=== PATIENT | male | born 1940 | race Caucasian/White ===

== ENCOUNTER → 2017-11-21 | Outpatient (CLI) | payer MEDICARE, MEDICAID | LOC: M RAD 09:41 | DX: G37.9 Demyelinating disease of central nervous system, unspecified (principal); I62.9 Nontraumatic intracranial hemorrhage, unspecified | CPT/HCPCS: 70450 ==

== ENCOUNTER 2019-08-25 16:55 | Inpatient (IN) | payer MEDICAID, MEDICARE ==
[~2019-08-25] VITALS: Ht 167.6 cm; Wt 79.5 kg
[~2019-08-25 16:55] MED LIST: ASPI325T OR; ASPI81CH49 PO; CLON-412 OR; FOLI1TAB11 PO; FOLI5INJ2 SC; HEPA100SY INJ; HYDR12CA PO; KEPP250T5 PO; LACT10SO8 OR; LEVA750T OR; MULT1TAB8 PO; MULTIVIT PO; NAFC1INJ IV; OXAZ15CA2 OR; PRED10TA2 OR; PROT1TAB2 OR; SALI0.9I2 IV; THIA100TA PO; TYLE325T5 PO; VITA100T8 PO; VITMTA PO
[2019-08-25 17:20] LABS: BASO # 0.1 10^3/uL (0.0-0.2); BASO % 0.5 % (0.0-1.0); EOS # 0.3 10^3/uL (0.0-0.5); EOS % 3.5 % (0.0-3.0); HEMATOCRIT 37.1 % (42.0-52.0); HEMOGLOBIN 13.2 g/dl (13.5-17.5); LYMPH # 2.4 10^3/uL (1.5-5.0); LYMPH % 25.2 % (24.0-44.0); MEAN CORPUSCULAR HEMOGLOBIN 36.4 pg (27.0-33.0); MEAN CORPUSCULAR HGB CONC 35.6 g/dl (32.0-36.5); MEAN CORPUSCULAR VOLUME 102.2 fl (80.0-96.0); MONO # 0.9 10^3/uL (0.0-0.8); MONO % 9.4 % (0.0-5.0); NEUTROPHILS # 5.7 10^3/uL (1.5-8.5); NEUTROPHILS % 60.9 % (36.0-66.0); PLATELET COUNT, AUTOMATED 159 10^3/uL (150-450); RED BLOOD COUNT 3.63 10^6/uL (4.30-6.10); WHITE BLOOD COUNT 9.4 10^3/uL (4.0-10.0)
[2019-08-25 17:33] LABS: INR 1.16; PROTHROMBIN TIME 14.5 SECONDS (11.8-14.0)
--- NOTE | 2019-08-25 17:42 | REP ---
Portable chest, single AP view with the patient sitting, 05:22 p.m.: Comparison is 10/05/2015. There is a sliver of free air beneath the right hemidiaphragm versus artifact from atelectasis inferiorly in the right lung adjacent to the dome of the right hemidiaphragm. I am unable to make this differentiation on the single portable view provided. Consider follow-up PA and lateral views or CT for further evaluation of this finding. The lung guzmán otherwise clear. Cardiac size is upper normal for AP portable positioning. The shawn and mediastinum are unremarkable. There are arthritic changes in the shoulders. Impression: Free subdiaphragmatic air on the right versus artifact from atelectasis adjacent to the dome of the right hemidiaphragm. Consider follow-up routine PA and lateral views or CT to assist in this differentiation. Electronically Signed by Delfino Issa MD 08/25/2019 05:33 P
[2019-08-25] MEDS: NS 1,000 ML IV SCH ×2 (17:53→22:45)
--- NOTE | 2019-08-25 17:54 | REPVR ---
PROCEDURE INFORMATION: Exam: CT Head without contrast Exam date and time: 08/25/2019 5:21 PM Clinical history: 78 years old, male; Injury or trauma; Fall; Initial encounter; Blunt trauma (contusions or hematomas); Consciousness not specified; Altered mental status/memory loss; Confusion or disorientation TECHNIQUE: Imaging protocol: Computed tomography of the head without contrast. Radiation optimization: All CT scans at this facility use at least one of these dose optimization techniques: automated exposure control; mA and/or kV adjustment per patient size (includes targeted exams where dose is matched to clinical indication); or iterative reconstruction. COMPARISON: CT Head without contrast 11/21/2017 10:01 AM FINDINGS: Brain: Global cerebral atrophy is consistent with patient's age. Decreased attenuation within the white matter tracts of both cerebral hemispheres is nonspecific but typically seen with small vessel disease/chronic white matter ischemic changes of aging. No intracranial hemorrhage or mass effect. Ventricles: Ventriculomegaly consistent with global cerebral atrophy. Bones/joints: Unremarkable. No acute fracture. Sinuses: Visualized sinuses are unremarkable. No fluid levels. Mastoid air cells: Visualized mastoid air cells are well aerated. Soft tissues: Right sided posterior lateral scalp hematoma. Vasculature: Atherosclerosis of the cavernous carotid and vertebral arteries. IMPRESSION: No acute intracranial abnormality. Electronically signed by: Irwin Messina On 08/25/2019 17:54:03 PM
--- NOTE | 2019-08-25 17:57 | REPVR ---
PROCEDURE INFORMATION: Exam: CT Cervical Spine Without Contrast Exam date and time: 08/25/2019 5:21 PM Clinical history: 78 years old, male; Injury or trauma; Fall; Initial encounter; Blunt trauma TECHNIQUE: Imaging protocol: Computed tomography images of the cervical spine without contrast. Radiation optimization: All CT scans at this facility use at least one of these dose optimization techniques: automated exposure control; mA and/or kV adjustment per patient size (includes targeted exams where dose is matched to clinical indication); or iterative reconstruction. COMPARISON: CT Spine,cervical w/o contrast 11/04/2017 9:37 AM FINDINGS: Vertebrae: Congenital incomplete fusion of the posterior arch of C1. No fracture or subluxation. Discs/Spinal canal/Neural foramina: Severe degenerative disc disease and facet arthrosis throughout the cervical spine. Mild bony spinal stenosis at C6-C7. Soft tissues: Unremarkable. Mastoid air cells: Trace inferior mastoid effusions on the right. Clear left mastoids. Lungs: Lung apices are not imaged. Vasculature: Calcified plaque within the proximal right and left internal carotid arteries. IMPRESSION: 1. No fracture or subluxation. 2. 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 Electronically signed by: Irwin Messina On 08/25/2019 17:57:12 PM
[2019-08-25 18:03] LABS: ACETAMINOPHEN LEVEL < 2.0 UG/ML (10.0-30.0); ALBUMIN 4.3 GM/DL (3.2-5.2); ALT/SGPT 24 U/L (12-78); BILIRUBIN,DIRECT 0.4 MG/DL (0.0-0.2); BILIRUBIN,TOTAL 1.6 MG/DL (0.2-1.0); BLOOD UREA NITROGEN 15 MG/DL (7-18); CALCIUM LEVEL 9.1 MG/DL (8.8-10.2); CARBON DIOXIDE LEVEL 23 MEQ/L (21-32); CHLORIDE LEVEL 102 MEQ/L (98-107); CK-MB VALUE MASS 3.5 NG/ML (<3.6); CPK CREATINE PHOSPHOKINASE 105 U/L (39-308); CREATININE FOR GFR 1.13 MG/DL (0.70-1.30); ETHYL ALCOHOL (ETHANOL) < 0.003 % (0.000-0.010); GLOMERULAR FILTRATION RATE > 60.0 (>35); GLUCOSE, FASTING 157 MG/DL (70-100); MB/CK RELATIVE INDEX 3.33 (< OR =4); POTASSIUM SERUM 2.9 MEQ/L (3.5-5.1); SALICYLATE LEVEL < 1.7 MG/DL (5.0-30.0); SODIUM LEVEL 139 MEQ/L (136-145); TROPONIN I < 0.02 NG/ML (< 0.10)
[2019-08-25] MEDS ORDERED: KCL 10MEQ/100ML SWI (KRUN) 10 MEQ in IV 1 EA IV ONE (19:00)
[2019-08-25] MEDS ORDERED: POTASSIUM CHLORIDE 10 MEQ SR TABLET PO ONE (19:00)
--- NOTE | 2019-08-25 19:11 | REPVR ---
PROCEDURE INFORMATION: Exam: CT Chest Without Contrast Exam date and time: 08/25/2019 6:14 PM Clinical history: 78 years old, male; Abnormal findings; Other: Free air TECHNIQUE: Imaging protocol: Computed tomography of the chest without contrast. 3D rendering: MIP reconstructed images were created and reviewed. Radiation optimization: All CT scans at this facility use at least one of these dose optimization techniques: automated exposure control; mA and/or kV adjustment per patient size (includes targeted exams where dose is matched to clinical indication); or iterative reconstruction. COMPARISON: CR PORTABLE CHEST X-RAY 08/25/2019 5:08 PM FINDINGS: Lungs: Mild peribronchial opacities in both the lingula and right middle lobe. Finding may be chronic. Mild bronchiectasis lingula lobe. Parenchymal banding in the right middle lobe may represent atelectasis or fibrotic scarring. Pleural space: Unremarkable. No pneumothorax. No pleural effusion. Heart: There is moderate atherosclerotic calcification of the coronary arteries. Aorta: The aorta demonstrates mild atherosclerotic calcification. There is fusiform dilatation of the ascending thoracic aorta which measures 4.1 cm. maximally. There is no saccular component. Aortic root dilated to 4.2 cm at the mid sinuses of Valsalva level calcifications in the aortic valve. Lymph nodes: Unremarkable. No enlarged lymph nodes. Gallbladder and bile ducts: Cholelithiasis. Bones/joints: The spine demonstrates mild degenerative changes. Soft tissues: Unremarkable. IMPRESSION: 1. Mild bronchiectasis lingula lobe. 2. There is fusiform dilatation of the ascending thoracic aorta which measures 4.1 cm. maximally. There is no saccular component. 3. No acute pulmonary parenchymal findings. Electronically signed by: Eliot Almonte On 08/25/2019 19:10:39 PM
[2019-08-25 19:14] LABS: AMPHETAMINES LEVEL URINE NEGATIVE (NEGATIVE); BARBITURATES URINE NEGATIVE (NEGATIVE); BENZODIAZEPINES URINE NEGATIVE (NEGATIVE); CANNABINOIDS URINE NEGATIVE (NEGATIVE); COCAINE METABOLITE URINE NEGATIVE (NEGATIVE); METHADONE URINE NEGATIVE (NEGATIVE); OPIATES URINE NEGATIVE (NEGATIVE); PHENCYCLIDINE URINE NEGATIVE (NEGATIVE)
--- NOTE | 2019-08-25 19:15 | ECGEPIP ---
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
[2019-08-25] MEDS ORDERED: ACETAMINOPHEN TAB 650MG DOSE (2X325MG) PO PRN (19:45)
--- NOTE | 2019-08-25 19:45 | HPEPDOC ---
[facility] Medical History & Physical Date of Admission Aug 25, 2019 Date of Service: Aug 25, 2019 Primary Care Physician: JEANMARIE HOPKINS MD Attending Physician: NOAH FABIAN MD History and Physical TIME OF SERVICE: 8:30 PM CHIEF COMPLAINT: Seizure HISTORY OF PRESENT ILLNESS: This is an 78-year-old male who presented to the ED after having a seizure. While walking to his car, he started feeling funny. He had a witnessed fall backwards and was noted to be shaking. When he arrived at the ED, he was initially combative, and not answering questions appropriately. Later on he became more lucid corroborated the above information, but denied being combative on arrival. He told the ED provider that his last drink was 2 years ago. But when I asked him, he reported having a beer last night. He denies recently having fever, chills, abdominal pain, nausea, vomiting, headaches, or any acute complaints. He had a laceration at the back of his head was approximated with maddie. Per discussion with the ED provider; The workup including CT of the head, UDS, serum alcohol, & troponin were unremarkable. REVIEW OF SYSTEMS: 12 point review of systems negative except as listed in HPI PAST MEDICAL/ SURGICAL HISTORY: Chronic hypertension. Right shoulder infection status post washout Status post traumatic posterior temporal hemorrhage secondary to fall was managed conservatively SOCIAL HISTORY: Quit smoking Has a history of alcoholism, has attended detox 2 times last had a beer last night FAMILY HISTORY: CVA CAD Seizures ALLERGIES: Please see below. HOME MEDICATIONS: Please see below. PHYSICAL EXAMINATION: VITAL SIGNS: Please see below. GENERAL APPEARANCE: Well-nourished, well-developed, not in apparent distress HEENT: Normocephalic, mucous membranes moist and pink CARDIOVASCULAR: Regular rate and rhythm. No murmurs, rubs or gallops LUNGS: Clear to auscultation bilaterally on room air ABDOMEN: Positive bowel sounds, soft and nontender. Palpation MUSCULOSKELETAL: Range of motion intact in all 4 extremities. Strength 5 out of 5 in all extremities INTEGUMENT: laceration at the back of the head is approximated with maddie NEUROLOGICAL: Cranial 2-12 are grossly intact. Speech is not dysarthric PSYCHIATRIC: Alert and oriented to person, place and time, able to understand and follow commands LABORATORY DATA: See below. IMAGING: CT of head is unremarkable CT of the cervical spine is negative for acute fracture but shows severe degenerative spondylosis of the cervical spine Chest x-ray "Impression: Free subdiaphragmatic air on the right versus artifact from atelectasis adjacent to the dome of the right hemidiaphragm. Consider follow-up routine PA and la teral views or CT to assist in this differentiation. CT chest "IMPRESSION: 1. Mild bronchiectasis lingula lobe. 2. There is fusiform dilatation of the ascending thoracic aorta which measures 4.1 cm. maximally. There is no saccular component. 3. No acute pulmonary parenchymal findings." Carotid ultrasound "IMPRESSION: Moderate bilateral atherosclerotic plaque in the proximal internal carotid arteries was stenoses less than 50% consistent with a mild stenosis using SRU criteria. Moderate atherosclerotic plaque in the common carotid arteries. No significant stenosis." MRA brain "IMPRESSION: Absence of flow-related enhancement within the right intracranial vertebral artery, concerning for occlusion. Recommend correlation with dedicated MRI brain to assess for acute infarct. Additionally, consider further evaluation with CTA head/neck to confirm potential occlusion." MICROBIOLOGY: Please see below. ASSESSMENT: Mr. Alberts is an 78-year-old male with a past medical history of chronic hypertension, and chronic alcoholism who will be admitted for evaluation after having a syncopal episode. PLAN: 1. Syncopal seizure VS Alcohol withdrawal seizure vs CVA CT of the head, entrapped screen and ethanol were unremarkable. MRI of the brain was unremarkable but MRA of the brain showed reduced flow at the right vertebral artery Plan: Admit to PCU/ orthostats / telemetry /fall precautions/seizure precautions/ follow-up prolactin to determine if it was a true seizure /give baby now ASA & f/u lipid panel,A1c, MRI brain, CTA of the head and neck to complete stroke work up / the daytime team can decide if EEG & neurology consult are warranted 2. Altered mental status - resolved May have been post ictal vs metabolic Ammonia is elevated Plan: Follow up coags/frequent neuro checks / lactulose 3. Alcohol abuse Plan: telemetry / seizure precautions / fall precautions / Ativan Q2H PRN per SAS or CIWA protocol / Thiamine 100mg daily, Folic acid 1mg daily, MVI / IVF / Zofran PRN for n/v 4. Hypokalemia Plan: replete K & f/u mag 5. Uncontrolled HTN Plan: Resume home meds 6. Macrocytic Anemia Possibly due to alcohol abuse Plan: f/u CBC /resume vitamins 7.First Degree AV Block Plan; no intervention 8.Thoracic aneurysm Plan; f/u w PCP for surveillance DVT prophylaxis with SCDs. Disposition pending clinical course Vital Signs Vital Signs Date Time Temp Pulse Resp B/P (MAP) Pulse Ox O2 Delivery O2 Flow Rate FiO2 08/25/19 18:40 97 96 Room Air 08/25/19 18:35 157/78 (104) 08/25/19 17:03 98.4 18 Laboratory Data Labs 24H Laboratory Tests 2 08/25/19 17:03: Urine Amphetamines Screen NEGATIVE, Urine Benzodiazepines Screen NEGATIVE, Urine Opiates Screen NEGATIVE, Urine Methadone Screen NEGATIVE, Urine Barbiturates Screen NEGATIVE, Urine Phencyclidine Screen NEGATIVE, Urine Cocaine Metabolite Screen NEGATIVE, Urine Cannabinoids Screen NEGATIVE 08/25/19 17:06: Immature Granulocyte % (Auto) 0.5, White Blood Count 9.4, Red Blood Count 3.63L, Hemoglobin 13.2L, Hematocrit 37.1L, Mean Corpuscular Volume 102.2H, Mean Corpuscular Hemoglobin 36.4H, Mean Corpuscular Hemoglobin Concent 35.6, Red Cell Distribution Width 13.5, Platelet Count 159, Neutrophils (%) (Auto) 60.9, Lymphocytes (%) (Auto) 25.2, Monocytes (%) (Auto) 9.4H, Eosinophils (%) (Auto) 3.5H, Basophils (%) (Auto) 0.5, Neutrophils # (Auto) 5.7, Lymphocytes # (Auto) 2.4, Monocytes # (Auto) 0.9H, Eosinophils # (Auto) 0.3, Basophils # (Auto) 0.1, Nucleated Red Blood Cells % (auto) 0.0, Prothrombin Time 14.5H, Prothromb Time International Ratio 1.16, Anion Gap 14, Glomerular Filtration Rate > 60.0, Calcium Level 9.1, Aspartate Amino Transf (AST/SGOT) 23, Alanine A minotransferase (ALT/SGPT) 24, Alkaline Phosphatase 83, Total Bilirubin 1.6H, Direct Bilirubin 0.4H, Ammonia 39H, Total Creatine Kinase 105, Creatine Kinase MB 3.5, Creatine Kinase MB Relative Index 3.33, Troponin I < 0.02, Total Protein 7.0, Albumin 4.3, Albumin/Globulin Ratio 1.59, Thyroid Stimulating Hormone (TSH) 1.240, Salicylates Level < 1.7L, Acetaminophen Level < 2.0L, Ethyl Alcohol Level < 0.003 CBC/BMP Laboratory Tests 08/25/19 17:06 Red Blood Count 3.63 L, Mean Corpuscular Volume 102.2 H, Mean Corpuscular Hemoglobin 36.4 H, Mean Corpuscular Hemoglobin Concent 35.6, Red Cell Distribution Width 13.5, Neutrophils (%) (Auto) 60.9, Lymphocytes (%) (Auto) 25.2, Monocytes (%) (Auto) 9.4 H, Eosinophils (%) (Auto) 3.5 H, Basophils (%) (Auto) 0.5, Neutrophils # (Auto) 5.7, Lymphocytes # (Auto) 2.4, Monocytes # (Auto) 0.9 H, Eosinophils # (Auto) 0.3, Basophils # (Auto) 0.1 Home Medications Scheduled Folic Acid (Folic Acid) 1 Mg Tablet, 1 MG PO DAILY Hydrochlorothiazide (Hydrochlorothiazide) 12.5 Mg Tablet, 12.5 MG PO DAILY Multivitamin (Multi-Vitamin Daily) 1 Tab Tab, 1 TAB PO DAILY Thiamine HCl (Thiamine HCl) 100 Mg Tablet, 100 MG PO DAILY Scheduled PRN Acetaminophen (Acetaminophen) 325 Mg Tablet, 325 MG PO Q4H PRN for PAIN / FEVER Allergies Coded Allergies: Sulfa (Sulfonamide Antibiotics) (Verified Allergy, Unknown, 08/25/19) A-FIB/CHADSVASC A-FIB History Current/History of A-Fib/PAF?: No Current PO Anticoag Therapy: No NOAH FABIAN MD Aug 25, 2019 19:45
[2019-08-25] MEDS ORDERED: HYDR12.55 PO (20:29)
[2019-08-25] MEDS ORDERED: THIA100T7 PO (20:29)
[2019-08-25] MEDS ORDERED: ACET1TAB55 PO (20:29)
[2019-08-25] MEDS ORDERED: FOLI1TAB11 PO (20:29)
--- NOTE | 2019-08-25 20:57 | REPVR ---
PROCEDURE INFORMATION: Exam: US Duplex Bilateral Extracranial Arteries Exam date and time: 08/25/2019 8:35 PM Clinical history: 78 years old, male; Syncope and collapse TECHNIQUE: Imaging protocol: Real-time Duplex ultrasound scan of the bilateral carotid and vertebral arteries combining gee scale, color Doppler and spectral waveform analysis. Bilateral exam. COMPARISON: CT Head without contrast 08/25/2019 5:17 PM FINDINGS: Right common carotid artery: Moderate mixed atherosclerotic plaque. No occlusion or high-grade stenosis. Waveforms are normal. Right internal carotid artery: Mild mixed atherosclerotic plaque. No occlusion or high-grade stenosis. Waveforms are normal. Right ICA/CCA ratio: Within normal limits. 1.09 Right external carotid artery: No stenosis in the origin. Right vertebral artery: Unremarkable. Antegrade flow Left common carotid artery: Moderate mixed atherosclerotic plaque. No occlusion or high-grade stenosis. Waveforms are normal. Left internal carotid artery: Moderate mixed atherosclerotic plaque. No occlusion or high-grade stenosis. Waveforms are normal. Left ICA/CCA ratio: Within normal limits. 0.49 Left external carotid artery: No stenosis in the origin. Left vertebral artery: Unremarkable. Antegrade flow. IMPRESSION: Moderate bilateral atherosclerotic plaque in the proximal internal carotid arteries was stenoses less than 50% consistent with a mild stenosis using SRU criteria. Moderate atherosclerotic plaque in the common carotid arteries. No significant stenosis. COMMENT: Carotid Stenosis Reference using SRU criteria: Mild: less than 50% stenosis. ICA PSV is less than 125 cm/second and plaque or intimal thickening is visible. Moderate: 50-69% stenosis. ICA PSV is 125 to 230 cm/second and plaque is visible. Severe: 70-94% stenosis. ICA PSV is more than 230 cm/second and visible plaque and lumen narrowing are seen. Near occlusion: 95-99% stenosis. ICA PSV is variable and significant plaque and luminal narrowing are seen. Occluded: 100% stenosis. No flow identified. Electronically signed by: Eliot Almonte On 08/25/2019 20:56:34 PM
--- NOTE | 2019-08-25 21:42 | REPVR ---
PROCEDURE INFORMATION: Exam: MR Angiogram Head Without Contrast, Arteries Exam date and time: 08/25/2019 8:41 PM Clinical history: 78 years old, male; Injury or trauma; Fall; Initial encounter; Wound, open; Without residual foreign body; Head; Injury date: 08/24/19; Additional info: Syncope TECHNIQUE: Imaging protocol: MR angiogram head without contrast. Exam focused on the arteries. 3D rendering: MIP reconstructed images were created and reviewed. COMPARISON: MRI-Brain W/O FOLL BY WITH 11/06/2017 10:24 AM FINDINGS: Right internal carotid artery: Unremarkable. Intracranial segment is patent with no significant stenosis. No aneurysm. Right anterior cerebral artery: Unremarkable. No occlusion or significant stenosis. No aneurysm. Right middle cerebral artery: Unremarkable. No occlusion or significant stenosis. No aneurysm. Right posterior cerebral artery: Unremarkable. No occlusion or significant stenosis. No aneurysm. Right vertebral artery: Absence of flow-related enhancement within the right intracranial vertebral artery. Left internal carotid artery: Unremarkable. Intracranial segment is patent with no significant stenosis. No aneurysm. Left anterior cerebral artery: Unremarkable. No occlusion or significant stenosis. No aneurysm. Left middle cerebral artery: Unremarkable. No occlusion or significant stenosis. No aneurysm. Left posterior cerebral artery: Unremarkable. No occlusion or significant stenosis. No aneurysm. Left vertebral artery: Unremarkable. No occlusion or significant stenosis. No aneurysm. Basilar artery: Unremarkable. No occlusion or significant stenosis. No aneurysm. IMPRESSION: Absence of flow-related enhancement within the right intracranial vertebral artery, concerning for occlusion. Recommend correlation with dedicated MRI brain to assess for acute infarct. Additionally, consider further evaluation with CTA head/neck to confirm potential occlusion. Electronically signed by: Kameron Madrid On 08/25/2019 21:42:02 PM
[2019-08-25 22:00] VITALS: BP_SYST 162; BP_SYST 172; BP_SYST 176; BP_DIAS 73; BP_DIAS 74; BP_DIAS 76
[2019-08-25] MEDS ORDERED: ISOVUE-370 76% 100ML VIAL (Q9967) As Ordered ONE (22:27)
--- NOTE | 2019-08-25 22:49 | REPVR ---
PROCEDURE INFORMATION: Exam: MR Head Without Contrast Exam date and time: 08/25/2019 10:40 PM Clinical history: 78 years old, male; Injury or trauma; Initial encounter; Wound, open; With loss of consciousness; Loss of consciousness for 30 minutes or less; Head, generalized and scalp; Without residual foreign body; Injury date: 08/24/19; Patient HX: Syncope and fall; Additional info: Dizziness TECHNIQUE: Imaging protocol: MR of the head without contrast. COMPARISON: MRA BRAIN W/O CONTRAST 08/25/2019 8:49 PM FINDINGS: Brain: Nonspecific T2/FLAIR hyperintensities of the periventricular and deep subcortical white matter, most likely secondary to chronic small vessel ischemic change. No intracranial hemorrhage or extra-axial fluid collection. No evidence of mass effect or midline shift. No restricted diffusion to suggest acute infarct. Ventricles: Prominence of the ventricles and sulci, likely attributed to parenchymal volume loss. Bones/joints: Unremarkable. Soft tissues: Right parietal scalp hematoma. Sinuses: Unremarkable. Mastoid air cells: No mastoid effusion. Orbits: Unremarkable. IMPRESSION: 1. No MR evidence of acute infarct. 2. Right parietal scalp hematoma. 3. Other chronic findings, as above. Electronically signed by: Kameron Madrid On 08/25/2019 22:49:00 PM
--- NOTE | 2019-08-25 23:14 | REPVR ---
PROCEDURE INFORMATION: Exam: CT Angiography Neck With Contrast Exam date and time: 08/25/2019 10:59 PM Clinical history: 78 years old, male; Dizziness and giddiness TECHNIQUE: Imaging protocol: Computed tomography angiography of the neck with intravenous contrast. 3D rendering: MIP reconstructed images were created and reviewed. Radiation optimization: All CT scans at this facility use at least one of these dose optimization techniques: automated exposure control; mA and/or kV adjustment per patient size (includes targeted exams where dose is matched to clinical indication); or iterative reconstruction. Contrast material: ISOVUE 370; Contrast volume: 100 ml; Contrast route: IV; COMPARISON: CT Spine,cervical w/o contrast 08/25/2019 5:19 PM FINDINGS: VASCULATURE: Right common carotid artery: No significant stenosis. No dissection or occlusion. Right internal carotid artery: Atherosclerotic plaques within the proximal extracranial right internal carotid artery cause approximately 40 % stenosis by NASCET criteria. Remaining portions of the extracranial right ICA are patent. Right external carotid artery: No occlusion or significant stenosis. Right vertebral artery: No significant stenosis. No dissection or occlusion. Left common carotid artery: No significant stenosis. No dissection or occlusion. Left internal carotid artery: Atherosclerotic plaques involving the proximal extracranial left internal carotid artery without evidence of hemodynamically significant stenosis (0% stenosis by NASCET criteria). Left external carotid artery: No occlusion or significant stenosis. Left vertebral artery: No significant stenosis. No dissection or occlusion. NECK: Bones/joints: No acute fracture. Soft tissues: Unremarkable. IMPRESSION: 1. No occlusion or severe stenosis in the arteries of the neck. 2. Other chronic findings, as above. COMMENT: Reference per NASCET criteria for degree of stenosis: Mild: less than 50% stenosis. Moderate: 50-69% stenosis. Severe: 70-94% stenosis. Near occlusion: 95-99% stenosis. Electronically signed by: Kameron Madird On 08/25/2019 23:13:33 PM
[2019-08-25] MEDS ORDERED: ONDANSETRON 4MG/2ML VIAL (J2405) IV PRN (23:15)
[2019-08-25] MEDS ORDERED: ASPIRIN 81 MG CHEW TABLET PO ONE (23:15)
[2019-08-25] MEDS ORDERED: LORazepam 2 MG TAB PO PRN (23:15)
--- NOTE | 2019-08-25 23:15 | REPVR ---
PROCEDURE INFORMATION: Exam: CT Angiography Head With Contrast Exam date and time: 08/25/2019 10:59 PM Clinical history: 78 years old, male; Dizziness and giddiness TECHNIQUE: Imaging protocol: Computed tomography angiography of the head with intravenous contrast. 3D rendering: MIP reconstructed images were created and reviewed. Radiation optimization: All CT scans at this facility use at least one of these dose optimization techniques: automated exposure control; mA and/or kV adjustment per patient size (includes targeted exams where dose is matched to clinical indication); or iterative reconstruction. Contrast material: ISOVUE 370; Contrast volume: 100 ml; Contrast route: IV; COMPARISON: CT Head without contrast 08/25/2019 5:17 PM FINDINGS: Right internal carotid artery: Calcific atherosclerotic changes of the intracranial right internal carotid artery without evidence of hemodynamically significant stenosis. Right anterior cerebral artery: No occlusion or significant stenosis. No aneurysm. Right middle cerebral artery: No occlusion or significant stenosis. No aneurysm. Right posterior cerebral artery: No occlusion or significant stenosis. No aneurysm. Right vertebral artery: Small caliber though otherwise patent intracranial right vertebral artery. Left internal carotid artery: Calcific atherosclerotic changes of the intracranial left internal carotid artery without evidence of hemodynamically significant stenosis. Left anterior cerebral artery: No occlusion or significant stenosis. No aneurysm. Left middle cerebral artery: No occlusion or significant stenosis. No aneurysm. Left posterior cerebral artery: No occlusion or significant stenosis. No aneurysm. Left vertebral artery: No occlusion or significant stenosis. No aneurysm. Basilar artery: No occlusion or significant stenosis. No aneurysm. IMPRESSION: No intracranial arterial occlusion or hemodynamically significant stenosis. Small caliber though otherwise patent intracranial right vertebral artery. Electronically signed by: Kameron Madrid On 08/25/2019 23:15:18 PM
[2019-08-25 23:20] VITALS: BP 176/76
[2019-08-25] MEDS: LACTULOSE 20 GM/30 ML SYRUP UD PO SCH (23:24)
[2019-08-26] VITALS: BP_SYST 141; BP_SYST 142; BP_SYST 163; BP_DIAS 64; BP_DIAS 65; BP_DIAS 76
[2019-08-26 04:00] VITALS: BP_SYST 134; BP_SYST 138; BP_SYST 157; BP_DIAS 63; BP_DIAS 64; BP_DIAS 70
[2019-08-26 05:17] LABS: CHOLESTEROL LEVEL 129 MG/DL (<200); CHOLESTEROL RISK RATIO 2.186 (<5); HDL CHOLESTEROL 59 MG/DL (>40); LDL CHOLESTEROL 58 MG/DL (<100); MAGNESIUM LEVEL 1.9 MG/DL (1.8-2.4); NON-HDL-C 70 MG/DL; TRIGLYCERIDES LEVEL 62 MG/DL (<150)
[2019-08-26 06:00] LABS: POTASSIUM SERUM 3.7 MEQ/L (3.5-5.1)
[2019-08-26 07:42] VITALS: BP 147/65
[2019-08-26 07:44] VITALS: BP 123/60
[2019-08-26 08:00] VITALS: BP 147/67
[2019-08-26 08:08] LABS: HEMATOCRIT 30.9 % (42.0-52.0); HEMOGLOBIN 11.4 g/dl (13.5-17.5); MEAN CORPUSCULAR HEMOGLOBIN 37.1 pg (27.0-33.0); MEAN CORPUSCULAR VOLUME 100.7 fl (80.0-96.0); PLATELET COUNT, AUTOMATED 138 10^3/uL (150-450); RED BLOOD COUNT 3.07 10^6/uL (4.30-6.10); WHITE BLOOD COUNT 7.2 10^3/uL (4.0-10.0)
[2019-08-26 08:10] LABS: MEAN CORPUSCULAR HGB CONC 36.9 g/dl (32.0-36.5)
[2019-08-26] MEDS: LACTULOSE 20 GM/30 ML SYRUP UD PO SCH (08:43)
[2019-08-26] MEDS ORDERED: THIAMINE 100 MG TAB PO SCH (09:00)
[2019-08-26] MEDS ORDERED: hydroCHLOROthiazide 12.5 MG CAPSULE PO SCH (09:00)
[2019-08-26] MEDS ORDERED: MULTIVITAMINS/MINERALS THERAP 1 TAB PO SCH (09:00)
[2019-08-26] MEDS ORDERED: FOLIC ACID 1 MG TAB PO SCH (09:00)
[2019-08-26 10:28] LABS: ALBUMIN 3.5 GM/DL (3.2-5.2); ALT/SGPT 23 U/L (12-78); BILIRUBIN,TOTAL 1.5 MG/DL (0.2-1.0); BLOOD UREA NITROGEN 11 MG/DL (7-18); CALCIUM LEVEL 8.7 MG/DL (8.8-10.2); CARBON DIOXIDE LEVEL 27 MEQ/L (21-32); CHLORIDE LEVEL 109 MEQ/L (98-107); FOLATE 13.4 NG/ML; GLOMERULAR FILTRATION RATE > 60.0 (>35); GLUCOSE, FASTING 89 MG/DL (70-100); TOTAL PROTEIN 6.1 GM/DL (6.4-8.2); VITAMIN B12 LEVEL 671 PG/ML
[2019-08-26 10:34] LABS: SODIUM LEVEL 143 MEQ/L (136-145)
[2019-08-26 12:00] VITALS: BP 150/72
--- NOTE | 2019-08-26 13:23 | DS.PDOC ---
Discharge Summary General Date of Admission Aug 25, 2019 at 19:34 Date of Discharge 08/26/19 Primary Care Physician: JEANMARIE HOPKINS MD Attending Physician: TJ CHAVEZ MD Discharge Summary PROCEDURES PERFORMED DURING STAY: None. ADMITTING DIAGNOSES: 1. Syncope of unknown etiology DISCHARGE DIAGNOSES: 1. Patient left hospital AGAINST MEDICAL ADVICE COMPLICATIONS/CHIEF COMPLAINT: Encephalopathy,Syncopal Seizure. HISTORY OF PRESENT ILLNESS: Patient is an 78-year-old male who presented to the emergency department with a suspected syncopal event. Patient stated that he was getting pizza at a pizza shop when he started feeling "sick". He stated that he was leaving the pizza shop and walking downstairs at which point he had fallen backwards. Patient states that he does not remember what happened and only remembers waking up in the emergency department. He states that he did not feel any feelings of palpitations or shortness of breath. He denied any dizziness before his fall. When the patient arrived in the emergency department, he was combative and not answering questions appropriately. Patient had become more lucid later on in the night. Patient had given. Answers on his alcohol use. He had stated previously in the emergency room that he had not drank alcohol in the past 2 years. He had told the admitting physician that he had drank the night pr eviously. He had subsequently told the daytime hospitalist team that he drinks maybe 4 or 5 beers a day. The patient's workup included a CT of the head, urine drug screen, alcohol, and troponin which were all negative for any acute findings. He did have a right-sided scalp hematoma which was demonstrated on CT and brain MRI. Additionally, the patient was found to have a fusiform dilation of the ascending aorta measuring 4.1 cm. Additionally CTA of the head demonstrated absence of flow related enhancement in the right intracranial vertebral artery, concerning for possible inclusion. Patient was admitted to hospitalist service for further evaluation and management. After admission, the patient had stated that he would like to leave the hospital and did not receive further evaluation. Patient was informed that if he were to leave it would be AGAINST MEDICAL ADVICE as the cause of his syncopal episode had not been determined. Patient was informed of all of his findings and informed that a diagnosis to the cause of his fall had not yet been determined. He was informed that because of causes not be determined that he were to leave the hospital. He would place himself at risk for experiencing her another syncopal episode and which may or may not lead to . Patient voiced that he understands the risks. However, he would like to go home and not stay for further treatment. The patient signed a form stating he will be leaving AGAINST MEDICAL ADVICE. DISCHARGE MEDICATIONS: Please see below. ALLERGIES: Please see below. PHYSICAL EXAMINATION ON DISCHARGE: VITAL SIGNS: Please see below. GENERAL: Awake, alert and oriented, lying in bed, appears in no acute distress HEENT: Patient has a laceration on the back of his head with maddie in place. Trachea is midline. Eyes are nonicteric. Dentition is poor NECK:. No problems cervical, supraclavicular or axillary lymphadenopathy CARDIOVASCULAR EXAMINATION:. Normal S1, S2, regular rate and rhythm. No clicks, rubs or murmurs RESPIRATORY EXAMINATION:. Clear breath sounds bilaterally with good respiratory effort. No wheezes, rhonchi or rales ABDOMINAL EXAMINATION: Obese, nondistended, nontender to palpation in all 4 quadrants. No rebound tenderness or guarding. Positive bowel sounds throughout EXTREMITIES: No edema. Full and equal pulses bilateral upper and lower extremities SKIN: No rashes or lesions NEUROLOGICAL EXAMINATION: No focal neurological deficits. Cranial nerves II through XII grossly intact PSYCHIATRIC EXAMINATION:. Patient is agitated LABORATORY DATA: Please see below. IMAGING: PROCEDURE INFORMATION: Exam: MR Head Without Contrast Exam date and time: 08/25/2019 10:40 PM Clinical history: 78 years old, male; Injury or trauma; Initial encounter; Wound, open; With loss of consciousness; Loss of consciousness for 30 minutes or less; Head, generalized and scalp; Without residual foreign body; Injury date: 08/24/19; Patient HX: Syncope and fall; Additional info: Dizziness TECHNIQUE: Imaging protocol: MR of the head without contrast. COMPARISON: MRA BRAIN W/O CONTRAST 08/25/2019 8:49 PM FINDINGS: Brain: Nonspecific T2/FLAIR hyperintensities of the periventricular and deep subcortical white matter, most likely secondary to chronic small vessel ischemic change. No intracranial hemorrhage or extra-axial fluid collection. No evidence of mass effect or midline shift. No restricted diffusion to suggest acute infarct. Ventricles: Prominence of the ventricles and sulci, likely attributed to parenchymal volume loss. Bones/joints: Unremarkable. Soft tissues: Right parietal scalp hematoma. Sinuses: Unremarkable. Mastoid air cells: No mastoid effusion. Orbits: Unremarkable. IMPRESSION: 1. No MR evidence of acute infarct. 2. Right parietal scalp hematoma. 3. Other chronic findings, as above. Electronically signed by: Kameron Montoya On 08/25/2019 22:49:00 PM DD: KAMERON MONTOYA MD 08/25/19 2240 PROCEDURE INFORMATION: Exam: CT Head without contrast Exam date and time: 08/25/2019 5:21 PM Clinical history: 78 years old, male; Injury or trauma; Fall; Initial encounter; Blunt trauma (contusions or hematomas); Consciousness not specified; Altered mental status/memory loss; Confusion or disorientation TECHNIQUE: Imaging protocol: Computed tomography of the head without contrast. Radiation optimization: All CT scans at this facility use at least one of these dose optimization techniques: automated exposure control; mA and/or kV adjustment per patient size (includes targeted exams where dose is matched to clinical indication); or iterative reconstruction. COMPARISON: CT Head without contrast 11/21/2017 10:01 AM FINDINGS: Brain: Global cerebral atrophy is consistent with patient's age. Decreased attenuation within the white matter tracts of both cerebral hemispheres is nonspecific but typically seen with small vessel disease/chronic white matter ischemic changes of aging. No intracranial hemorrhage or mass effect. Ventricles: Ventriculomegaly consistent with global cerebral atrophy. Bones/joints: Unremarkable. No acute fracture. Sinuses: Visualized sinuses are unremarkable. No fluid levels. Mastoid air cells: Visualized mastoid air cells are well aerated. Soft tissues: Right sided posterior lateral scalp hematoma. Vasculature: Atherosclerosis of the cavernous carotid and vertebral arteries. IMPRESSION: No acute intracranial abnormality. Portable chest, single AP view with the patient sitting, 05:22 p.m.: Comparison is 10/05/2015. There is a sliver of free air beneath the right hemidiaphragm versus artifact from atelectasis inferiorly in the right lung adjacent to the dome of the right hemidiaphragm. I am unable to make this differentiation on the single portable view provided. Consider follow-up PA and lateral views or CT for further evaluation of this finding. The lung guzmán otherwise clear. Cardiac size is upper normal for AP portable positioning. The shawn and mediastinum are unremarkable. There are arthritic changes in the shoulders. Impression: Free subdiaphragmatic air on the right versus artifact from atelectasis adjacent to the dome of the right hemidiaphragm. Consider follow-up routine PA and lateral views or CT to assist in this differentiation. Electronically Signed by Delfino Issa MD 08/25/2019 05:33 P PROCEDURE INFORMATION: Exam: CT Cervical Spine Without Contrast Exam date and time: 08/25/2019 5:21 PM Clinical history: 78 years old, male; Injury or trauma; Fall; Initial encounter; Blunt trauma TECHNIQUE: Imaging protocol: Computed tomography images of the cervical spine without contrast. Radiation optimization: All CT scans at this facility use at least one of these dose optimization techniques: automated exposure control; mA and/or kV adjustment per patient size (includes targeted exams where dose is matched to clinical indication); or iterative reconstruction. COMPARISON: CT Spine,cervical w/o contrast 11/04/2017 9:37 AM FINDINGS: Vertebrae: Congenital incomplete fusion of the posterior arch of C1. No fracture or subluxation. Discs/Spinal canal/Neural foramina: Severe degenerative disc disease and facet arthrosis throughout the cervical spine. Mild bony spinal stenosis at C6-C7. Soft tissues: Unremarkable. Mastoid air cells: Trace inferior mastoid effusions on the right. Clear left mastoids. Lungs: Lung apices are not imaged. Vasculature: Calcified plaque within the proximal right and left internal carotid arteries. IMPRESSION: 1. No fracture or subluxation. 2. 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 Electronically signed by: Irwin Messina On 08/25/2019 17:57:12 PM PROCEDURE INFORMATION: Exam: CT Chest Without Contrast Exam date and time: 08/25/2019 6:14 PM Clinical history: 78 years old, male; Abnormal findings; Other: Free air TECHNIQUE: Imaging protocol: Computed tomography of the chest without contrast. 3D rendering: MIP reconstructed images were created and reviewed. Radiation optimization: All CT scans at this facility use at least one of these dose optimization techniques: automated exposure control; mA and/or kV adjustment per patient size (includes targeted exams where dose is matched to clinical indication); or iterative reconstruction. COMPARISON: CR PORTABLE CHEST X-RAY 08/25/2019 5:08 PM FINDINGS: Lungs: Mild peribronchial opacities in both the lingula and right middle lobe. Finding may be chronic. Mild bronchiectasis lingula lobe. Parenchymal banding in the right middle lobe may represent atelectasis or fibrotic scarring. Pleural space: Unremarkable. No pneumothorax. No pleural effusion. Heart: There is moderate atherosclerotic calcification of the coronary arteries. Aorta: The aorta demonstrates mild atherosclerotic calcification. There is fusiform dilatation of the ascending thoracic aorta which measures 4.1 cm. maximally. There is no saccular component. Aortic root dilated to 4.2 cm at the mid sinuses of Valsalva level calcifications in the aortic valve. Lymph nodes: Unremarkable. No enlarged lymph nodes. Gallbladder and bile ducts: Cholelithiasis. Bones/joints: The spine demonstrates mild degenerative changes. Soft tissues: Unremarkable. IMPRESSION: 1. Mild bronchiectasis lingula lobe. 2. There is fusiform dilatation of the ascending thoracic aorta which measures 4.1 cm. maximally. There is no saccular component. 3. No acute pulmonary parenchymal findings. Electronically signed by: Eliot Almonte On 08/25/2019 19:10:39 PM PROCEDURE INFORMATION: Exam: US Duplex Bilateral Extracranial Arteries Exam date and time: 08/25/2019 8:35 PM Clinical history: 78 years old, male; Syncope and collapse TECHNIQUE: Imaging protocol: Real-time Duplex ultrasound scan of the bilateral carotid and vertebral arteries combining gee scale, color Doppler and spectral waveform analysis. Bilateral exam. COMPARISON: CT Head without contrast 08/25/2019 5:17 PM FINDINGS: Right common carotid artery: Moderate mixed atherosclerotic plaque. No occlusion or high-grade stenosis. Waveforms are normal. Right internal carotid artery: Mild mixed atherosclerotic plaque. No occlusion or high-grade stenosis. Waveforms are normal. Right ICA/CCA ratio: Within normal limits. 1.09 Right external carotid artery: No stenosis in the origin. Right vertebral artery: Unremarkable. Antegrade flow Left common carotid artery: Moderate mixed atherosclerotic plaque. No occlusion or high-grade stenosis. Waveforms are normal. Left internal carotid artery: Moderate mixed atherosclerotic plaque. No occlusion or high-grade stenosis. Waveforms are normal. Left ICA/CCA ratio: Within normal limits. 0.49 Left external carotid artery: No stenosis in the origin. Left vertebral artery: Unremarkable. Antegrade flow. IMPRESSION: Moderate bilateral atherosclerotic plaque in the proximal internal carotid arteries was stenoses less than 50% consistent with a mild stenosis using SRU criteria. Moderate atherosclerotic plaque in the common carotid arteries. No significant stenosis. COMMENT: Carotid Stenosis Reference using SRU criteria: Mild: less than 50% stenosis. ICA PSV is less than 125 cm/second and plaque or intimal thickening is visible. Moderate: 50-69% stenosis. ICA PSV is 125 to 230 cm/second and plaque is visible. Severe: 70-94% stenosis. ICA PSV is more than 230 cm/second and visible plaque and lumen narrowing are seen. Near occlusion: 95-99% stenosis. ICA PSV is variable and significant plaque and luminal narrowing are seen. Occluded: 100% stenosis. No flow identified. Electronically signed by: Eliot Almonte On 08/25/2019 20:56:34 PM ADDENDUM REPORT 2 Upon comparison with followup CTA head, there is small caliber though otherwise patent intracranial right vertebral artery, likely resulting in the poor flow related enhancement within this vessel on this examination. Electronically signed by: Kameron Montoya On 08/25/2019 23:16:06 PM DD: KAMERON MONTOYA MD 08/25/192040 DT: DANIELA 08/25/192315 DS: GRECIA 08/25/192315 ADDENDUM REPORT 1 THIS REPORT CONTAINS FINDINGS THAT MAY BE CRITICAL TO PATIENT CARE. The findings were verbally communicated via telephone conference with NOAH FABIAN at 9:47 PM EDT on 08/25/2019. The findings were acknowledged and understood. Electronically signed by: Kameron Montoya On 08/25/2019 21:48:03 PM DD: KAMERON MONTOYA MD 08/25/192040 DT: DANIELA 08/25/192147 DS: GRECIA 08/25/192147 PROCEDURE INFORMATION: Exam: MR Angiogram Head Without Contrast, Arteries Exam date and time: 08/25/2019 8:41 PM Clinical history: 78 years old, male; Injury or trauma; Fall; Initial encounter; Wound, open; Without residual foreign body; Head; Injury date: 08/24/19; Additional info: Syncope TECHNIQUE: Imaging protocol: MR angiogram head without contrast. Exam focused on the arteries. 3D rendering: MIP reconstructed images were created and reviewed. COMPARISON: MRI-Brain W/O FOLL BY WITH 11/06/2017 10:24 AM FINDINGS: Right internal carotid artery: Unremarkable. Intracranial segment is patent with no significant stenosis. No aneurysm. Right anterior cerebral artery: Unremarkable. No occlusion or significant stenosis. No aneurysm. Right middle cerebral artery: Unremarkable. No occlusion or significant stenosis. No aneurysm. Right posterior cerebral artery: Unremarkable. No occlusion or significant stenosis. No aneurysm. Right vertebral artery: Absence of flow-related enhancement within the right intracranial vertebral artery. Left internal carotid artery: Unremarkable. Intracranial segment is patent with no significant stenosis. No aneurysm. Left anterior cerebral artery: Unremarkable. No occlusion or significant stenosis. No aneurysm. Left middle cerebral artery: Unremarkable. No occlusion or significant stenosis. No aneurysm. Left posterior cerebral artery: Unremarkable. No occlusion or significant stenosis. No aneurysm. Left vertebral artery: Unremarkable. No occlusion or significant stenosis. No aneurysm. Basilar artery: Unremarkable. No occlusion or significant stenosis. No aneurysm. IMPRESSION: Absence of flow-related enhancement within the right intracranial vertebral artery, concerning for occlusion. Recommend correlation with dedicated MRI brain to assess for acute infarct. Additionally, consider further evaluation with CTA head/neck to confirm potential occlusion. Electronically signed by: Kameron Montoya On 08/25/2019 21:42:02 PM PROCEDURE INFORMATION: Exam: CT Angiography Neck With Contrast Exam date and time: 08/25/2019 10:59 PM Clinical history: 78 years old, male; Dizziness and giddiness TECHNIQUE: Imaging protocol: Computed tomography angiography of the neck with intravenous contrast. 3D rendering: MIP reconstructed images were created and reviewed. Radiation optimization: All CT scans at this facility use at least one of these dose optimization techniques: automated exposure control; mA and/or kV adjustment per patient size (includes targeted exams where dose is matched to clinical indication); or iterative reconstruction. Contrast material: ISOVUE 370; Contrast volume: 100 ml; Contrast route: IV; COMPARISON: CT Spine,cervical w/o contrast 08/25/2019 5:19 PM FINDINGS: VASCULATURE: Right common carotid artery: No significant stenosis. No dissection or occlusion. Right internal carotid artery: Atherosclerotic plaques within the proximal extracranial right internal carotid artery cause approximately 40 % stenosis by NASCET criteria. Remaining portions of the extracranial right ICA are patent. Right external carotid artery: No occlusion or significant stenosis. Right vertebral artery: No significant stenosis. No dissection or occlusion. Left common carotid artery: No significant stenosis. No dissection or occlusion. Left internal carotid artery: Atherosclerotic plaques involving the proximal extracranial left internal carotid artery without evidence of hemodynamically significant stenosis (0% stenosis by NASCET criteria). Left external carotid artery: No occlusion or significant stenosis. Left vertebral artery: No significant stenosis. No dissection or occlusion. NECK: Bones/joints: No acute fracture. Soft tissues: Unremarkable. IMPRESSION: 1. No occlusion or severe stenosis in the arteries of the neck. 2. Other chronic findings, as above. COMMENT: Reference per NASCET criteria for degree of stenosis: Mild: less than 50% stenosis. Moderate: 50-69% stenosis. Severe: 70-94% stenosis. Near occlusion: 95-99% stenosis. Electronically signed by: Kameron Montoya On 08/25/2019 23:13:33 PM PROCEDURE INFORMATION: Exam: CT Angiography Head With Contrast Exam date and time: 08/25/2019 10:59 PM Clinical history: 78 years old, male; Dizziness and giddiness TECHNIQUE: Imaging protocol: Computed tomography angiography of the head with intravenous contrast. 3D rendering: MIP reconstructed images were created and reviewed. Radiation optimization: All CT scans at this facility use at least one of these dose optimization techniques: automated exposure control; mA and/or kV adjustment per patient size (includes targeted exams where dose is matched to clinical indication); or iterative reconstruction. Contrast material: ISOVUE 370; Contrast volume: 100 ml; Contrast route: IV; COMPARISON: CT Head without contrast 08/25/2019 5:17 PM FINDINGS: Right internal carotid artery: Calcific atherosclerotic changes of the intracranial right internal carotid artery without evidence of hemodynamically significant stenosis. Right anterior cerebral artery: No occlusion or significant stenosis. No aneurysm. Right middle cerebral artery: No occlusion or significant stenosis. No aneurysm. Right posterior cerebral artery: No occlusion or significant stenosis. No aneurysm. Right vertebral artery: Small caliber though otherwise patent intracranial right vertebral artery. Left internal carotid artery: Calcific atherosclerotic changes of the intracranial left internal carotid artery without evidence of hemodynamically significant stenosis. Left anterior cerebral artery: No occlusion or significant stenosis. No aneurysm. Left middle cerebral artery: No occlusion or significant stenosis. No aneurysm. Left posterior cerebral artery: No occlusion or significant stenosis. No aneurysm. Left vertebral artery: No occlusion or significant stenosis. No aneurysm. Basilar artery: No occlusion or significant stenosis. No aneurysm. IMPRESSION: No intracranial arterial occlusion or hemodynamically significant stenosis. Small caliber though otherwise patent intracranial right vertebral artery. Electronically signed by: Kameron Montoya On 08/25/2019 23:15:18 PM PROGNOSIS: Patient's cause of syncope/fall remains undetermined and therefore unable to assess patient's full prognosis ACTIVITY: As tolerated. DIET: As tolerated DISCHARGE PLAN:. Patient left AGAINST MEDICAL ADVICE. He was informed of the risk of leaving without having a formal diagnosis for the cause of his fall\\syncopal episode. He was informed that leaving AGAINST MEDICAL ADVICE could result in further harm to himself, including . The patient was urged to follow-up with his primary care physician and Neurologist. The patient stated that he would do so. The patient was advised not to operate heavy machinery or a motor vehicle. He was instructed not to swim or climb ladders. He was informed that a second episode could result in another fall causing further harm. The patient had voiced understanding of the risks of leaving AGAINST MEDICAL ADVICE DISCHARGE CONDITION: Stable. I saw and evaluated the patient. I agree with the findings and plan of care as documented in the documenters note. I spent 45 minutes coordinating this patient's discharge. Patient electively possibly has medical advice sensitive efforts were made by multiple providers in order to increase patient's remaining hospital for more thorough workup and evaluation and monitoring. Including myself. Patient understands risks and benefits of surgery including and let's leave the hospital AGAINST MEDICAL ADVICE. Great efforts made in order to arrange for a safe disposition as the patient would allow for. Patient states he feels fine and does not feel with the workup is needed despite medical opinion to the contrary with lengthy expirations all questions answered to his satisfa ction Vital Signs/I&Os Vital Signs Date Time Temp Pulse Resp B/P (MAP) Pulse Ox O2 Delivery O2 Flow Rate FiO2 08/26/19 08:00 72 147/67 08/26/19 08:00 98.4 16 95 08/25/19 18:40 Room Air I&O- Last 24 Hours up to 6 AM 08/26/19 05:59 Intake Total 1320 ml Output Total 350 ml Balance 970 ml Laboratory Data Labs 24H Laboratory Tests 2 08/25/19 17:03: Urine Amphetamines Screen NEGATIVE, Urine Benzodiazepines Screen NEGATIVE, Urine Opiates Screen NEGATIVE, Urine Methadone Screen NEGATIVE, Urine Barbiturates Screen NEGATIVE, Urine Phencyclidine Screen NEGATIVE, Urine Cocaine Metabolite Screen NEGATIVE, Urine Cannabinoids Screen NEGATIVE 08/25/19 17:06: Immature Granulocyte % (Auto) 0.5, White Blood Count 9.4, Red Blood Count 3.63L, Hemoglobin 13.2L, Hematocrit 37.1L, Mean Corpuscular Volume 102.2H, Mean Corpuscular Hemoglobin 36.4H, Mean Corpuscular Hemoglobin Concent 35.6, Red Cell Distribution Width 13.5, Platelet Count 159, Neutrophils (%) (Auto) 60.9, Lymphocytes (%) (Auto) 25.2, Monocytes (%) (Auto) 9.4H, Eosinophils (%) (Auto) 3.5H, Basophils (%) (Auto) 0.5, Neutrophils # (Auto) 5.7, Lymphocytes # (Auto) 2.4, Monocytes # (Auto) 0.9H, Eosinophils # (Auto) 0.3, Basophils # (Auto) 0.1, Nucleated Red Blood Cells % (auto) 0.0, Prothrombin Time 14.5H, Prothromb Time International Ratio 1.16, Anion Gap 14, Glomerular Filtration Rate > 60.0, Calcium Level 9.1, Aspartate Amino Transf (AST/SGOT) 23, Alanine Aminotransferase (ALT/SGPT) 24, Alkaline Phosphatase 83, Total Bilirubin 1.6H, Direct Bilirubin 0.4H, Ammonia 39H, Total Creatine Kinase 105, Creatine Kinase MB 3.5, Creatine Kinase MB Relative Index 3.33, Troponin I < 0.02, Total Protein 7.0, Albumin 4.3, Albumin/Globulin Ratio 1.59, Thyroid Stimulating Hormone (TSH) 1.240, Salicylates Level < 1.7L, Acetaminophen Level < 2.0L, Ethyl Alcohol Level < 0.003 08/26/19 04:29: Nucleated Red Blood Cells % (auto) 0.0, Anion Gap 7L, Glomerular Filtration Rate > 60.0, Calcium Level 8.7L, Aspartate Amino Transf (AST/SGOT) 24, Alanine Aminotransferase (ALT/SGPT) 23, Alkaline Phosphatase 73, Total Bilirubin 1.5H, Total Protein 6.1L, Albumin 3.5, Albumin/Globulin Ratio 1.35, Blood Urea Nitrogen 11, Creatinine 0.90, Sodium Level 143, Potassium Level 3.7#, Chloride Level 109H, Carbon Dioxide Level 27, Triglycerides Level 62, LDL Cholesterol 58, Magnesium Level 1.9, Total Cholesterol 129, Non-HDL Cholesterol (LDL + VLDL) 70, Total HDL Cholesterol 59, Cholesterol/HDL Ratio 2.186, Vitamin B12 Level 671, Folate 13.4, Prolactin 6.0 CBC/BMP Laboratory Tests 08/25/19 17:06 Red Blood Count 3.63 L, Mean Corpuscular Volume 102.2 H, Mean Corpuscular Hemoglobin 36.4 H, Mean Corpuscular Hemoglobin Concent 35.6, Red Cell Distribution Width 13.5, Neutrophils (%) (Auto) 60.9, Lymphocytes (%) (Auto) 25.2, Monocytes (%) (Auto) 9.4 H, Eosinophils (%) (Auto) 3.5 H, Basophils (%) (Auto) 0.5, Neutrophils # (Auto) 5.7, Lymphocytes # (Auto) 2.4, Monocytes # (Auto) 0.9 H, Eosinophils # (Auto) 0.3, Basophils # (Auto) 0.1 08/26/19 04:29 Red Blood Count 3.07 L, Mean Corpuscular Volume 100.7 H, Mean Corpuscular Hemoglobin 37.1 H, Mean Corpuscular Hemoglobin Concent 36.9 H, Red Cell Distribution Width 13.2, Calcium Level 8.7 L, Aspartate Amino Transf (AST/SGOT) 24, Alanine Aminotransferase (ALT/SGPT) 23, Alkaline Phosphatase 73, Total Bilirubin 1.5 H, Triglycerides Level 62, LDL Cholesterol 58, Total Protein 6.1 L, Albumin 3.5 Discharge Medications Scheduled Folic Acid (Folic Acid) 1 Mg Tablet, 1 MG PO DAILY, (Reported) Hydrochlorothiazide (Hydrochlorothiazide) 12.5 Mg Tablet, 12.5 MG PO DAILY, (Reported) Multivitamin (Multi-Vitamin Daily) 1 Tab Tab, 1 TAB PO DAILY, (Reported) Thiamine HCl (Thiamine HCl) 100 Mg Tablet, 100 MG PO DAILY, (Reported) Scheduled PRN Acetaminophen (Acetaminophen) 325 Mg Tablet, 325 MG PO Q4H PRN for PAIN / FEVER, (Reported) Allergies Coded Allergies: Sulfa (Sulfonamide Antibiotics) (Verified Allergy, Unknown, 08/25/19) VAZQUEZ ORONA DO Aug 26, 2019 13:22 TJ CHAVEZ MD Aug 28, 2019 11:38
== END 2019-08-26 13:03 | disposition left against medical advice (07) | DRG 312 ==
LOC: M ED 16:55 → EDBD 16:55 → M ED INP 19:34 → M ICU 21:51
PROVIDERS: ADMIT Internal Medicine; ATTEND Internal Medicine
DX: R55 Syncope and collapse (principal); F10.239 Alcohol dependence with withdrawal, unspecified; G93.40 Encephalopathy, unspecified; I10 Essential (primary) hypertension; R56.9 Unspecified convulsions; E87.6 Hypokalemia; D53.9 Nutritional anemia, unspecified; I44.0 Atrioventricular block, first degree; I71.2 Thoracic aortic aneurysm, without rupture; Z79.899 Other long term (current) drug therapy; Z88.2 Allergy status to sulfonamides; Z87.891 Personal history of nicotine dependence; S00.03XA Contusion of scalp, initial encounter; W19.XXXA Unspecified fall, initial encounter; Y92.481 Parking lot as the place of occurrence of the external cause; Y99.8 Other external cause status

== ENCOUNTER 2020-05-22 01:13 | Emergency (ER) | payer MEDICARE ==
[~2020-05-22] VITALS: Ht 172.7 cm; Wt 84.8 kg
[~2020-05-22 01:13] MED LIST changes: +ACET1TAB55 PO; +HYDR12.55 PO; +THIA100T7 PO
[2020-05-22 01:48] LABS: BASO # 0.1 10^3/uL (0.0-0.2); BASO % 0.8 % (0.0-1.0); EOS # 0.2 10^3/uL (0.0-0.5); HEMATOCRIT 37.2 % (42.0-52.0); HEMOGLOBIN 13.3 g/dl (13.5-17.5); LYMPH # 2.2 10^3/uL (1.5-5.0); LYMPH % 27.6 % (24.0-44.0); MEAN CORPUSCULAR HEMOGLOBIN 37.5 pg (27.0-33.0); MEAN CORPUSCULAR HGB CONC 35.8 g/dl (32.0-36.5); MEAN CORPUSCULAR VOLUME 104.8 fl (80.0-96.0); MONO # 0.8 10^3/uL (0.0-0.8); MONO % 10.4 % (0.0-5.0); NEUTROPHILS # 4.6 10^3/uL (1.5-8.5); NEUTROPHILS % 57.7 % (36.0-66.0); PLATELET COUNT, AUTOMATED 149 10^3/uL (150-450); RED BLOOD COUNT 3.55 10^6/uL (4.30-6.10); WHITE BLOOD COUNT 7.9 10^3/uL (4.0-10.0)
[2020-05-22 02:17] LABS: ACETAMINOPHEN LEVEL < 2.0 UG/ML (10.0-30.0); ALT/SGPT 31 U/L (12-78); BILIRUBIN,DIRECT 0.5 MG/DL (0.0-0.2); BILIRUBIN,TOTAL 1.5 MG/DL (0.2-1.0); BLOOD UREA NITROGEN 11 MG/DL (7-18); CALCIUM LEVEL 8.8 MG/DL (8.8-10.2); CARBON DIOXIDE LEVEL 25 MEQ/L (21-32); CHLORIDE LEVEL 104 MEQ/L (98-107); CREATININE FOR GFR 1.14 MG/DL (0.70-1.30); ETHYL ALCOHOL (ETHANOL) 0.005 % (0.000-0.010); GLOMERULAR FILTRATION RATE > 60.0 (>35); GLUCOSE, FASTING 157 MG/DL (70-100); POTASSIUM SERUM 2.9 MEQ/L (3.5-5.1); SALICYLATE LEVEL < 1.7 MG/DL (5.0-30.0); SODIUM LEVEL 141 MEQ/L (136-145); TOTAL PROTEIN 7.2 GM/DL (6.4-8.2)
--- NOTE | 2020-05-22 02:59 | REPVR ---
PROCEDURE INFORMATION: Exam: CT Head Without Contrast Exam date and time: 05/22/2020 1:43 AM Age: 79 years old Clinical indication: Altered mental status/memory loss; Confusion or disorientation; Additional info: AMS TECHNIQUE: Imaging protocol: Computed tomography of the head without contrast. Radiation optimization: All CT scans at this facility use at least one of these dose optimization techniques: automated exposure control; mA and/or kV adjustment per patient size (includes targeted exams where dose is matched to clinical indication); or iterative reconstruction. COMPARISON: CT Head without contrast 08/25/2019 5:17 PM FINDINGS: Brain: There is no acute intracranial abnormality. Moderate prominence of ventricles and sulci representing volume loss. Moderate small vessel ischemic changes are seen. There is no mass, midline shift, or mass effect. Hernandez-white matter differentiation is preserved. There is no evidence of hemorrhage. There is no extra-axial fluid collection. Basal cisterns are patent. 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 Calcified meningioma in the anterior interhemispheric fissure on the right measuring 1 cm. Ventricles: See "Brain" finding. Bones/joints: Unremarkable. No acute fracture. Sinuses: Mild mucosal thickening of the ethmoidal air cells and left maxillary sinus. Mucous retention cyst in left maxillary sinus. Mastoid air cells: Visualized mastoid air cells are well aerated. Soft tissues: Unremarkable. IMPRESSION: 1. Moderate volume loss and small vessel ischemic changes. 2. No acute intracranial abnormality. Electronically signed by: Maureen Billingsley On 05/22/2020 02:58:40 AM
[2020-05-22 03:16] LABS: AMPHETAMINES LEVEL URINE NEGATIVE (NEGATIVE); BARBITURATES URINE NEGATIVE (NEGATIVE); BENZODIAZEPINES URINE NEGATIVE (NEGATIVE); CANNABINOIDS URINE NEGATIVE (NEGATIVE); COCAINE METABOLITE URINE NEGATIVE (NEGATIVE); METHADONE URINE NEGATIVE (NEGATIVE); OPIATES URINE NEGATIVE (NEGATIVE); PHENCYCLIDINE URINE NEGATIVE (NEGATIVE)
[2020-05-22 03:29] VITALS: BP 200/91
[2020-05-22] MEDS ORDERED: POTASSIUM CHLORIDE 10 MEQ SR TABLET PO ONE (03:30)
[2020-05-22] MEDS ORDERED: hydrALAZINE 20MG/ML 1ML VIAL (J0360 PER 20MG) IV ONE (03:30)
[2020-05-22] MEDS ORDERED: ISOVUE-370 76% 100ML VIAL As Ordered ONE ×2 (03:33→03:46)
--- NOTE | 2020-05-22 04:28 | REPVR ---
PROCEDURE INFORMATION: Exam: CT Angiography Chest With Contrast Exam date and time: 05/22/2020 3:27 AM Age: 79 years old Clinical indication: Dyspnea; Additional info: Dysp TECHNIQUE: Imaging protocol: Computed tomographic angiography of the chest with intravenous contrast. 3D rendering: MIP and/or 3D reconstructed images were created by the technologist. Radiation optimization: All CT scans at this facility use at least one of these dose optimization techniques: automated exposure control; mA and/or kV adjustment per patient size (includes targeted exams where dose is matched to clinical indication); or iterative reconstruction. Contrast material: ISO; Contrast volume: 75 ml; Contrast route: INTRAVENOUS (IV); COMPARISON: CT Chest without contrast 08/25/2019 6:27 PM FINDINGS: Pulmonary arteries: Normal. No pulmonary emboli in the major vessels. Aorta: Atherosclerosis of the aorta and its branches. Coronary calcifications. Ascending thoracic aorta is borderline enlarged measuring 3.8 x 4.0 cm. Lungs: Mild bilateral ground-glass opacities in the visualized lungs likely mild edema. Eventration of the right hemidiaphragm with right base atelectasis. Low lung volumes. Mild atelectasis versus scarring in the right middle lobe, stable. Pleural space: Unremarkable. No pneumothorax. No pleural effusion. Heart: Cardiomegaly. Lymph nodes: Unremarkable. No enlarged lymph nodes. Gallbladder and bile ducts: Multiple gallstones. Spleen: Spleen is enlarged measuring 14.6 cm. Bones/joints: Diffuse demineralization of the bones with degenerative changes. Few scattered cystic lucencies in the vertebral bodies, similar to previous study. Soft tissues: Unremarkable. IMPRESSION: Mild bilateral ground-glass opacities in the visualized lungs likely mild edema. Eventration of the right hemidiaphragm with right base atelectasis. Low lung volumes. Mild atelectasis versus scarring in the right middle lobe, stable. No evidence of pulmonary embolism given limitation of the motion artifact. Electronically signed by: Maureen Billingsley On 05/22/2020 04:27:48 AM
[2020-05-22 05:00] VITALS: BP 151/72
--- NOTE | 2020-05-22 16:21 | ECGEPIP ---
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
== END 2020-05-22 05:17 | disposition home or self-care (01) ==
LOC: EDBD 01:13 → M ED 01:13
DX: I10 Essential (primary) hypertension (principal); R00.0 Tachycardia, unspecified; I44.30 Unspecified atrioventricular block; I25.2 Old myocardial infarction; F10.10 Alcohol abuse, uncomplicated; R91.8 Other nonspecific abnormal finding of lung field; Z79.899 Other long term (current) drug therapy; Z88.2 Allergy status to sulfonamides
CPT/HCPCS: 70450; 71275; 80047; 80048; 80076; 80307; 84443; 84484; 85025; 93005; 93041; 94760; 96374; 99285; G0480; J0360; Q9967

== ENCOUNTER 2022-03-20 22:07 | Inpatient (IN) | payer MEDICARE, MEDICAID ==
[~2022-03-20] VITALS: Ht 167.6 cm; Wt 64.5 kg
[~2022-03-20 22:07] MED LIST changes: +ASPI-161 PO; +ATOR1TAB21 PO; +COLA100C5 PO; +DIGO0.253 PO; +FERR1TAB8 PO; +FLOM0.4C39 PO; +HYDR-3490 PO; +PANT40TA29 PO; +SUCR1TA PO
[2022-03-20 23:08] LABS: BASO % 0.4 % (0.0-1.0); EOS # 0.2 10^3/uL (0.0-0.5); EOS % 3.3 % (0.0-3.0); HEMATOCRIT 23.5 % (42.0-52.0); HEMOGLOBIN 7.9 g/dl (13.5-17.5); LYMPH # 0.2 10^3/uL (1.5-5.0); LYMPH % 3.9 % (24.0-44.0); MEAN CORPUSCULAR HEMOGLOBIN 32.9 pg (27.0-33.0); MEAN CORPUSCULAR HGB CONC 33.6 g/dl (32.0-36.5); MEAN CORPUSCULAR VOLUME 97.9 fl (80.0-96.0); MONO # 0.5 10^3/uL (0.0-0.8); NEUTROPHILS # 4.2 10^3/uL (1.5-8.5); PLATELET COUNT, AUTOMATED 164 10^3/uL (150-450); WHITE BLOOD COUNT 5.1 10^3/uL (4.0-10.0)
[2022-03-20] MEDS ORDERED: DOCU100C16 PO (23:35)
[2022-03-20] MEDS ORDERED: DIGO0.253 PO (23:35)
[2022-03-20] MEDS ORDERED: FERR325T18 PO (23:35)
[2022-03-20 23:46] LABS: ALBUMIN 2.3 GM/DL (3.2-5.2); ALT/SGPT 16 U/L (12-78); BILIRUBIN,DIRECT 0.2 MG/DL (0.0-0.2); BILIRUBIN,TOTAL 0.8 MG/DL (0.2-1.0); BLOOD UREA NITROGEN 10 MG/DL (7-18); CALCIUM LEVEL 8.3 MG/DL (8.8-10.2); CARBON DIOXIDE LEVEL 26 MEQ/L (21-32); CHLORIDE LEVEL 106 MEQ/L (98-107); CREATININE FOR GFR 0.52 MG/DL (0.70-1.30); GLOMERULAR FILTRATION RATE > 60.0 (>35); GLUCOSE, FASTING 95 MG/DL (70-100); LIPASE 468 U/L (73-393); POTASSIUM SERUM 4.1 MEQ/L (3.5-5.1); SODIUM LEVEL 139 MEQ/L (136-145)
[2022-03-20] MEDS ORDERED: ACET-907 PO (23:52)
[2022-03-20] MEDS ORDERED: THIA100T7 PO (23:52)
[2022-03-20] MEDS ORDERED: PANT40TA29 PO (23:52)
[2022-03-20] MEDS ORDERED: DULC10SU2 PR (23:52)
[2022-03-20] MEDS ORDERED: SUCR1TA PO (23:52)
[2022-03-20] MEDS ORDERED: MILKSUS3 PO (23:52)
[2022-03-20] MEDS ORDERED: FOLI1TAB11 PO (23:52)
[2022-03-20] MEDS ORDERED: FLEEENE12 PR (23:52)
[2022-03-20] MEDS ORDERED: FLOM0.4C39 PO (23:52)
[2022-03-20] MEDS ORDERED: ATOR80TA59 PO (23:52)
[2022-03-20] MEDS ORDERED: HOME MED LIST COMPLETE! XX SCH (23:55)
[2022-03-21] MEDS ORDERED: ACETAMINOPHEN TAB 650MG DOSE (2X325MG) PO ONE (01:50)
[2022-03-21] MEDS ORDERED: NS 500 ML IV ONE (01:50)
[2022-03-21 03:53] LABS: BASO % 0.4 % (0.0-1.0); EOS # 0.2 10^3/uL (0.0-0.5); EOS % 4.2 % (0.0-3.0); HEMATOCRIT 26.4 % (42.0-52.0); HEMOGLOBIN 8.7 g/dl (13.5-17.5); LYMPH # 0.3 10^3/uL (1.5-5.0); LYMPH % 6.1 % (24.0-44.0); MEAN CORPUSCULAR HEMOGLOBIN 32.6 pg (27.0-33.0); MEAN CORPUSCULAR VOLUME 98.9 fl (80.0-96.0); MONO # 0.5 10^3/uL (0.0-0.8); MONO % 10.4 % (2.0-8.0); NEUTROPHILS # 3.8 10^3/uL (1.5-8.5); NEUTROPHILS % 78.3 % (36.0-66.0); PLATELET COUNT, AUTOMATED 175 10^3/uL (150-450); RED BLOOD COUNT 2.67 10^6/uL (4.30-6.10); WHITE BLOOD COUNT 4.8 10^3/uL (4.0-10.0)
[2022-03-21] MEDS ORDERED: BISACODYL 10 MG SUPP PR PRN (05:00)
[2022-03-21] MEDS ORDERED: ACETAMINOPHEN TAB 650MG DOSE (2X325MG) PO PRN (05:00)
[2022-03-21] MEDS ORDERED: cefTRIAXone SOD 1 GM in D5W MINI-BAG PLUS 50 ML IV SCH (05:00)
[2022-03-21] MEDS ORDERED: DEXTROSE 50% 50 ML SYRINGE IV PRN (05:15)
[2022-03-21] MEDS ORDERED: GLUCOSE 4GM CHEW TABLET PO PRN (05:15)
[2022-03-21] MEDS ORDERED: GLUCAGON INJ 1MG VIAL SC PRN (05:15)
[2022-03-21] MEDS: LevoFLOXacin IV 750 MG in IV 1 EA IV SCH (06:22)
[2022-03-21 07:12] LABS: INR 1.16; PROTHROMBIN TIME 15.2 SECONDS (12.7-14.5)
[2022-03-21] MEDS: PANTOPRAZOLE 40MG TAB (PROTONIX) PO SCH (09:37)
[2022-03-21] MEDS: TAMSULOSIN 0.4 MG CAP PO SCH (09:37)
[2022-03-21] MEDS: HEPARIN SOD (PORCINE) 5000UNITS/ML 1ML VIAL/SYRINGE SC SCH ×2 (09:37→19:54)
[2022-03-21] MEDS: SUCRALFATE 1 GM TAB PO SCH ×3 (09:37→17:21)
[2022-03-21] MEDS: ASPIRIN 81MG ENTERIC TABLET PO SCH (09:37)
[2022-03-21] MEDS: THIAMINE 100 MG TAB PO SCH (09:37)
[2022-03-21] MEDS: MULTIVITAMINS/MINERALS THERAP 1 TAB PO SCH (09:37)
[2022-03-21] MEDS: FERROUS SULFATE 325MG TAB PO SCH (09:37)
[2022-03-21] MEDS: FOLIC ACID 1 MG TAB PO SCH (09:37)
[2022-03-21] MEDS: DIGOXIN 0.25 MG TAB PO SCH (10:17)
[2022-03-21 10:34] LABS: HEMATOCRIT 24.4 % (42.0-52.0); HEMOGLOBIN 8.1 g/dl (13.5-17.5); MEAN CORPUSCULAR HEMOGLOBIN 32.3 pg (27.0-33.0); MEAN CORPUSCULAR HGB CONC 33.2 g/dl (32.0-36.5); MEAN CORPUSCULAR VOLUME 97.2 fl (80.0-96.0); PLATELET COUNT, AUTOMATED 154 10^3/uL (150-450); RED BLOOD COUNT 2.51 10^6/uL (4.30-6.10); WHITE BLOOD COUNT 4.2 10^3/uL (4.0-10.0)
[2022-03-21 11:26] LABS: ALBUMIN 2.3 GM/DL (3.2-5.2); ALT/SGPT 19 U/L (12-78); BLOOD UREA NITROGEN 10 MG/DL (7-18); CARBON DIOXIDE LEVEL 28 MEQ/L (21-32); CHLORIDE LEVEL 107 MEQ/L (98-107); CREATININE FOR GFR 0.55 MG/DL (0.70-1.30); DIGOXIN LEVEL 1.2 NG/ML (0.5-2.0); GLOMERULAR FILTRATION RATE > 60.0 (>35); GLUCOSE, FASTING 86 MG/DL (70-100); POTASSIUM SERUM 3.5 MEQ/L (3.5-5.1); SODIUM LEVEL 139 MEQ/L (136-145); TOTAL PROTEIN 4.6 GM/DL (6.4-8.2)
[2022-03-21 14:00] VITALS: BP 103/52
[2022-03-21] MEDS: ATORVASTATIN 20 MG TAB PO SCH (19:54)
[2022-03-21] MEDS: DOCUSATE SODIUM 100MG CAPSULE PO SCH (19:54)
[2022-03-21 22:00] VITALS: BP 124/59
[2022-03-22] MEDS: LevoFLOXacin IV 750 MG in IV 1 EA IV SCH (05:14)
[2022-03-22 06:00] VITALS: BP 134/65
[2022-03-22] MEDS: FERROUS SULFATE 325MG TAB PO SCH (08:52)
[2022-03-22] MEDS: SUCRALFATE 1 GM TAB PO SCH ×3 (08:52→18:05)
[2022-03-22] MEDS: PANTOPRAZOLE 40MG TAB (PROTONIX) PO SCH (08:52)
[2022-03-22] MEDS: HEPARIN SOD (PORCINE) 5000UNITS/ML 1ML VIAL/SYRINGE SC SCH ×2 (08:52→19:22)
[2022-03-22] MEDS: THIAMINE 100 MG TAB PO SCH (08:52)
[2022-03-22] MEDS: FOLIC ACID 1 MG TAB PO SCH (08:52)
[2022-03-22] MEDS: MULTIVITAMINS/MINERALS THERAP 1 TAB PO SCH (08:52)
[2022-03-22] MEDS: TAMSULOSIN 0.4 MG CAP PO SCH (08:52)
[2022-03-22] MEDS: ASPIRIN 81MG ENTERIC TABLET PO SCH (08:52)
[2022-03-22] MEDS: DIGOXIN 0.25 MG TAB PO SCH (08:53)
[2022-03-22 10:51] LABS: BASO % 0.2 % (0.0-1.0); EOS # 0.2 10^3/uL (0.0-0.5); EOS % 5.1 % (0.0-3.0); HEMATOCRIT 23.6 % (42.0-52.0); HEMOGLOBIN 7.9 g/dl (13.5-17.5); LYMPH # 0.3 10^3/uL (1.5-5.0); LYMPH % 6.9 % (24.0-44.0); MEAN CORPUSCULAR HEMOGLOBIN 32.4 pg (27.0-33.0); MEAN CORPUSCULAR HGB CONC 33.5 g/dl (32.0-36.5); MEAN CORPUSCULAR VOLUME 96.7 fl (80.0-96.0); MONO # 0.6 10^3/uL (0.0-0.8); NEUTROPHILS # 3.3 10^3/uL (1.5-8.5); NEUTROPHILS % 74.6 % (36.0-66.0); PLATELET COUNT, AUTOMATED 154 10^3/uL (150-450); RED BLOOD COUNT 2.44 10^6/uL (4.30-6.10); WHITE BLOOD COUNT 4.5 10^3/uL (4.0-10.0)
[2022-03-22 14:00] VITALS: BP 119/54
[2022-03-22 18:18] VITALS: BP 123/57
[2022-03-22] MEDS: DOCUSATE SODIUM 100MG CAPSULE PO SCH (19:21)
[2022-03-22] MEDS: ATORVASTATIN 20 MG TAB PO SCH (19:21)
[2022-03-23] MEDS: LevoFLOXacin IV 750 MG in IV 1 EA IV SCH (05:22)
[2022-03-23 05:30] VITALS: BP 118/60
[2022-03-23] MEDS: HEPARIN SOD (PORCINE) 5000UNITS/ML 1ML VIAL/SYRINGE SC SCH ×2 (08:28→21:00)
[2022-03-23] MEDS: PANTOPRAZOLE 40MG TAB (PROTONIX) PO SCH (08:28)
[2022-03-23] MEDS: TAMSULOSIN 0.4 MG CAP PO SCH (08:28)
[2022-03-23] MEDS: MULTIVITAMINS/MINERALS THERAP 1 TAB PO SCH (08:28)
[2022-03-23] MEDS: SUCRALFATE 1 GM TAB PO SCH ×3 (08:28→17:16)
[2022-03-23] MEDS: THIAMINE 100 MG TAB PO SCH (08:28)
[2022-03-23] MEDS: FOLIC ACID 1 MG TAB PO SCH (08:28)
[2022-03-23] MEDS: DIGOXIN 0.25 MG TAB PO SCH (08:28)
[2022-03-23] MEDS: ASPIRIN 81MG ENTERIC TABLET PO SCH (08:28)
[2022-03-23] MEDS: FERROUS SULFATE 325MG TAB PO SCH (08:28)
[2022-03-23 13:39] LABS: HEMATOCRIT 26.6 % (42.0-52.0); HEMOGLOBIN 8.8 g/dl (13.5-17.5); MEAN CORPUSCULAR HEMOGLOBIN 31.9 pg (27.0-33.0); MEAN CORPUSCULAR HGB CONC 33.1 g/dl (32.0-36.5); MEAN CORPUSCULAR VOLUME 96.4 fl (80.0-96.0); PLATELET COUNT, AUTOMATED 166 10^3/uL (150-450); RED BLOOD COUNT 2.76 10^6/uL (4.30-6.10); WHITE BLOOD COUNT 4.3 10^3/uL (4.0-10.0)
[2022-03-23 14:00] VITALS: BP 118/62
[2022-03-23 14:02] LABS: BLOOD UREA NITROGEN 9 MG/DL (7-18); CALCIUM LEVEL 8.4 MG/DL (8.8-10.2); CARBON DIOXIDE LEVEL 30 MEQ/L (21-32); CHLORIDE LEVEL 105 MEQ/L (98-107); CREATININE FOR GFR 0.62 MG/DL (0.70-1.30); GLOMERULAR FILTRATION RATE > 60.0 (>35); GLUCOSE, FASTING 107 MG/DL (70-100); POTASSIUM SERUM 3.7 MEQ/L (3.5-5.1); SODIUM LEVEL 138 MEQ/L (136-145)
[2022-03-23 14:32] LABS: ATYPICAL LYMPH 3 % (0-5); EOSINOPHILS 7 % (0-3); LYMPHOCYTES 15 % (16-44); MONOCYTES 3 % (0-5); NEUTROPHILS 72 % (28-66)
[2022-03-23 14:33] LABS: PLATELET ESTIMATE NORMAL (NORMAL)
[2022-03-23 18:00] VITALS: BP 117/62
[2022-03-23] MEDS: DOCUSATE SODIUM 100MG CAPSULE PO SCH (21:00)
[2022-03-23] MEDS: ATORVASTATIN 20 MG TAB PO SCH (21:00)
[2022-03-24 06:00] VITALS: BP 115/61
[2022-03-24] MEDS: LevoFLOXacin IV 750 MG in IV 1 EA IV SCH (06:15)
[2022-03-24] MEDS: HEPARIN SOD (PORCINE) 5000UNITS/ML 1ML VIAL/SYRINGE SC SCH ×2 (10:00→21:01)
[2022-03-24] MEDS: MULTIVITAMINS/MINERALS THERAP 1 TAB PO SCH (10:01)
[2022-03-24] MEDS: PANTOPRAZOLE 40MG TAB (PROTONIX) PO SCH (10:01)
[2022-03-24] MEDS: SUCRALFATE 1 GM TAB PO SCH ×3 (10:01→18:39)
[2022-03-24] MEDS: FOLIC ACID 1 MG TAB PO SCH (10:01)
[2022-03-24] MEDS: TAMSULOSIN 0.4 MG CAP PO SCH (10:01)
[2022-03-24] MEDS: ASPIRIN 81MG ENTERIC TABLET PO SCH (10:01)
[2022-03-24] MEDS: DIGOXIN 0.25 MG TAB PO SCH (10:01)
[2022-03-24] MEDS: THIAMINE 100 MG TAB PO SCH (10:01)
[2022-03-24] MEDS: FERROUS SULFATE 325MG TAB PO SCH (10:01)
[2022-03-24 14:00] VITALS: BP 107/57
[2022-03-24] MEDS: ATORVASTATIN 20 MG TAB PO SCH (21:01)
[2022-03-24] MEDS: DOCUSATE SODIUM 100MG CAPSULE PO SCH (21:02)
[2022-03-25 06:00] VITALS: BP 107/55
[2022-03-25] MEDS: LevoFLOXacin 750 MG TABLET PO SCH (06:17)
[2022-03-25] MEDS: SUCRALFATE 1 GM TAB PO SCH ×3 (09:08→18:05)
[2022-03-25] MEDS: FERROUS SULFATE 325MG TAB PO SCH (09:08)
[2022-03-25] MEDS: TAMSULOSIN 0.4 MG CAP PO SCH (09:08)
[2022-03-25] MEDS: MULTIVITAMINS/MINERALS THERAP 1 TAB PO SCH (09:08)
[2022-03-25] MEDS: FOLIC ACID 1 MG TAB PO SCH (09:08)
[2022-03-25] MEDS: HEPARIN SOD (PORCINE) 5000UNITS/ML 1ML VIAL/SYRINGE SC SCH ×2 (09:08→21:22)
[2022-03-25] MEDS: THIAMINE 100 MG TAB PO SCH (09:08)
[2022-03-25] MEDS: DIGOXIN 0.25 MG TAB PO SCH (09:08)
[2022-03-25] MEDS: ASPIRIN 81MG ENTERIC TABLET PO SCH (09:08)
[2022-03-25] MEDS: PANTOPRAZOLE 40MG TAB (PROTONIX) PO SCH (09:08)
[2022-03-25 11:00] LABS: HEMATOCRIT 29.1 % (42.0-52.0); HEMOGLOBIN 9.4 g/dl (13.5-17.5); MEAN CORPUSCULAR HEMOGLOBIN 32.1 pg (27.0-33.0); MEAN CORPUSCULAR HGB CONC 32.3 g/dl (32.0-36.5); MEAN CORPUSCULAR VOLUME 99.3 fl (80.0-96.0); PLATELET COUNT, AUTOMATED 190 10^3/uL (150-450); RED BLOOD COUNT 2.93 10^6/uL (4.30-6.10); WHITE BLOOD COUNT 6.9 10^3/uL (4.0-10.0)
[2022-03-25 11:22] LABS: EOSINOPHILS 1 % (0-3); LYMPHOCYTES 20 % (16-44); MONOCYTES 6 % (0-5); NEUTROPHILS 73 % (28-66); PLATELET ESTIMATE NORMAL (NORMAL)
[2022-03-25 11:28] LABS: ERYTHROCYTE SEDIMENTATION RATE 44 mm/hr (0-20)
[2022-03-25 11:36] LABS: BLOOD UREA NITROGEN 11 MG/DL (7-18); C REACTIVE PROTEIN QUANTITATIV 1.94 MG/DL (0.00-0.30); CALCIUM LEVEL 8.9 MG/DL (8.8-10.2); CARBON DIOXIDE LEVEL 30 MEQ/L (21-32); CHLORIDE LEVEL 107 MEQ/L (98-107); CREATININE FOR GFR 0.71 MG/DL (0.70-1.30); GLOMERULAR FILTRATION RATE > 60.0 (>35); GLUCOSE, FASTING 107 MG/DL (70-100); POTASSIUM SERUM 4.7 MEQ/L (3.5-5.1); SODIUM LEVEL 140 MEQ/L (136-145)
[2022-03-25 14:00] VITALS: BP 107/57
[2022-03-25] MEDS: DOCUSATE SODIUM 100MG CAPSULE PO SCH (21:21)
[2022-03-25] MEDS: ATORVASTATIN 20 MG TAB PO SCH (21:21)
[2022-03-25 22:00] VITALS: BP 114/57
[2022-03-26] MEDS: LevoFLOXacin 750 MG TABLET PO SCH (05:28)
[2022-03-26 06:00] VITALS: BP 107/51
[2022-03-26] MEDS ORDERED: LEVO750T13 PO (08:41)
[2022-03-26] MEDS: MULTIVITAMINS/MINERALS THERAP 1 TAB PO SCH (09:08)
[2022-03-26] MEDS: ASPIRIN 81MG ENTERIC TABLET PO SCH (09:08)
[2022-03-26] MEDS: PANTOPRAZOLE 40MG TAB (PROTONIX) PO SCH (09:08)
[2022-03-26] MEDS: TAMSULOSIN 0.4 MG CAP PO SCH (09:08)
[2022-03-26] MEDS: HEPARIN SOD (PORCINE) 5000UNITS/ML 1ML VIAL/SYRINGE SC SCH (09:08)
[2022-03-26] MEDS: FERROUS SULFATE 325MG TAB PO SCH (09:08)
[2022-03-26] MEDS: FOLIC ACID 1 MG TAB PO SCH (09:08)
[2022-03-26] MEDS: THIAMINE 100 MG TAB PO SCH (09:08)
[2022-03-26] MEDS: SUCRALFATE 1 GM TAB PO SCH ×2 (09:08→12:30)
[2022-03-26] MEDS: DIGOXIN 0.25 MG TAB PO SCH (09:10)
== END 2022-03-26 13:37 | DRG 864 ==
LOC: M ED 22:07 → M ED INP 22:08 → ENRESERV 03-21 06:21 → M MSPAV 03-21 07:49 → OBSVTOIN 03-21 10:14
PROVIDERS: ADMIT Family Medicine; ATTEND Internal Medicine Nephrology
DX: R50.9 Fever, unspecified (principal); E51.8 Other manifestations of thiamine deficiency; N39.0 Urinary tract infection, site not specified; I48.91 Unspecified atrial fibrillation; R33.9 Retention of urine, unspecified; Z86.73 Personal history of transient ischemic attack (TIA), and cerebral infarction without residual deficits; I35.0 Nonrheumatic aortic (valve) stenosis; I27.20 Pulmonary hypertension, unspecified; I10 Essential (primary) hypertension; F10.10 Alcohol abuse, uncomplicated; K21.9 Gastro-esophageal reflux disease without esophagitis; Z98.41 Cataract extraction status, right eye; Z98.42 Cataract extraction status, left eye; Z87.891 Personal history of nicotine dependence; Z20.822 Contact with and (suspected) exposure to COVID-19; Z79.82 Long term (current) use of aspirin; R31.9 Hematuria, unspecified; E53.8 Deficiency of other specified B group vitamins; E61.1 Iron deficiency; F01.50 Vascular dementia, unspecified severity, without behavioral disturbance, psychotic disturbance, mood disturbance, and anxiety

== ENCOUNTER → 2022-03-26 | Outpatient (REF) ==
[~2022-03-26] MED LIST changes: +ACET-907 PO; +ATOR80TA59 PO; +DOCU100C16 PO; +DULC10SU2 PR; +FERR325T18 PO; +FLEEENE12 PR; +LEVO750T13 PO; +MILKSUS3 PO
== END ==
PROVIDERS: ATTEND Internal Medicine
DX: K92.2 Gastrointestinal hemorrhage, unspecified (principal); K85.90 Acute pancreatitis without necrosis or infection, unspecified; Z53.9 Procedure and treatment not carried out, unspecified reason

== ENCOUNTER → 2022-03-31 | Outpatient (REF) ==
[2022-03-31 10:26] LABS: HEMATOCRIT 29.8 % (42.0-52.0); HEMOGLOBIN 9.5 g/dl (13.5-17.5); MEAN CORPUSCULAR HGB CONC 31.9 g/dl (32.0-36.5); MEAN CORPUSCULAR VOLUME 97.4 fl (80.0-96.0); PLATELET COUNT, AUTOMATED 161 10^3/uL (150-450); RED BLOOD COUNT 3.06 10^6/uL (4.30-6.10); WHITE BLOOD COUNT 6.2 10^3/uL (4.0-10.0)
[2022-03-31 10:52] LABS: ALBUMIN 3.2 GM/DL (3.2-5.2); ALT/SGPT 17 U/L (12-78); BILIRUBIN,DIRECT 0.4 MG/DL (0.0-0.2); BILIRUBIN,TOTAL 0.9 MG/DL (0.2-1.0); BLOOD UREA NITROGEN 9 MG/DL (7-18); CALCIUM LEVEL 9.1 MG/DL (8.8-10.2); CARBON DIOXIDE LEVEL 27 MEQ/L (21-32); CHLORIDE LEVEL 108 MEQ/L (98-107); CREATININE FOR GFR 0.63 MG/DL (0.70-1.30); GLOMERULAR FILTRATION RATE > 60.0 (>35); GLUCOSE, FASTING 94 MG/DL (70-100); POTASSIUM SERUM 3.7 MEQ/L (3.5-5.1); SODIUM LEVEL 143 MEQ/L (136-145); TOTAL PROTEIN 6.4 GM/DL (6.4-8.2)
== END ==
PROVIDERS: ATTEND Internal Medicine
DX: K92.2 Gastrointestinal hemorrhage, unspecified (principal)

== ENCOUNTER → 2022-03-31 | Outpatient (REF) | PROVIDERS: ATTEND Physician Assistant | DX: K92.2 Gastrointestinal hemorrhage, unspecified (principal) ==

== ENCOUNTER → 2022-03-31 | Outpatient (REF) | PROVIDERS: ATTEND Internal Medicine | DX: K92.2 Gastrointestinal hemorrhage, unspecified (principal) ==

== ENCOUNTER → 2022-04-01 | Outpatient (REF) | PROVIDERS: ATTEND Physician Assistant | DX: Z20.822 Contact with and (suspected) exposure to COVID-19 (principal) ==

== ENCOUNTER → 2022-04-02 | Outpatient (REF) | PROVIDERS: ATTEND Internal Medicine | DX: K92.2 Gastrointestinal hemorrhage, unspecified (principal); Z53.9 Procedure and treatment not carried out, unspecified reason ==

== ENCOUNTER → 2022-04-02 | Outpatient (REF) | PROVIDERS: ATTEND Internal Medicine | DX: I48.91 Unspecified atrial fibrillation (principal) ==

== ENCOUNTER → 2022-04-03 | Outpatient (REF) ==
[2022-04-03 13:39] LABS: HEMATOCRIT 27.9 % (42.0-52.0); HEMOGLOBIN 8.9 g/dl (13.5-17.5); MEAN CORPUSCULAR HEMOGLOBIN 31.7 pg (27.0-33.0); MEAN CORPUSCULAR HGB CONC 31.9 g/dl (32.0-36.5); MEAN CORPUSCULAR VOLUME 99.3 fl (80.0-96.0); PLATELET COUNT, AUTOMATED 138 10^3/uL (150-450); RED BLOOD COUNT 2.81 10^6/uL (4.30-6.10); WHITE BLOOD COUNT 6.7 10^3/uL (4.0-10.0)
[2022-04-03 14:07] LABS: ALBUMIN 2.8 GM/DL (3.2-5.2); ALT/SGPT 16 U/L (12-78); BILIRUBIN,DIRECT 0.4 MG/DL (0.0-0.2); BLOOD UREA NITROGEN 14 MG/DL (7-18); CALCIUM LEVEL 8.8 MG/DL (8.8-10.2); CARBON DIOXIDE LEVEL 30 MEQ/L (21-32); CHLORIDE LEVEL 106 MEQ/L (98-107); CREATININE FOR GFR 0.73 MG/DL (0.70-1.30); GLOMERULAR FILTRATION RATE > 60.0 (>35); GLUCOSE, FASTING 118 MG/DL (70-100); POTASSIUM SERUM 3.7 MEQ/L (3.5-5.1); SODIUM LEVEL 141 MEQ/L (136-145); TOTAL PROTEIN 5.8 GM/DL (6.4-8.2)
== END ==
PROVIDERS: ATTEND Internal Medicine
DX: K92.2 Gastrointestinal hemorrhage, unspecified (principal)

== ENCOUNTER → 2022-04-07 | Outpatient (REF) ==
[2022-04-07 10:20] LABS: HEMATOCRIT 26.8 % (42.0-52.0); HEMOGLOBIN 8.6 g/dl (13.5-17.5); MEAN CORPUSCULAR HEMOGLOBIN 30.9 pg (27.0-33.0); MEAN CORPUSCULAR HGB CONC 32.1 g/dl (32.0-36.5); MEAN CORPUSCULAR VOLUME 96.4 fl (80.0-96.0); PLATELET COUNT, AUTOMATED 158 10^3/uL (150-450); RED BLOOD COUNT 2.78 10^6/uL (4.30-6.10); WHITE BLOOD COUNT 5.8 10^3/uL (4.0-10.0)
[2022-04-07 10:48] LABS: ALBUMIN 2.8 GM/DL (3.2-5.2); ALT/SGPT 23 U/L (12-78); BILIRUBIN,DIRECT 0.3 MG/DL (0.0-0.2); BILIRUBIN,TOTAL 0.8 MG/DL (0.2-1.0); BLOOD UREA NITROGEN 13 MG/DL (7-18); CARBON DIOXIDE LEVEL 28 MEQ/L (21-32); CHLORIDE LEVEL 107 MEQ/L (98-107); GLOMERULAR FILTRATION RATE > 60.0 (>35); GLUCOSE, FASTING 83 MG/DL (70-100); POTASSIUM SERUM 3.8 MEQ/L (3.5-5.1); SODIUM LEVEL 142 MEQ/L (136-145)
== END ==
PROVIDERS: ATTEND Internal Medicine
DX: K92.2 Gastrointestinal hemorrhage, unspecified (principal)

== ENCOUNTER → 2022-04-09 | Outpatient (REF) | PROVIDERS: ATTEND Internal Medicine | DX: K92.2 Gastrointestinal hemorrhage, unspecified (principal); Z53.9 Procedure and treatment not carried out, unspecified reason ==

== ENCOUNTER → 2022-04-10 | Outpatient (REF) ==
[2022-04-10 13:38] LABS: HEMATOCRIT 27.3 % (42.0-52.0); HEMOGLOBIN 8.5 g/dl (13.5-17.5); MEAN CORPUSCULAR HGB CONC 31.1 g/dl (32.0-36.5); MEAN CORPUSCULAR VOLUME 96.5 fl (80.0-96.0); PLATELET COUNT, AUTOMATED 158 10^3/uL (150-450); RED BLOOD COUNT 2.83 10^6/uL (4.30-6.10); WHITE BLOOD COUNT 4.4 10^3/uL (4.0-10.0)
[2022-04-10 14:10] LABS: ALBUMIN 2.8 GM/DL (3.2-5.2); ALT/SGPT 21 U/L (12-78); BILIRUBIN,DIRECT 0.4 MG/DL (0.0-0.2); BILIRUBIN,TOTAL 0.9 MG/DL (0.2-1.0); BLOOD UREA NITROGEN 15 MG/DL (7-18); CARBON DIOXIDE LEVEL 25 MEQ/L (21-32); CHLORIDE LEVEL 107 MEQ/L (98-107); CREATININE FOR GFR 0.74 MG/DL (0.70-1.30); GLOMERULAR FILTRATION RATE > 60.0 (>35); GLUCOSE, FASTING 103 MG/DL (70-100); SODIUM LEVEL 140 MEQ/L (136-145)
== END ==
PROVIDERS: ATTEND Internal Medicine
DX: K92.2 Gastrointestinal hemorrhage, unspecified (principal)

== ENCOUNTER → 2022-04-16 | Outpatient (REF) ==
[2022-04-16 12:14] LABS: BASO % 0.4 % (0.0-1.0); EOS # 0.1 10^3/uL (0.0-0.5); EOS % 2.4 % (0.0-3.0); HEMATOCRIT 27.1 % (42.0-52.0); HEMOGLOBIN 8.5 g/dl (13.5-17.5); LYMPH # 1.3 10^3/uL (1.5-5.0); LYMPH % 26.3 % (24.0-44.0); MEAN CORPUSCULAR HEMOGLOBIN 30.4 pg (27.0-33.0); MEAN CORPUSCULAR HGB CONC 31.4 g/dl (32.0-36.5); MEAN CORPUSCULAR VOLUME 96.8 fl (80.0-96.0); MONO # 0.5 10^3/uL (0.0-0.8); MONO % 9.5 % (2.0-8.0); PLATELET COUNT, AUTOMATED 139 10^3/uL (150-450); WHITE BLOOD COUNT 4.9 10^3/uL (4.0-10.0)
== END ==
PROVIDERS: ATTEND Physician Assistant
DX: N13.9 Obstructive and reflux uropathy, unspecified (principal)

== ENCOUNTER → 2022-04-16 | Outpatient (REF) ==
[2022-04-16 12:42] LABS: ALBUMIN 3.1 GM/DL (3.2-5.2); ALT/SGPT 21 U/L (12-78); BILIRUBIN,DIRECT 0.2 MG/DL (0.0-0.2); BILIRUBIN,TOTAL 0.9 MG/DL (0.2-1.0); BLOOD UREA NITROGEN 14 MG/DL (7-18); CALCIUM LEVEL 8.4 MG/DL (8.8-10.2); CARBON DIOXIDE LEVEL 30 MEQ/L (21-32); CHLORIDE LEVEL 106 MEQ/L (98-107); CREATININE FOR GFR 0.74 MG/DL (0.70-1.30); GLOMERULAR FILTRATION RATE > 60.0 (>35); GLUCOSE, FASTING 89 MG/DL (70-100); POTASSIUM SERUM 3.9 MEQ/L (3.5-5.1); SODIUM LEVEL 139 MEQ/L (136-145); TOTAL PROTEIN 6.2 GM/DL (6.4-8.2)
== END ==
PROVIDERS: ATTEND Internal Medicine
DX: K92.2 Gastrointestinal hemorrhage, unspecified (principal)

== ENCOUNTER → 2022-04-18 | Outpatient (REF) | PROVIDERS: ATTEND Physician Assistant | DX: N39.0 Urinary tract infection, site not specified (principal) ==

== ENCOUNTER → 2022-04-23 | Outpatient (REF) ==
[~2022-04-23] MED LIST changes: -NAFC1INJ IV; +NAFC2INJ IV
== END ==
PROVIDERS: ATTEND Internal Medicine
DX: I48.91 Unspecified atrial fibrillation (principal)

== ENCOUNTER → 2022-04-23 | Outpatient (REF) ==
[2022-04-23 12:16] LABS: HEMATOCRIT 24.3 % (42.0-52.0); HEMOGLOBIN 7.5 g/dl (13.5-17.5); MEAN CORPUSCULAR HEMOGLOBIN 29.9 pg (27.0-33.0); MEAN CORPUSCULAR HGB CONC 30.9 g/dl (32.0-36.5); MEAN CORPUSCULAR VOLUME 96.8 fl (80.0-96.0); PLATELET COUNT, AUTOMATED 108 10^3/uL (150-450); RED BLOOD COUNT 2.51 10^6/uL (4.30-6.10); WHITE BLOOD COUNT 2.6 10^3/uL (4.0-10.0)
[2022-04-23 12:48] LABS: ALBUMIN 2.7 GM/DL (3.2-5.2); ALT/SGPT 26 U/L (12-78); BILIRUBIN,DIRECT 0.3 MG/DL (0.0-0.2); BILIRUBIN,TOTAL 1.1 MG/DL (0.2-1.0); BLOOD UREA NITROGEN 17 MG/DL (7-18); CALCIUM LEVEL 8.1 MG/DL (8.8-10.2); CARBON DIOXIDE LEVEL 29 MEQ/L (21-32); CHLORIDE LEVEL 105 MEQ/L (98-107); GLOMERULAR FILTRATION RATE > 60.0 (>35); GLUCOSE, FASTING 92 MG/DL (70-100); SODIUM LEVEL 137 MEQ/L (136-145); TOTAL PROTEIN 5.9 GM/DL (6.4-8.2)
== END ==
PROVIDERS: ATTEND Internal Medicine
DX: K92.2 Gastrointestinal hemorrhage, unspecified (principal)

== ENCOUNTER → 2022-04-23 | Outpatient (REF) ==
[2022-04-23 19:54] LABS: BASO % 0.7 % (0.0-1.0); EOS # 0.1 10^3/uL (0.0-0.5); EOS % 1.8 % (0.0-3.0); HEMATOCRIT 25.7 % (42.0-52.0); HEMOGLOBIN 8.1 g/dl (13.5-17.5); LYMPH # 0.7 10^3/uL (1.5-5.0); LYMPH % 25.9 % (24.0-44.0); MEAN CORPUSCULAR HEMOGLOBIN 29.8 pg (27.0-33.0); MEAN CORPUSCULAR HGB CONC 31.5 g/dl (32.0-36.5); MEAN CORPUSCULAR VOLUME 94.5 fl (80.0-96.0); MONO # 0.5 10^3/uL (0.0-0.8); MONO % 18.1 % (2.0-8.0); NEUTROPHILS # 1.5 10^3/uL (1.5-8.5); NEUTROPHILS % 53.1 % (36.0-66.0); PLATELET COUNT, AUTOMATED 110 10^3/uL (150-450); RED BLOOD COUNT 2.72 10^6/uL (4.30-6.10); WHITE BLOOD COUNT 2.8 10^3/uL (4.0-10.0)
[2022-04-23 20:13] LABS: TOTAL PROTEIN 6.5 GM/DL (6.4-8.2)
[2022-04-25 14:03] LABS: ALBUMIN 3.62 GM/DL (3.29-5.55); ALBUMIN % 55.7 % (55.8-66.1); ALPHA-1-GLOBULIN % 4.9 % (2.9-4.9); ALPHA-1-GLOBULINS 0.32 GM/DL (0.17-0.41); ALPHA-2-GLOBULINS 0.49 GM/DL (0.42-0.99); ALPHA-2-GLOBULINS % 7.5 % (7.1-11.8); BETA-1-GLOBULINS 0.36 GM/DL (0.28-0.60); BETA-1-GLOBULINS % 5.5 % (4.7-7.2); BETA-2-GLOBULINS 0.36 GM/DL (0.19-0.55); BETA-2-GLOBULINS % 5.5 % (3.2-6.5); GAMMA GLOBULIN % 20.9 % (11.1-18.8); GAMMA GLOBULINS 1.36 GM/DL (0.65-1.58)
== END ==
PROVIDERS: ATTEND Physician Assistant
DX: D64.9 Anemia, unspecified (principal)

== ENCOUNTER → 2022-04-23 | Outpatient (REF) | PROVIDERS: ATTEND Physician Assistant | DX: D64.9 Anemia, unspecified (principal) ==

== ENCOUNTER 2022-04-24 08:38 | Outpatient (CLI) | payer MEDICARE, MEDICAID ==
[~2022-04-24] VITALS: Ht 165.1 cm; Wt 64.5 kg
[2022-04-24] VITALS (8 sets, daily range): BP systolic 120–166; BP diastolic 58–114
[2022-04-24] MEDS ORDERED: diphenhydrAMINE 25MG CAP PO ONE (09:30)
[2022-04-24] MEDS ORDERED: ACETAMINOPHEN TAB 650MG DOSE (2X325MG) PO ONE (09:30)
== END 2022-04-24 13:10 | disposition home or self-care (01) ==
LOC: M INFU 08:38
PROVIDERS: ATTEND Physician Assistant
DX: D64.9 Anemia, unspecified (principal); Z88.2 Allergy status to sulfonamides
CPT/HCPCS: 36430; P9016

== ENCOUNTER → 2022-04-25 | Outpatient (REF) ==
[2022-04-25 10:56] LABS: HEMATOCRIT 28.8 % (42.0-52.0); HEMOGLOBIN 9.3 g/dl (13.5-17.5); MEAN CORPUSCULAR HEMOGLOBIN 29.6 pg (27.0-33.0); MEAN CORPUSCULAR HGB CONC 32.3 g/dl (32.0-36.5); MEAN CORPUSCULAR VOLUME 91.7 fl (80.0-96.0); PLATELET COUNT, AUTOMATED 114 10^3/uL (150-450); RED BLOOD COUNT 3.14 10^6/uL (4.30-6.10); WHITE BLOOD COUNT 2.9 10^3/uL (4.0-10.0)
== END ==
PROVIDERS: ATTEND Physician Assistant
DX: D64.9 Anemia, unspecified (principal)

== ENCOUNTER → 2022-04-28 | Outpatient (REF) | PROVIDERS: ATTEND Physician Assistant | DX: D72.819 Decreased white blood cell count, unspecified (principal); Z53.9 Procedure and treatment not carried out, unspecified reason ==

== ENCOUNTER → 2022-04-30 | Outpatient (REF) ==
[2022-04-30 10:27] LABS: HEMATOCRIT 32.6 % (42.0-52.0); HEMOGLOBIN 10.5 g/dl (13.5-17.5); MEAN CORPUSCULAR HEMOGLOBIN 30.4 pg (27.0-33.0); MEAN CORPUSCULAR HGB CONC 32.2 g/dl (32.0-36.5); MEAN CORPUSCULAR VOLUME 94.5 fl (80.0-96.0); PLATELET COUNT, AUTOMATED 130 10^3/uL (150-450); RED BLOOD COUNT 3.45 10^6/uL (4.30-6.10); WHITE BLOOD COUNT 3.8 10^3/uL (4.0-10.0)
[2022-04-30 11:13] LABS: ANISOCYTOSIS 1+; EOSINOPHILS 3 % (0-3); LYMPHOCYTES 24 % (16-44); MONOCYTES 11 % (0-5); NEUTROPHILS 62 % (28-66); PLATELET ESTIMATE DECREASED (NORMAL)
== END ==
PROVIDERS: ATTEND Physician Assistant
DX: D64.9 Anemia, unspecified (principal)

== ENCOUNTER 2022-05-05 17:15 | Emergency (ER) | payer MEDICARE, MEDICAID ==
[~2022-05-05] VITALS: Ht 160 cm; Wt 70.5 kg
[2022-05-05 18:39] LABS: BASO % 0.1 % (0.0-1.0); EOS % 0.1 % (0.0-3.0); HEMATOCRIT 37.9 % (42.0-52.0); HEMOGLOBIN 12.1 g/dl (13.5-17.5); LYMPH # 0.3 10^3/uL (1.5-5.0); LYMPH % 4.5 % (24.0-44.0); MEAN CORPUSCULAR HEMOGLOBIN 30.4 pg (27.0-33.0); MEAN CORPUSCULAR HGB CONC 31.9 g/dl (32.0-36.5); MEAN CORPUSCULAR VOLUME 95.2 fl (80.0-96.0); MONO # 0.5 10^3/uL (0.0-0.8); MONO % 7.3 % (2.0-8.0); NEUTROPHILS % 87.9 % (36.0-66.0); PLATELET COUNT, AUTOMATED 135 10^3/uL (150-450); RED BLOOD COUNT 3.98 10^6/uL (4.30-6.10); WHITE BLOOD COUNT 6.8 10^3/uL (4.0-10.0)
[2022-05-05] MEDS ORDERED: LIDOCAINE 2% 5ML JELLY UROJET TOP ONE (18:40)
[2022-05-05] MEDS ORDERED: LORazepam 2 MG/ML VIAL IV STA ×2 (19:18→19:21)
[2022-05-05 19:30] LABS: ERYTHROCYTE SEDIMENTATION RATE 14 mm/hr (0-20)
[2022-05-05 19:50] LABS: ALBUMIN 3.9 GM/DL (3.2-5.2); ALT/SGPT 204 U/L (12-78); BILIRUBIN,DIRECT 2.6 MG/DL (0.0-0.2); BILIRUBIN,TOTAL 3.5 MG/DL (0.2-1.0); BLOOD UREA NITROGEN 23 MG/DL (7-18); C REACTIVE PROTEIN QUANTITATIV 0.72 MG/DL (0.00-0.30); CARBON DIOXIDE LEVEL 30 MEQ/L (21-32); CHLORIDE LEVEL 105 MEQ/L (98-107); GLOMERULAR FILTRATION RATE > 60.0 (>35); GLUCOSE, FASTING 118 MG/DL (70-100); LIPASE 64960 U/L (73-393); POTASSIUM SERUM 4.5 MEQ/L (3.5-5.1); SODIUM LEVEL 140 MEQ/L (136-145); TOTAL PROTEIN 7.7 GM/DL (6.4-8.2)
[2022-05-05] MEDS ORDERED: ISOVUE-370 76% 100ML VIAL As Ordered ONE (19:54)
[2022-05-05 20:11] LABS: RSV AMPLIFICATION NEGATIVE (NEGATIVE)
[2022-05-05] MEDS ORDERED: VANCOMYCIN HCL 1,500 MG in NS 250 ML IV ONE (21:25)
[2022-05-05 21:51] LABS: INR 1.11; PROTHROMBIN TIME 14.7 SECONDS (12.7-14.5)
[2022-05-05 21:52] LABS: PARTIAL THROMBOPLASTIN TIME 33.2 SECONDS (25.9-37.0)
[2022-05-05] MEDS ORDERED: VANCOMYCIN HCL 750 MG, VIAL MATE ADAPTER 1 EACH in NS 250 ML IV ONE ×2 (22:00→23:00)
[2022-05-05] MEDS ORDERED: NS 500 ML IV ONE (22:15)
[2022-05-05] MEDS ORDERED: ACETAMINOPHEN *IV* 650 MG in IV 1 EA IV ONE (22:45)
[2022-05-05] MEDS ORDERED: NS 2,110 ML in IV 1 EA IV ONE (22:45)
[2022-05-05] MEDS ORDERED: PIPERACILLIN/TAZOBACTAM SOD 3.375 GM in D5W MINI-BAG PLUS 50 ML IV ONE (23:10)
[2022-05-06 00:15] VITALS: BP 112/55
== END 2022-05-06 00:23 | disposition short-term general hospital (02) ==
LOC: M ED 17:15 → EDBD 17:15 → M ED 05-06 00:23
DX: A41.89 Other specified sepsis (principal); K85.10 Biliary acute pancreatitis without necrosis or infection; K80.20 Calculus of gallbladder without cholecystitis without obstruction; R74.8 Abnormal levels of other serum enzymes; I48.91 Unspecified atrial fibrillation; I27.0 Primary pulmonary hypertension; Z86.73 Personal history of transient ischemic attack (TIA), and cerebral infarction without residual deficits; F01.50 Vascular dementia, unspecified severity, without behavioral disturbance, psychotic disturbance, mood disturbance, and anxiety; Z87.891 Personal history of nicotine dependence; R16.1 Splenomegaly, not elsewhere classified; J32.9 Chronic sinusitis, unspecified; Z79.82 Long term (current) use of aspirin; Z79.899 Other long term (current) drug therapy; Z88.2 Allergy status to sulfonamides
CPT/HCPCS: 51701; 70450; 74018; 74177; 76705; 80053; 81001; 82248; 83605; 83690; 85025; 85610; 85652; 85730; 86140; 87040; 87077; 87088; 87186; 87631; 93005; 96365; 96375; 99284; J0131; J2543; J3370; Q9967

== ENCOUNTER → 2022-05-05 | Outpatient (REF) ==
[2022-05-05 15:40] LABS: BASO % 0.4 % (0.0-1.0); EOS % 0.7 % (0.0-3.0); HEMATOCRIT 34.4 % (42.0-52.0); HEMOGLOBIN 10.9 g/dl (13.5-17.5); LYMPH # 0.8 10^3/uL (1.5-5.0); LYMPH % 14.1 % (24.0-44.0); MEAN CORPUSCULAR HEMOGLOBIN 30.1 pg (27.0-33.0); MEAN CORPUSCULAR HGB CONC 31.7 g/dl (32.0-36.5); MONO # 0.8 10^3/uL (0.0-0.8); MONO % 13.4 % (2.0-8.0); NEUTROPHILS % 71.2 % (36.0-66.0); PLATELET COUNT, AUTOMATED 132 10^3/uL (150-450); RED BLOOD COUNT 3.62 10^6/uL (4.30-6.10); WHITE BLOOD COUNT 5.7 10^3/uL (4.0-10.0)
[2022-05-05 16:03] LABS: ALBUMIN 3.5 GM/DL (3.2-5.2); ALT/SGPT 101 U/L (12-78); BILIRUBIN,DIRECT 1.5 MG/DL (0.0-0.2); BILIRUBIN,TOTAL 2.2 MG/DL (0.2-1.0); BLOOD UREA NITROGEN 20 MG/DL (7-18); CALCIUM LEVEL 8.6 MG/DL (8.8-10.2); CARBON DIOXIDE LEVEL 28 MEQ/L (21-32); CHLORIDE LEVEL 105 MEQ/L (98-107); CREATININE FOR GFR 0.86 MG/DL (0.70-1.30); GLOMERULAR FILTRATION RATE > 60.0 (>35); GLUCOSE, FASTING 131 MG/DL (70-100); SODIUM LEVEL 139 MEQ/L (136-145); TOTAL PROTEIN 7.1 GM/DL (6.4-8.2)
== END ==
PROVIDERS: ATTEND Physician Assistant
DX: R11.0 Nausea (principal)

== ENCOUNTER → 2022-05-07 | Outpatient (REF) | PROVIDERS: ATTEND Physician Assistant | DX: D64.9 Anemia, unspecified (principal); Z53.9 Procedure and treatment not carried out, unspecified reason ==

== ENCOUNTER → 2022-05-14 | Outpatient (REF) ==
[~2022-05-14] MED LIST changes: +AMLO1TAB24 PO; +DOXA1TAB42 PO; +FINA5TAB2 PO; +XARE20TA
== END ==
LOC: EEVIPCON
PROVIDERS: ATTEND Physician Assistant
DX: D64.9 Anemia, unspecified (principal); Z53.9 Procedure and treatment not carried out, unspecified reason

== ENCOUNTER → 2022-06-04 | Outpatient (REF) ==
[2022-06-04 13:12] LABS: BASO % 0.3 % (0.0-1.0); EOS # 0.1 10^3/uL (0.0-0.5); EOS % 1.8 % (0.0-3.0); HEMATOCRIT 24.7 % (42.0-52.0); HEMOGLOBIN 7.8 g/dl (13.5-17.5); LYMPH # 0.5 10^3/uL (1.5-5.0); LYMPH % 6.6 % (24.0-44.0); MEAN CORPUSCULAR HEMOGLOBIN 28.2 pg (27.0-33.0); MEAN CORPUSCULAR HGB CONC 31.6 g/dl (32.0-36.5); MEAN CORPUSCULAR VOLUME 89.2 fl (80.0-96.0); MONO # 0.8 10^3/uL (0.0-0.8); NEUTROPHILS # 5.5 10^3/uL (1.5-8.5); PLATELET COUNT, AUTOMATED 201 10^3/uL (150-450); RED BLOOD COUNT 2.77 10^6/uL (4.30-6.10); WHITE BLOOD COUNT 6.8 10^3/uL (4.0-10.0)
[2022-06-04 13:18] LABS: INR 1.93; PROTHROMBIN TIME 22.5 SECONDS (12.7-14.5)
[2022-06-04 14:16] LABS: BLOOD UREA NITROGEN 18 MG/DL (7-18); CALCIUM LEVEL 8.5 MG/DL (8.8-10.2); CARBON DIOXIDE LEVEL 29 MEQ/L (21-32); CHLORIDE LEVEL 101 MEQ/L (98-107); CREATININE FOR GFR 0.63 MG/DL (0.70-1.30); GLOMERULAR FILTRATION RATE > 60.0 (>35); GLUCOSE, FASTING 111 MG/DL (70-100); POTASSIUM SERUM 3.9 MEQ/L (3.5-5.1); SODIUM LEVEL 135 MEQ/L (136-145)
[2022-06-04 14:18] LABS: ALBUMIN 2.7 GM/DL (3.2-5.2); ALT/SGPT 20 U/L (12-78); BILIRUBIN,TOTAL 1.1 MG/DL (0.2-1.0); BLOOD UREA NITROGEN 19 MG/DL (7-18); CALCIUM LEVEL 8.3 MG/DL (8.8-10.2); CARBON DIOXIDE LEVEL 30 MEQ/L (21-32); CHLORIDE LEVEL 102 MEQ/L (98-107); CREATININE FOR GFR 0.68 MG/DL (0.70-1.30); FERRITIN 520 NG/ML (26-388); GLOMERULAR FILTRATION RATE > 60.0 (>35); GLUCOSE, FASTING 115 MG/DL (70-100); IRON (FE) 16 UG/DL (65-175); PERCENT SATURATION 8.6 % (19.7-50.0); SODIUM LEVEL 135 MEQ/L (136-145); TOTAL IRON BINDING CAPACITY 187 UG/DL (250-450); TOTAL PROTEIN 6.2 GM/DL (6.4-8.2)
[2022-06-04 15:01] LABS: HEPATITIS B SURFACE ANTIGEN NEGATIVE (NEGATIVE)
[2022-06-04 15:30] LABS: HEPATITIS B CORE ANTIBODY IGM NEGATIVE (NEGATIVE)
[2022-06-06 16:08] LABS: ANCA-ATYPICAL <1:20 titer (Neg:<1:20); ANTI-MITOCHONDRIAL ANTIBODY <20.0 Units (0.0-20.0); ANTINUCLEAR ANTIBODIES DIRECT Negative (Negative); CYTOPLASMIC NEUTROP AB ANCA-C <1:20 titer (Neg:<1:20); LIVER-KIDNEY MICROSOMAL ABY <20.1 Units (0.0-20.0); PERINUCLEAR AB ANCA-P <1:20 titer (Neg:<1:20)
[2022-06-10 22:39] LABS: HEPATITIS C VIRUS ABY INDEX 2.5 INDEX (<0.8)
== END ==
PROVIDERS: ATTEND Physician Assistant
DX: I48.91 Unspecified atrial fibrillation (principal)

== ENCOUNTER → 2022-06-05 | Outpatient (REF) ==
[2022-06-05 10:12] LABS: HEMATOCRIT 24.8 % (42.0-52.0); HEMOGLOBIN 7.9 g/dl (13.5-17.5); MEAN CORPUSCULAR HGB CONC 31.9 g/dl (32.0-36.5); MEAN CORPUSCULAR VOLUME 87.9 fl (80.0-96.0); PLATELET COUNT, AUTOMATED 191 10^3/uL (150-450); RED BLOOD COUNT 2.82 10^6/uL (4.30-6.10); WHITE BLOOD COUNT 6.3 10^3/uL (4.0-10.0)
== END ==
PROVIDERS: ATTEND Internal Medicine
DX: K85.90 Acute pancreatitis without necrosis or infection, unspecified (principal)

== ENCOUNTER → 2022-06-05 | Outpatient (REF) ==
[2022-06-05 03:51] LABS: HEMATOCRIT 22.4 % (42.0-52.0); HEMOGLOBIN 7.2 g/dl (13.5-17.5); MEAN CORPUSCULAR HEMOGLOBIN 28.1 pg (27.0-33.0); MEAN CORPUSCULAR HGB CONC 32.1 g/dl (32.0-36.5); MEAN CORPUSCULAR VOLUME 87.5 fl (80.0-96.0); PLATELET COUNT, AUTOMATED 162 10^3/uL (150-450); RED BLOOD COUNT 2.56 10^6/uL (4.30-6.10); WHITE BLOOD COUNT 5.4 10^3/uL (4.0-10.0)
== END ==
PROVIDERS: ATTEND Internal Medicine
DX: K85.90 Acute pancreatitis without necrosis or infection, unspecified (principal)

== ENCOUNTER 2022-06-06 07:21 | Outpatient (CLI) | payer MEDICARE, MEDICAID ==
[~2022-06-06] VITALS: Ht 160 cm; Wt 70.5 kg
[2022-06-06] VITALS (7 sets, daily range): BP systolic 114–144; BP diastolic 58–76
[~2022-06-06 07:21] MED LIST changes: -AMLO1TAB24 PO; -DOXA1TAB42 PO; -FINA5TAB2 PO; -XARE20TA
[2022-06-06] MEDS ORDERED: ACETAMINOPHEN TAB 650MG DOSE (2X325MG) PO ONE (07:30)
[2022-06-06] MEDS ORDERED: diphenhydrAMINE 25MG CAP PO ONE (07:30)
[2022-06-06] MEDS ORDERED: AMLO1TAB24 PO (14:00)
[2022-06-06] MEDS ORDERED: DOXA1TAB42 PO (14:01)
[2022-06-06] MEDS ORDERED: FINA5TAB2 PO (14:02)
[2022-06-06] MEDS ORDERED: XARE20TA (14:04)
== END 2022-06-06 12:45 ==
LOC: M INFU 07:21
PROVIDERS: ATTEND Internal Medicine
DX: D64.9 Anemia, unspecified (principal)
CPT/HCPCS: 36430; 86920; G0463; P9016

== ENCOUNTER → 2022-06-09 | Outpatient (REF) ==
[~2022-06-09] MED LIST changes: +AMLO1TAB24 PO; +DOXA1TAB42 PO; +FINA5TAB2 PO; +XARE20TA
[2022-06-09 13:39] LABS: HEMOGLOBIN 8.7 g/dl (13.5-17.5); WHITE BLOOD COUNT 5.7 10^3/uL (4.0-10.0)
[2022-06-09 13:40] LABS: HEMATOCRIT 27.2 % (42.0-52.0); MEAN CORPUSCULAR HEMOGLOBIN 28.1 pg (27.0-33.0); MEAN CORPUSCULAR VOLUME 87.7 fl (80.0-96.0); PLATELET COUNT, AUTOMATED 180 10^3/uL (150-450)
== END ==
PROVIDERS: ATTEND Physician Assistant
DX: D64.9 Anemia, unspecified (principal)

== ENCOUNTER → 2022-06-11 | Outpatient (REF) ==
[2022-06-11 13:00] LABS: HEMATOCRIT 29.5 % (42.0-52.0); HEMOGLOBIN 9.3 g/dl (13.5-17.5); MEAN CORPUSCULAR HEMOGLOBIN 27.2 pg (27.0-33.0); MEAN CORPUSCULAR HGB CONC 31.5 g/dl (32.0-36.5); MEAN CORPUSCULAR VOLUME 86.3 fl (80.0-96.0); PLATELET COUNT, AUTOMATED 214 10^3/uL (150-450); RED BLOOD COUNT 3.42 10^6/uL (4.30-6.10); WHITE BLOOD COUNT 7.4 10^3/uL (4.0-10.0)
[2022-06-11 13:35] LABS: BLOOD UREA NITROGEN 15 MG/DL (7-18); CALCIUM LEVEL 8.5 MG/DL (8.8-10.2); CARBON DIOXIDE LEVEL 27 MEQ/L (21-32); CHLORIDE LEVEL 102 MEQ/L (98-107); CREATININE FOR GFR 0.57 MG/DL (0.70-1.30); DIGOXIN LEVEL 1.1 NG/ML (0.5-2.0); GLOMERULAR FILTRATION RATE > 60.0 (>35); GLUCOSE, FASTING 108 MG/DL (70-100); SODIUM LEVEL 137 MEQ/L (136-145)
== END ==
PROVIDERS: ATTEND Physician Assistant
DX: I48.91 Unspecified atrial fibrillation (principal)

== ENCOUNTER → 2022-06-12 | Outpatient (REF) ==
[~2022-06-12] MED LIST changes: +ALDA25TA2 PO; +FURO40TA2 PO; +METO25TA4 PO
[2022-06-12 10:38] LABS: HEMATOCRIT 27.8 % (42.0-52.0); HEMOGLOBIN 9.1 g/dl (13.5-17.5); MEAN CORPUSCULAR HEMOGLOBIN 28.4 pg (27.0-33.0); MEAN CORPUSCULAR HGB CONC 32.7 g/dl (32.0-36.5); MEAN CORPUSCULAR VOLUME 86.9 fl (80.0-96.0); PLATELET COUNT, AUTOMATED 181 10^3/uL (150-450); WHITE BLOOD COUNT 6.6 10^3/uL (4.0-10.0)
== END ==
PROVIDERS: ATTEND Physician Assistant
DX: D64.9 Anemia, unspecified (principal)

== ENCOUNTER → 2022-06-16 | Outpatient (REF) | payer MEDICARE, MEDICAID ==
[~2022-06-16] MED LIST changes: -ALDA25TA2 PO; -FURO40TA2 PO; -METO25TA4 PO
== END ==
PROVIDERS: ATTEND Internal Medicine
DX: R19.7 Diarrhea, unspecified (principal); M47.9 Spondylosis, unspecified

== ENCOUNTER → 2022-06-16 | Outpatient (REF) ==
[~2022-06-16] MED LIST changes: +ALDA25TA2 PO; +FURO40TA2 PO; +METO25TA4 PO
== END ==
PROVIDERS: ATTEND Physician Assistant
DX: Z53.9 Procedure and treatment not carried out, unspecified reason (principal)

== ENCOUNTER → 2022-06-17 | Outpatient (REF) | payer MEDICARE, MEDICAID ==
[2022-06-17 11:31] LABS: HEMATOCRIT 25.1 % (42.0-52.0); MEAN CORPUSCULAR HEMOGLOBIN 27.8 pg (27.0-33.0); MEAN CORPUSCULAR HGB CONC 31.9 g/dl (32.0-36.5); MEAN CORPUSCULAR VOLUME 87.2 fl (80.0-96.0); PLATELET COUNT, AUTOMATED 176 10^3/uL (150-450); RED BLOOD COUNT 2.88 10^6/uL (4.30-6.10); WHITE BLOOD COUNT 6.7 10^3/uL (4.0-10.0)
[2022-06-17 12:01] LABS: BLOOD UREA NITROGEN 14 MG/DL (7-18); CARBON DIOXIDE LEVEL 30 MEQ/L (21-32); CHLORIDE LEVEL 99 MEQ/L (98-107); CREATININE FOR GFR 0.66 MG/DL (0.70-1.30); GLOMERULAR FILTRATION RATE > 60.0 (>35); GLUCOSE, FASTING 120 MG/DL (70-100); POTASSIUM SERUM 4.3 MEQ/L (3.5-5.1); SODIUM LEVEL 133 MEQ/L (136-145)
[2022-06-17 12:02] LABS: ALBUMIN 2.1 GM/DL (3.2-5.2); ALT/SGPT 44 U/L (12-78); BILIRUBIN,DIRECT 0.6 MG/DL (0.0-0.2); BILIRUBIN,TOTAL 1.1 MG/DL (0.2-1.0); CALCIUM LEVEL 7.7 MG/DL (8.8-10.2); NT-PRO BNP 4224 PG/ML (<450); TOTAL PROTEIN 5.1 GM/DL (6.4-8.2)
== END ==
PROVIDERS: ATTEND Physician Assistant
DX: D72.829 Elevated white blood cell count, unspecified (principal); K74.60 Unspecified cirrhosis of liver

== ENCOUNTER → 2022-06-17 | Outpatient (CLI) | payer MEDICARE, MEDICAID ==
[~2022-06-17] MED LIST changes: -ALDA25TA2 PO; -FURO40TA2 PO; -METO25TA4 PO
== END ==
LOC: M RAD 11:21
PROVIDERS: ATTEND Internal Medicine
DX: K74.60 Unspecified cirrhosis of liver (principal); J90 Pleural effusion, not elsewhere classified; I70.0 Atherosclerosis of aorta; I27.20 Pulmonary hypertension, unspecified; I50.9 Heart failure, unspecified

== ENCOUNTER → 2022-06-23 | Outpatient (REF) ==
[~2022-06-23] MED LIST changes: +ALDA25TA2 PO; +FURO40TA2 PO; +METO25TA4 PO
== END ==
PROVIDERS: ATTEND Physician Assistant
DX: D64.9 Anemia, unspecified (principal); Z53.9 Procedure and treatment not carried out, unspecified reason

== ENCOUNTER → 2022-06-24 | Outpatient (CLI) | payer MEDICARE, MEDICAID ==
[~2022-06-24] MED LIST changes: +CYCL5TAB PO; +DIGO0.123 PO; +DOXA1TAB41 PO; +FERR324T21 PO; +FURO20TA2; +HYDR-643 PO; +INCR1INH IN; +LEVO1TAB40 PO; -LEVO750T13 PO; +MELA5TAB10 PO; -XARE20TA; +XARE20TA PO
== END ==
LOC: M RAD 06-16 09:03
PROVIDERS: ATTEND Internal Medicine Gastroenterology
DX: K74.60 Unspecified cirrhosis of liver (principal); R16.1 Splenomegaly, not elsewhere classified; R18.8 Other ascites; I50.9 Heart failure, unspecified; J90 Pleural effusion, not elsewhere classified; R91.8 Other nonspecific abnormal finding of lung field

== ENCOUNTER → 2022-06-24 | Outpatient (CLI) | payer MEDICARE, MEDICAID ==
[~2022-06-24] MED LIST changes: -CYCL5TAB PO; -DIGO0.123 PO; -DOXA1TAB41 PO; -FERR324T21 PO; -FURO20TA2; -HYDR-643 PO; -INCR1INH IN; -MELA5TAB10 PO; +XARE20TA; -XARE20TA PO
== END ==
PROVIDERS: ATTEND Internal Medicine
DX: I50.9 Heart failure, unspecified (principal); J90 Pleural effusion, not elsewhere classified

== ENCOUNTER → 2022-06-24 | Outpatient (CLI) | payer MEDICARE, MEDICAID | LOC: M RAD 08:22 | PROVIDERS: ATTEND Internal Medicine | DX: J90 Pleural effusion, not elsewhere classified (principal); R91.8 Other nonspecific abnormal finding of lung field ==

== ENCOUNTER → 2022-06-26 | Outpatient (REF) | payer MEDICARE, MEDICAID ==
[2022-06-26 11:18] LABS: HEMATOCRIT 28.6 % (42.0-52.0); MEAN CORPUSCULAR HEMOGLOBIN 26.4 pg (27.0-33.0); MEAN CORPUSCULAR HGB CONC 31.5 g/dl (32.0-36.5); MEAN CORPUSCULAR VOLUME 83.9 fl (80.0-96.0); PLATELET COUNT, AUTOMATED 227 10^3/uL (150-450); RED BLOOD COUNT 3.41 10^6/uL (4.30-6.10); WHITE BLOOD COUNT 5.6 10^3/uL (4.0-10.0)
[2022-06-26 13:45] LABS: BLOOD UREA NITROGEN 13 MG/DL (7-18); CALCIUM LEVEL 8.3 MG/DL (8.8-10.2); CARBON DIOXIDE LEVEL 28 MEQ/L (21-32); CHLORIDE LEVEL 100 MEQ/L (98-107); GLOMERULAR FILTRATION RATE > 60.0 (>35); GLUCOSE, FASTING 92 MG/DL (70-100); POTASSIUM SERUM 3.8 MEQ/L (3.5-5.1); SODIUM LEVEL 134 MEQ/L (136-145)
== END ==
PROVIDERS: ATTEND Physician Assistant
DX: I50.9 Heart failure, unspecified (principal)

== ENCOUNTER → 2022-06-30 | Outpatient (REF) ==
[~2022-06-30] MED LIST changes: +CYCL5TAB PO; +DIGO0.123 PO; +DOXA1TAB41 PO; +FERR324T21 PO; +HYDR-643 PO; +INCR1INH IN; +MELA5TAB10 PO; -XARE20TA; +XARE20TA PO
== END ==
PROVIDERS: ATTEND Physician Assistant
DX: D64.9 Anemia, unspecified (principal); Z53.9 Procedure and treatment not carried out, unspecified reason

== ENCOUNTER → 2022-07-02 | Outpatient (REF) | payer MEDICARE, MEDICAID ==
[~2022-07-02] MED LIST changes: +FURO20TA2
== END ==
PROVIDERS: ATTEND Physician Assistant
DX: D64.9 Anemia, unspecified (principal); I50.9 Heart failure, unspecified

== ENCOUNTER → 2022-07-02 | Outpatient (REF) | payer MEDICARE, MEDICAID ==
[2022-07-02 10:37] LABS: HEMOGLOBIN 7.8 g/dl (13.5-17.5); MEAN CORPUSCULAR HGB CONC 31.2 g/dl (32.0-36.5); MEAN CORPUSCULAR VOLUME 83.3 fl (80.0-96.0); PLATELET COUNT, AUTOMATED 164 10^3/uL (150-450); WHITE BLOOD COUNT 5.3 10^3/uL (4.0-10.0)
[2022-07-02 11:28] LABS: BLOOD UREA NITROGEN 18 MG/DL (7-18); CARBON DIOXIDE LEVEL 30 MEQ/L (21-32); CHLORIDE LEVEL 100 MEQ/L (98-107); CREATININE FOR GFR 0.64 MG/DL (0.70-1.30); GLOMERULAR FILTRATION RATE > 60.0 (>35); GLUCOSE, FASTING 88 MG/DL (70-100); POTASSIUM SERUM 4.1 MEQ/L (3.5-5.1); SODIUM LEVEL 133 MEQ/L (136-145)
== END ==
PROVIDERS: ATTEND Physician Assistant
DX: I50.9 Heart failure, unspecified (principal)

== ENCOUNTER 2022-07-03 09:55 | Outpatient (CLI) | payer MEDICARE, MEDICAID ==
[~2022-07-03] VITALS: Ht 165.1 cm; Wt 70.0 kg
[2022-07-03] VITALS (7 sets, daily range): BP systolic 102–129; BP diastolic 52–95
[~2022-07-03 09:55] MED LIST changes: -CYCL5TAB PO; -DIGO0.123 PO; -DOXA1TAB41 PO; -FERR324T21 PO; -FURO20TA2; +FUROSEMIDE 20 MG TAB PO ONE; -HYDR-643 PO; -INCR1INH IN; -MELA5TAB10 PO; +diphenhydrAMINE 25MG CAP PO ONE
[2022-07-04] MEDS ORDERED: DIGO0.123 PO (14:31)
[2022-07-04] MEDS ORDERED: MELA5TAB10 PO (14:31)
[2022-07-04] MEDS ORDERED: ALDA25TA2 PO (14:31)
[2022-07-04] MEDS ORDERED: FERR324T21 PO (14:31)
[2022-07-04] MEDS ORDERED: CYCL5TAB PO (14:31)
[2022-07-04] MEDS ORDERED: HYDR-643 PO (14:31)
[2022-07-04] MEDS ORDERED: INCR1INH IN (14:31)
[2022-07-04] MEDS ORDERED: DOXA1TAB41 PO (14:31)
[2022-07-17] MEDS ORDERED: FURO20TA2 (08:56)
== END 2022-07-03 13:45 | disposition home or self-care (01) ==
LOC: M INFU 09:55
PROVIDERS: ATTEND Internal Medicine
DX: D64.9 Anemia, unspecified (principal); Z88.2 Allergy status to sulfonamides
CPT/HCPCS: 36430; 87635; P9016

== ENCOUNTER → 2022-07-03 | Outpatient (REF) | payer MEDICARE, MEDICAID | PROVIDERS: ATTEND Physician Assistant | DX: Z01.818 Encounter for other preprocedural examination (principal); Z20.822 Contact with and (suspected) exposure to COVID-19 ==

== ENCOUNTER → 2022-07-04 | Outpatient (REF) | payer MEDICARE, MEDICAID ==
[~2022-07-04] MED LIST changes: +CYCL5TAB PO; +DIGO0.123 PO; +DOXA1TAB41 PO; +FERR324T21 PO; -FUROSEMIDE 20 MG TAB PO ONE; +HYDR-643 PO; +INCR1INH IN; +MELA5TAB10 PO; -diphenhydrAMINE 25MG CAP PO ONE
== END ==
PROVIDERS: ATTEND Physician Assistant
DX: D64.9 Anemia, unspecified (principal); Z53.9 Procedure and treatment not carried out, unspecified reason

== ENCOUNTER → 2022-07-07 | Outpatient (REF) ==
[2022-07-07 10:52] LABS: HEMOGLOBIN 9.9 g/dl (13.5-17.5); MEAN CORPUSCULAR HGB CONC 31.9 g/dl (32.0-36.5); MEAN CORPUSCULAR VOLUME 84.7 fl (80.0-96.0); PLATELET COUNT, AUTOMATED 162 10^3/uL (150-450); RED BLOOD COUNT 3.66 10^6/uL (4.30-6.10); WHITE BLOOD COUNT 5.1 10^3/uL (4.0-10.0)
== END ==
PROVIDERS: ATTEND Physician Assistant
DX: D64.9 Anemia, unspecified (principal)

== ENCOUNTER 2022-07-08 08:29 | Day surgery (SDC) | payer MEDICARE, MEDICAID ==
[~2022-07-08] VITALS: Ht 162.6 cm; Wt 60.1 kg
[~2022-07-08 08:29] MED LIST changes: +NS 1,000 ML IV ONE
[2022-07-08] MEDS ORDERED: fentaNYL 100 MCG/2 ML INJECTION As Ordered ONE (10:56)
[2022-07-08 12:00] VITALS: BP 102/55
[2022-07-08] MEDS ORDERED: LIDOCAINE 2% 100MG/5ML SDV (FOR ANES.) As Ordered ONE (12:09)
[2022-07-08] MEDS ORDERED: propofoL 200 MG/20 ML VIAL As Ordered ONE (12:09)
== END 2022-07-08 12:13 | disposition home or self-care (01) ==
LOC: M OPP 08:29
PROVIDERS: ATTEND Internal Medicine Gastroenterology
DX: D12.0 Benign neoplasm of cecum (principal); K63.5 Polyp of colon; K57.30 Diverticulosis of large intestine without perforation or abscess without bleeding; K64.8 Other hemorrhoids; D50.9 Iron deficiency anemia, unspecified; J44.9 Chronic obstructive pulmonary disease, unspecified; I48.91 Unspecified atrial fibrillation; I50.810 Right heart failure, unspecified; K74.60 Unspecified cirrhosis of liver; I77.819 Aortic ectasia, unspecified site; Z86.14 Personal history of Methicillin resistant Staphylococcus aureus infection; Z86.73 Personal history of transient ischemic attack (TIA), and cerebral infarction without residual deficits; Z79.1 Long term (current) use of non-steroidal anti-inflammatories (NSAID); Z79.02 Long term (current) use of antithrombotics/antiplatelets; Z79.52 Long term (current) use of systemic steroids; Z79.818 Long term (current) use of other agents affecting estrogen receptors and estrogen levels; Z79.899 Other long term (current) drug therapy; Z88.2 Allergy status to sulfonamides
CPT/HCPCS: 43235; 45385; 88305; J3010

== ENCOUNTER → 2022-07-09 | Outpatient (REF) | payer MEDICARE, MEDICAID ==
[~2022-07-09] MED LIST changes: -NS 1,000 ML IV ONE
[2022-07-09 11:47] LABS: HEMATOCRIT 29.6 % (42.0-52.0); HEMOGLOBIN 9.4 g/dl (13.5-17.5); MEAN CORPUSCULAR HEMOGLOBIN 27.6 pg (27.0-33.0); MEAN CORPUSCULAR HGB CONC 31.8 g/dl (32.0-36.5); MEAN CORPUSCULAR VOLUME 87.1 fl (80.0-96.0); PLATELET COUNT, AUTOMATED 146 10^3/uL (150-450); WHITE BLOOD COUNT 5.8 10^3/uL (4.0-10.0)
== END ==
PROVIDERS: ATTEND Physician Assistant
DX: D64.9 Anemia, unspecified (principal)

== ENCOUNTER → 2022-07-14 | Outpatient (REF) ==
[~2022-07-14] MED LIST changes: +FURO20TA2
[2022-07-14 09:13] LABS: HEMATOCRIT 33.1 % (42.0-52.0); HEMOGLOBIN 10.9 g/dl (13.5-17.5); MEAN CORPUSCULAR HEMOGLOBIN 27.9 pg (27.0-33.0); MEAN CORPUSCULAR HGB CONC 32.9 g/dl (32.0-36.5); MEAN CORPUSCULAR VOLUME 84.7 fl (80.0-96.0); PLATELET COUNT, AUTOMATED 176 10^3/uL (150-450); RED BLOOD COUNT 3.91 10^6/uL (4.30-6.10); WHITE BLOOD COUNT 4.4 10^3/uL (4.0-10.0)
== END ==
PROVIDERS: ATTEND Physician Assistant
DX: D64.9 Anemia, unspecified (principal)

== ENCOUNTER → 2022-07-16 | Outpatient (REF) | payer MEDICARE, MEDICAID ==
[2022-07-16 10:46] LABS: HEMATOCRIT 27.1 % (42.0-52.0); HEMOGLOBIN 8.9 g/dl (13.5-17.5); MEAN CORPUSCULAR HEMOGLOBIN 27.9 pg (27.0-33.0); MEAN CORPUSCULAR HGB CONC 32.8 g/dl (32.0-36.5); PLATELET COUNT, AUTOMATED 137 10^3/uL (150-450); RED BLOOD COUNT 3.19 10^6/uL (4.30-6.10); WHITE BLOOD COUNT 4.6 10^3/uL (4.0-10.0)
== END ==
PROVIDERS: ATTEND Physician Assistant
DX: D64.9 Anemia, unspecified (principal)

== ENCOUNTER → 2022-07-21 | Outpatient (REF) | payer MEDICARE, MEDICAID ==
[2022-07-21 12:41] LABS: BLOOD UREA NITROGEN 16 MG/DL (7-18); CARBON DIOXIDE LEVEL 30 MEQ/L (21-32); CHLORIDE LEVEL 99 MEQ/L (98-107); CREATININE FOR GFR 0.67 MG/DL (0.70-1.30); DIGOXIN LEVEL 0.8 NG/ML (0.5-2.0); GLOMERULAR FILTRATION RATE > 60.0 (>35); GLUCOSE, FASTING 103 MG/DL (70-100); POTASSIUM SERUM 4.1 MEQ/L (3.5-5.1); SODIUM LEVEL 133 MEQ/L (136-145)
== END ==
PROVIDERS: ATTEND Physician Assistant
DX: I48.91 Unspecified atrial fibrillation (principal)

== ENCOUNTER → 2022-07-21 | Outpatient (REF) ==
[2022-07-21 11:25] LABS: HEMATOCRIT 28.8 % (42.0-52.0); HEMOGLOBIN 9.2 g/dl (13.5-17.5); MEAN CORPUSCULAR HEMOGLOBIN 27.7 pg (27.0-33.0); MEAN CORPUSCULAR HGB CONC 31.9 g/dl (32.0-36.5); MEAN CORPUSCULAR VOLUME 86.7 fl (80.0-96.0); PLATELET COUNT, AUTOMATED 147 10^3/uL (150-450); RED BLOOD COUNT 3.32 10^6/uL (4.30-6.10); WHITE BLOOD COUNT 5.4 10^3/uL (4.0-10.0)
== END ==
PROVIDERS: ATTEND Physician Assistant
DX: D64.9 Anemia, unspecified (principal)

== ENCOUNTER → 2022-07-23 | Outpatient (REF) | payer MEDICARE, MEDICAID ==
[2022-07-23 09:25] LABS: HEMATOCRIT 29.1 % (42.0-52.0); HEMOGLOBIN 9.7 g/dl (13.5-17.5); MEAN CORPUSCULAR HEMOGLOBIN 28.7 pg (27.0-33.0); MEAN CORPUSCULAR HGB CONC 33.3 g/dl (32.0-36.5); MEAN CORPUSCULAR VOLUME 86.1 fl (80.0-96.0); PLATELET COUNT, AUTOMATED 158 10^3/uL (150-450); RED BLOOD COUNT 3.38 10^6/uL (4.30-6.10); WHITE BLOOD COUNT 5.8 10^3/uL (4.0-10.0)
== END ==
PROVIDERS: ATTEND Physician Assistant
DX: D64.9 Anemia, unspecified (principal)

== ENCOUNTER → 2022-07-30 | Outpatient (REF) | payer MEDICARE, MEDICAID ==
[2022-07-30 12:02] LABS: HEMATOCRIT 26.4 % (42.0-52.0); HEMOGLOBIN 8.8 g/dl (13.5-17.5); MEAN CORPUSCULAR HEMOGLOBIN 29.8 pg (27.0-33.0); MEAN CORPUSCULAR HGB CONC 33.3 g/dl (32.0-36.5); MEAN CORPUSCULAR VOLUME 89.5 fl (80.0-96.0); PLATELET COUNT, AUTOMATED 143 10^3/uL (150-450); RED BLOOD COUNT 2.95 10^6/uL (4.30-6.10); WHITE BLOOD COUNT 4.8 10^3/uL (4.0-10.0)
== END ==
PROVIDERS: ATTEND Physician Assistant
DX: D64.9 Anemia, unspecified (principal)

== ENCOUNTER → 2022-08-05 | Outpatient (REF) | payer MEDICARE, MEDICAID ==
[2022-08-05 15:22] LABS: BASO % 0.4 % (0.0-1.0); EOS # 0.2 10^3/uL (0.0-0.5); EOS % 3.7 % (0.0-3.0); HEMATOCRIT 25.5 % (42.0-52.0); HEMOGLOBIN 8.3 g/dl (13.5-17.5); LYMPH # 0.4 10^3/uL (1.5-5.0); LYMPH % 7.2 % (24.0-44.0); MEAN CORPUSCULAR HEMOGLOBIN 30.1 pg (27.0-33.0); MEAN CORPUSCULAR HGB CONC 32.5 g/dl (32.0-36.5); MEAN CORPUSCULAR VOLUME 92.4 fl (80.0-96.0); MONO # 0.6 10^3/uL (0.0-0.8); MONO % 11.7 % (2.0-8.0); NEUTROPHILS # 3.7 10^3/uL (1.5-8.5); NEUTROPHILS % 76.2 % (36.0-66.0); PLATELET COUNT, AUTOMATED 138 10^3/uL (150-450); RED BLOOD COUNT 2.76 10^6/uL (4.30-6.10); WHITE BLOOD COUNT 4.9 10^3/uL (4.0-10.0)
[2022-08-05 16:21] LABS: ALBUMIN 3.2 GM/DL (3.2-5.2); ALT/SGPT 15 U/L (12-78); BILIRUBIN,DIRECT 0.4 MG/DL (0.0-0.2); BILIRUBIN,TOTAL 0.8 MG/DL (0.2-1.0); BLOOD UREA NITROGEN 22 MG/DL (7-18); CALCIUM LEVEL 8.5 MG/DL (8.8-10.2); CARBON DIOXIDE LEVEL 28 MEQ/L (21-32); CHLORIDE LEVEL 100 MEQ/L (98-107); CREATININE FOR GFR 0.67 MG/DL (0.70-1.30); GLOMERULAR FILTRATION RATE > 60.0 (>35); GLUCOSE, FASTING 116 MG/DL (70-100); POTASSIUM SERUM 4.2 MEQ/L (3.5-5.1); SODIUM LEVEL 134 MEQ/L (136-145); TOTAL PROTEIN 6.1 GM/DL (6.4-8.2)
== END ==
PROVIDERS: ATTEND Physician Assistant
DX: R41.0 Disorientation, unspecified (principal)

== ENCOUNTER → 2022-08-10 | Outpatient (REF) | payer MEDICAID, MEDICARE ==
[2022-08-10 12:40] LABS: BASO % 0.4 % (0.0-1.0); EOS # 0.1 10^3/uL (0.0-0.5); HEMATOCRIT 24.7 % (42.0-52.0); HEMOGLOBIN 7.9 g/dl (13.5-17.5); LYMPH # 0.4 10^3/uL (1.5-5.0); LYMPH % 8.2 % (24.0-44.0); MEAN CORPUSCULAR VOLUME 93.9 fl (80.0-96.0); MONO # 0.6 10^3/uL (0.0-0.8); NEUTROPHILS # 4.2 10^3/uL (1.5-8.5); NEUTROPHILS % 77.8 % (36.0-66.0); PLATELET COUNT, AUTOMATED 132 10^3/uL (150-450); RED BLOOD COUNT 2.63 10^6/uL (4.30-6.10); WHITE BLOOD COUNT 5.4 10^3/uL (4.0-10.0)
== END ==
PROVIDERS: ATTEND Internal Medicine
DX: D64.9 Anemia, unspecified (principal)

== ENCOUNTER → 2022-08-12 | Outpatient (REF) | payer MEDICARE, MEDICAID ==
[2022-08-12 14:01] LABS: HEMATOCRIT 27.9 % (42.0-52.0); MEAN CORPUSCULAR HEMOGLOBIN 30.5 pg (27.0-33.0); MEAN CORPUSCULAR HGB CONC 32.3 g/dl (32.0-36.5); MEAN CORPUSCULAR VOLUME 94.6 fl (80.0-96.0); PLATELET COUNT, AUTOMATED 156 10^3/uL (150-450); RED BLOOD COUNT 2.95 10^6/uL (4.30-6.10); WHITE BLOOD COUNT 5.8 10^3/uL (4.0-10.0)
== END ==
PROVIDERS: ATTEND Physician Assistant
DX: D64.9 Anemia, unspecified (principal)

== ENCOUNTER → 2022-08-13 | Outpatient (CLI) | payer MEDICARE, MEDICAID | LOC: M WHC 07:57 | PROVIDERS: ATTEND Physician Assistant | DX: K40.30 Unilateral inguinal hernia, with obstruction, without gangrene, not specified as recurrent (principal); N43.3 Hydrocele, unspecified; N50.89 Other specified disorders of the male genital organs ==

== ENCOUNTER → 2022-08-17 | Outpatient (REF) | payer MEDICARE, MEDICAID | PROVIDERS: ATTEND Physician Assistant | DX: D64.9 Anemia, unspecified (principal); Z53.8 Procedure and treatment not carried out for other reasons ==

== ENCOUNTER → 2022-08-18 | Outpatient (REF) | payer MEDICARE, MEDICAID ==
[2022-08-18 09:56] LABS: HEMATOCRIT 27.9 % (42.0-52.0); MEAN CORPUSCULAR HEMOGLOBIN 30.6 pg (27.0-33.0); MEAN CORPUSCULAR HGB CONC 32.3 g/dl (32.0-36.5); MEAN CORPUSCULAR VOLUME 94.9 fl (80.0-96.0); PLATELET COUNT, AUTOMATED 138 10^3/uL (150-450); RED BLOOD COUNT 2.94 10^6/uL (4.30-6.10); WHITE BLOOD COUNT 6.1 10^3/uL (4.0-10.0)
== END ==
PROVIDERS: ATTEND Physician Assistant
DX: D64.9 Anemia, unspecified (principal)

== ENCOUNTER → 2022-08-24 | Outpatient (REF) | payer MEDICARE, MEDICAID ==
[2022-08-24 12:03] LABS: BASO % 0.1 % (0.0-1.0); EOS # 0.1 10^3/uL (0.0-0.5); HEMATOCRIT 28.4 % (42.0-52.0); HEMOGLOBIN 9.2 g/dl (13.5-17.5); LYMPH # 0.4 10^3/uL (1.5-5.0); LYMPH % 5.3 % (24.0-44.0); MEAN CORPUSCULAR HEMOGLOBIN 31.4 pg (27.0-33.0); MEAN CORPUSCULAR HGB CONC 32.4 g/dl (32.0-36.5); MEAN CORPUSCULAR VOLUME 96.9 fl (80.0-96.0); MONO # 0.7 10^3/uL (0.0-0.8); MONO % 10.5 % (2.0-8.0); NEUTROPHILS # 5.7 10^3/uL (1.5-8.5); NEUTROPHILS % 81.8 % (36.0-66.0); PLATELET COUNT, AUTOMATED 144 10^3/uL (150-450); RED BLOOD COUNT 2.93 10^6/uL (4.30-6.10)
== END ==
PROVIDERS: ATTEND Physician Assistant
DX: D64.9 Anemia, unspecified (principal)

== ENCOUNTER → 2022-08-31 | Outpatient (REF) | payer MEDICARE, MEDICAID ==
[~2022-08-31] MED LIST changes: +LACT20EL PO; +LOVE1INJ SC; +XARE10TA PO
== END ==
PROVIDERS: ATTEND Physician Assistant
DX: D64.9 Anemia, unspecified (principal); Z53.8 Procedure and treatment not carried out for other reasons

== ENCOUNTER → 2022-09-01 | Outpatient (REF) | payer MEDICARE, MEDICAID ==
[2022-09-01 10:22] LABS: BASO % 0.5 % (0.0-1.0); EOS # 0.2 10^3/uL (0.0-0.5); EOS % 2.9 % (0.0-3.0); HEMATOCRIT 32.5 % (42.0-52.0); HEMOGLOBIN 10.3 g/dl (13.5-17.5); LYMPH # 0.4 10^3/uL (1.5-5.0); LYMPH % 6.5 % (24.0-44.0); MEAN CORPUSCULAR HEMOGLOBIN 30.7 pg (27.0-33.0); MEAN CORPUSCULAR HGB CONC 31.7 g/dl (32.0-36.5); MONO # 0.4 10^3/uL (0.0-0.8); NEUTROPHILS # 4.8 10^3/uL (1.5-8.5); NEUTROPHILS % 82.2 % (36.0-66.0); PLATELET COUNT, AUTOMATED 222 10^3/uL (150-450); RED BLOOD COUNT 3.35 10^6/uL (4.30-6.10); WHITE BLOOD COUNT 5.9 10^3/uL (4.0-10.0)
[2022-09-01 10:33] LABS: INR 1.12; PROTHROMBIN TIME 14.6 SECONDS (12.5-14.5)
[2022-09-01 10:35] LABS: PARTIAL THROMBOPLASTIN TIME 41.7 SECONDS (24.8-34.2)
[2022-09-01 11:09] LABS: BLOOD UREA NITROGEN 13 MG/DL (7-18); CALCIUM LEVEL 8.5 MG/DL (8.8-10.2); CARBON DIOXIDE LEVEL 29 MEQ/L (21-32); CHLORIDE LEVEL 101 MEQ/L (98-107); DIGOXIN LEVEL 0.7 NG/ML (0.5-2.0); GLOMERULAR FILTRATION RATE > 60.0 (>35); GLUCOSE, FASTING 135 MG/DL (70-100); POTASSIUM SERUM 3.8 MEQ/L (3.5-5.1); SODIUM LEVEL 135 MEQ/L (136-145)
== END ==
PROVIDERS: ATTEND Physician Assistant
DX: Z01.818 Encounter for other preprocedural examination (principal); Z79.899 Other long term (current) drug therapy

== ENCOUNTER → 2022-09-02 | Outpatient (CLI) | payer MEDICARE, MEDICAID ==
[~2022-09-02] MED LIST changes: +AMOX875T2 PO; +CEFT1INJ5 IM; +ENOX60IN3 SC; +FERR32TA PO; +LIDOCAINE 1% MDV 20ML VIAL As Ordered ONE; +NYST50SS SS; +PROB1CAP10 PO; +SUCR1SS PO; +TYLE650T38 PO; +patient note
[2022-09-02 08:30] VITALS: BP 124/60
[2022-09-02 08:56] LABS: BASO % 0.4 % (0.0-1.0); EOS # 0.2 10^3/uL (0.0-0.5); EOS % 3.5 % (0.0-3.0); HEMATOCRIT 28.2 % (42.0-52.0); HEMOGLOBIN 9.1 g/dl (13.5-17.5); LYMPH # 0.4 10^3/uL (1.5-5.0); LYMPH % 7.6 % (24.0-44.0); MEAN CORPUSCULAR HEMOGLOBIN 30.5 pg (27.0-33.0); MEAN CORPUSCULAR HGB CONC 32.3 g/dl (32.0-36.5); MEAN CORPUSCULAR VOLUME 94.6 fl (80.0-96.0); MONO # 0.5 10^3/uL (0.0-0.8); MONO % 9.7 % (2.0-8.0); NEUTROPHILS # 4.2 10^3/uL (1.5-8.5); NEUTROPHILS % 78.4 % (36.0-66.0); PLATELET COUNT, AUTOMATED 186 10^3/uL (150-450); RED BLOOD COUNT 2.98 10^6/uL (4.30-6.10); WHITE BLOOD COUNT 5.4 10^3/uL (4.0-10.0)
== END ==
LOC: M IRPRO 08:09 → M LAB 08:27
PROVIDERS: ATTEND Internal Medicine Gastroenterology
DX: D72.819 Decreased white blood cell count, unspecified (principal)

== ENCOUNTER → 2022-09-07 | Outpatient (REF) | payer MEDICARE, MEDICAID ==
[~2022-09-07] MED LIST changes: -AMOX875T2 PO; -LIDOCAINE 1% MDV 20ML VIAL As Ordered ONE; -NYST50SS SS; -PROB1CAP10 PO
[2022-09-07 19:13] LABS: BASO % 0.3 % (0.0-1.0); EOS # 0.2 10^3/uL (0.0-0.5); EOS % 2.3 % (0.0-3.0); HEMATOCRIT 28.8 % (42.0-52.0); LYMPH # 0.5 10^3/uL (1.5-5.0); MEAN CORPUSCULAR HEMOGLOBIN 30.5 pg (27.0-33.0); MEAN CORPUSCULAR HGB CONC 31.3 g/dl (32.0-36.5); MEAN CORPUSCULAR VOLUME 97.6 fl (80.0-96.0); MONO # 0.7 10^3/uL (0.0-0.8); MONO % 10.6 % (2.0-8.0); NEUTROPHILS # 5.1 10^3/uL (1.5-8.5); NEUTROPHILS % 78.5 % (36.0-66.0); PLATELET COUNT, AUTOMATED 212 10^3/uL (150-450); RED BLOOD COUNT 2.95 10^6/uL (4.30-6.10); WHITE BLOOD COUNT 6.5 10^3/uL (4.0-10.0)
== END ==
PROVIDERS: ATTEND Physician Assistant
DX: D64.9 Anemia, unspecified (principal)

== ENCOUNTER → 2022-09-09 | Outpatient (REF) | payer MEDICARE, MEDICAID ==
[~2022-09-09] MED LIST changes: +AMOX875T2 PO; +NYST-38 SS; +PROB1CAP10 PO
[2022-09-09 17:22] LABS: BILIRUBIN,DIRECT 0.5 MG/DL (0.0-0.2); BILIRUBIN,TOTAL 1.4 MG/DL (0.2-1.0); TOTAL PROTEIN 6.1 GM/DL (6.4-8.2)
== END ==
PROVIDERS: ATTEND Internal Medicine
DX: R50.9 Fever, unspecified (principal)

== ENCOUNTER → 2022-09-09 | Outpatient (REF) | payer MEDICARE, MEDICAID ==
[2022-09-09 14:24] LABS: BASO % 0.1 % (0.0-1.0); EOS % 0.3 % (0.0-3.0); HEMATOCRIT 29.9 % (42.0-52.0); HEMOGLOBIN 9.4 g/dl (13.5-17.5); LYMPH # 0.5 10^3/uL (1.5-5.0); LYMPH % 3.4 % (24.0-44.0); MEAN CORPUSCULAR HEMOGLOBIN 30.7 pg (27.0-33.0); MEAN CORPUSCULAR HGB CONC 31.4 g/dl (32.0-36.5); MEAN CORPUSCULAR VOLUME 97.7 fl (80.0-96.0); MONO # 1.1 10^3/uL (0.0-0.8); MONO % 8.1 % (2.0-8.0); NEUTROPHILS # 12.3 10^3/uL (1.5-8.5); NEUTROPHILS % 87.5 % (36.0-66.0); PLATELET COUNT, AUTOMATED 186 10^3/uL (150-450); RED BLOOD COUNT 3.06 10^6/uL (4.30-6.10)
[2022-09-09 15:09] LABS: ALBUMIN 2.9 GM/DL (3.2-5.2); ALKALINE PHOSPHATASE 114 U/L (45-117); ALT/SGPT 14 U/L (12-78); AST/SGOT 14 U/L (7-37); BILIRUBIN,TOTAL 1.4 MG/DL (0.2-1.0); BLOOD UREA NITROGEN 22 MG/DL (7-18); CALCIUM LEVEL 8.3 MG/DL (8.8-10.2); CARBON DIOXIDE LEVEL 27 MEQ/L (21-32); CHLORIDE LEVEL 101 MEQ/L (98-107); CREATININE FOR GFR 0.79 MG/DL (0.70-1.30); ERYTHROCYTE SEDIMENTATION RATE 52 mm/hr (0-20); GLOMERULAR FILTRATION RATE > 60.0 (>35); GLUCOSE, FASTING 122 MG/DL (70-100); POTASSIUM SERUM 3.9 MEQ/L (3.5-5.1); SODIUM LEVEL 135 MEQ/L (136-145); TOTAL PROTEIN 5.8 GM/DL (6.4-8.2)
== END ==
PROVIDERS: ATTEND Internal Medicine
DX: R50.9 Fever, unspecified (principal)

== ENCOUNTER 2022-09-10 14:47 | Inpatient (IN) | payer MEDICARE, MEDICAID ==
[~2022-09-10] VITALS: Ht 170.2 cm; Wt 66.0 kg
[2022-09-10] VITALS (9 sets, daily range): BP systolic 110–143; BP diastolic 56–72
[~2022-09-10 14:47] MED LIST changes: -AMOX875T2 PO; -CEFT1INJ5 IM; -ENOX60IN3 SC; -FERR32TA PO; -NYST-38 SS; -PROB1CAP10 PO; -SUCR1SS PO; -TYLE650T38 PO; -patient note
[2022-09-10] MEDS ORDERED: patient note (16:09)
[2022-09-10] MEDS ORDERED: HOME MED LIST COMPLETE! XX SCH ×2 (16:10→23:05)
[2022-09-10] MEDS ORDERED: ACETAMINOPHEN TAB 650MG DOSE (2X325MG) PO PRN (16:20)
[2022-09-10] MEDS ORDERED: ONDANSETRON 4MG 2ML VIAL IV PRN (16:35)
[2022-09-10] MEDS ORDERED: LEVALBUTEROL 1.25 MG/0.5 ML CONCENTRATE NEB NEB PRN (16:35)
[2022-09-10] MEDS ORDERED: ALBUTEROL SULFATE 2.5 MG/0.5 ML INH NEB SOLN NEB PRN (16:35)
[2022-09-10] MEDS ORDERED: BISACODYL 10 MG SUPP PR PRN (16:35)
[2022-09-10] MEDS ORDERED: PERCOCET 5MG/325MG TAB PO PRN ×2 (16:35)
[2022-09-10] MEDS ORDERED: MIDAZOLAM 5MG 5ML VIAL (FOR CHEST TUBE INSERTIONS) IV PRN (16:40)
[2022-09-10] MEDS ORDERED: LIDOCAINE 1% MDV 20ML VIAL SC PRN (16:40)
[2022-09-10] MEDS ORDERED: flumazeniL 0.5 MG/5 ML VIAL IV PRN (16:40)
[2022-09-10 17:55] LABS: ABG BASE EXCESS 0.5 (-2.0-2.0); ABG HCO3 24.2 MEQ/L (22.0-26.0); ABG O2 SATURATION 92.1 % (95.0-99.0); ABG PARTIAL PRESSURE CO2 35.5 mmHg (35.0-45.0); ABG STANDARD HCO3 24.8 MEQ/L (22.0-26.0); ABG TOTAL CO2 25.3 MEQ/L (23.0-31.0); ABG pH (ARTERIAL) 7.452 UNITS (7.350-7.450)
[2022-09-10 17:59] LABS: RSV AMPLIFICATION NEGATIVE (NEGATIVE)
[2022-09-10 18:32] LABS: INR 1.27; PROTHROMBIN TIME 16.2 SECONDS (12.5-14.5)
[2022-09-10 18:33] LABS: PARTIAL THROMBOPLASTIN TIME 46.8 SECONDS (24.8-34.2)
[2022-09-10 18:59] LABS: CK-MB VALUE MASS 1.4 NG/ML (<3.6); MB/CK RELATIVE INDEX 2.12 (< OR =4)
[2022-09-10 19:01] LABS: LDH LACTATE DEHYDROGENASE 173 U/L (87-241)
[2022-09-10 19:12] LABS: PH BODY FLUID 7.578 UNITS (NOT ESTABLISHED); SOURCE, BODY FLUID pH PLEURAL
[2022-09-10 19:18] LABS: APPEARANCE, BODY FLUID HAZY (CLEAR); PLEURAL FL COLOR YELLOW (COLORLESS); SOURCE, BODY FLUID PLEURAL
[2022-09-10] MEDS: LEVALBUTEROL 1.25 MG/0.5 ML CONCENTRATE NEB NEB SCH (19:30)
[2022-09-10 19:50] LABS: AMYLASE, BODY FLUID 40 U/L (NOT ESTABLISHED); CHOLESTEROL, BODY FLUID < 50 MG/DL (NOT ESTABLISHED); LDH, BODY FLUID 432 U/L (NOT ESTABLISHED); SOURCE, BODY FLUID AMYLASE PLEURAL; SOURCE, BODY FLUID CHOL PLEURAL; SOURCE, BODY FLUID GLUCOSE PLEURAL; SOURCE, BODY FLUID LDH PLEURAL; SOURCE, BODY FLUID TRIG PLEURAL; TRIGLYCERIDE, BODY FLUID 17 MG/DL (NOT ESTABLISHED)
[2022-09-10 19:51] LABS: SOURCE, BODY FLUID ALBUMIN PLEURAL; SOURCE, BODY FLUID TOT PROTEIN PLEURAL; TOTAL PROTEIN, BODY FLUID 4.2 G/DL (NOT ESTABLISHED)
[2022-09-10] MEDS: cefTRIAXone SOD 1 GM in D5W MINI-BAG PLUS 50 ML IV SCH (20:44)
[2022-09-10] MEDS: DOXYCYCLINE HYCLATE 100MG TABLET PO SCH (20:44)
[2022-09-10] MEDS: KETOROLAC 30 MG/ML 1ML VIAL IV SCH (20:44)
[2022-09-10] MEDS ORDERED: DOCUSATE SODIUM 100MG CAPSULE PO SCH (21:00)
[2022-09-10] MEDS ORDERED: FERR32TA PO (22:58)
[2022-09-10] MEDS ORDERED: XARE20TA PO (22:58)
[2022-09-10] MEDS ORDERED: COLA100C5 PO (22:58)
[2022-09-10] MEDS ORDERED: DOXA1TAB41 PO (22:58)
[2022-09-10] MEDS ORDERED: FOLI1TAB11 PO (22:58)
[2022-09-10] MEDS ORDERED: TYLE650T38 PO (22:58)
[2022-09-10] MEDS ORDERED: DIGO0.123 PO (22:58)
[2022-09-10] MEDS ORDERED: ATOR80TA59 PO (22:58)
[2022-09-10] MEDS ORDERED: LACT20EL PO (22:58)
[2022-09-10] MEDS ORDERED: FINA5TAB2 PO (22:58)
[2022-09-10] MEDS ORDERED: PANT40TA29 PO (22:58)
[2022-09-10] MEDS ORDERED: ENOX60IN3 SC (22:58)
[2022-09-10] MEDS ORDERED: AMLO1TAB24 PO (22:58)
[2022-09-10] MEDS ORDERED: ALDA25TA2 PO (22:58)
[2022-09-10] MEDS ORDERED: SUCR1SS PO (23:01)
[2022-09-10] MEDS ORDERED: METO25TA4 PO (23:01)
[2022-09-10] MEDS ORDERED: CEFT1INJ5 IM (23:01)
[2022-09-11] VITALS (7 sets, daily range): BP systolic 96–127; BP diastolic 53–73
[2022-09-11] MEDS: KETOROLAC 30 MG/ML 1ML VIAL IV SCH ×4 (01:16→17:45)
[2022-09-11] MEDS: LEVALBUTEROL 1.25 MG/0.5 ML CONCENTRATE NEB NEB SCH ×4 (02:20→20:42)
[2022-09-11 06:02] LABS: ABG BASE EXCESS 1.2 (-2.0-2.0); ABG HCO3 24.8 MEQ/L (22.0-26.0); ABG O2 SATURATION 98.9 % (95.0-99.0); ABG PARTIAL PRESSURE CO2 34.8 mmHg (35.0-45.0); ABG PARTIAL PRESSURE O2 153.7 mmHg (75.0-100.0); ABG STANDARD HCO3 25.6 MEQ/L (22.0-26.0); ABG TOTAL CO2 25.8 MEQ/L (23.0-31.0)
[2022-09-11] MEDS: DOXYCYCLINE HYCLATE 100MG TABLET PO SCH ×2 (08:17→21:42)
[2022-09-11] MEDS: PANTOPRAZOLE 40MG TAB (PROTONIX) PO SCH (08:17)
[2022-09-11] MEDS: MOM 30ML SUSPENSION UDC PO SCH (08:17)
[2022-09-11 08:32] LABS: BASO % 0.3 % (0.0-1.0); EOS # 0.1 10^3/uL (0.0-0.5); EOS % 0.9 % (0.0-3.0); HEMATOCRIT 25.6 % (42.0-52.0); HEMOGLOBIN 8.3 g/dl (13.5-17.5); LYMPH # 0.4 10^3/uL (1.5-5.0); LYMPH % 4.6 % (24.0-44.0); MEAN CORPUSCULAR HEMOGLOBIN 30.9 pg (27.0-33.0); MEAN CORPUSCULAR HGB CONC 32.4 g/dl (32.0-36.5); MEAN CORPUSCULAR VOLUME 95.2 fl (80.0-96.0); MONO # 0.7 10^3/uL (0.0-0.8); MONO % 9.5 % (2.0-8.0); NEUTROPHILS # 6.4 10^3/uL (1.5-8.5); NEUTROPHILS % 84.3 % (36.0-66.0); PLATELET COUNT, AUTOMATED 159 10^3/uL (150-450); RED BLOOD COUNT 2.69 10^6/uL (4.30-6.10); WHITE BLOOD COUNT 7.6 10^3/uL (4.0-10.0)
[2022-09-11 09:08] LABS: ALBUMIN 2.6 GM/DL (3.2-5.2); ALT/SGPT 13 U/L (12-78); BILIRUBIN,TOTAL 0.7 MG/DL (0.2-1.0); BLOOD UREA NITROGEN 21 MG/DL (7-18); CALCIUM LEVEL 8.3 MG/DL (8.8-10.2); CARBON DIOXIDE LEVEL 28 MEQ/L (21-32); CHLORIDE LEVEL 104 MEQ/L (98-107); CREATININE FOR GFR 0.66 MG/DL (0.70-1.30); GLOMERULAR FILTRATION RATE > 60.0 (>35); GLUCOSE, FASTING 96 MG/DL (70-100); POTASSIUM SERUM 3.6 MEQ/L (3.5-5.1); SODIUM LEVEL 136 MEQ/L (136-145)
[2022-09-11 09:09] LABS: NT-PRO BNP 4220 PG/ML (<450)
[2022-09-11] MEDS: amLODIPine 5 MG TAB PO SCH (10:00)
[2022-09-11] MEDS: METOPROLOL TART 25 MG TABLET PO SCH ×3 (10:00→17:44)
[2022-09-11] MEDS: SUCRALFATE SUSP 1GM/10ML UD PO SCH ×4 (10:01→21:40)
[2022-09-11] MEDS: FOLIC ACID 1MG TAB PO SCH (10:04)
[2022-09-11] MEDS: DIGOXIN 0.125 MG TAB PO SCH (10:04)
[2022-09-11] MEDS: SPIRONOLACTONE 12.5MG PER 1/2 TABLET PO SCH (10:04)
[2022-09-11] MEDS: FINASTERIDE 5MG TAB PO SCH (10:04)
[2022-09-11] MEDS: FERROUS GLUCONATE 324 MG TAB PO SCH ×2 (10:04→21:42)
[2022-09-11] MEDS: DOCUSATE SODIUM 100MG CAPSULE PO SCH ×2 (10:04→21:41)
[2022-09-11] MEDS: LACTULOSE 20 GM/30 ML SYRUP UD PO SCH (10:05)
[2022-09-11] MEDS ORDERED: ALTEPLASE 2MG/2ML VIAL XX ONE (10:45)
[2022-09-11] MEDS: cefTRIAXone SOD 1 GM in D5W MINI-BAG PLUS 50 ML IV SCH (17:45)
[2022-09-11] MEDS ORDERED: LORazepam 2 MG/ML VIAL As Ordered ONE (21:14)
[2022-09-11] MEDS ORDERED: LORazepam 2 MG/ML VIAL IV STA (21:18)
[2022-09-11] MEDS: ATORVASTATIN 20 MG TAB PO SCH (21:41)
[2022-09-11] MEDS: DOXAZOSIN MESYLATE 1 MG TAB PO SCH (21:43)
[2022-09-12] VITALS (7 sets, daily range): BP systolic 101–126; BP diastolic 49–63
[2022-09-12] MEDS: METOPROLOL TART 25 MG TABLET PO SCH ×4 (00:47→17:30)
[2022-09-12] MEDS: KETOROLAC 30 MG/ML 1ML VIAL IV SCH ×4 (00:47→17:34)
[2022-09-12] MEDS: LEVALBUTEROL 1.25 MG/0.5 ML CONCENTRATE NEB NEB SCH ×4 (01:30→19:57)
[2022-09-12 06:41] LABS: BASO % 0.3 % (0.0-1.0); EOS # 0.1 10^3/uL (0.0-0.5); EOS % 1.5 % (0.0-3.0); HEMATOCRIT 26.3 % (42.0-52.0); HEMOGLOBIN 8.7 g/dl (13.5-17.5); LYMPH # 0.4 10^3/uL (1.5-5.0); LYMPH % 5.1 % (24.0-44.0); MEAN CORPUSCULAR HEMOGLOBIN 31.2 pg (27.0-33.0); MEAN CORPUSCULAR HGB CONC 33.1 g/dl (32.0-36.5); MEAN CORPUSCULAR VOLUME 94.3 fl (80.0-96.0); MONO # 0.8 10^3/uL (0.0-0.8); MONO % 11.5 % (2.0-8.0); NEUTROPHILS # 5.9 10^3/uL (1.5-8.5); PLATELET COUNT, AUTOMATED 151 10^3/uL (150-450); RED BLOOD COUNT 2.79 10^6/uL (4.30-6.10); WHITE BLOOD COUNT 7.2 10^3/uL (4.0-10.0)
[2022-09-12 07:13] LABS: ALBUMIN 2.2 GM/DL (3.2-5.2); ALT/SGPT 17 U/L (12-78); BILIRUBIN,TOTAL 0.6 MG/DL (0.2-1.0); BLOOD UREA NITROGEN 24 MG/DL (7-18); CALCIUM LEVEL 8.1 MG/DL (8.8-10.2); CARBON DIOXIDE LEVEL 25 MEQ/L (21-32); CHLORIDE LEVEL 102 MEQ/L (98-107); CREATININE FOR GFR 0.69 MG/DL (0.70-1.30); GLOMERULAR FILTRATION RATE > 60.0 (>35); GLUCOSE, FASTING 110 MG/DL (70-100); POTASSIUM SERUM 4.3 MEQ/L (3.5-5.1); SODIUM LEVEL 133 MEQ/L (136-145); TOTAL PROTEIN 5.6 GM/DL (6.4-8.2)
[2022-09-12] MEDS: FOLIC ACID 1MG TAB PO SCH (08:43)
[2022-09-12] MEDS: FERROUS GLUCONATE 324 MG TAB PO SCH ×2 (08:43→20:37)
[2022-09-12] MEDS: amLODIPine 5 MG TAB PO SCH (08:43)
[2022-09-12] MEDS: FINASTERIDE 5MG TAB PO SCH (08:43)
[2022-09-12] MEDS: DOCUSATE SODIUM 100MG CAPSULE PO SCH ×2 (08:43→20:37)
[2022-09-12] MEDS: DOXYCYCLINE HYCLATE 100MG TABLET PO SCH ×2 (08:44→20:37)
[2022-09-12] MEDS: LACTULOSE 20 GM/30 ML SYRUP UD PO SCH (08:44)
[2022-09-12] MEDS: DIGOXIN 0.125 MG TAB PO SCH (08:44)
[2022-09-12] MEDS: MOM 30ML SUSPENSION UDC PO SCH (08:51)
[2022-09-12] MEDS: PANTOPRAZOLE 40MG TAB (PROTONIX) PO SCH (08:51)
[2022-09-12] MEDS: SUCRALFATE SUSP 1GM/10ML UD PO SCH ×4 (08:51→20:37)
[2022-09-12] MEDS: SPIRONOLACTONE 12.5MG PER 1/2 TABLET PO SCH (08:52)
[2022-09-12] MEDS: cefTRIAXone SOD 1 GM in D5W MINI-BAG PLUS 50 ML IV SCH (17:34)
[2022-09-12] MEDS: DOXAZOSIN MESYLATE 1 MG TAB PO SCH (20:37)
[2022-09-12] MEDS: ATORVASTATIN 20 MG TAB PO SCH (20:37)
[2022-09-13] VITALS (10 sets, daily range): BP systolic 108–137; BP diastolic 55–60
[2022-09-13] MEDS: KETOROLAC 30 MG/ML 1ML VIAL IV SCH ×4 (01:22→17:49)
[2022-09-13] MEDS: METOPROLOL TART 25 MG TABLET PO SCH ×4 (01:22→17:53)
[2022-09-13] MEDS: LEVALBUTEROL 1.25 MG/0.5 ML CONCENTRATE NEB NEB SCH ×4 (01:34→20:27)
[2022-09-13 06:24] LABS: BASO % 0.4 % (0.0-1.0); EOS # 0.2 10^3/uL (0.0-0.5); EOS % 2.7 % (0.0-3.0); HEMATOCRIT 23.4 % (42.0-52.0); HEMOGLOBIN 7.7 g/dl (13.5-17.5); LYMPH # 0.4 10^3/uL (1.5-5.0); LYMPH % 5.5 % (24.0-44.0); MEAN CORPUSCULAR HEMOGLOBIN 31.2 pg (27.0-33.0); MEAN CORPUSCULAR HGB CONC 32.9 g/dl (32.0-36.5); MEAN CORPUSCULAR VOLUME 94.7 fl (80.0-96.0); MONO # 0.7 10^3/uL (0.0-0.8); MONO % 10.6 % (2.0-8.0); NEUTROPHILS # 5.4 10^3/uL (1.5-8.5); NEUTROPHILS % 80.1 % (36.0-66.0); PLATELET COUNT, AUTOMATED 160 10^3/uL (150-450); RED BLOOD COUNT 2.47 10^6/uL (4.30-6.10); WHITE BLOOD COUNT 6.8 10^3/uL (4.0-10.0)
[2022-09-13 06:51] LABS: ALBUMIN 2.2 GM/DL (3.2-5.2); ALT/SGPT 25 U/L (12-78); BILIRUBIN,TOTAL 0.5 MG/DL (0.2-1.0); BLOOD UREA NITROGEN 26 MG/DL (7-18); CALCIUM LEVEL 8.1 MG/DL (8.8-10.2); CARBON DIOXIDE LEVEL 26 MEQ/L (21-32); CHLORIDE LEVEL 101 MEQ/L (98-107); CREATININE FOR GFR 0.77 MG/DL (0.70-1.30); GLOMERULAR FILTRATION RATE > 60.0 (>35); GLUCOSE, FASTING 123 MG/DL (70-100); POTASSIUM SERUM 4.5 MEQ/L (3.5-5.1); SODIUM LEVEL 134 MEQ/L (136-145); TOTAL PROTEIN 5.1 GM/DL (6.4-8.2)
[2022-09-13] MEDS: SUCRALFATE SUSP 1GM/10ML UD PO SCH ×4 (07:40→20:01)
[2022-09-13] MEDS: FERROUS GLUCONATE 324 MG TAB PO SCH ×2 (09:04→20:01)
[2022-09-13] MEDS: PANTOPRAZOLE 40MG TAB (PROTONIX) PO SCH (09:04)
[2022-09-13] MEDS: DOCUSATE SODIUM 100MG CAPSULE PO SCH ×2 (09:04→20:01)
[2022-09-13] MEDS: SPIRONOLACTONE 12.5MG PER 1/2 TABLET PO SCH (09:04)
[2022-09-13] MEDS: LACTULOSE 20 GM/30 ML SYRUP UD PO SCH (09:04)
[2022-09-13] MEDS: FINASTERIDE 5MG TAB PO SCH (09:04)
[2022-09-13] MEDS: MOM 30ML SUSPENSION UDC PO SCH (09:04)
[2022-09-13] MEDS: FOLIC ACID 1MG TAB PO SCH (09:04)
[2022-09-13] MEDS: DIGOXIN 0.125 MG TAB PO SCH (09:05)
[2022-09-13] MEDS: amLODIPine 5 MG TAB PO SCH (09:05)
[2022-09-13] MEDS: DOXYCYCLINE HYCLATE 100MG TABLET PO SCH ×2 (09:05→20:01)
[2022-09-13] MEDS: cefTRIAXone SOD 1 GM in D5W MINI-BAG PLUS 50 ML IV SCH (17:50)
[2022-09-13 18:22] LABS: HEMATOCRIT 26.8 % (42.0-52.0); HEMOGLOBIN 8.7 g/dl (13.5-17.5)
[2022-09-13] MEDS: ATORVASTATIN 20 MG TAB PO SCH (20:00)
[2022-09-13] MEDS: DOXAZOSIN MESYLATE 1 MG TAB PO SCH (20:01)
[2022-09-14] VITALS: BP 124/72
[2022-09-14] MEDS: KETOROLAC 30 MG/ML 1ML VIAL IV SCH ×5 (00:48→23:30)
[2022-09-14] MEDS: METOPROLOL TART 25 MG TABLET PO SCH ×5 (00:48→23:31)
[2022-09-14] MEDS: LEVALBUTEROL 1.25 MG/0.5 ML CONCENTRATE NEB NEB SCH ×4 (02:02→22:05)
[2022-09-14 04:00] VITALS: BP 128/51
[2022-09-14 06:25] LABS: BASO % 0.4 % (0.0-1.0); EOS # 0.2 10^3/uL (0.0-0.5); EOS % 2.9 % (0.0-3.0); HEMATOCRIT 26.7 % (42.0-52.0); HEMOGLOBIN 8.8 g/dl (13.5-17.5); LYMPH # 0.4 10^3/uL (1.5-5.0); LYMPH % 5.1 % (24.0-44.0); MONO # 0.7 10^3/uL (0.0-0.8); MONO % 9.9 % (2.0-8.0); NEUTROPHILS # 5.6 10^3/uL (1.5-8.5); NEUTROPHILS % 81.3 % (36.0-66.0); PLATELET COUNT, AUTOMATED 164 10^3/uL (150-450); RED BLOOD COUNT 2.84 10^6/uL (4.30-6.10); WHITE BLOOD COUNT 6.9 10^3/uL (4.0-10.0)
[2022-09-14 06:59] LABS: ALBUMIN 2.3 GM/DL (3.2-5.2); ALT/SGPT 31 U/L (12-78); BILIRUBIN,TOTAL 0.6 MG/DL (0.2-1.0); BLOOD UREA NITROGEN 23 MG/DL (7-18); CARBON DIOXIDE LEVEL 28 MEQ/L (21-32); CHLORIDE LEVEL 100 MEQ/L (98-107); CREATININE FOR GFR 0.68 MG/DL (0.70-1.30); GLOMERULAR FILTRATION RATE > 60.0 (>35); GLUCOSE, FASTING 97 MG/DL (70-100); POTASSIUM SERUM 4.8 MEQ/L (3.5-5.1); SODIUM LEVEL 133 MEQ/L (136-145); TOTAL PROTEIN 5.2 GM/DL (6.4-8.2)
[2022-09-14 08:00] VITALS: BP 124/59
[2022-09-14] MEDS: SUCRALFATE SUSP 1GM/10ML UD PO SCH ×5 (08:15→21:56)
[2022-09-14] MEDS: SPIRONOLACTONE 12.5MG PER 1/2 TABLET PO SCH (09:44)
[2022-09-14] MEDS: amLODIPine 5 MG TAB PO SCH (09:45)
[2022-09-14] MEDS: FERROUS GLUCONATE 324 MG TAB PO SCH ×3 (09:45→21:56)
[2022-09-14] MEDS: FOLIC ACID 1MG TAB PO SCH (09:45)
[2022-09-14] MEDS: FINASTERIDE 5MG TAB PO SCH (09:49)
[2022-09-14] MEDS: LACTULOSE 20 GM/30 ML SYRUP UD PO SCH (09:49)
[2022-09-14] MEDS: DOCUSATE SODIUM 100MG CAPSULE PO SCH ×3 (09:49→21:57)
[2022-09-14] MEDS: DIGOXIN 0.125 MG TAB PO SCH (09:49)
[2022-09-14] MEDS: PANTOPRAZOLE 40MG TAB (PROTONIX) PO SCH (09:49)
[2022-09-14] MEDS: MOM 30ML SUSPENSION UDC PO SCH (09:50)
[2022-09-14] MEDS: DOXYCYCLINE HYCLATE 100MG TABLET PO SCH ×3 (09:50→21:56)
[2022-09-14 12:23] VITALS: BP 132/61
[2022-09-14 17:43] VITALS: BP 145/64
[2022-09-14] MEDS: cefTRIAXone SOD 1 GM in D5W MINI-BAG PLUS 50 ML IV SCH (17:47)
[2022-09-14 20:00] VITALS: BP 126/58
[2022-09-14] MEDS: DOXAZOSIN MESYLATE 1 MG TAB PO SCH (21:56)
[2022-09-14] MEDS: ATORVASTATIN 20 MG TAB PO SCH (21:56)
[2022-09-15] VITALS: BP 127/57
[2022-09-15] MEDS: LEVALBUTEROL 1.25 MG/0.5 ML CONCENTRATE NEB NEB SCH ×2 (02:00→09:28)
[2022-09-15 05:00] VITALS: BP 134/63
[2022-09-15] MEDS: KETOROLAC 30 MG/ML 1ML VIAL IV SCH ×2 (06:00→11:50)
[2022-09-15] MEDS: METOPROLOL TART 25 MG TABLET PO SCH ×2 (06:21→11:57)
[2022-09-15 07:41] LABS: BASO % 0.5 % (0.0-1.0); EOS # 0.3 10^3/uL (0.0-0.5); EOS % 3.5 % (0.0-3.0); HEMATOCRIT 27.1 % (42.0-52.0); HEMOGLOBIN 9.1 g/dl (13.5-17.5); LYMPH # 0.3 10^3/uL (1.5-5.0); LYMPH % 3.9 % (24.0-44.0); MEAN CORPUSCULAR HEMOGLOBIN 31.2 pg (27.0-33.0); MEAN CORPUSCULAR HGB CONC 33.6 g/dl (32.0-36.5); MEAN CORPUSCULAR VOLUME 92.8 fl (80.0-96.0); MONO # 0.8 10^3/uL (0.0-0.8); MONO % 8.5 % (2.0-8.0); NEUTROPHILS # 7.3 10^3/uL (1.5-8.5); PLATELET COUNT, AUTOMATED 198 10^3/uL (150-450); RED BLOOD COUNT 2.92 10^6/uL (4.30-6.10); WHITE BLOOD COUNT 8.8 10^3/uL (4.0-10.0)
[2022-09-15 07:52] VITALS: BP 114/60
[2022-09-15 08:20] LABS: ALBUMIN 2.3 GM/DL (3.2-5.2); ALT/SGPT 42 U/L (12-78); BILIRUBIN,TOTAL 0.6 MG/DL (0.2-1.0); BLOOD UREA NITROGEN 22 MG/DL (7-18); CALCIUM LEVEL 8.5 MG/DL (8.8-10.2); CARBON DIOXIDE LEVEL 27 MEQ/L (21-32); CHLORIDE LEVEL 100 MEQ/L (98-107); CREATININE FOR GFR 0.65 MG/DL (0.70-1.30); GLOMERULAR FILTRATION RATE > 60.0 (>35); GLUCOSE, FASTING 93 MG/DL (70-100); POTASSIUM SERUM 4.6 MEQ/L (3.5-5.1); SODIUM LEVEL 132 MEQ/L (136-145); TOTAL PROTEIN 5.9 GM/DL (6.4-8.2)
[2022-09-15] MEDS: amLODIPine 5 MG TAB PO SCH (08:38)
[2022-09-15] MEDS: DOCUSATE SODIUM 100MG CAPSULE PO SCH (08:38)
[2022-09-15] MEDS: MOM 30ML SUSPENSION UDC PO SCH (08:38)
[2022-09-15] MEDS: SUCRALFATE SUSP 1GM/10ML UD PO SCH ×2 (08:39→11:57)
[2022-09-15] MEDS: FINASTERIDE 5MG TAB PO SCH (08:39)
[2022-09-15] MEDS: FOLIC ACID 1MG TAB PO SCH (08:39)
[2022-09-15] MEDS: PANTOPRAZOLE 40MG TAB (PROTONIX) PO SCH (08:39)
[2022-09-15] MEDS: FERROUS GLUCONATE 324 MG TAB PO SCH (08:39)
[2022-09-15] MEDS: LACTULOSE 20 GM/30 ML SYRUP UD PO SCH (08:39)
[2022-09-15] MEDS: DOXYCYCLINE HYCLATE 100MG TABLET PO SCH (08:40)
[2022-09-15] MEDS: SPIRONOLACTONE 12.5MG PER 1/2 TABLET PO SCH (08:41)
[2022-09-15] MEDS ORDERED: AUGMENTIN 875 MG TAB PO SCH (09:00)
[2022-09-15] MEDS: DIGOXIN 0.125 MG TAB PO SCH (09:06)
[2022-09-15 11:50] VITALS: BP 132/70
[2022-09-15 11:57] VITALS: BP 132/70
[2022-09-15 12:00] VITALS: BP 120/60
[2022-09-15] MEDS ORDERED: NYST50SS SS (12:01)
[2022-09-15] MEDS ORDERED: AMOX875T2 PO (12:01)
[2022-09-15] MEDS ORDERED: PROB1CAP10 PO (12:44)
[2022-09-15] MEDS ORDERED: NYSTATIN 500,000 U/5 ML SUSP UDC SS SCH (13:00)
== END 2022-09-15 13:40 | DRG 186 ==
LOC: M ED 14:47 → M PCU 16:20 → ENRESERV 16:29
PROVIDERS: ADMIT Internal Medicine; ATTEND Internal Medicine
PROC: 0W9930Z Drainage of Right Pleural Cavity with Drainage Device, Percutaneous Approach (ICD-10-PCS; 2022-09-10)
PROC: 3E0L3TZ Introduction of Destructive Agent into Pleural Cavity, Percutaneous Approach (ICD-10-PCS; principal; 2022-09-11)
PROC: B246ZZZ Ultrasonography of Right and Left Heart (ICD-10-PCS; 2022-09-12)
PROC: 30233N1 Transfusion of Nonautologous Red Blood Cells into Peripheral Vein, Percutaneous Approach (ICD-10-PCS; 2022-09-13)
PROC: BB1 Imaging, Respiratory System, Fluoroscopy (ICD-10-PCS; 2022-09-15)
DX: J90 Pleural effusion, not elsewhere classified (principal); J18.9 Pneumonia, unspecified organism; D47.1 Chronic myeloproliferative disease; B37.0 Candidal stomatitis; I48.91 Unspecified atrial fibrillation; I35.0 Nonrheumatic aortic (valve) stenosis; I27.20 Pulmonary hypertension, unspecified; I10 Essential (primary) hypertension; K70.31 Alcoholic cirrhosis of liver with ascites; K21.9 Gastro-esophageal reflux disease without esophagitis; F01.50 Vascular dementia, unspecified severity, without behavioral disturbance, psychotic disturbance, mood disturbance, and anxiety; D46.4 Refractory anemia, unspecified; D50.9 Iron deficiency anemia, unspecified; I25.10 Atherosclerotic heart disease of native coronary artery without angina pectoris; Z96.0 Presence of urogenital implants; Z79.01 Long term (current) use of anticoagulants; Z98.41 Cataract extraction status, right eye; Z98.42 Cataract extraction status, left eye; Z87.891 Personal history of nicotine dependence; Z88.2 Allergy status to sulfonamides; Z86.73 Personal history of transient ischemic attack (TIA), and cerebral infarction without residual deficits; Z87.440 Personal history of urinary (tract) infections; Z90.49 Acquired absence of other specified parts of digestive tract; D63.8 Anemia in other chronic diseases classified elsewhere

== ENCOUNTER → 2022-09-10 | Outpatient (CLI) | payer MEDICARE, MEDICAID ==
[~2022-09-10] MED LIST changes: +ISOVUE-370 76% 100ML VIAL As Ordered ONE
== END ==
LOC: M RAD 12:30
PROVIDERS: ATTEND Physician Assistant
DX: R50.9 Fever, unspecified (principal)

== ENCOUNTER → 2022-09-10 | Outpatient (REF) | payer MEDICARE, MEDICAID ==
[~2022-09-10] MED LIST changes: -ISOVUE-370 76% 100ML VIAL As Ordered ONE
[2022-09-10 08:43] LABS: HEMATOCRIT 26.5 % (42.0-52.0); HEMOGLOBIN 8.8 g/dl (13.5-17.5); MEAN CORPUSCULAR HEMOGLOBIN 31.2 pg (27.0-33.0); MEAN CORPUSCULAR HGB CONC 33.2 g/dl (32.0-36.5); PLATELET COUNT, AUTOMATED 176 10^3/uL (150-450); RED BLOOD COUNT 2.82 10^6/uL (4.30-6.10)
[2022-09-10 09:20] LABS: ERYTHROCYTE SEDIMENTATION RATE 61 mm/hr (0-20)
[2022-09-10 09:30] LABS: ALBUMIN 2.6 GM/DL (3.2-5.2); ALKALINE PHOSPHATASE 102 U/L (45-117); ALT/SGPT 11 U/L (12-78); AST/SGOT 12 U/L (7-37); BILIRUBIN,TOTAL 1.1 MG/DL (0.2-1.0); BLOOD UREA NITROGEN 22 MG/DL (7-18); CALCIUM LEVEL 8.2 MG/DL (8.8-10.2); CARBON DIOXIDE LEVEL 28 MEQ/L (21-32); CHLORIDE LEVEL 102 MEQ/L (98-107); CREATININE FOR GFR 0.68 MG/DL (0.70-1.30); GLOMERULAR FILTRATION RATE > 60.0 (>35); GLUCOSE, FASTING 100 MG/DL (70-100); POTASSIUM SERUM 4.1 MEQ/L (3.5-5.1); SODIUM LEVEL 135 MEQ/L (136-145); TOTAL PROTEIN 5.4 GM/DL (6.4-8.2)
== END ==
PROVIDERS: ATTEND Physician Assistant
DX: R50.9 Fever, unspecified (principal)

== ENCOUNTER → 2022-09-11 | Outpatient (REF) ==
[~2022-09-11] MED LIST changes: +CEFT1INJ5 IM; +ENOX60IN3 SC; +FERR32TA PO; +LORazepam 2 MG/ML VIAL IV STA; +SUCR1SS PO; +TYLE650T38 PO; +patient note
== END ==
PROVIDERS: ATTEND Internal Medicine
DX: R05.9 Cough, unspecified (principal); Z53.8 Procedure and treatment not carried out for other reasons

== ENCOUNTER → 2022-09-11 | Outpatient (REF) | payer MEDICARE, MEDICAID ==
[~2022-09-11] MED LIST changes: +AMOX875T2 PO; -LORazepam 2 MG/ML VIAL IV STA; +NYST50SS SS; +PROB1CAP10 PO
== END ==
PROVIDERS: ATTEND Physician Assistant
DX: R50.9 Fever, unspecified (principal); Z53.8 Procedure and treatment not carried out for other reasons

== ENCOUNTER → 2022-09-17 | Outpatient (REF) ==
[2022-09-17 09:52] LABS: HEMATOCRIT 27.1 % (42.0-52.0); HEMOGLOBIN 8.9 g/dl (13.5-17.5); MEAN CORPUSCULAR HEMOGLOBIN 30.7 pg (27.0-33.0); MEAN CORPUSCULAR HGB CONC 32.8 g/dl (32.0-36.5); MEAN CORPUSCULAR VOLUME 93.4 fl (80.0-96.0); PLATELET COUNT, AUTOMATED 228 10^3/uL (150-450); WHITE BLOOD COUNT 8.1 10^3/uL (4.0-10.0)
[2022-09-17 10:26] LABS: BLOOD UREA NITROGEN 17 MG/DL (7-18); CALCIUM LEVEL 8.5 MG/DL (8.8-10.2); CARBON DIOXIDE LEVEL 29 MEQ/L (21-32); CHLORIDE LEVEL 102 MEQ/L (98-107); CREATININE FOR GFR 0.73 MG/DL (0.70-1.30); GLOMERULAR FILTRATION RATE > 60.0 (>35); GLUCOSE, FASTING 144 MG/DL (70-100); NT-PRO BNP 2791 PG/ML (<450); POTASSIUM SERUM 4.2 MEQ/L (3.5-5.1); SODIUM LEVEL 136 MEQ/L (136-145)
== END ==
PROVIDERS: ATTEND Physician Assistant
DX: I48.91 Unspecified atrial fibrillation (principal)

== ENCOUNTER → 2022-09-17 | Outpatient (REF) ==
[2022-09-17 17:01] LABS: ALBUMIN 2.8 GM/DL (3.2-5.2); ALT/SGPT 51 U/L (12-78); BILIRUBIN,DIRECT 0.4 MG/DL (0.0-0.2); BILIRUBIN,TOTAL 0.9 MG/DL (0.2-1.0); BLOOD UREA NITROGEN 18 MG/DL (7-18); CALCIUM LEVEL 8.5 MG/DL (8.8-10.2); CARBON DIOXIDE LEVEL 26 MEQ/L (21-32); CHLORIDE LEVEL 100 MEQ/L (98-107); CREATININE FOR GFR 0.66 MG/DL (0.70-1.30); GLOMERULAR FILTRATION RATE > 60.0 (>35); GLUCOSE, FASTING 116 MG/DL (70-100); POTASSIUM SERUM 4.3 MEQ/L (3.5-5.1); SODIUM LEVEL 133 MEQ/L (136-145); TOTAL PROTEIN 6.3 GM/DL (6.4-8.2)
== END ==
PROVIDERS: ATTEND Physician Assistant
DX: R11.0 Nausea (principal)

== ENCOUNTER → 2022-09-18 | Outpatient (REF) ==
[2022-09-18 12:23] LABS: BASO % 0.4 % (0.0-1.0); EOS # 0.3 10^3/uL (0.0-0.5); EOS % 3.7 % (0.0-3.0); HEMOGLOBIN 8.8 g/dl (13.5-17.5); LYMPH # 0.6 10^3/uL (1.5-5.0); LYMPH % 6.9 % (24.0-44.0); MEAN CORPUSCULAR HEMOGLOBIN 30.1 pg (27.0-33.0); MEAN CORPUSCULAR HGB CONC 32.6 g/dl (32.0-36.5); MEAN CORPUSCULAR VOLUME 92.5 fl (80.0-96.0); MONO # 0.7 10^3/uL (0.0-0.8); MONO % 8.3 % (2.0-8.0); NEUTROPHILS # 6.3 10^3/uL (1.5-8.5); NEUTROPHILS % 79.9 % (36.0-66.0); PLATELET COUNT, AUTOMATED 208 10^3/uL (150-450); RED BLOOD COUNT 2.92 10^6/uL (4.30-6.10); WHITE BLOOD COUNT 7.9 10^3/uL (4.0-10.0)
== END ==
PROVIDERS: ATTEND Physician Assistant
DX: D64.9 Anemia, unspecified (principal)

== ENCOUNTER → 2022-09-21 | Outpatient (REF) | PROVIDERS: ATTEND Physician Assistant | DX: Z53.8 Procedure and treatment not carried out for other reasons (principal) ==

== ENCOUNTER → 2022-09-22 | Outpatient (REF) ==
[2022-09-22 10:11] LABS: HEMATOCRIT 28.4 % (42.0-52.0); HEMOGLOBIN 9.4 g/dl (13.5-17.5); MEAN CORPUSCULAR HEMOGLOBIN 30.8 pg (27.0-33.0); MEAN CORPUSCULAR HGB CONC 33.1 g/dl (32.0-36.5); MEAN CORPUSCULAR VOLUME 93.1 fl (80.0-96.0); PLATELET COUNT, AUTOMATED 212 10^3/uL (150-450); RED BLOOD COUNT 3.05 10^6/uL (4.30-6.10); WHITE BLOOD COUNT 8.3 10^3/uL (4.0-10.0)
[2022-09-22 11:11] LABS: BLOOD UREA NITROGEN 18 MG/DL (7-18); C REACTIVE PROTEIN QUANTITATIV 1.33 MG/DL (0.00-0.30); CALCIUM LEVEL 8.9 MG/DL (8.8-10.2); CARBON DIOXIDE LEVEL 31 MEQ/L (21-32); CHLORIDE LEVEL 101 MEQ/L (98-107); CREATININE FOR GFR 0.67 MG/DL (0.70-1.30); GLOMERULAR FILTRATION RATE > 60.0 (>35); GLUCOSE, FASTING 95 MG/DL (70-100); SODIUM LEVEL 135 MEQ/L (136-145)
[2022-09-22 11:42] LABS: ERYTHROCYTE SEDIMENTATION RATE 35 mm/hr (0-20)
== END ==
PROVIDERS: ATTEND Physician Assistant
DX: J18.9 Pneumonia, unspecified organism (principal)

== ENCOUNTER → 2022-09-24 | Outpatient (REF) ==
[2022-09-24 11:00] LABS: HEMATOCRIT 30.1 % (42.0-52.0); HEMOGLOBIN 9.7 g/dl (13.5-17.5); MEAN CORPUSCULAR HEMOGLOBIN 30.7 pg (27.0-33.0); MEAN CORPUSCULAR HGB CONC 32.2 g/dl (32.0-36.5); MEAN CORPUSCULAR VOLUME 95.3 fl (80.0-96.0); PLATELET COUNT, AUTOMATED 222 10^3/uL (150-450); RED BLOOD COUNT 3.16 10^6/uL (4.30-6.10); WHITE BLOOD COUNT 6.6 10^3/uL (4.0-10.0)
[2022-09-24 11:41] LABS: BLOOD UREA NITROGEN 15 MG/DL (7-18); CALCIUM LEVEL 8.8 MG/DL (8.8-10.2); CARBON DIOXIDE LEVEL 33 MEQ/L (21-32); CHLORIDE LEVEL 105 MEQ/L (98-107); CREATININE FOR GFR 0.69 MG/DL (0.70-1.30); GLOMERULAR FILTRATION RATE > 60.0 (>35); GLUCOSE, FASTING 112 MG/DL (70-100); NT-PRO BNP 2773 PG/ML (<450); POTASSIUM SERUM 4.3 MEQ/L (3.5-5.1); SODIUM LEVEL 141 MEQ/L (136-145)
== END ==
PROVIDERS: ATTEND Physician Assistant
DX: I48.91 Unspecified atrial fibrillation (principal)

== ENCOUNTER → 2022-09-25 | Outpatient (REF) ==
[2022-09-25 14:20] LABS: BASO # 0.1 10^3/uL (0.0-0.2); BASO % 0.6 % (0.0-1.0); EOS # 0.3 10^3/uL (0.0-0.5); EOS % 3.3 % (0.0-3.0); HEMATOCRIT 32.8 % (42.0-52.0); HEMOGLOBIN 10.3 g/dl (13.5-17.5); LYMPH # 0.7 10^3/uL (1.5-5.0); LYMPH % 7.6 % (24.0-44.0); MEAN CORPUSCULAR HEMOGLOBIN 30.7 pg (27.0-33.0); MEAN CORPUSCULAR HGB CONC 31.4 g/dl (32.0-36.5); MEAN CORPUSCULAR VOLUME 97.6 fl (80.0-96.0); MONO # 0.8 10^3/uL (0.0-0.8); MONO % 8.7 % (2.0-8.0); NEUTROPHILS # 6.9 10^3/uL (1.5-8.5); NEUTROPHILS % 79.3 % (36.0-66.0); PLATELET COUNT, AUTOMATED 247 10^3/uL (150-450); RED BLOOD COUNT 3.36 10^6/uL (4.30-6.10); WHITE BLOOD COUNT 8.7 10^3/uL (4.0-10.0)
== END ==
PROVIDERS: ATTEND Physician Assistant
DX: D64.9 Anemia, unspecified (principal)

== ENCOUNTER → 2022-10-01 | Outpatient (REF) ==
[2022-10-01 10:11] LABS: HEMATOCRIT 30.1 % (42.0-52.0); HEMOGLOBIN 9.8 g/dl (13.5-17.5); MEAN CORPUSCULAR HEMOGLOBIN 30.9 pg (27.0-33.0); MEAN CORPUSCULAR HGB CONC 32.6 g/dl (32.0-36.5); PLATELET COUNT, AUTOMATED 153 10^3/uL (150-450); RED BLOOD COUNT 3.17 10^6/uL (4.30-6.10); WHITE BLOOD COUNT 6.7 10^3/uL (4.0-10.0)
[2022-10-01 11:26] LABS: BLOOD UREA NITROGEN 18 MG/DL (7-18); CALCIUM LEVEL 8.7 MG/DL (8.8-10.2); CARBON DIOXIDE LEVEL 31 MEQ/L (21-32); CHLORIDE LEVEL 102 MEQ/L (98-107); CREATININE FOR GFR 0.63 MG/DL (0.70-1.30); GLOMERULAR FILTRATION RATE > 60.0 (>35); GLUCOSE, FASTING 81 MG/DL (70-100); NT-PRO BNP 3176 PG/ML (<450); POTASSIUM SERUM 4.2 MEQ/L (3.5-5.1); SODIUM LEVEL 138 MEQ/L (136-145)
== END ==
PROVIDERS: ATTEND Physician Assistant
DX: I48.91 Unspecified atrial fibrillation (principal)

== ENCOUNTER → 2022-10-02 | Outpatient (REF) ==
[2022-10-02 10:22] LABS: BASO % 0.6 % (0.0-1.0); EOS # 0.3 10^3/uL (0.0-0.5); EOS % 4.5 % (0.0-3.0); HEMATOCRIT 30.3 % (42.0-52.0); HEMOGLOBIN 9.7 g/dl (13.5-17.5); LYMPH # 0.6 10^3/uL (1.5-5.0); LYMPH % 9.2 % (24.0-44.0); MEAN CORPUSCULAR HEMOGLOBIN 30.7 pg (27.0-33.0); MEAN CORPUSCULAR VOLUME 95.9 fl (80.0-96.0); MONO # 0.6 10^3/uL (0.0-0.8); NEUTROPHILS # 4.9 10^3/uL (1.5-8.5); NEUTROPHILS % 76.4 % (36.0-66.0); PLATELET COUNT, AUTOMATED 153 10^3/uL (150-450); RED BLOOD COUNT 3.16 10^6/uL (4.30-6.10); WHITE BLOOD COUNT 6.4 10^3/uL (4.0-10.0)
== END ==
PROVIDERS: ATTEND Physician Assistant
DX: D64.9 Anemia, unspecified (principal)

== ENCOUNTER → 2022-10-08 | Outpatient (REF) ==
[2022-10-08 10:30] LABS: HEMOGLOBIN 10.2 g/dl (13.5-17.5); MEAN CORPUSCULAR HEMOGLOBIN 31.8 pg (27.0-33.0); MEAN CORPUSCULAR HGB CONC 32.9 g/dl (32.0-36.5); MEAN CORPUSCULAR VOLUME 96.6 fl (80.0-96.0); PLATELET COUNT, AUTOMATED 179 10^3/uL (150-450); RED BLOOD COUNT 3.21 10^6/uL (4.30-6.10); WHITE BLOOD COUNT 7.9 10^3/uL (4.0-10.0)
[2022-10-08 11:16] LABS: BLOOD UREA NITROGEN 18 MG/DL (9-23); CALCIUM LEVEL 8.8 MG/DL (8.3-10.6); CARBON DIOXIDE LEVEL 30 MMOL/L (20-31); CHLORIDE LEVEL 101 MMOL/L (98-107); CREATININE FOR GFR 0.74 MG/DL (0.70-1.30); GLOMERULAR FILTRATION RATE > 60.0 (>35); GLUCOSE, FASTING 98 MG/DL (74-106); POTASSIUM SERUM 3.9 MMOL/L (3.5-5.1); SODIUM LEVEL 138 MMOL/L (136-145)
== END ==
PROVIDERS: ATTEND Physician Assistant
DX: I48.91 Unspecified atrial fibrillation (principal)

== ENCOUNTER → 2022-10-09 | Outpatient (REF) ==
[2022-09-22 10:17] LABS: HEMATOCRIT 28.5 % (42.0-52.0); HEMOGLOBIN 9.5 g/dl (13.5-17.5); MEAN CORPUSCULAR HEMOGLOBIN 31.1 pg (27.0-33.0); MEAN CORPUSCULAR HGB CONC 33.3 g/dl (32.0-36.5); MEAN CORPUSCULAR VOLUME 93.4 fl (80.0-96.0); PLATELET COUNT, AUTOMATED 221 10^3/uL (150-450); RED BLOOD COUNT 3.05 10^6/uL (4.30-6.10); WHITE BLOOD COUNT 8.6 10^3/uL (4.0-10.0)
[2022-10-09 11:13] LABS: BASO % 0.3 % (0.0-1.0); EOS # 0.2 10^3/uL (0.0-0.5); HEMATOCRIT 28.4 % (42.0-52.0); HEMOGLOBIN 9.3 g/dl (13.5-17.5); LYMPH # 0.6 10^3/uL (1.5-5.0); LYMPH % 7.9 % (24.0-44.0); MEAN CORPUSCULAR HEMOGLOBIN 31.5 pg (27.0-33.0); MEAN CORPUSCULAR HGB CONC 32.7 g/dl (32.0-36.5); MEAN CORPUSCULAR VOLUME 96.3 fl (80.0-96.0); MONO # 0.7 10^3/uL (0.0-0.8); MONO % 9.7 % (2.0-8.0); NEUTROPHILS # 5.9 10^3/uL (1.5-8.5); NEUTROPHILS % 78.8 % (36.0-66.0); PLATELET COUNT, AUTOMATED 159 10^3/uL (150-450); RED BLOOD COUNT 2.95 10^6/uL (4.30-6.10); WHITE BLOOD COUNT 7.5 10^3/uL (4.0-10.0)
== END ==
PROVIDERS: ATTEND Physician Assistant
DX: D64.9 Anemia, unspecified (principal)

== ENCOUNTER → 2022-10-14 | Outpatient (CLI) | payer MEDICARE, MEDICAID ==
[~2022-10-14] MED LIST changes: +BARIUM SULFATE 700 MG TABLET (E-Z-DISK) As Ordered ONE; +E-Z-PAQUE 96% w/w SUSP 176GM BTL As Ordered ONE; +NYST-38 SS; -NYST50SS SS; +VARIBAR NECTAR 40% w/v 240ML SUSP BTL As Ordered ONE; +VARIBAR PUDDING 40% w/v 230ML TUBE As Ordered ONE
== END ==
LOC: M RAD 11:08
PROVIDERS: ATTEND Internal Medicine
DX: R13.10 Dysphagia, unspecified (principal); D64.9 Anemia, unspecified

== ENCOUNTER → 2022-10-14 | Outpatient (REF) | payer MEDICARE, MEDICAID ==
[~2022-10-14] MED LIST changes: -BARIUM SULFATE 700 MG TABLET (E-Z-DISK) As Ordered ONE; -E-Z-PAQUE 96% w/w SUSP 176GM BTL As Ordered ONE; -VARIBAR NECTAR 40% w/v 240ML SUSP BTL As Ordered ONE; -VARIBAR PUDDING 40% w/v 230ML TUBE As Ordered ONE
[2022-10-14 14:03] LABS: BASO % 0.3 % (0.0-1.0); EOS # 0.2 10^3/uL (0.0-0.5); EOS % 3.4 % (0.0-3.0); HEMATOCRIT 26.5 % (42.0-52.0); HEMOGLOBIN 8.4 g/dl (13.5-17.5); LYMPH # 0.5 10^3/uL (1.5-5.0); LYMPH % 7.8 % (24.0-44.0); MEAN CORPUSCULAR HEMOGLOBIN 30.8 pg (27.0-33.0); MEAN CORPUSCULAR HGB CONC 31.7 g/dl (32.0-36.5); MEAN CORPUSCULAR VOLUME 97.1 fl (80.0-96.0); MONO # 0.7 10^3/uL (0.0-0.8); MONO % 10.6 % (2.0-8.0); NEUTROPHILS % 76.5 % (36.0-66.0); PLATELET COUNT, AUTOMATED 128 10^3/uL (150-450); RED BLOOD COUNT 2.73 10^6/uL (4.30-6.10); WHITE BLOOD COUNT 6.5 10^3/uL (4.0-10.0)
== END ==
PROVIDERS: ATTEND Physician Assistant
DX: D64.9 Anemia, unspecified (principal)

== ENCOUNTER → 2022-10-15 | Outpatient (REF) | payer MEDICARE, MEDICAID ==
[~2022-10-15] MED LIST changes: -NYST-38 SS; +NYST50SS SS
[2022-10-15 10:40] LABS: HEMATOCRIT 29.5 % (42.0-52.0); HEMOGLOBIN 9.4 g/dl (13.5-17.5); MEAN CORPUSCULAR HEMOGLOBIN 30.8 pg (27.0-33.0); MEAN CORPUSCULAR HGB CONC 31.9 g/dl (32.0-36.5); MEAN CORPUSCULAR VOLUME 96.7 fl (80.0-96.0); PLATELET COUNT, AUTOMATED 147 10^3/uL (150-450); RED BLOOD COUNT 3.05 10^6/uL (4.30-6.10); WHITE BLOOD COUNT 6.2 10^3/uL (4.0-10.0)
== END ==
PROVIDERS: ATTEND Physician Assistant
DX: D64.9 Anemia, unspecified (principal)

== ENCOUNTER → 2022-10-20 | Outpatient (REF) | payer MEDICARE, MEDICAID ==
[2022-10-20 10:30] LABS: HEMATOCRIT 31.6 % (42.0-52.0); MEAN CORPUSCULAR HEMOGLOBIN 31.3 pg (27.0-33.0); MEAN CORPUSCULAR HGB CONC 31.6 g/dl (32.0-36.5); MEAN CORPUSCULAR VOLUME 98.8 fl (80.0-96.0); PLATELET COUNT, AUTOMATED 159 10^3/uL (150-450); WHITE BLOOD COUNT 6.8 10^3/uL (4.0-10.0)
== END ==
PROVIDERS: ATTEND Physician Assistant
DX: D64.9 Anemia, unspecified (principal)

== ENCOUNTER → 2022-10-22 | Outpatient (REF) | payer MEDICARE, MEDICAID ==
[2022-10-22 12:02] LABS: BASO % 0.3 % (0.0-1.0); EOS # 0.2 10^3/uL (0.0-0.5); EOS % 2.6 % (0.0-3.0); HEMATOCRIT 29.1 % (42.0-52.0); HEMOGLOBIN 9.4 g/dl (13.5-17.5); LYMPH # 0.5 10^3/uL (1.5-5.0); LYMPH % 7.7 % (24.0-44.0); MEAN CORPUSCULAR HEMOGLOBIN 31.6 pg (27.0-33.0); MEAN CORPUSCULAR HGB CONC 32.3 g/dl (32.0-36.5); MONO # 0.6 10^3/uL (0.0-0.8); MONO % 9.1 % (2.0-8.0); NEUTROPHILS # 5.3 10^3/uL (1.5-8.5); PLATELET COUNT, AUTOMATED 127 10^3/uL (150-450); RED BLOOD COUNT 2.97 10^6/uL (4.30-6.10); WHITE BLOOD COUNT 6.6 10^3/uL (4.0-10.0)
[2022-10-22 12:10] LABS: INR 1.08; PROTHROMBIN TIME 14.3 SECONDS (12.5-14.5)
[2022-10-22 12:11] LABS: PARTIAL THROMBOPLASTIN TIME 32.6 SECONDS (24.8-34.2)
== END ==
PROVIDERS: ATTEND Physician Assistant
DX: Z01.818 Encounter for other preprocedural examination (principal)

== ENCOUNTER → 2022-10-23 | Outpatient (CLI) | payer MEDICARE, MEDICAID ==
[~2022-10-23] MED LIST changes: +LIDOCAINE 1% MDV 20ML VIAL As Ordered ONE
[2022-10-23 08:37] LABS: BASO % 0.3 % (0.0-1.0); EOS # 0.1 10^3/uL (0.0-0.5); EOS % 1.9 % (0.0-3.0); HEMATOCRIT 29.5 % (42.0-52.0); HEMOGLOBIN 9.7 g/dl (13.5-17.5); LYMPH # 0.5 10^3/uL (1.5-5.0); LYMPH % 6.4 % (24.0-44.0); MEAN CORPUSCULAR HEMOGLOBIN 31.6 pg (27.0-33.0); MEAN CORPUSCULAR HGB CONC 32.9 g/dl (32.0-36.5); MEAN CORPUSCULAR VOLUME 96.1 fl (80.0-96.0); MONO # 0.7 10^3/uL (0.0-0.8); PLATELET COUNT, AUTOMATED 133 10^3/uL (150-450); RED BLOOD COUNT 3.07 10^6/uL (4.30-6.10); WHITE BLOOD COUNT 7.3 10^3/uL (4.0-10.0)
[2022-10-23 09:08] VITALS: BP 119/56
== END ==
LOC: M IRPRO 08:00
PROVIDERS: ATTEND Internal Medicine Medical Oncology
DX: D64.9 Anemia, unspecified (principal); D72.819 Decreased white blood cell count, unspecified

== ENCOUNTER → 2022-10-28 | Outpatient (REF) | payer MEDICARE, MEDICAID ==
[~2022-10-28] MED LIST changes: -LIDOCAINE 1% MDV 20ML VIAL As Ordered ONE
[2022-10-28 11:41] LABS: BASO % 0.3 % (0.0-1.0); EOS # 0.2 10^3/uL (0.0-0.5); EOS % 2.7 % (0.0-3.0); HEMATOCRIT 29.4 % (42.0-52.0); HEMOGLOBIN 9.4 g/dl (13.5-17.5); LYMPH # 0.5 10^3/uL (1.5-5.0); LYMPH % 8.6 % (24.0-44.0); MEAN CORPUSCULAR HEMOGLOBIN 31.4 pg (27.0-33.0); MEAN CORPUSCULAR VOLUME 98.3 fl (80.0-96.0); MONO # 0.6 10^3/uL (0.0-0.8); MONO % 9.8 % (2.0-8.0); NEUTROPHILS # 4.6 10^3/uL (1.5-8.5); NEUTROPHILS % 78.4 % (36.0-66.0); PLATELET COUNT, AUTOMATED 173 10^3/uL (150-450); RED BLOOD COUNT 2.99 10^6/uL (4.30-6.10); WHITE BLOOD COUNT 5.8 10^3/uL (4.0-10.0)
== END ==
PROVIDERS: ATTEND Physician Assistant
DX: D64.9 Anemia, unspecified (principal)

== ENCOUNTER → 2022-10-29 | Outpatient (REF) | payer MEDICARE, MEDICAID ==
[2022-10-29 13:33] LABS: BLOOD UREA NITROGEN 17 MG/DL (9-23); CALCIUM LEVEL 8.8 MG/DL (8.3-10.6); CARBON DIOXIDE LEVEL 31 MMOL/L (20-31); CHLORIDE LEVEL 102 MMOL/L (98-107); GLOMERULAR FILTRATION RATE > 60.0 (>35); GLUCOSE, FASTING 105 MG/DL (74-106); SODIUM LEVEL 139 MMOL/L (136-145)
== END ==
PROVIDERS: ATTEND Physician Assistant
DX: I48.91 Unspecified atrial fibrillation (principal)

== ENCOUNTER → 2022-10-31 | Outpatient (REF) | payer MEDICARE, MEDICAID ==
[2022-10-31 09:33] LABS: HEMATOCRIT 32.2 % (42.0-52.0); HEMOGLOBIN 10.1 g/dl (13.5-17.5); MEAN CORPUSCULAR HEMOGLOBIN 31.1 pg (27.0-33.0); MEAN CORPUSCULAR HGB CONC 31.4 g/dl (32.0-36.5); MEAN CORPUSCULAR VOLUME 99.1 fl (80.0-96.0); PLATELET COUNT, AUTOMATED 169 10^3/uL (150-450); RED BLOOD COUNT 3.25 10^6/uL (4.30-6.10)
== END ==
PROVIDERS: ATTEND Internal Medicine
DX: Z79.899 Other long term (current) drug therapy (principal)

== ENCOUNTER → 2022-11-03 | Outpatient (REF) | payer MEDICARE, MEDICAID ==
[~2022-11-03] MED LIST changes: +NYST-38 SS; -NYST50SS SS; +SIME125T16 PO
[2022-11-03 15:40] LABS: BASO % 0.3 % (0.0-1.0); EOS # 0.1 10^3/uL (0.0-0.5); EOS % 1.7 % (0.0-3.0); HEMATOCRIT 32.5 % (42.0-52.0); HEMOGLOBIN 10.2 g/dl (13.5-17.5); LYMPH # 0.4 10^3/uL (1.5-5.0); LYMPH % 6.7 % (24.0-44.0); MEAN CORPUSCULAR HEMOGLOBIN 31.4 pg (27.0-33.0); MEAN CORPUSCULAR HGB CONC 31.4 g/dl (32.0-36.5); MONO # 0.5 10^3/uL (0.0-0.8); MONO % 8.4 % (2.0-8.0); NEUTROPHILS # 5.3 10^3/uL (1.5-8.5); NEUTROPHILS % 82.6 % (36.0-66.0); PLATELET COUNT, AUTOMATED 161 10^3/uL (150-450); RED BLOOD COUNT 3.25 10^6/uL (4.30-6.10); WHITE BLOOD COUNT 6.4 10^3/uL (4.0-10.0)
== END ==
PROVIDERS: ATTEND Physician Assistant
DX: D64.9 Anemia, unspecified (principal)

== ENCOUNTER → 2022-11-03 | Outpatient (CLI) | payer MEDICARE, MEDICAID ==
[~2022-11-03] MED LIST changes: +E-Z-GAS II EFFERVESCENT PACKET (SODIUM BICARB./CITRIC ACID/SIMETHICONE) As Ordered ONE; +E-Z-HD 98% w/w 340GM SUSP BTL As Ordered ONE; +E-Z-PAQUE 96% w/w SUSP 176GM BTL As Ordered ONE; +ISOVUE-370 76% 100ML VIAL As Ordered ONE
== END ==
LOC: M RAD 09:34
PROVIDERS: ATTEND Physician Assistant
DX: R13.10 Dysphagia, unspecified (principal); Z98.890 Other specified postprocedural states; J34.2 Deviated nasal septum; M25.78 Osteophyte, vertebrae
CPT/HCPCS: 70491; 85025; Q9967

== ENCOUNTER → 2022-11-10 | Outpatient (REF) | payer MEDICARE, MEDICAID ==
[~2022-11-10] MED LIST changes: -E-Z-GAS II EFFERVESCENT PACKET (SODIUM BICARB./CITRIC ACID/SIMETHICONE) As Ordered ONE; -E-Z-HD 98% w/w 340GM SUSP BTL As Ordered ONE; -E-Z-PAQUE 96% w/w SUSP 176GM BTL As Ordered ONE; -ISOVUE-370 76% 100ML VIAL As Ordered ONE; -NYST-38 SS; +NYST50SS SS; -SIME125T16 PO
[2022-11-10 11:17] LABS: BASO % 0.4 % (0.0-1.0); EOS # 0.1 10^3/uL (0.0-0.5); EOS % 2.4 % (0.0-3.0); HEMATOCRIT 28.7 % (42.0-52.0); HEMOGLOBIN 9.2 g/dl (13.5-17.5); LYMPH # 0.5 10^3/uL (1.5-5.0); LYMPH % 8.4 % (24.0-44.0); MEAN CORPUSCULAR HEMOGLOBIN 31.2 pg (27.0-33.0); MEAN CORPUSCULAR HGB CONC 32.1 g/dl (32.0-36.5); MEAN CORPUSCULAR VOLUME 97.3 fl (80.0-96.0); MONO # 0.5 10^3/uL (0.0-0.8); MONO % 9.9 % (2.0-8.0); NEUTROPHILS # 4.3 10^3/uL (1.5-8.5); NEUTROPHILS % 78.5 % (36.0-66.0); PLATELET COUNT, AUTOMATED 139 10^3/uL (150-450); RED BLOOD COUNT 2.95 10^6/uL (4.30-6.10); WHITE BLOOD COUNT 5.5 10^3/uL (4.0-10.0)
== END ==
PROVIDERS: ATTEND Physician Assistant
DX: D64.9 Anemia, unspecified (principal)

== ENCOUNTER → 2022-11-17 | Outpatient (REF) | payer MEDICARE, MEDICAID ==
[2022-11-18 10:26] LABS: BASO % 0.1 % (0.0-1.0); HEMATOCRIT 35.3 % (42.0-52.0); HEMOGLOBIN 10.8 g/dl (13.5-17.5); LYMPH # 1.4 10^3/uL (1.5-5.0); LYMPH % 18.6 % (24.0-44.0); MEAN CORPUSCULAR HEMOGLOBIN 32.3 pg (27.0-33.0); MEAN CORPUSCULAR HGB CONC 30.6 g/dl (32.0-36.5); MEAN CORPUSCULAR VOLUME 105.7 fl (80.0-96.0); MONO # 0.4 10^3/uL (0.0-0.8); MONO % 5.8 % (2.0-8.0); NEUTROPHILS # 5.7 10^3/uL (1.5-8.5); NEUTROPHILS % 74.8 % (36.0-66.0); PLATELET COUNT, AUTOMATED 241 10^3/uL (150-450); RED BLOOD COUNT 3.34 10^6/uL (4.30-6.10); WHITE BLOOD COUNT 7.6 10^3/uL (4.0-10.0)
== END ==
PROVIDERS: ATTEND Physician Assistant
DX: D64.9 Anemia, unspecified (principal)

== ENCOUNTER → 2022-11-19 | Outpatient (CLI) | payer MEDICARE, MEDICAID ==
[~2022-11-19] MED LIST changes: +E-Z-GAS II EFFERVESCENT PACKET (SODIUM BICARB./CITRIC ACID/SIMETHICONE) As Ordered ONE; +E-Z-HD 98% w/w 340GM SUSP BTL As Ordered ONE; +E-Z-PAQUE 96% w/w SUSP 176GM BTL As Ordered ONE
== END ==
LOC: M RAD 08:49
PROVIDERS: ATTEND Physician Assistant
DX: M25.78 Osteophyte, vertebrae (principal); K22.2 Esophageal obstruction; K40.00 Bilateral inguinal hernia, with obstruction, without gangrene, not specified as recurrent; R13.10 Dysphagia, unspecified

== ENCOUNTER → 2022-11-24 | Outpatient (REF) | payer MEDICARE, MEDICAID ==
[~2022-11-24] MED LIST changes: -E-Z-GAS II EFFERVESCENT PACKET (SODIUM BICARB./CITRIC ACID/SIMETHICONE) As Ordered ONE; -E-Z-HD 98% w/w 340GM SUSP BTL As Ordered ONE; -E-Z-PAQUE 96% w/w SUSP 176GM BTL As Ordered ONE
[2022-11-24 09:22] LABS: BASO % 0.3 % (0.0-1.0); EOS # 0.2 10^3/uL (0.0-0.5); EOS % 3.3 % (0.0-3.0); HEMATOCRIT 30.2 % (42.0-52.0); HEMOGLOBIN 9.8 g/dl (13.5-17.5); LYMPH # 0.5 10^3/uL (1.5-5.0); LYMPH % 7.8 % (24.0-44.0); MEAN CORPUSCULAR HEMOGLOBIN 31.4 pg (27.0-33.0); MEAN CORPUSCULAR HGB CONC 32.5 g/dl (32.0-36.5); MEAN CORPUSCULAR VOLUME 96.8 fl (80.0-96.0); MONO # 0.6 10^3/uL (0.0-0.8); MONO % 9.2 % (2.0-8.0); NEUTROPHILS # 4.7 10^3/uL (1.5-8.5); NEUTROPHILS % 79.2 % (36.0-66.0); PLATELET COUNT, AUTOMATED 135 10^3/uL (150-450); RED BLOOD COUNT 3.12 10^6/uL (4.30-6.10)
== END ==
PROVIDERS: ATTEND Physician Assistant
DX: D64.9 Anemia, unspecified (principal)

== ENCOUNTER → 2022-12-01 | Outpatient (REF) | payer MEDICARE, MEDICAID ==
[~2022-12-01] MED LIST changes: +NYST-38 SS; -NYST50SS SS; +SIME125T16 PO
[2022-12-01 11:35] LABS: BASO % 0.3 % (0.0-1.0); EOS # 0.2 10^3/uL (0.0-0.5); EOS % 2.7 % (0.0-3.0); HEMATOCRIT 32.3 % (42.0-52.0); HEMOGLOBIN 10.4 g/dl (13.5-17.5); LYMPH # 0.4 10^3/uL (1.5-5.0); LYMPH % 6.5 % (24.0-44.0); MEAN CORPUSCULAR HEMOGLOBIN 31.6 pg (27.0-33.0); MEAN CORPUSCULAR HGB CONC 32.2 g/dl (32.0-36.5); MEAN CORPUSCULAR VOLUME 98.2 fl (80.0-96.0); MONO # 0.5 10^3/uL (0.0-0.8); MONO % 8.2 % (2.0-8.0); NEUTROPHILS # 4.9 10^3/uL (1.5-8.5); NEUTROPHILS % 81.8 % (36.0-66.0); PLATELET COUNT, AUTOMATED 155 10^3/uL (150-450); RED BLOOD COUNT 3.29 10^6/uL (4.30-6.10)
[2022-12-01 11:53] LABS: INR 1.47; PROTHROMBIN TIME 18.1 SECONDS (12.5-14.5)
[2022-12-01 12:01] LABS: BLOOD UREA NITROGEN 19 MG/DL (9-23); CARBON DIOXIDE LEVEL 31 MMOL/L (20-31); CHLORIDE LEVEL 101 MMOL/L (98-107); CREATININE FOR GFR 0.73 MG/DL (0.70-1.30); GLOMERULAR FILTRATION RATE > 60.0 (>35); GLUCOSE, FASTING 95 MG/DL (74-106); SODIUM LEVEL 139 MMOL/L (136-145)
== END ==
PROVIDERS: ATTEND Physician Assistant
DX: D64.9 Anemia, unspecified (principal); Z79.899 Other long term (current) drug therapy

== ENCOUNTER → 2022-12-03 | Outpatient (CLI) | payer MEDICARE, MEDICAID | LOC: M RAD 08:55 | PROVIDERS: ATTEND Internal Medicine | DX: Z01.818 Encounter for other preprocedural examination (principal); J98.11 Atelectasis; R91.8 Other nonspecific abnormal finding of lung field ==

== ENCOUNTER → 2022-12-08 | Outpatient (REF) | payer MEDICARE, MEDICAID ==
[~2022-12-08] MED LIST changes: +MYLA1SUS PO; +REGL5TAB2 PO
[2022-12-08 11:07] LABS: BASO % 0.5 % (0.0-1.0); EOS # 0.1 10^3/uL (0.0-0.5); EOS % 2.4 % (0.0-3.0); HEMATOCRIT 29.7 % (42.0-52.0); HEMOGLOBIN 9.6 g/dl (13.5-17.5); LYMPH # 0.6 10^3/uL (1.5-5.0); LYMPH % 10.8 % (24.0-44.0); MEAN CORPUSCULAR HGB CONC 32.3 g/dl (32.0-36.5); MEAN CORPUSCULAR VOLUME 95.8 fl (80.0-96.0); MONO # 0.6 10^3/uL (0.0-0.8); MONO % 9.3 % (2.0-8.0); NEUTROPHILS # 4.5 10^3/uL (1.5-8.5); NEUTROPHILS % 76.7 % (36.0-66.0); PLATELET COUNT, AUTOMATED 145 10^3/uL (150-450); WHITE BLOOD COUNT 5.9 10^3/uL (4.0-10.0)
== END ==
PROVIDERS: ATTEND Physician Assistant
DX: D64.9 Anemia, unspecified (principal)

== ENCOUNTER → 2022-12-09 | Outpatient (REF) | payer MEDICARE, MEDICAID | PROVIDERS: ATTEND Physician Assistant | DX: Z01.818 Encounter for other preprocedural examination (principal); Z20.822 Contact with and (suspected) exposure to COVID-19 ==

== ENCOUNTER → 2022-12-15 | Outpatient (REF) | payer MEDICARE, MEDICAID | PROVIDERS: ATTEND Internal Medicine | DX: Z01.818 Encounter for other preprocedural examination (principal); Z20.822 Contact with and (suspected) exposure to COVID-19 ==

== ENCOUNTER 2022-12-16 09:22 | Day surgery (SDC) | payer MEDICARE, MEDICAID ==
[~2022-12-16] VITALS: Ht 162.6 cm; Wt 63.5 kg
[~2022-12-16 09:22] MED LIST changes: -MYLA1SUS PO; -REGL5TAB2 PO; +ceFAZolin SOD 2 GM in IV 1 EA IV ONE
[2022-12-16] MEDS ORDERED: LR 1,000 ML IV SCH ×2 (09:25→12:55)
[2022-12-16] MEDS ORDERED: LIDOCAINE 1% SDV 5ML VIAL SC PRN (09:25)
[2022-12-16] MEDS ORDERED: MYLA1SUS PO (10:21)
[2022-12-16] MEDS ORDERED: REGL5TAB2 PO (10:22)
[2022-12-16] MEDS ORDERED: BUPIVACAINE/EPIN 0.25% 30ML VIAL As Ordered ONE (10:54)
[2022-12-16] MEDS ORDERED: ROCURONIUM BROMIDE 50MG/5ML VIAL As Ordered ONE ×2 (11:44→11:59)
[2022-12-16] MEDS ORDERED: ONDANSETRON 4MG 2ML VIAL As Ordered ONE (11:44)
[2022-12-16] MEDS ORDERED: fentaNYL 100 MCG/2 ML INJECTION As Ordered ONE (11:44)
[2022-12-16] MEDS ORDERED: MIDAZOLAM INJ 2MG/2ML VIAL As Ordered ONE (11:44)
[2022-12-16] MEDS ORDERED: propofoL 200 MG/20 ML VIAL As Ordered ONE (11:44)
[2022-12-16] MEDS ORDERED: SUGAMMADEX SODIUM 500 MG/5 ML VIAL (BRIDION) As Ordered ONE (11:44)
[2022-12-16] MEDS ORDERED: METOCLOPRAMIDE INJ 10MG/2ML VIAL As Ordered ONE (11:44)
[2022-12-16] MEDS ORDERED: ETOMIDATE INJ 20MG/10ML VIAL As Ordered ONE (11:44)
[2022-12-16] MEDS ORDERED: LIDOCAINE 2% 100MG/5ML SDV (FOR ANES.) As Ordered ONE (11:44)
[2022-12-16] MEDS ORDERED: ACETAMINOPHEN 1000MG 100ML IV BAG As Ordered ONE (11:45)
[2022-12-16] MEDS ORDERED: ONDANSETRON 4MG 2ML VIAL IV PRN (12:55)
[2022-12-16] MEDS ORDERED: fentaNYL 100 MCG/2 ML INJECTION IV PRN (12:55)
[2022-12-16] MEDS ORDERED: oxyCODONE 5MG TAB PO PRN (12:55)
[2022-12-16] MEDS ORDERED: traMADol 50 MG TAB PO PRN ×2 (13:55)
[2022-12-16] MEDS ORDERED: NS 1,000 ML IV SCH (13:55)
[2022-12-16 14:25] VITALS: BP 98/57
== END 2022-12-16 14:51 | disposition home or self-care (01) ==
LOC: M SDC 09:22
PROVIDERS: ATTEND Surgery
DX: K40.90 Unilateral inguinal hernia, without obstruction or gangrene, not specified as recurrent (principal); I48.91 Unspecified atrial fibrillation; I10 Essential (primary) hypertension; I50.9 Heart failure, unspecified; E78.5 Hyperlipidemia, unspecified; K21.9 Gastro-esophageal reflux disease without esophagitis; D64.9 Anemia, unspecified; F03.90 Unspecified dementia, unspecified severity, without behavioral disturbance, psychotic disturbance, mood disturbance, and anxiety; Z86.73 Personal history of transient ischemic attack (TIA), and cerebral infarction without residual deficits; J44.9 Chronic obstructive pulmonary disease, unspecified; Z79.01 Long term (current) use of anticoagulants; Z79.899 Other long term (current) drug therapy; Z88.2 Allergy status to sulfonamides
CPT/HCPCS: 49650; C1781; J0131; J0690; J1100; J2250; J2405; J2765; J3010; S2900

== ENCOUNTER → 2022-12-17 | Outpatient (REF) | payer MEDICARE, MEDICAID ==
[~2022-12-17] MED LIST changes: +MYLA1SUS PO; +REGL5TAB2 PO; -ceFAZolin SOD 2 GM in IV 1 EA IV ONE
== END ==
PROVIDERS: ATTEND Physician Assistant
DX: I48.91 Unspecified atrial fibrillation (principal)

== ENCOUNTER → 2022-12-22 | Outpatient (REF) | payer MEDICARE, MEDICAID ==
[2022-12-22 10:54] LABS: BASO % 0.5 % (0.0-1.0); EOS # 0.2 10^3/uL (0.0-0.5); EOS % 2.9 % (0.0-3.0); HEMATOCRIT 29.2 % (42.0-52.0); HEMOGLOBIN 9.3 g/dl (13.5-17.5); LYMPH # 0.5 10^3/uL (1.5-5.0); LYMPH % 8.2 % (24.0-44.0); MEAN CORPUSCULAR HEMOGLOBIN 31.6 pg (27.0-33.0); MEAN CORPUSCULAR HGB CONC 31.8 g/dl (32.0-36.5); MEAN CORPUSCULAR VOLUME 99.3 fl (80.0-96.0); MONO # 0.5 10^3/uL (0.0-0.8); MONO % 8.4 % (2.0-8.0); NEUTROPHILS # 4.5 10^3/uL (1.5-8.5); NEUTROPHILS % 79.6 % (36.0-66.0); PLATELET COUNT, AUTOMATED 129 10^3/uL (150-450); RED BLOOD COUNT 2.94 10^6/uL (4.30-6.10); WHITE BLOOD COUNT 5.6 10^3/uL (4.0-10.0)
== END ==
PROVIDERS: ATTEND Physician Assistant
DX: D64.9 Anemia, unspecified (principal)

== ENCOUNTER → 2022-12-24 | Outpatient (REF) | payer MEDICARE, MEDICAID | PROVIDERS: ATTEND Physician Assistant | DX: I48.91 Unspecified atrial fibrillation (principal); Z53.8 Procedure and treatment not carried out for other reasons ==

== ENCOUNTER → 2022-12-29 | Outpatient (REF) | payer MEDICARE, MEDICAID ==
[2022-12-29 10:35] LABS: BASO % 0.3 % (0.0-1.0); EOS # 0.2 10^3/uL (0.0-0.5); EOS % 2.8 % (0.0-3.0); HEMOGLOBIN 9.9 g/dl (13.5-17.5); LYMPH # 0.5 10^3/uL (1.5-5.0); LYMPH % 6.3 % (24.0-44.0); MEAN CORPUSCULAR HGB CONC 31.9 g/dl (32.0-36.5); MEAN CORPUSCULAR VOLUME 100.3 fl (80.0-96.0); MONO # 0.7 10^3/uL (0.0-0.8); MONO % 9.1 % (2.0-8.0); NEUTROPHILS # 5.8 10^3/uL (1.5-8.5); NEUTROPHILS % 81.1 % (36.0-66.0); PLATELET COUNT, AUTOMATED 152 10^3/uL (150-450); RED BLOOD COUNT 3.09 10^6/uL (4.30-6.10); WHITE BLOOD COUNT 7.1 10^3/uL (4.0-10.0)
== END ==
PROVIDERS: ATTEND Physician Assistant
DX: D64.9 Anemia, unspecified (principal)

== ENCOUNTER → 2023-01-02 | Outpatient (REF) | payer MEDICARE, MEDICAID ==
[2023-01-02 10:04] LABS: HEMATOCRIT 31.1 % (42.0-52.0); MEAN CORPUSCULAR HEMOGLOBIN 31.8 pg (27.0-33.0); MEAN CORPUSCULAR HGB CONC 32.2 g/dl (32.0-36.5); PLATELET COUNT, AUTOMATED 141 10^3/uL (150-450); RED BLOOD COUNT 3.14 10^6/uL (4.30-6.10); WHITE BLOOD COUNT 6.1 10^3/uL (4.0-10.0)
[2023-01-02 10:34] LABS: BLOOD UREA NITROGEN 19 MG/DL (9-23); CALCIUM LEVEL 8.6 MG/DL (8.3-10.6); CARBON DIOXIDE LEVEL 29 MMOL/L (20-31); CHLORIDE LEVEL 103 MMOL/L (98-107); CREATININE FOR GFR 0.83 MG/DL (0.70-1.30); DIGOXIN LEVEL 1.6 NG/ML (0.8-2.0); GLOMERULAR FILTRATION RATE > 60.0 (>35); GLUCOSE, FASTING 111 MG/DL (74-106); POTASSIUM SERUM 4.2 MMOL/L (3.5-5.1); SODIUM LEVEL 138 MMOL/L (136-145)
== END ==
PROVIDERS: ATTEND Physician Assistant
DX: I48.91 Unspecified atrial fibrillation (principal)

== ENCOUNTER → 2023-01-05 | Outpatient (REF) | payer MEDICARE, MEDICAID ==
[2023-01-05 10:54] LABS: BASO % 0.4 % (0.0-1.0); EOS # 0.2 10^3/uL (0.0-0.5); EOS % 3.1 % (0.0-3.0); HEMATOCRIT 30.7 % (42.0-52.0); HEMOGLOBIN 9.9 g/dl (13.5-17.5); LYMPH # 0.4 10^3/uL (1.5-5.0); LYMPH % 6.5 % (24.0-44.0); MEAN CORPUSCULAR HEMOGLOBIN 32.2 pg (27.0-33.0); MEAN CORPUSCULAR HGB CONC 32.2 g/dl (32.0-36.5); MONO # 0.5 10^3/uL (0.0-0.8); MONO % 9.5 % (2.0-8.0); NEUTROPHILS # 4.4 10^3/uL (1.5-8.5); NEUTROPHILS % 80.3 % (36.0-66.0); PLATELET COUNT, AUTOMATED 139 10^3/uL (150-450); RED BLOOD COUNT 3.07 10^6/uL (4.30-6.10); WHITE BLOOD COUNT 5.5 10^3/uL (4.0-10.0)
== END ==
PROVIDERS: ATTEND Physician Assistant
DX: D64.9 Anemia, unspecified (principal)

== ENCOUNTER → 2023-01-12 | Outpatient (REF) | payer MEDICARE, MEDICAID ==
[2023-01-12 09:59] LABS: BASO % 0.5 % (0.0-1.0); EOS # 0.2 10^3/uL (0.0-0.5); EOS % 3.3 % (0.0-3.0); HEMATOCRIT 31.7 % (42.0-52.0); HEMOGLOBIN 10.1 g/dl (13.5-17.5); LYMPH # 0.5 10^3/uL (1.5-5.0); LYMPH % 7.8 % (24.0-44.0); MEAN CORPUSCULAR HEMOGLOBIN 31.9 pg (27.0-33.0); MEAN CORPUSCULAR HGB CONC 31.9 g/dl (32.0-36.5); MONO # 0.7 10^3/uL (0.0-0.8); MONO % 10.7 % (2.0-8.0); NEUTROPHILS # 4.7 10^3/uL (1.5-8.5); NEUTROPHILS % 77.4 % (36.0-66.0); PLATELET COUNT, AUTOMATED 155 10^3/uL (150-450); RED BLOOD COUNT 3.17 10^6/uL (4.30-6.10); WHITE BLOOD COUNT 6.1 10^3/uL (4.0-10.0)
== END ==
PROVIDERS: ATTEND Physician Assistant
DX: D64.9 Anemia, unspecified (principal)

== ENCOUNTER → 2023-01-19 | Outpatient (REF) | payer MEDICARE, MEDICAID ==
[2023-01-19 10:00] LABS: BASO % 0.6 % (0.0-1.0); EOS # 0.2 10^3/uL (0.0-0.5); EOS % 2.4 % (0.0-3.0); HEMATOCRIT 29.4 % (42.0-52.0); HEMOGLOBIN 9.6 g/dl (13.5-17.5); LYMPH # 0.5 10^3/uL (1.5-5.0); LYMPH % 7.2 % (24.0-44.0); MEAN CORPUSCULAR HEMOGLOBIN 31.7 pg (27.0-33.0); MEAN CORPUSCULAR HGB CONC 32.7 g/dl (32.0-36.5); MONO # 0.7 10^3/uL (0.0-0.8); MONO % 9.5 % (2.0-8.0); NEUTROPHILS # 5.6 10^3/uL (1.5-8.5); PLATELET COUNT, AUTOMATED 168 10^3/uL (150-450); RED BLOOD COUNT 3.03 10^6/uL (4.30-6.10); WHITE BLOOD COUNT 6.9 10^3/uL (4.0-10.0)
== END ==
PROVIDERS: ATTEND Physician Assistant
DX: D64.9 Anemia, unspecified (principal)

== ENCOUNTER → 2023-01-20 | Outpatient (REF) | payer MEDICARE, MEDICAID | PROVIDERS: ATTEND Physician Assistant | DX: N39.0 Urinary tract infection, site not specified (principal) ==

== ENCOUNTER → 2023-01-26 | Outpatient (REF) | payer MEDICARE, MEDICAID ==
[2023-01-26 10:26] LABS: BASO % 0.3 % (0.0-1.0); EOS # 0.2 10^3/uL (0.0-0.5); EOS % 2.8 % (0.0-3.0); HEMATOCRIT 28.2 % (42.0-52.0); LYMPH # 0.4 10^3/uL (1.5-5.0); MEAN CORPUSCULAR HEMOGLOBIN 31.7 pg (27.0-33.0); MEAN CORPUSCULAR HGB CONC 31.9 g/dl (32.0-36.5); MEAN CORPUSCULAR VOLUME 99.3 fl (80.0-96.0); MONO # 0.6 10^3/uL (0.0-0.8); MONO % 9.1 % (2.0-8.0); NEUTROPHILS # 4.9 10^3/uL (1.5-8.5); NEUTROPHILS % 80.5 % (36.0-66.0); PLATELET COUNT, AUTOMATED 149 10^3/uL (150-450); RED BLOOD COUNT 2.84 10^6/uL (4.30-6.10); WHITE BLOOD COUNT 6.1 10^3/uL (4.0-10.0)
== END ==
PROVIDERS: ATTEND Physician Assistant
DX: D64.9 Anemia, unspecified (principal); Z79.899 Other long term (current) drug therapy

== ENCOUNTER → 2023-02-02 | Outpatient (REF) | payer MEDICARE, MEDICAID ==
[2023-02-02 12:58] LABS: BASO % 0.3 % (0.0-1.0); EOS # 0.2 10^3/uL (0.0-0.5); EOS % 2.7 % (0.0-3.0); HEMATOCRIT 29.2 % (42.0-52.0); HEMOGLOBIN 9.3 g/dl (13.5-17.5); LYMPH # 0.5 10^3/uL (1.5-5.0); LYMPH % 6.1 % (24.0-44.0); MEAN CORPUSCULAR HEMOGLOBIN 31.7 pg (27.0-33.0); MEAN CORPUSCULAR HGB CONC 31.8 g/dl (32.0-36.5); MEAN CORPUSCULAR VOLUME 99.7 fl (80.0-96.0); MONO # 0.8 10^3/uL (0.0-0.8); NEUTROPHILS # 5.9 10^3/uL (1.5-8.5); NEUTROPHILS % 79.6 % (36.0-66.0); PLATELET COUNT, AUTOMATED 145 10^3/uL (150-450); RED BLOOD COUNT 2.93 10^6/uL (4.30-6.10); WHITE BLOOD COUNT 7.4 10^3/uL (4.0-10.0)
== END ==
PROVIDERS: ATTEND Physician Assistant
DX: D64.9 Anemia, unspecified (principal)

== ENCOUNTER → 2023-02-09 | Outpatient (REF) | payer MEDICARE, MEDICAID ==
[2023-02-09 13:08] LABS: BASO % 0.4 % (0.0-1.0); EOS # 0.2 10^3/uL (0.0-0.5); EOS % 2.9 % (0.0-3.0); HEMATOCRIT 31.2 % (42.0-52.0); HEMOGLOBIN 10.1 g/dl (13.5-17.5); LYMPH # 0.5 10^3/uL (1.5-5.0); LYMPH % 6.7 % (24.0-44.0); MEAN CORPUSCULAR HEMOGLOBIN 31.6 pg (27.0-33.0); MEAN CORPUSCULAR HGB CONC 32.4 g/dl (32.0-36.5); MEAN CORPUSCULAR VOLUME 97.5 fl (80.0-96.0); MONO # 0.7 10^3/uL (0.0-0.8); MONO % 9.3 % (2.0-8.0); NEUTROPHILS # 5.8 10^3/uL (1.5-8.5); NEUTROPHILS % 80.3 % (36.0-66.0); PLATELET COUNT, AUTOMATED 162 10^3/uL (150-450); WHITE BLOOD COUNT 7.3 10^3/uL (4.0-10.0)
== END ==
PROVIDERS: ATTEND Physician Assistant
DX: D64.9 Anemia, unspecified (principal)

== ENCOUNTER → 2023-02-16 | Outpatient (REF) | payer MEDICARE, MEDICAID ==
[~2023-02-16] MED LIST changes: +DIGO0.127 PO; +LIPI10TA PO
[2023-02-16 11:03] LABS: BASO % 0.4 % (0.0-1.0); EOS # 0.2 10^3/uL (0.0-0.5); HEMATOCRIT 29.1 % (42.0-52.0); HEMOGLOBIN 9.5 g/dl (13.5-17.5); LYMPH # 0.5 10^3/uL (1.5-5.0); LYMPH % 7.1 % (24.0-44.0); MEAN CORPUSCULAR HEMOGLOBIN 31.6 pg (27.0-33.0); MEAN CORPUSCULAR HGB CONC 32.6 g/dl (32.0-36.5); MEAN CORPUSCULAR VOLUME 96.7 fl (80.0-96.0); MONO # 0.6 10^3/uL (0.0-0.8); MONO % 7.4 % (2.0-8.0); NEUTROPHILS # 6.1 10^3/uL (1.5-8.5); NEUTROPHILS % 81.7 % (36.0-66.0); PLATELET COUNT, AUTOMATED 159 10^3/uL (150-450); RED BLOOD COUNT 3.01 10^6/uL (4.30-6.10); WHITE BLOOD COUNT 7.5 10^3/uL (4.0-10.0)
== END ==
PROVIDERS: ATTEND Physician Assistant
DX: D64.9 Anemia, unspecified (principal)

== ENCOUNTER → 2023-02-23 | Outpatient (REF) | payer MEDICARE, MEDICAID ==
[2023-02-23 10:12] LABS: BASO % 0.3 % (0.0-1.0); EOS # 0.2 10^3/uL (0.0-0.5); EOS % 2.7 % (0.0-3.0); HEMATOCRIT 27.8 % (42.0-52.0); HEMOGLOBIN 9.2 g/dl (13.5-17.5); LYMPH # 0.5 10^3/uL (1.5-5.0); LYMPH % 7.5 % (24.0-44.0); MEAN CORPUSCULAR HEMOGLOBIN 31.9 pg (27.0-33.0); MEAN CORPUSCULAR HGB CONC 33.1 g/dl (32.0-36.5); MEAN CORPUSCULAR VOLUME 96.5 fl (80.0-96.0); MONO # 0.7 10^3/uL (0.0-0.8); MONO % 10.2 % (2.0-8.0); NEUTROPHILS # 5.5 10^3/uL (1.5-8.5); NEUTROPHILS % 78.9 % (36.0-66.0); PLATELET COUNT, AUTOMATED 142 10^3/uL (150-450); RED BLOOD COUNT 2.88 10^6/uL (4.30-6.10); WHITE BLOOD COUNT 6.9 10^3/uL (4.0-10.0)
== END ==
PROVIDERS: ATTEND Physician Assistant
DX: Z01.818 Encounter for other preprocedural examination (principal); Z20.822 Contact with and (suspected) exposure to COVID-19

== ENCOUNTER → 2023-02-25 | Outpatient (REF) | payer MEDICARE, MEDICAID | PROVIDERS: ATTEND Physician Assistant | DX: I48.91 Unspecified atrial fibrillation (principal) ==

== ENCOUNTER 2023-02-26 09:25 | Day surgery (SDC) | payer MEDICARE, MEDICAID ==
[~2023-02-26] VITALS: Ht 167.6 cm; Wt 66.2 kg
[~2023-02-26 09:25] MED LIST changes: +NS 1,000 ML IV ONE
[2023-02-26] MEDS ORDERED: propofoL 200 MG/20 ML VIAL As Ordered ONE ×2 (10:30→12:13)
[2023-02-26] MEDS ORDERED: LIDOCAINE 2% MDV 20ML VIAL As Ordered ONE (10:30)
[2023-02-26] MEDS ORDERED: GLYCOPYRROLATE INJ 0.2 MG/ML 2 ML VIAL As Ordered ONE (10:30)
[2023-02-26] MEDS ORDERED: fentaNYL 100 MCG/2 ML INJECTION As Ordered ONE (10:31)
[2023-02-26 12:41] VITALS: BP 106/58
== END 2023-02-26 12:43 | disposition home or self-care (01) ==
LOC: M OPP 09:25
PROVIDERS: ATTEND Internal Medicine Gastroenterology
DX: Z86.010 Personal history of colon polyps (principal); Z09 Encounter for follow-up examination after completed treatment for conditions other than malignant neoplasm; D12.6 Benign neoplasm of colon, unspecified; I48.91 Unspecified atrial fibrillation; R13.10 Dysphagia, unspecified; R93.3 Abnormal findings on diagnostic imaging of other parts of digestive tract; I50.9 Heart failure, unspecified; F03.90 Unspecified dementia, unspecified severity, without behavioral disturbance, psychotic disturbance, mood disturbance, and anxiety; K74.60 Unspecified cirrhosis of liver; Z79.1 Long term (current) use of non-steroidal anti-inflammatories (NSAID); Z79.02 Long term (current) use of antithrombotics/antiplatelets; Z79.899 Other long term (current) drug therapy; Z88.2 Allergy status to sulfonamides; Z86.2 Personal history of diseases of the blood and blood-forming organs and certain disorders involving the immune mechanism; Z86.14 Personal history of Methicillin resistant Staphylococcus aureus infection
CPT/HCPCS: 43235; 45385; 88305; J3010

== ENCOUNTER → 2023-03-02 | Outpatient (REF) | payer MEDICARE, MEDICAID ==
[~2023-03-02] MED LIST changes: -NS 1,000 ML IV ONE
[2023-03-02 09:21] LABS: BASO % 0.5 % (0.0-1.0); EOS # 0.2 10^3/uL (0.0-0.5); EOS % 3.4 % (0.0-3.0); LYMPH # 0.5 10^3/uL (1.5-5.0); LYMPH % 7.3 % (24.0-44.0); MEAN CORPUSCULAR HEMOGLOBIN 31.4 pg (27.0-33.0); MEAN CORPUSCULAR HGB CONC 32.1 g/dl (32.0-36.5); MEAN CORPUSCULAR VOLUME 97.6 fl (80.0-96.0); MONO # 0.5 10^3/uL (0.0-0.8); MONO % 7.8 % (2.0-8.0); NEUTROPHILS % 80.2 % (36.0-66.0); PLATELET COUNT, AUTOMATED 130 10^3/uL (150-450); RED BLOOD COUNT 2.87 10^6/uL (4.30-6.10); WHITE BLOOD COUNT 6.2 10^3/uL (4.0-10.0)
== END ==
PROVIDERS: ATTEND Physician Assistant
DX: D64.9 Anemia, unspecified (principal)

== ENCOUNTER → 2023-03-04 | Outpatient (REF) | payer MEDICARE, MEDICAID ==
[2023-03-04 09:45] LABS: BASO % 0.4 % (0.0-1.0); EOS # 0.1 10^3/uL (0.0-0.5); EOS % 2.6 % (0.0-3.0); HEMATOCRIT 28.1 % (42.0-52.0); HEMOGLOBIN 9.1 g/dl (13.5-17.5); LYMPH # 0.4 10^3/uL (1.5-5.0); MEAN CORPUSCULAR HEMOGLOBIN 31.4 pg (27.0-33.0); MEAN CORPUSCULAR HGB CONC 32.4 g/dl (32.0-36.5); MEAN CORPUSCULAR VOLUME 96.9 fl (80.0-96.0); MONO # 0.4 10^3/uL (0.0-0.8); MONO % 8.8 % (2.0-8.0); NEUTROPHILS % 79.6 % (36.0-66.0); PLATELET COUNT, AUTOMATED 121 10^3/uL (150-450)
[2023-03-04 09:59] LABS: ALBUMIN 3.3 G/DL (3.2-5.2); ALKALINE PHOSPHATASE 99 U/L (46-116); ALT/SGPT 11 U/L (7.0-40); AST/SGOT 11 U/L (<34); BLOOD UREA NITROGEN 20 MG/DL (9-23); CALCIUM LEVEL 8.4 MG/DL (8.3-10.6); CARBON DIOXIDE LEVEL 29 MMOL/L (20-31); CHLORIDE LEVEL 107 MMOL/L (98-107); CREATININE FOR GFR 0.82 MG/DL (0.70-1.30); FERRITIN 511.7 NG/ML (10.5-307.3); FOLATE > 24.00 NG/ML (>5.4); GLOMERULAR FILTRATION RATE > 60.0 (>35); GLUCOSE, FASTING 85 MG/DL (74-106); POTASSIUM SERUM 4.1 MMOL/L (3.5-5.1); SODIUM LEVEL 139 MMOL/L (136-145); TOTAL PROTEIN 5.3 G/DL (5.7-8.2); VITAMIN B12 LEVEL 786 PG/ML (211-911)
== END ==
PROVIDERS: ATTEND Physician Assistant
DX: D64.9 Anemia, unspecified (principal)

== ENCOUNTER → 2023-03-09 | Outpatient (REF) | payer MEDICARE, MEDICAID ==
[2023-03-09 11:42] LABS: BASO % 0.4 % (0.0-1.0); EOS # 0.1 10^3/uL (0.0-0.5); EOS % 5.4 % (0.0-3.0); HEMATOCRIT 29.5 % (42.0-52.0); HEMOGLOBIN 9.2 g/dl (13.5-17.5); LYMPH # 0.4 10^3/uL (1.5-5.0); LYMPH % 16.6 % (24.0-44.0); MEAN CORPUSCULAR HEMOGLOBIN 30.4 pg (27.0-33.0); MEAN CORPUSCULAR HGB CONC 31.2 g/dl (32.0-36.5); MEAN CORPUSCULAR VOLUME 97.4 fl (80.0-96.0); MONO # 0.4 10^3/uL (0.0-0.8); MONO % 19.3 % (2.0-8.0); NEUTROPHILS # 1.3 10^3/uL (1.5-8.5); NEUTROPHILS % 57.9 % (36.0-66.0); PLATELET COUNT, AUTOMATED 107 10^3/uL (150-450); RED BLOOD COUNT 3.03 10^6/uL (4.30-6.10); WHITE BLOOD COUNT 2.2 10^3/uL (4.0-10.0)
== END ==
PROVIDERS: ATTEND Physician Assistant
DX: D64.9 Anemia, unspecified (principal)

== ENCOUNTER → 2023-03-11 | Outpatient (REF) | payer MEDICARE, MEDICAID ==
[2023-03-11 10:36] LABS: HEMATOCRIT 30.3 % (42.0-52.0); HEMOGLOBIN 9.5 g/dl (13.5-17.5); MEAN CORPUSCULAR HEMOGLOBIN 30.2 pg (27.0-33.0); MEAN CORPUSCULAR HGB CONC 31.4 g/dl (32.0-36.5); MEAN CORPUSCULAR VOLUME 96.2 fl (80.0-96.0); PLATELET COUNT, AUTOMATED 118 10^3/uL (150-450); RED BLOOD COUNT 3.15 10^6/uL (4.30-6.10)
[2023-03-11 11:01] LABS: BLOOD UREA NITROGEN 26 MG/DL (9-23); CALCIUM LEVEL 8.6 MG/DL (8.3-10.6); CARBON DIOXIDE LEVEL 30 MMOL/L (20-31); CHLORIDE LEVEL 104 MMOL/L (98-107); CREATININE FOR GFR 0.85 MG/DL (0.70-1.30); GLOMERULAR FILTRATION RATE > 60.0 (>35); GLUCOSE, FASTING 93 MG/DL (74-106); POTASSIUM SERUM 4.4 MMOL/L (3.5-5.1); SODIUM LEVEL 140 MMOL/L (136-145)
== END ==
PROVIDERS: ATTEND Physician Assistant
DX: D64.9 Anemia, unspecified (principal)

== ENCOUNTER → 2023-03-16 | Outpatient (REF) | payer MEDICARE, MEDICAID ==
[2023-03-16 10:00] LABS: BASO % 0.5 % (0.0-1.0); EOS # 0.1 10^3/uL (0.0-0.5); EOS % 2.6 % (0.0-3.0); HEMATOCRIT 25.3 % (42.0-52.0); HEMOGLOBIN 8.2 g/dl (13.5-17.5); LYMPH # 0.5 10^3/uL (1.5-5.0); LYMPH % 12.7 % (24.0-44.0); MEAN CORPUSCULAR HEMOGLOBIN 31.2 pg (27.0-33.0); MEAN CORPUSCULAR HGB CONC 32.4 g/dl (32.0-36.5); MEAN CORPUSCULAR VOLUME 96.2 fl (80.0-96.0); MONO # 0.4 10^3/uL (0.0-0.8); MONO % 10.1 % (2.0-8.0); NEUTROPHILS # 3.2 10^3/uL (1.5-8.5); NEUTROPHILS % 73.9 % (36.0-66.0); PLATELET COUNT, AUTOMATED 142 10^3/uL (150-450); RED BLOOD COUNT 2.63 10^6/uL (4.30-6.10); WHITE BLOOD COUNT 4.3 10^3/uL (4.0-10.0)
== END ==
PROVIDERS: ATTEND Physician Assistant
DX: D64.9 Anemia, unspecified (principal)

== ENCOUNTER → 2023-03-17 | Outpatient (REF) | payer MEDICARE, MEDICAID ==
[2023-03-17 14:02] LABS: IRON (FE) 45 UG/DL (65-175); PERCENT SATURATION 25.4 % (19.7-50.0); TOTAL IRON BINDING CAPACITY 177 UG/DL (250-425)
[2023-03-17 14:03] LABS: FOLATE > 24.00 NG/ML (>5.4)
== END ==
PROVIDERS: ATTEND Physician Assistant
DX: D64.9 Anemia, unspecified (principal)

== ENCOUNTER → 2023-03-19 | Outpatient (REF) | payer MEDICARE, MEDICAID ==
[2023-03-19 15:59] LABS: HEMATOCRIT 29.2 % (42.0-52.0); HEMOGLOBIN 9.1 g/dl (13.5-17.5); MEAN CORPUSCULAR HEMOGLOBIN 30.7 pg (27.0-33.0); MEAN CORPUSCULAR HGB CONC 31.2 g/dl (32.0-36.5); MEAN CORPUSCULAR VOLUME 98.6 fl (80.0-96.0); PLATELET COUNT, AUTOMATED 167 10^3/uL (150-450); RED BLOOD COUNT 2.96 10^6/uL (4.30-6.10)
== END ==
PROVIDERS: ATTEND Physician Assistant
DX: D64.9 Anemia, unspecified (principal)

== ENCOUNTER → 2023-03-23 | Outpatient (REF) | payer MEDICARE, MEDICAID ==
[2023-03-23 11:40] LABS: BASO % 0.5 % (0.0-1.0); EOS # 0.1 10^3/uL (0.0-0.5); EOS % 2.3 % (0.0-3.0); HEMATOCRIT 27.2 % (42.0-52.0); HEMOGLOBIN 8.6 g/dl (13.5-17.5); LYMPH # 0.5 10^3/uL (1.5-5.0); LYMPH % 8.4 % (24.0-44.0); MEAN CORPUSCULAR HEMOGLOBIN 31.4 pg (27.0-33.0); MEAN CORPUSCULAR HGB CONC 31.6 g/dl (32.0-36.5); MEAN CORPUSCULAR VOLUME 99.3 fl (80.0-96.0); MONO # 0.5 10^3/uL (0.0-0.8); MONO % 8.2 % (2.0-8.0); NEUTROPHILS # 4.5 10^3/uL (1.5-8.5); NEUTROPHILS % 80.2 % (36.0-66.0); PLATELET COUNT, AUTOMATED 144 10^3/uL (150-450); RED BLOOD COUNT 2.74 10^6/uL (4.30-6.10); WHITE BLOOD COUNT 5.6 10^3/uL (4.0-10.0)
[2023-03-23 12:06] LABS: BLOOD UREA NITROGEN 18 MG/DL (9-23); CALCIUM LEVEL 8.4 MG/DL (8.3-10.6); CARBON DIOXIDE LEVEL 31 MMOL/L (20-31); CHLORIDE LEVEL 107 MMOL/L (98-107); CREATININE FOR GFR 0.87 MG/DL (0.70-1.30); GLOMERULAR FILTRATION RATE > 60.0 (>35); GLUCOSE, FASTING 116 MG/DL (74-106); POTASSIUM SERUM 4.2 MMOL/L (3.5-5.1); SODIUM LEVEL 139 MMOL/L (136-145)
== END ==
PROVIDERS: ATTEND Physician Assistant
DX: D64.9 Anemia, unspecified (principal)

== ENCOUNTER → 2023-03-30 | Outpatient (REF) | payer MEDICARE, MEDICAID ==
[2023-03-30 11:19] LABS: BASO % 0.5 % (0.0-1.0); EOS # 0.1 10^3/uL (0.0-0.5); HEMATOCRIT 26.2 % (42.0-52.0); HEMOGLOBIN 8.4 g/dl (13.5-17.5); LYMPH # 0.4 10^3/uL (1.5-5.0); LYMPH % 6.6 % (24.0-44.0); MEAN CORPUSCULAR HEMOGLOBIN 31.6 pg (27.0-33.0); MEAN CORPUSCULAR HGB CONC 32.1 g/dl (32.0-36.5); MEAN CORPUSCULAR VOLUME 98.5 fl (80.0-96.0); MONO # 0.5 10^3/uL (0.0-0.8); MONO % 8.6 % (2.0-8.0); NEUTROPHILS # 4.9 10^3/uL (1.5-8.5); PLATELET COUNT, AUTOMATED 129 10^3/uL (150-450); RED BLOOD COUNT 2.66 10^6/uL (4.30-6.10); WHITE BLOOD COUNT 5.9 10^3/uL (4.0-10.0)
== END ==
PROVIDERS: ATTEND Physician Assistant
DX: D64.9 Anemia, unspecified (principal)

== ENCOUNTER → 2023-04-02 | Outpatient (REF) | payer MEDICARE, MEDICAID ==
[2023-04-02 16:03] LABS: HEMOGLOBIN 10.2 g/dl (13.5-17.5); MEAN CORPUSCULAR HEMOGLOBIN 31.7 pg (27.0-33.0); MEAN CORPUSCULAR HGB CONC 31.9 g/dl (32.0-36.5); MEAN CORPUSCULAR VOLUME 99.4 fl (80.0-96.0); PLATELET COUNT, AUTOMATED 157 10^3/uL (150-450); RED BLOOD COUNT 3.22 10^6/uL (4.30-6.10); WHITE BLOOD COUNT 6.2 10^3/uL (4.0-10.0)
== END ==
PROVIDERS: ATTEND Physician Assistant
DX: D64.9 Anemia, unspecified (principal)

== ENCOUNTER → 2023-04-06 | Outpatient (REF) | payer MEDICARE, MEDICAID | PROVIDERS: ATTEND Physician Assistant | DX: D64.9 Anemia, unspecified (principal); Z53.8 Procedure and treatment not carried out for other reasons ==

== ENCOUNTER → 2023-04-07 | Outpatient (REF) | payer MEDICARE, MEDICAID ==
[2023-04-07 09:57] LABS: BASO % 0.5 % (0.0-1.0); EOS # 0.2 10^3/uL (0.0-0.5); EOS % 2.4 % (0.0-3.0); HEMATOCRIT 31.5 % (42.0-52.0); HEMOGLOBIN 10.1 g/dl (13.5-17.5); LYMPH # 0.6 10^3/uL (1.5-5.0); LYMPH % 9.1 % (24.0-44.0); MEAN CORPUSCULAR HEMOGLOBIN 30.9 pg (27.0-33.0); MEAN CORPUSCULAR HGB CONC 32.1 g/dl (32.0-36.5); MEAN CORPUSCULAR VOLUME 96.3 fl (80.0-96.0); MONO # 0.5 10^3/uL (0.0-0.8); MONO % 7.8 % (2.0-8.0); NEUTROPHILS # 5.2 10^3/uL (1.5-8.5); NEUTROPHILS % 79.7 % (36.0-66.0); PLATELET COUNT, AUTOMATED 165 10^3/uL (150-450); RED BLOOD COUNT 3.27 10^6/uL (4.30-6.10); WHITE BLOOD COUNT 6.6 10^3/uL (4.0-10.0)
[2023-04-07 10:33] LABS: ALBUMIN 3.4 G/DL (3.2-5.2); ALKALINE PHOSPHATASE 118 U/L (46-116); ALT/SGPT 11 U/L (7.0-40); AST/SGOT 13 U/L (<34); BILIRUBIN,TOTAL 1.1 MG/DL (0.3-1.2); BLOOD UREA NITROGEN 18 MG/DL (9-23); CALCIUM LEVEL 8.8 MG/DL (8.3-10.6); CARBON DIOXIDE LEVEL 30 MMOL/L (20-31); CHLORIDE LEVEL 103 MMOL/L (98-107); CREATININE FOR GFR 0.84 MG/DL (0.70-1.30); GLOMERULAR FILTRATION RATE > 60.0 (>35); GLUCOSE, FASTING 88 MG/DL (74-106); IRON (FE) 33 UG/DL (65-175); PERCENT SATURATION 17.2 % (19.7-50.0); POTASSIUM SERUM 4.3 MMOL/L (3.5-5.1); SODIUM LEVEL 141 MMOL/L (136-145); TOTAL IRON BINDING CAPACITY 192 UG/DL (250-425); TOTAL PROTEIN 6.1 G/DL (5.7-8.2)
[2023-04-07 10:34] LABS: VITAMIN B12 LEVEL 171 PG/ML (211-911)
[2023-04-07 10:36] LABS: FOLATE > 24.00 NG/ML (>5.4)
== END ==
PROVIDERS: ATTEND Physician Assistant
DX: D64.9 Anemia, unspecified (principal)

== ENCOUNTER → 2023-04-13 | Outpatient (REF) | payer MEDICARE, MEDICAID ==
[2023-04-13 08:33] LABS: BASO % 0.3 % (0.0-1.0); EOS # 0.2 10^3/uL (0.0-0.5); EOS % 3.2 % (0.0-3.0); HEMATOCRIT 27.5 % (42.0-52.0); HEMOGLOBIN 9.1 g/dl (13.5-17.5); LYMPH # 0.5 10^3/uL (1.5-5.0); LYMPH % 7.4 % (24.0-44.0); MEAN CORPUSCULAR HEMOGLOBIN 32.2 pg (27.0-33.0); MEAN CORPUSCULAR HGB CONC 33.1 g/dl (32.0-36.5); MEAN CORPUSCULAR VOLUME 97.2 fl (80.0-96.0); MONO # 0.5 10^3/uL (0.0-0.8); MONO % 8.3 % (2.0-8.0); NEUTROPHILS % 80.3 % (36.0-66.0); PLATELET COUNT, AUTOMATED 154 10^3/uL (150-450); RED BLOOD COUNT 2.83 10^6/uL (4.30-6.10); WHITE BLOOD COUNT 6.2 10^3/uL (4.0-10.0)
== END ==
PROVIDERS: ATTEND Physician Assistant
DX: D64.9 Anemia, unspecified (principal)

== ENCOUNTER → 2023-04-17 | Outpatient (REF) | payer MEDICARE, MEDICAID | PROVIDERS: ATTEND Physician Assistant | DX: D64.9 Anemia, unspecified (principal) ==

== ENCOUNTER → 2023-04-17 | Outpatient (REF) | payer MEDICARE, MEDICAID | PROVIDERS: ATTEND Physician Assistant | DX: D64.9 Anemia, unspecified (principal); Z53.8 Procedure and treatment not carried out for other reasons ==

== ENCOUNTER → 2023-04-21 | Outpatient (REF) | payer MEDICARE, MEDICAID ==
[2023-04-21 10:45] LABS: BASO % 0.3 % (0.0-1.0); EOS # 0.1 10^3/uL (0.0-0.5); HEMATOCRIT 29.1 % (42.0-52.0); HEMOGLOBIN 9.5 g/dl (13.5-17.5); LYMPH # 0.4 10^3/uL (1.5-5.0); LYMPH % 6.3 % (24.0-44.0); MEAN CORPUSCULAR HEMOGLOBIN 31.7 pg (27.0-33.0); MEAN CORPUSCULAR HGB CONC 32.6 g/dl (32.0-36.5); MONO # 0.8 10^3/uL (0.0-0.8); MONO % 11.9 % (2.0-8.0); NEUTROPHILS # 5.5 10^3/uL (1.5-8.5); NEUTROPHILS % 79.1 % (36.0-66.0); PLATELET COUNT, AUTOMATED 131 10^3/uL (150-450)
== END ==
PROVIDERS: ATTEND Physician Assistant
DX: D64.9 Anemia, unspecified (principal)

== ENCOUNTER → 2023-04-27 | Outpatient (REF) | payer MEDICARE, MEDICAID ==
[2023-04-27 11:42] LABS: BASO % 0.5 % (0.0-1.0); EOS # 0.2 10^3/uL (0.0-0.5); EOS % 2.4 % (0.0-3.0); HEMATOCRIT 31.8 % (42.0-52.0); LYMPH # 0.5 10^3/uL (1.5-5.0); LYMPH % 7.8 % (24.0-44.0); MEAN CORPUSCULAR HEMOGLOBIN 30.3 pg (27.0-33.0); MEAN CORPUSCULAR HGB CONC 31.4 g/dl (32.0-36.5); MEAN CORPUSCULAR VOLUME 96.4 fl (80.0-96.0); MONO # 0.7 10^3/uL (0.0-0.8); MONO % 10.2 % (2.0-8.0); NEUTROPHILS # 5.2 10^3/uL (1.5-8.5); NEUTROPHILS % 78.8 % (36.0-66.0); PLATELET COUNT, AUTOMATED 170 10^3/uL (150-450); WHITE BLOOD COUNT 6.6 10^3/uL (4.0-10.0)
[2023-04-27 12:08] LABS: BLOOD UREA NITROGEN 21 MG/DL (9-23); CALCIUM LEVEL 8.1 MG/DL (8.3-10.6); CARBON DIOXIDE LEVEL 30 MMOL/L (20-31); CHLORIDE LEVEL 103 MMOL/L (98-107); CREATININE FOR GFR 0.84 MG/DL (0.70-1.30); GLOMERULAR FILTRATION RATE > 60.0 (>35); GLUCOSE, FASTING 80 MG/DL (74-106); POTASSIUM SERUM 4.4 MMOL/L (3.5-5.1); SODIUM LEVEL 136 MMOL/L (136-145)
== END ==
PROVIDERS: ATTEND Physician Assistant
DX: D64.9 Anemia, unspecified (principal); I48.91 Unspecified atrial fibrillation

== ENCOUNTER → 2023-05-04 | Outpatient (REF) | payer MEDICARE, MEDICAID ==
[2023-05-04 11:31] LABS: BASO % 0.3 % (0.0-1.0); EOS # 0.2 10^3/uL (0.0-0.5); EOS % 3.5 % (0.0-3.0); HEMATOCRIT 28.3 % (42.0-52.0); HEMOGLOBIN 9.2 g/dl (13.5-17.5); LYMPH # 0.4 10^3/uL (1.5-5.0); LYMPH % 6.9 % (24.0-44.0); MEAN CORPUSCULAR HGB CONC 32.5 g/dl (32.0-36.5); MEAN CORPUSCULAR VOLUME 95.3 fl (80.0-96.0); MONO # 0.7 10^3/uL (0.0-0.8); MONO % 11.3 % (2.0-8.0); NEUTROPHILS # 4.6 10^3/uL (1.5-8.5); NEUTROPHILS % 77.5 % (36.0-66.0); PLATELET COUNT, AUTOMATED 144 10^3/uL (150-450); RED BLOOD COUNT 2.97 10^6/uL (4.30-6.10)
== END ==
PROVIDERS: ATTEND Physician Assistant
DX: D64.9 Anemia, unspecified (principal)

== ENCOUNTER → 2023-05-11 | Outpatient (REF) | payer MEDICARE, MEDICAID ==
[2023-05-11 08:32] LABS: BASO % 0.3 % (0.0-1.0); EOS # 0.2 10^3/uL (0.0-0.5); EOS % 3.7 % (0.0-3.0); HEMATOCRIT 27.3 % (42.0-52.0); HEMOGLOBIN 8.9 g/dl (13.5-17.5); LYMPH # 0.5 10^3/uL (1.5-5.0); LYMPH % 8.5 % (24.0-44.0); MEAN CORPUSCULAR HGB CONC 32.6 g/dl (32.0-36.5); MEAN CORPUSCULAR VOLUME 95.1 fl (80.0-96.0); MONO # 0.6 10^3/uL (0.0-0.8); MONO % 10.9 % (2.0-8.0); NEUTROPHILS # 4.5 10^3/uL (1.5-8.5); NEUTROPHILS % 76.3 % (36.0-66.0); PLATELET COUNT, AUTOMATED 135 10^3/uL (150-450); RED BLOOD COUNT 2.87 10^6/uL (4.30-6.10); WHITE BLOOD COUNT 5.9 10^3/uL (4.0-10.0)
== END ==
PROVIDERS: ATTEND Physician Assistant
DX: D64.9 Anemia, unspecified (principal)

== ENCOUNTER → 2023-05-18 | Outpatient (REF) | payer MEDICARE, MEDICAID ==
[2023-05-18 09:35] LABS: BASO % 0.3 % (0.0-1.0); EOS # 0.2 10^3/uL (0.0-0.5); EOS % 3.3 % (0.0-3.0); HEMATOCRIT 28.3 % (42.0-52.0); HEMOGLOBIN 9.2 g/dl (13.5-17.5); LYMPH # 0.5 10^3/uL (1.5-5.0); LYMPH % 7.8 % (24.0-44.0); MEAN CORPUSCULAR HEMOGLOBIN 30.9 pg (27.0-33.0); MEAN CORPUSCULAR HGB CONC 32.5 g/dl (32.0-36.5); MONO # 0.8 10^3/uL (0.0-0.8); MONO % 11.6 % (2.0-8.0); NEUTROPHILS % 76.7 % (36.0-66.0); PLATELET COUNT, AUTOMATED 141 10^3/uL (150-450); RED BLOOD COUNT 2.98 10^6/uL (4.30-6.10); WHITE BLOOD COUNT 6.6 10^3/uL (4.0-10.0)
== END ==
PROVIDERS: ATTEND Physician Assistant
DX: D64.9 Anemia, unspecified (principal)

== ENCOUNTER → 2023-05-27 | Outpatient (REF) | payer MEDICARE, MEDICAID ==
[2023-05-27 08:40] LABS: BASO % 0.5 % (0.0-1.0); EOS # 0.2 10^3/uL (0.0-0.5); EOS % 4.1 % (0.0-3.0); HEMATOCRIT 27.1 % (42.0-52.0); HEMOGLOBIN 8.6 g/dl (13.5-17.5); LYMPH # 0.5 10^3/uL (1.5-5.0); LYMPH % 8.3 % (24.0-44.0); MEAN CORPUSCULAR HEMOGLOBIN 30.3 pg (27.0-33.0); MEAN CORPUSCULAR HGB CONC 31.7 g/dl (32.0-36.5); MEAN CORPUSCULAR VOLUME 95.4 fl (80.0-96.0); MONO # 0.7 10^3/uL (0.0-0.8); MONO % 11.8 % (2.0-8.0); NEUTROPHILS # 4.4 10^3/uL (1.5-8.5); PLATELET COUNT, AUTOMATED 135 10^3/uL (150-450); RED BLOOD COUNT 2.84 10^6/uL (4.30-6.10); WHITE BLOOD COUNT 5.9 10^3/uL (4.0-10.0)
[2023-05-27 09:12] LABS: DIGOXIN LEVEL 0.8 NG/ML (0.8-2.0)
[2023-05-27 09:13] LABS: BLOOD UREA NITROGEN 21 MG/DL (9-23); CALCIUM LEVEL 8.4 MG/DL (8.3-10.6); CARBON DIOXIDE LEVEL 29 MMOL/L (20-31); CHLORIDE LEVEL 104 MMOL/L (98-107); CREATININE FOR GFR 0.85 MG/DL (0.70-1.30); GLOMERULAR FILTRATION RATE > 60.0 (>35); GLUCOSE, FASTING 84 MG/DL (74-106); POTASSIUM SERUM 4.6 MMOL/L (3.5-5.1); SODIUM LEVEL 138 MMOL/L (136-145)
== END ==
PROVIDERS: ATTEND Physician Assistant
DX: D64.9 Anemia, unspecified (principal); Z79.899 Other long term (current) drug therapy

== ENCOUNTER → 2023-06-01 | Outpatient (REF) | payer MEDICARE, MEDICAID ==
[2023-06-01 08:54] LABS: BASO % 0.4 % (0.0-1.0); EOS # 0.3 10^3/uL (0.0-0.5); EOS % 4.4 % (0.0-3.0); HEMATOCRIT 28.9 % (42.0-52.0); HEMOGLOBIN 9.1 g/dl (13.5-17.5); LYMPH # 0.5 10^3/uL (1.5-5.0); LYMPH % 6.6 % (24.0-44.0); MEAN CORPUSCULAR HEMOGLOBIN 30.4 pg (27.0-33.0); MEAN CORPUSCULAR HGB CONC 31.5 g/dl (32.0-36.5); MEAN CORPUSCULAR VOLUME 96.7 fl (80.0-96.0); MONO # 0.8 10^3/uL (0.0-0.8); MONO % 11.4 % (2.0-8.0); NEUTROPHILS # 5.2 10^3/uL (1.5-8.5); NEUTROPHILS % 76.8 % (36.0-66.0); PLATELET COUNT, AUTOMATED 135 10^3/uL (150-450); RED BLOOD COUNT 2.99 10^6/uL (4.30-6.10); WHITE BLOOD COUNT 6.8 10^3/uL (4.0-10.0)
== END ==
PROVIDERS: ATTEND Physician Assistant
DX: D64.9 Anemia, unspecified (principal)

== ENCOUNTER → 2023-06-18 | Outpatient (REF) | payer MEDICARE, MEDICAID | LOC: M SFHCDERM 13:17 | PROVIDERS: ATTEND Nurse Practitioner Family | DX: C44.222 Squamous cell carcinoma of skin of right ear and external auricular canal (principal) ==

== ENCOUNTER → 2023-06-22 | Outpatient (REF) | payer MEDICARE, MEDICAID ==
[2023-06-22 07:59] LABS: BASO % 0.5 % (0.0-1.0); EOS # 0.2 10^3/uL (0.0-0.5); EOS % 3.5 % (0.0-3.0); HEMATOCRIT 29.2 % (42.0-52.0); HEMOGLOBIN 9.3 g/dl (13.5-17.5); LYMPH # 0.6 10^3/uL (1.5-5.0); LYMPH % 9.3 % (24.0-44.0); MEAN CORPUSCULAR HEMOGLOBIN 30.7 pg (27.0-33.0); MEAN CORPUSCULAR HGB CONC 31.8 g/dl (32.0-36.5); MEAN CORPUSCULAR VOLUME 96.4 fl (80.0-96.0); MONO # 0.6 10^3/uL (0.0-0.8); MONO % 8.6 % (2.0-8.0); NEUTROPHILS # 5.2 10^3/uL (1.5-8.5); NEUTROPHILS % 77.6 % (36.0-66.0); PLATELET COUNT, AUTOMATED 164 10^3/uL (150-450); RED BLOOD COUNT 3.03 10^6/uL (4.30-6.10); WHITE BLOOD COUNT 6.6 10^3/uL (4.0-10.0)
== END ==
PROVIDERS: ATTEND Physician Assistant
DX: D64.9 Anemia, unspecified (principal)

== ENCOUNTER → 2023-06-29 | Outpatient (REF) | payer MEDICARE, MEDICAID ==
[2023-06-29 08:21] LABS: BASO % 0.6 % (0.0-1.0); EOS # 0.2 10^3/uL (0.0-0.5); EOS % 2.4 % (0.0-3.0); HEMATOCRIT 31.8 % (42.0-52.0); HEMOGLOBIN 10.2 g/dl (13.5-17.5); LYMPH # 0.5 10^3/uL (1.5-5.0); LYMPH % 7.4 % (24.0-44.0); MEAN CORPUSCULAR HEMOGLOBIN 31.5 pg (27.0-33.0); MEAN CORPUSCULAR HGB CONC 32.1 g/dl (32.0-36.5); MEAN CORPUSCULAR VOLUME 98.1 fl (80.0-96.0); MONO # 0.7 10^3/uL (0.0-0.8); NEUTROPHILS # 5.8 10^3/uL (1.5-8.5); NEUTROPHILS % 80.2 % (36.0-66.0); PLATELET COUNT, AUTOMATED 135 10^3/uL (150-450); RED BLOOD COUNT 3.24 10^6/uL (4.30-6.10); WHITE BLOOD COUNT 7.2 10^3/uL (4.0-10.0)
[2023-06-29 08:49] LABS: DIGOXIN LEVEL 1.3 NG/ML (0.8-2.0)
[2023-06-29 08:50] LABS: BLOOD UREA NITROGEN 18 MG/DL (9-23); CALCIUM LEVEL 8.8 MG/DL (8.3-10.6); CARBON DIOXIDE LEVEL 30 MMOL/L (20-31); CHLORIDE LEVEL 103 MMOL/L (98-107); CREATININE FOR GFR 0.79 MG/DL (0.70-1.30); GLOMERULAR FILTRATION RATE > 60.0 (>35); GLUCOSE, FASTING 85 MG/DL (74-106); POTASSIUM SERUM 4.2 MMOL/L (3.5-5.1); SODIUM LEVEL 141 MMOL/L (136-145)
== END ==
PROVIDERS: ATTEND Physician Assistant
DX: D64.9 Anemia, unspecified (principal); Z79.899 Other long term (current) drug therapy

== ENCOUNTER → 2023-07-06 | Outpatient (REF) | payer MEDICARE, MEDICAID ==
[2023-07-06 08:18] LABS: BASO % 0.3 % (0.0-1.0); EOS # 0.2 10^3/uL (0.0-0.5); HEMATOCRIT 30.3 % (42.0-52.0); HEMOGLOBIN 9.7 g/dl (13.5-17.5); LYMPH # 0.6 10^3/uL (1.5-5.0); LYMPH % 8.7 % (24.0-44.0); MEAN CORPUSCULAR HEMOGLOBIN 31.2 pg (27.0-33.0); MEAN CORPUSCULAR VOLUME 97.4 fl (80.0-96.0); MONO # 0.6 10^3/uL (0.0-0.8); MONO % 8.8 % (2.0-8.0); NEUTROPHILS # 5.6 10^3/uL (1.5-8.5); NEUTROPHILS % 78.9 % (36.0-66.0); PLATELET COUNT, AUTOMATED 137 10^3/uL (150-450); RED BLOOD COUNT 3.11 10^6/uL (4.30-6.10)
== END ==
PROVIDERS: ATTEND Physician Assistant
DX: D64.9 Anemia, unspecified (principal)

== ENCOUNTER → 2023-07-13 | Outpatient (REF) | payer MEDICARE, MEDICAID ==
[2023-07-13 08:23] LABS: BASO % 0.4 % (0.0-1.0); EOS # 0.2 10^3/uL (0.0-0.5); EOS % 2.6 % (0.0-3.0); HEMATOCRIT 32.7 % (42.0-52.0); HEMOGLOBIN 10.6 g/dl (13.5-17.5); LYMPH # 0.6 10^3/uL (1.5-5.0); LYMPH % 7.4 % (24.0-44.0); MEAN CORPUSCULAR HEMOGLOBIN 31.8 pg (27.0-33.0); MEAN CORPUSCULAR HGB CONC 32.4 g/dl (32.0-36.5); MEAN CORPUSCULAR VOLUME 98.2 fl (80.0-96.0); MONO # 0.6 10^3/uL (0.0-0.8); MONO % 8.1 % (2.0-8.0); NEUTROPHILS # 6.5 10^3/uL (1.5-8.5); NEUTROPHILS % 81.2 % (36.0-66.0); PLATELET COUNT, AUTOMATED 164 10^3/uL (150-450); RED BLOOD COUNT 3.33 10^6/uL (4.30-6.10)
[2023-07-13 08:30] LABS: BASO % 0.5 % (0.0-1.0); EOS # 0.2 10^3/uL (0.0-0.5); EOS % 2.8 % (0.0-3.0); HEMATOCRIT 32.8 % (42.0-52.0); HEMOGLOBIN 10.5 g/dl (13.5-17.5); LYMPH # 0.6 10^3/uL (1.5-5.0); LYMPH % 7.9 % (24.0-44.0); MEAN CORPUSCULAR HEMOGLOBIN 31.5 pg (27.0-33.0); MEAN CORPUSCULAR VOLUME 98.5 fl (80.0-96.0); MONO # 0.7 10^3/uL (0.0-0.8); MONO % 8.7 % (2.0-8.0); NEUTROPHILS # 6.2 10^3/uL (1.5-8.5); NEUTROPHILS % 79.7 % (36.0-66.0); PLATELET COUNT, AUTOMATED 167 10^3/uL (150-450); RED BLOOD COUNT 3.33 10^6/uL (4.30-6.10); WHITE BLOOD COUNT 7.7 10^3/uL (4.0-10.0)
[2023-07-13 09:14] LABS: TOTAL IRON BINDING CAPACITY 177 UG/DL (250-425)
[2023-07-13 09:15] LABS: FERRITIN 646.4 NG/ML (10.5-307.3); FOLATE > 24.00 NG/ML (>5.4)
[2023-07-13 09:16] LABS: ALBUMIN 3.5 G/DL (3.2-5.2); ALKALINE PHOSPHATASE 115 U/L (46-116); ALT/SGPT 11 U/L (7.0-40); AST/SGOT 10 U/L (<34); BILIRUBIN,TOTAL 1.5 MG/DL (0.3-1.2); BLOOD UREA NITROGEN 17 MG/DL (9-23); CALCIUM LEVEL 8.8 MG/DL (8.3-10.6); CARBON DIOXIDE LEVEL 30 MMOL/L (20-31); CHLORIDE LEVEL 101 MMOL/L (98-107); CREATININE FOR GFR 0.82 MG/DL (0.70-1.30); GLOMERULAR FILTRATION RATE > 60.0 (>35); GLUCOSE, FASTING 83 MG/DL (74-106); IRON (FE) 26 UG/DL (65-175); PERCENT SATURATION 14.7 % (19.7-50.0); POTASSIUM SERUM 4.3 MMOL/L (3.5-5.1); SODIUM LEVEL 137 MMOL/L (136-145); TOTAL PROTEIN 5.9 G/DL (5.7-8.2); VITAMIN B12 LEVEL 544 PG/ML (211-911)
== END ==
PROVIDERS: ATTEND Physician Assistant
DX: D64.9 Anemia, unspecified (principal)

== ENCOUNTER → 2023-07-20 | Outpatient (REF) | payer MEDICARE, MEDICAID ==
[2023-07-20 08:12] LABS: BASO % 0.4 % (0.0-1.0); EOS # 0.3 10^3/uL (0.0-0.5); EOS % 3.7 % (0.0-3.0); HEMATOCRIT 31.5 % (42.0-52.0); HEMOGLOBIN 10.2 g/dl (13.5-17.5); LYMPH # 0.6 10^3/uL (1.5-5.0); LYMPH % 8.1 % (24.0-44.0); MEAN CORPUSCULAR HGB CONC 32.4 g/dl (32.0-36.5); MEAN CORPUSCULAR VOLUME 95.7 fl (80.0-96.0); MONO # 0.6 10^3/uL (0.0-0.8); MONO % 8.3 % (2.0-8.0); NEUTROPHILS # 5.4 10^3/uL (1.5-8.5); NEUTROPHILS % 78.9 % (36.0-66.0); PLATELET COUNT, AUTOMATED 154 10^3/uL (150-450); RED BLOOD COUNT 3.29 10^6/uL (4.30-6.10); WHITE BLOOD COUNT 6.8 10^3/uL (4.0-10.0)
== END ==
PROVIDERS: ATTEND Physician Assistant
DX: D64.9 Anemia, unspecified (principal)

== ENCOUNTER → 2023-07-21 | Outpatient (REF) | payer MEDICARE, MEDICAID | PROVIDERS: ATTEND Physician Assistant | DX: D64.9 Anemia, unspecified (principal); Z53.8 Procedure and treatment not carried out for other reasons ==

== ENCOUNTER → 2023-07-28 | Outpatient (REF) | payer MEDICARE, MEDICAID ==
[2023-07-28 10:19] LABS: BASO % 0.3 % (0.0-1.0); EOS # 0.2 10^3/uL (0.0-0.5); EOS % 2.7 % (0.0-3.0); HEMATOCRIT 29.7 % (42.0-52.0); HEMOGLOBIN 9.5 g/dl (13.5-17.5); LYMPH # 0.5 10^3/uL (1.5-5.0); LYMPH % 7.5 % (24.0-44.0); MEAN CORPUSCULAR VOLUME 97.1 fl (80.0-96.0); MONO # 0.7 10^3/uL (0.0-0.8); MONO % 9.6 % (2.0-8.0); NEUTROPHILS # 5.4 10^3/uL (1.5-8.5); NEUTROPHILS % 79.3 % (36.0-66.0); PLATELET COUNT, AUTOMATED 145 10^3/uL (150-450); RED BLOOD COUNT 3.06 10^6/uL (4.30-6.10); WHITE BLOOD COUNT 6.8 10^3/uL (4.0-10.0)
[2023-07-28 10:45] LABS: BLOOD UREA NITROGEN 15 MG/DL (9-23); CALCIUM LEVEL 8.4 MG/DL (8.3-10.6); CARBON DIOXIDE LEVEL 30 MMOL/L (20-31); CHLORIDE LEVEL 104 MMOL/L (98-107); CREATININE FOR GFR 0.85 MG/DL (0.70-1.30); GLOMERULAR FILTRATION RATE > 60.0 (>35); GLUCOSE, FASTING 80 MG/DL (74-106); POTASSIUM SERUM 4.3 MMOL/L (3.5-5.1); SODIUM LEVEL 141 MMOL/L (136-145)
== END ==
PROVIDERS: ATTEND Physician Assistant
DX: D64.9 Anemia, unspecified (principal)

== ENCOUNTER → 2023-08-03 | Outpatient (REF) | payer MEDICARE, MEDICAID ==
[2023-08-03 10:41] LABS: BASO % 0.5 % (0.0-1.0); EOS # 0.2 10^3/uL (0.0-0.5); EOS % 2.9 % (0.0-3.0); HEMATOCRIT 30.3 % (42.0-52.0); HEMOGLOBIN 9.8 g/dl (13.5-17.5); LYMPH # 0.5 10^3/uL (1.5-5.0); LYMPH % 7.2 % (24.0-44.0); MEAN CORPUSCULAR HEMOGLOBIN 31.8 pg (27.0-33.0); MEAN CORPUSCULAR HGB CONC 32.3 g/dl (32.0-36.5); MEAN CORPUSCULAR VOLUME 98.4 fl (80.0-96.0); MONO # 0.5 10^3/uL (0.0-0.8); MONO % 7.3 % (2.0-8.0); NEUTROPHILS # 5.4 10^3/uL (1.5-8.5); NEUTROPHILS % 81.5 % (36.0-66.0); PLATELET COUNT, AUTOMATED 142 10^3/uL (150-450); RED BLOOD COUNT 3.08 10^6/uL (4.30-6.10); WHITE BLOOD COUNT 6.6 10^3/uL (4.0-10.0)
== END ==
PROVIDERS: ATTEND Physician Assistant
DX: D64.9 Anemia, unspecified (principal)

== ENCOUNTER → 2023-08-10 | Outpatient (REF) | payer MEDICARE, MEDICAID ==
[2023-08-10 11:02] LABS: BASO % 0.4 % (0.0-1.0); EOS # 0.2 10^3/uL (0.0-0.5); EOS % 2.3 % (0.0-3.0); HEMATOCRIT 28.4 % (42.0-52.0); HEMOGLOBIN 9.3 g/dl (13.5-17.5); LYMPH # 0.6 10^3/uL (1.5-5.0); LYMPH % 8.1 % (24.0-44.0); MEAN CORPUSCULAR HGB CONC 32.7 g/dl (32.0-36.5); MEAN CORPUSCULAR VOLUME 97.6 fl (80.0-96.0); MONO # 0.7 10^3/uL (0.0-0.8); MONO % 10.4 % (2.0-8.0); NEUTROPHILS # 5.3 10^3/uL (1.5-8.5); NEUTROPHILS % 78.2 % (36.0-66.0); PLATELET COUNT, AUTOMATED 143 10^3/uL (150-450); RED BLOOD COUNT 2.91 10^6/uL (4.30-6.10); WHITE BLOOD COUNT 6.8 10^3/uL (4.0-10.0)
== END ==
PROVIDERS: ATTEND Physician Assistant
DX: D64.9 Anemia, unspecified (principal)

== ENCOUNTER → 2023-08-12 | Outpatient (REF) | payer MEDICARE, MEDICAID | LOC: M SFHCDERM 17:26 | PROVIDERS: ATTEND Dermatology | DX: C44.1192 Basal cell carcinoma of skin of left lower eyelid, including canthus (principal); L57.8 Other skin changes due to chronic exposure to nonionizing radiation ==

== ENCOUNTER → 2023-08-31 | Outpatient (REF) | payer MEDICARE, MEDICAID ==
[2023-08-31 11:02] LABS: BASO % 0.5 % (0.0-1.0); EOS # 0.2 10^3/uL (0.0-0.5); EOS % 2.1 % (0.0-3.0); HEMATOCRIT 33.7 % (42.0-52.0); HEMOGLOBIN 11.6 g/dl (13.5-17.5); LYMPH # 0.5 10^3/uL (1.5-5.0); LYMPH % 6.3 % (24.0-44.0); MEAN CORPUSCULAR HEMOGLOBIN 33.5 pg (27.0-33.0); MEAN CORPUSCULAR HGB CONC 34.4 g/dl (32.0-36.5); MEAN CORPUSCULAR VOLUME 97.4 fl (80.0-96.0); MONO # 0.7 10^3/uL (0.0-0.8); MONO % 8.8 % (2.0-8.0); NEUTROPHILS # 6.5 10^3/uL (1.5-8.5); NEUTROPHILS % 81.7 % (36.0-66.0); PLATELET COUNT, AUTOMATED 182 10^3/uL (150-450); RED BLOOD COUNT 3.46 10^6/uL (4.30-6.10); WHITE BLOOD COUNT 7.9 10^3/uL (4.0-10.0)
== END ==
PROVIDERS: ATTEND Physician Assistant
DX: D64.9 Anemia, unspecified (principal)

== ENCOUNTER → 2023-09-02 | Outpatient (CLI) | payer MEDICARE, MEDICAID | LOC: M ONCR 14:47 | PROVIDERS: ATTEND General Practice | DX: C44.1292 Squamous cell carcinoma of skin of left lower eyelid, including canthus (principal); C44.319 Basal cell carcinoma of skin of other parts of face; Z71.2 Person consulting for explanation of examination or test findings; Z79.01 Long term (current) use of anticoagulants; Z79.899 Other long term (current) drug therapy; Z88.1 Allergy status to other antibiotic agents; Z88.2 Allergy status to sulfonamides; Z86.73 Personal history of transient ischemic attack (TIA), and cerebral infarction without residual deficits ==

== ENCOUNTER → 2023-09-07 | Outpatient (REF) | payer MEDICARE, MEDICAID ==
[2023-09-07 11:30] LABS: BASO % 0.3 % (0.0-1.0); EOS # 0.2 10^3/uL (0.0-0.5); EOS % 2.3 % (0.0-3.0); HEMATOCRIT 30.7 % (42.0-52.0); LYMPH # 0.5 10^3/uL (1.5-5.0); LYMPH % 7.5 % (24.0-44.0); MEAN CORPUSCULAR HEMOGLOBIN 31.7 pg (27.0-33.0); MEAN CORPUSCULAR HGB CONC 32.6 g/dl (32.0-36.5); MEAN CORPUSCULAR VOLUME 97.5 fl (80.0-96.0); MONO # 0.6 10^3/uL (0.0-0.8); MONO % 8.1 % (2.0-8.0); NEUTROPHILS # 5.6 10^3/uL (1.5-8.5); NEUTROPHILS % 81.4 % (36.0-66.0); PLATELET COUNT, AUTOMATED 142 10^3/uL (150-450); RED BLOOD COUNT 3.15 10^6/uL (4.30-6.10); WHITE BLOOD COUNT 6.8 10^3/uL (4.0-10.0)
== END ==
PROVIDERS: ATTEND Physician Assistant
DX: D64.9 Anemia, unspecified (principal)

== ENCOUNTER → 2023-09-14 | Outpatient (REF) | payer MEDICARE, MEDICAID | PROVIDERS: ATTEND Physician Assistant | DX: D64.9 Anemia, unspecified (principal); Z53.8 Procedure and treatment not carried out for other reasons ==

== ENCOUNTER 2023-09-15 12:54 | Outpatient (RCR) | payer MEDICARE, MEDICAID | END 2023-09-22 | LOC: M ONCR 12:54 | PROVIDERS: ATTEND General Practice | DX: Z51.0 Encounter for antineoplastic radiation therapy (principal); C44.1292 Squamous cell carcinoma of skin of left lower eyelid, including canthus ==

== ENCOUNTER → 2023-09-16 | Outpatient (REF) | payer MEDICARE, MEDICAID ==
[2023-09-16 11:45] LABS: BASO % 0.5 % (0.0-1.0); EOS # 0.1 10^3/uL (0.0-0.5); EOS % 2.1 % (0.0-3.0); HEMATOCRIT 29.3 % (42.0-52.0); HEMOGLOBIN 9.5 g/dl (13.5-17.5); LYMPH # 0.5 10^3/uL (1.5-5.0); LYMPH % 7.6 % (24.0-44.0); MEAN CORPUSCULAR HGB CONC 32.4 g/dl (32.0-36.5); MEAN CORPUSCULAR VOLUME 98.7 fl (80.0-96.0); MONO # 0.6 10^3/uL (0.0-0.8); MONO % 9.3 % (2.0-8.0); NEUTROPHILS # 5.2 10^3/uL (1.5-8.5); NEUTROPHILS % 80.2 % (36.0-66.0); PLATELET COUNT, AUTOMATED 132 10^3/uL (150-450); RED BLOOD COUNT 2.97 10^6/uL (4.30-6.10); WHITE BLOOD COUNT 6.5 10^3/uL (4.0-10.0)
== END ==
PROVIDERS: ATTEND Physician Assistant
DX: D64.9 Anemia, unspecified (principal)

== ENCOUNTER → 2023-09-21 | Outpatient (REF) | payer MEDICARE, MEDICAID ==
[2023-09-21 10:48] LABS: BASO % 0.3 % (0.0-1.0); EOS # 0.2 10^3/uL (0.0-0.5); EOS % 2.2 % (0.0-3.0); HEMATOCRIT 29.9 % (42.0-52.0); HEMOGLOBIN 9.8 g/dl (13.5-17.5); LYMPH # 0.6 10^3/uL (1.5-5.0); LYMPH % 8.2 % (24.0-44.0); MEAN CORPUSCULAR HEMOGLOBIN 32.1 pg (27.0-33.0); MEAN CORPUSCULAR HGB CONC 32.8 g/dl (32.0-36.5); MONO # 0.6 10^3/uL (0.0-0.8); MONO % 8.8 % (2.0-8.0); NEUTROPHILS # 5.8 10^3/uL (1.5-8.5); NEUTROPHILS % 80.2 % (36.0-66.0); PLATELET COUNT, AUTOMATED 121 10^3/uL (150-450); RED BLOOD COUNT 3.05 10^6/uL (4.30-6.10); WHITE BLOOD COUNT 7.2 10^3/uL (4.0-10.0)
== END ==
PROVIDERS: ATTEND Physician Assistant
DX: D64.9 Anemia, unspecified (principal)

== ENCOUNTER → 2023-09-28 | Outpatient (REF) | payer MEDICARE, MEDICAID ==
[2023-09-28 11:29] LABS: BASO % 0.4 % (0.0-1.0); EOS # 0.2 10^3/uL (0.0-0.5); EOS % 2.5 % (0.0-3.0); HEMATOCRIT 33.2 % (42.0-52.0); HEMOGLOBIN 10.4 g/dl (13.5-17.5); LYMPH # 0.5 10^3/uL (1.5-5.0); LYMPH % 7.2 % (24.0-44.0); MEAN CORPUSCULAR HGB CONC 31.3 g/dl (32.0-36.5); MEAN CORPUSCULAR VOLUME 99.1 fl (80.0-96.0); MONO # 0.6 10^3/uL (0.0-0.8); MONO % 7.5 % (2.0-8.0); NEUTROPHILS # 6.2 10^3/uL (1.5-8.5); NEUTROPHILS % 82.1 % (36.0-66.0); PLATELET COUNT, AUTOMATED 158 10^3/uL (150-450); RED BLOOD COUNT 3.35 10^6/uL (4.30-6.10); WHITE BLOOD COUNT 7.5 10^3/uL (4.0-10.0)
[2023-09-28 11:52] LABS: BLOOD UREA NITROGEN 17 MG/DL (9-23); CALCIUM LEVEL 8.9 MG/DL (8.3-10.6); CARBON DIOXIDE LEVEL 30 MMOL/L (20-31); CHLORIDE LEVEL 101 MMOL/L (98-107); CREATININE FOR GFR 0.84 MG/DL (0.70-1.30); GLOMERULAR FILTRATION RATE > 60.0 (>35); GLUCOSE, FASTING 89 MG/DL (74-106); SODIUM LEVEL 138 MMOL/L (136-145)
== END ==
PROVIDERS: ATTEND Physician Assistant
DX: D64.9 Anemia, unspecified (principal)

== ENCOUNTER → 2023-10-05 | Outpatient (REF) | payer MEDICARE, MEDICAID ==
[2023-10-05 11:28] LABS: BASO % 0.4 % (0.0-1.0); EOS # 0.2 10^3/uL (0.0-0.5); EOS % 2.1 % (0.0-3.0); HEMATOCRIT 29.9 % (42.0-52.0); HEMOGLOBIN 9.7 g/dl (13.5-17.5); LYMPH # 0.5 10^3/uL (1.5-5.0); LYMPH % 7.3 % (24.0-44.0); MEAN CORPUSCULAR HEMOGLOBIN 31.6 pg (27.0-33.0); MEAN CORPUSCULAR HGB CONC 32.4 g/dl (32.0-36.5); MEAN CORPUSCULAR VOLUME 97.4 fl (80.0-96.0); MONO # 0.6 10^3/uL (0.0-0.8); MONO % 8.6 % (2.0-8.0); NEUTROPHILS # 5.9 10^3/uL (1.5-8.5); NEUTROPHILS % 81.2 % (36.0-66.0); PLATELET COUNT, AUTOMATED 149 10^3/uL (150-450); RED BLOOD COUNT 3.07 10^6/uL (4.30-6.10); WHITE BLOOD COUNT 7.3 10^3/uL (4.0-10.0)
== END ==
PROVIDERS: ATTEND Physician Assistant
DX: D64.9 Anemia, unspecified (principal)

== ENCOUNTER → 2023-10-12 | Outpatient (REF) | payer MEDICARE, MEDICAID ==
[2023-10-12 11:24] LABS: BASO % 0.4 % (0.0-1.0); EOS # 0.2 10^3/uL (0.0-0.5); EOS % 2.7 % (0.0-3.0); HEMATOCRIT 29.9 % (42.0-52.0); HEMOGLOBIN 9.7 g/dl (13.5-17.5); LYMPH # 0.6 10^3/uL (1.5-5.0); LYMPH % 8.3 % (24.0-44.0); MEAN CORPUSCULAR HEMOGLOBIN 31.7 pg (27.0-33.0); MEAN CORPUSCULAR HGB CONC 32.4 g/dl (32.0-36.5); MEAN CORPUSCULAR VOLUME 97.7 fl (80.0-96.0); MONO # 0.6 10^3/uL (0.0-0.8); MONO % 8.5 % (2.0-8.0); NEUTROPHILS # 5.6 10^3/uL (1.5-8.5); NEUTROPHILS % 79.7 % (36.0-66.0); PLATELET COUNT, AUTOMATED 148 10^3/uL (150-450); RED BLOOD COUNT 3.06 10^6/uL (4.30-6.10)
== END ==
PROVIDERS: ATTEND Physician Assistant
DX: D64.9 Anemia, unspecified (principal)

== ENCOUNTER → 2023-10-19 | Outpatient (REF) | payer MEDICARE, MEDICAID ==
[2023-10-19 10:10] LABS: BASO % 0.4 % (0.0-1.0); EOS # 0.2 10^3/uL (0.0-0.5); EOS % 2.5 % (0.0-3.0); HEMATOCRIT 29.2 % (42.0-52.0); HEMOGLOBIN 9.6 g/dl (13.5-17.5); LYMPH # 0.7 10^3/uL (1.5-5.0); MEAN CORPUSCULAR HEMOGLOBIN 32.3 pg (27.0-33.0); MEAN CORPUSCULAR HGB CONC 32.9 g/dl (32.0-36.5); MEAN CORPUSCULAR VOLUME 98.3 fl (80.0-96.0); MONO # 0.6 10^3/uL (0.0-0.8); MONO % 7.9 % (2.0-8.0); NEUTROPHILS # 5.8 10^3/uL (1.5-8.5); NEUTROPHILS % 79.8 % (36.0-66.0); PLATELET COUNT, AUTOMATED 148 10^3/uL (150-450); RED BLOOD COUNT 2.97 10^6/uL (4.30-6.10); WHITE BLOOD COUNT 7.3 10^3/uL (4.0-10.0)
== END ==
PROVIDERS: ATTEND Physician Assistant
DX: D64.9 Anemia, unspecified (principal)

== ENCOUNTER → 2023-10-22 | Outpatient (RCR) | payer MEDICARE, MEDICAID | LOC: M ONCR 10-05 12:42 | PROVIDERS: ATTEND General Practice | DX: Z51.0 Encounter for antineoplastic radiation therapy (principal); C44.1291 Squamous cell carcinoma of skin of left upper eyelid, including canthus ==

== ENCOUNTER → 2023-10-26 | Outpatient (REF) | payer MEDICARE, MEDICAID ==
[2023-10-26 10:56] LABS: BASO % 0.4 % (0.0-1.0); EOS # 0.2 10^3/uL (0.0-0.5); EOS % 2.5 % (0.0-3.0); HEMATOCRIT 29.2 % (42.0-52.0); HEMOGLOBIN 9.5 g/dl (13.5-17.5); LYMPH # 0.5 10^3/uL (1.5-5.0); LYMPH % 7.5 % (24.0-44.0); MEAN CORPUSCULAR HEMOGLOBIN 31.8 pg (27.0-33.0); MEAN CORPUSCULAR HGB CONC 32.5 g/dl (32.0-36.5); MEAN CORPUSCULAR VOLUME 97.7 fl (80.0-96.0); MONO # 0.6 10^3/uL (0.0-0.8); MONO % 8.5 % (2.0-8.0); NEUTROPHILS # 5.5 10^3/uL (1.5-8.5); NEUTROPHILS % 80.7 % (36.0-66.0); PLATELET COUNT, AUTOMATED 136 10^3/uL (150-450); RED BLOOD COUNT 2.99 10^6/uL (4.30-6.10); WHITE BLOOD COUNT 6.8 10^3/uL (4.0-10.0)
[2023-10-26 11:30] LABS: BLOOD UREA NITROGEN 16 MG/DL (9-23); CALCIUM LEVEL 8.4 MG/DL (8.3-10.6); CARBON DIOXIDE LEVEL 32 MMOL/L (20-31); CHLORIDE LEVEL 103 MMOL/L (98-107); CREATININE FOR GFR 0.91 MG/DL (0.70-1.30); GLOMERULAR FILTRATION RATE > 60.0 (>35); GLUCOSE, FASTING 87 MG/DL (74-106); POTASSIUM SERUM 4.6 MMOL/L (3.5-5.1); SODIUM LEVEL 139 MMOL/L (136-145)
== END ==
PROVIDERS: ATTEND Physician Assistant
DX: D64.9 Anemia, unspecified (principal)

== ENCOUNTER → 2023-11-02 | Outpatient (REF) | payer MEDICARE, MEDICAID ==
[2023-11-02 11:51] LABS: BASO % 0.3 % (0.0-1.0); EOS # 0.2 10^3/uL (0.0-0.5); EOS % 2.9 % (0.0-3.0); HEMATOCRIT 30.6 % (42.0-52.0); HEMOGLOBIN 9.8 g/dl (13.5-17.5); LYMPH # 0.6 10^3/uL (1.5-5.0); MONO # 0.6 10^3/uL (0.0-0.8); MONO % 7.6 % (2.0-8.0); NEUTROPHILS # 6.4 10^3/uL (1.5-8.5); NEUTROPHILS % 80.9 % (36.0-66.0); PLATELET COUNT, AUTOMATED 145 10^3/uL (150-450); RED BLOOD COUNT 3.06 10^6/uL (4.30-6.10); WHITE BLOOD COUNT 7.9 10^3/uL (4.0-10.0)
== END ==
PROVIDERS: ATTEND Physician Assistant
DX: D64.9 Anemia, unspecified (principal)

== ENCOUNTER → 2023-11-09 | Outpatient (REF) | payer MEDICARE, MEDICAID ==
[2023-11-09 11:15] LABS: BASO % 0.3 % (0.0-1.0); EOS # 0.2 10^3/uL (0.0-0.5); EOS % 2.5 % (0.0-3.0); HEMOGLOBIN 9.9 g/dl (13.5-17.5); LYMPH # 0.5 10^3/uL (1.5-5.0); LYMPH % 6.8 % (24.0-44.0); MEAN CORPUSCULAR HEMOGLOBIN 31.4 pg (27.0-33.0); MEAN CORPUSCULAR HGB CONC 31.9 g/dl (32.0-36.5); MEAN CORPUSCULAR VOLUME 98.4 fl (80.0-96.0); MONO # 0.5 10^3/uL (0.0-0.8); MONO % 7.5 % (2.0-8.0); NEUTROPHILS # 5.8 10^3/uL (1.5-8.5); NEUTROPHILS % 82.3 % (36.0-66.0); PLATELET COUNT, AUTOMATED 158 10^3/uL (150-450); RED BLOOD COUNT 3.15 10^6/uL (4.30-6.10); WHITE BLOOD COUNT 7.1 10^3/uL (4.0-10.0)
== END ==
PROVIDERS: ATTEND Physician Assistant
DX: D64.9 Anemia, unspecified (principal)

== ENCOUNTER → 2023-11-17 | Outpatient (REF) | payer MEDICARE, MEDICAID | PROVIDERS: ATTEND Physician Assistant | DX: D64.9 Anemia, unspecified (principal); Z53.8 Procedure and treatment not carried out for other reasons ==

== ENCOUNTER 2023-11-19 12:38 | Outpatient (RCR) | payer MEDICARE, MEDICAID | END 2023-11-22 | LOC: M ONCR 12:38 | PROVIDERS: ATTEND General Practice | DX: Z51.0 Encounter for antineoplastic radiation therapy (principal); C44.1291 Squamous cell carcinoma of skin of left upper eyelid, including canthus ==

== ENCOUNTER → 2023-11-24 | Outpatient (REF) | payer MEDICARE, MEDICAID ==
[2023-11-24 12:37] LABS: BASO % 0.4 % (0.0-1.0); EOS # 0.1 10^3/uL (0.0-0.5); EOS % 1.8 % (0.0-3.0); HEMATOCRIT 28.7 % (42.0-52.0); HEMOGLOBIN 9.4 g/dl (13.5-17.5); LYMPH # 0.6 10^3/uL (1.5-5.0); LYMPH % 8.1 % (24.0-44.0); MEAN CORPUSCULAR HEMOGLOBIN 31.8 pg (27.0-33.0); MEAN CORPUSCULAR HGB CONC 32.8 g/dl (32.0-36.5); MONO # 0.6 10^3/uL (0.0-0.8); MONO % 7.9 % (2.0-8.0); NEUTROPHILS # 6.5 10^3/uL (1.5-8.5); NEUTROPHILS % 81.5 % (36.0-66.0); PLATELET COUNT, AUTOMATED 140 10^3/uL (150-450); RED BLOOD COUNT 2.96 10^6/uL (4.30-6.10); WHITE BLOOD COUNT 7.9 10^3/uL (4.0-10.0)
== END ==
PROVIDERS: ATTEND Physician Assistant
DX: D64.9 Anemia, unspecified (principal)

== ENCOUNTER → 2023-11-30 | Outpatient (REF) | payer MEDICARE, MEDICAID ==
[2023-11-30 10:14] LABS: BASO % 0.5 % (0.0-1.0); EOS # 0.2 10^3/uL (0.0-0.5); EOS % 2.3 % (0.0-3.0); HEMATOCRIT 29.5 % (42.0-52.0); HEMOGLOBIN 9.8 g/dl (13.5-17.5); LYMPH # 0.8 10^3/uL (1.5-5.0); LYMPH % 9.6 % (24.0-44.0); MEAN CORPUSCULAR HEMOGLOBIN 31.6 pg (27.0-33.0); MEAN CORPUSCULAR HGB CONC 33.2 g/dl (32.0-36.5); MEAN CORPUSCULAR VOLUME 95.2 fl (80.0-96.0); MONO # 0.7 10^3/uL (0.0-0.8); MONO % 8.6 % (2.0-8.0); NEUTROPHILS # 6.4 10^3/uL (1.5-8.5); NEUTROPHILS % 78.8 % (36.0-66.0); PLATELET COUNT, AUTOMATED 135 10^3/uL (150-450); WHITE BLOOD COUNT 8.2 10^3/uL (4.0-10.0)
[2023-11-30 10:26] LABS: BLOOD UREA NITROGEN 19 MG/DL (9-23); CALCIUM LEVEL 8.4 MG/DL (8.3-10.6); CARBON DIOXIDE LEVEL 32 MMOL/L (20-31); CHLORIDE LEVEL 104 MMOL/L (98-107); CREATININE FOR GFR 0.87 MG/DL (0.70-1.30); DIGOXIN LEVEL 0.4 NG/ML (0.8-2.0); GLOMERULAR FILTRATION RATE > 60.0 (>35); GLUCOSE, FASTING 83 MG/DL (74-106); POTASSIUM SERUM 4.1 MMOL/L (3.5-5.1); SODIUM LEVEL 138 MMOL/L (136-145)
== END ==
PROVIDERS: ATTEND Physician Assistant
DX: D64.9 Anemia, unspecified (principal); Z79.899 Other long term (current) drug therapy

== ENCOUNTER → 2023-12-07 | Outpatient (REF) | payer MEDICARE, MEDICAID ==
[2023-12-07 11:32] LABS: BASO % 0.4 % (0.0-1.0); EOS # 0.2 10^3/uL (0.0-0.5); EOS % 1.8 % (0.0-3.0); HEMATOCRIT 29.8 % (42.0-52.0); HEMOGLOBIN 9.9 g/dl (13.5-17.5); LYMPH # 0.5 10^3/uL (1.5-5.0); LYMPH % 6.4 % (24.0-44.0); MEAN CORPUSCULAR HGB CONC 33.2 g/dl (32.0-36.5); MEAN CORPUSCULAR VOLUME 96.4 fl (80.0-96.0); MONO # 0.6 10^3/uL (0.0-0.8); MONO % 7.2 % (2.0-8.0); NEUTROPHILS # 7.1 10^3/uL (1.5-8.5); NEUTROPHILS % 83.8 % (36.0-66.0); PLATELET COUNT, AUTOMATED 168 10^3/uL (150-450); RED BLOOD COUNT 3.09 10^6/uL (4.30-6.10); WHITE BLOOD COUNT 8.5 10^3/uL (4.0-10.0)
== END ==
PROVIDERS: ATTEND Physician Assistant
DX: D64.9 Anemia, unspecified (principal)

== ENCOUNTER → 2023-12-07 | Outpatient (REF) | payer MEDICARE, MEDICAID | PROVIDERS: ATTEND Physician Assistant | DX: D64.9 Anemia, unspecified (principal); Z53.8 Procedure and treatment not carried out for other reasons ==

== ENCOUNTER → 2023-12-14 | Outpatient (REF) | payer MEDICARE, MEDICAID ==
[2023-12-14 11:54] LABS: BASO % 0.4 % (0.0-1.0); EOS # 0.2 10^3/uL (0.0-0.5); EOS % 2.4 % (0.0-3.0); HEMATOCRIT 29.3 % (42.0-52.0); HEMOGLOBIN 9.6 g/dl (13.5-17.5); LYMPH # 0.8 10^3/uL (1.5-5.0); LYMPH % 9.1 % (24.0-44.0); MEAN CORPUSCULAR HEMOGLOBIN 31.4 pg (27.0-33.0); MEAN CORPUSCULAR HGB CONC 32.8 g/dl (32.0-36.5); MEAN CORPUSCULAR VOLUME 95.8 fl (80.0-96.0); MONO # 0.6 10^3/uL (0.0-0.8); MONO % 7.2 % (2.0-8.0); NEUTROPHILS # 6.7 10^3/uL (1.5-8.5); NEUTROPHILS % 80.4 % (36.0-66.0); PLATELET COUNT, AUTOMATED 166 10^3/uL (150-450); RED BLOOD COUNT 3.06 10^6/uL (4.30-6.10); WHITE BLOOD COUNT 8.4 10^3/uL (4.0-10.0)
== END ==
PROVIDERS: ATTEND Physician Assistant
DX: D64.9 Anemia, unspecified (principal)

== ENCOUNTER → 2023-12-21 | Outpatient (REF) | payer MEDICARE, MEDICAID ==
[2023-12-21 10:15] LABS: BASO % 0.2 % (0.0-1.0); EOS # 0.2 10^3/uL (0.0-0.5); EOS % 2.5 % (0.0-3.0); HEMOGLOBIN 10.2 g/dl (13.5-17.5); LYMPH # 0.6 10^3/uL (1.5-5.0); LYMPH % 6.8 % (24.0-44.0); MEAN CORPUSCULAR HEMOGLOBIN 31.8 pg (27.0-33.0); MEAN CORPUSCULAR HGB CONC 32.9 g/dl (32.0-36.5); MEAN CORPUSCULAR VOLUME 96.6 fl (80.0-96.0); MONO # 0.5 10^3/uL (0.0-0.8); MONO % 6.1 % (2.0-8.0); NEUTROPHILS # 7.3 10^3/uL (1.5-8.5); NEUTROPHILS % 83.9 % (36.0-66.0); PLATELET COUNT, AUTOMATED 156 10^3/uL (150-450); RED BLOOD COUNT 3.21 10^6/uL (4.30-6.10); WHITE BLOOD COUNT 8.7 10^3/uL (4.0-10.0)
== END ==
PROVIDERS: ATTEND Physician Assistant
DX: D64.9 Anemia, unspecified (principal)

== ENCOUNTER → 2023-12-23 | Outpatient (CLI) | payer MEDICARE, MEDICAID | LOC: M ONCR 12:45 | PROVIDERS: ATTEND General Practice | DX: L58.9 Radiodermatitis, unspecified (principal); W88.8XXA Exposure to other ionizing radiation, initial encounter; Z92.3 Personal history of irradiation ==

== ENCOUNTER → 2023-12-28 | Outpatient (REF) | payer MEDICARE, MEDICAID ==
[2023-12-28 11:07] LABS: BASO % 0.4 % (0.0-1.0); EOS # 0.2 10^3/uL (0.0-0.5); EOS % 2.8 % (0.0-3.0); HEMATOCRIT 31.3 % (42.0-52.0); HEMOGLOBIN 10.3 g/dl (13.5-17.5); LYMPH # 0.5 10^3/uL (1.5-5.0); LYMPH % 6.2 % (24.0-44.0); MEAN CORPUSCULAR HGB CONC 32.9 g/dl (32.0-36.5); MEAN CORPUSCULAR VOLUME 97.2 fl (80.0-96.0); MONO # 0.6 10^3/uL (0.0-0.8); NEUTROPHILS # 6.5 10^3/uL (1.5-8.5); NEUTROPHILS % 83.2 % (36.0-66.0); PLATELET COUNT, AUTOMATED 134 10^3/uL (150-450); RED BLOOD COUNT 3.22 10^6/uL (4.30-6.10); WHITE BLOOD COUNT 7.9 10^3/uL (4.0-10.0)
[2023-12-28 11:26] LABS: BLOOD UREA NITROGEN 16 MG/DL (9-23); CALCIUM LEVEL 8.8 MG/DL (8.3-10.6); CARBON DIOXIDE LEVEL 31 MMOL/L (20-31); CHLORIDE LEVEL 102 MMOL/L (98-107); CREATININE FOR GFR 0.83 MG/DL (0.70-1.30); GLOMERULAR FILTRATION RATE > 60.0 (>35); GLUCOSE, FASTING 89 MG/DL (74-106); POTASSIUM SERUM 4.5 MMOL/L (3.5-5.1); SODIUM LEVEL 138 MMOL/L (136-145)
== END ==
PROVIDERS: ATTEND Physician Assistant
DX: D64.9 Anemia, unspecified (principal); I50.9 Heart failure, unspecified

== ENCOUNTER → 2024-01-04 | Outpatient (REF) | payer MEDICARE, MEDICAID ==
[2024-01-04 11:34] LABS: BASO % 0.3 % (0.0-1.0); EOS # 0.2 10^3/uL (0.0-0.5); HEMATOCRIT 31.5 % (42.0-52.0); HEMOGLOBIN 10.3 g/dl (13.5-17.5); LYMPH # 0.6 10^3/uL (1.5-5.0); LYMPH % 9.5 % (24.0-44.0); MEAN CORPUSCULAR HEMOGLOBIN 31.9 pg (27.0-33.0); MEAN CORPUSCULAR HGB CONC 32.7 g/dl (32.0-36.5); MEAN CORPUSCULAR VOLUME 97.5 fl (80.0-96.0); MONO # 0.5 10^3/uL (0.0-0.8); MONO % 8.1 % (2.0-8.0); NEUTROPHILS % 78.9 % (36.0-66.0); PLATELET COUNT, AUTOMATED 134 10^3/uL (150-450); RED BLOOD COUNT 3.23 10^6/uL (4.30-6.10); WHITE BLOOD COUNT 6.3 10^3/uL (4.0-10.0)
== END ==
PROVIDERS: ATTEND Physician Assistant
DX: D64.9 Anemia, unspecified (principal)

== ENCOUNTER → 2024-01-06 | Outpatient (REF) | payer MEDICARE, MEDICAID ==
[~2024-01-06] MED LIST changes: -ASPI-161 PO; +ASPI-615 PO; +ATIV1TAB10; +CEFD1CAP9 PO; +DOXY100C3 PO; +DOXY100T
== END ==
LOC: M LAB REF 15:46
PROVIDERS: ATTEND Surgery
DX: L02.212 Cutaneous abscess of back [any part, except buttock and flank] (principal)

== ENCOUNTER 2024-01-08 18:45 | Emergency (ER) | payer MEDICARE, MEDICAID ==
[~2024-01-08 18:45] MED LIST changes: -ATIV1TAB10; -CEFD1CAP9 PO; -DOXY100C3 PO; -DOXY100T
[2024-01-08 19:06] VITALS: TEMP 97.2
[2024-01-08] MEDS ORDERED: ISOVUE-370 76% 100ML VIAL As Ordered ONE (20:42)
[2024-01-08 20:46] LABS: INR 2.45; PROTHROMBIN TIME 25.7 SECONDS (12.5-14.5)
[2024-01-08 20:47] LABS: PARTIAL THROMBOPLASTIN TIME 44.1 SECONDS (24.8-34.2)
[2024-01-08 21:01] LABS: BASO % 0.2 % (0.0-1.0); EOS # 0.2 10^3/uL (0.0-0.5); HEMATOCRIT 32.2 % (42.0-52.0); HEMOGLOBIN 10.7 g/dl (13.5-17.5); LYMPH # 0.6 10^3/uL (1.5-5.0); LYMPH % 10.1 % (24.0-44.0); MEAN CORPUSCULAR HEMOGLOBIN 32.3 pg (27.0-33.0); MEAN CORPUSCULAR HGB CONC 33.2 g/dl (32.0-36.5); MEAN CORPUSCULAR VOLUME 97.3 fl (80.0-96.0); MONO # 0.4 10^3/uL (0.0-0.8); MONO % 6.6 % (2.0-8.0); NEUTROPHILS # 4.8 10^3/uL (1.5-8.5); NEUTROPHILS % 79.8 % (36.0-66.0); PLATELET COUNT, AUTOMATED 123 10^3/uL (150-450); RED BLOOD COUNT 3.31 10^6/uL (4.30-6.10); WHITE BLOOD COUNT 6.1 10^3/uL (4.0-10.0)
[2024-01-08 21:13] LABS: ALBUMIN 3.5 G/DL (3.2-5.2); ALKALINE PHOSPHATASE 103 U/L (46-116); ALT/SGPT 15 U/L (7.0-40); AST/SGOT 9 U/L (<34); BILIRUBIN,DIRECT 0.5 MG/DL (<0.4); BILIRUBIN,TOTAL 0.9 MG/DL (0.3-1.2); BLOOD UREA NITROGEN 23 MG/DL (9-23); CARBON DIOXIDE LEVEL 31 MMOL/L (20-31); CHLORIDE LEVEL 105 MMOL/L (98-107); GLOMERULAR FILTRATION RATE > 60.0 (>35); GLUCOSE, FASTING 117 MG/DL (74-106); LIPASE 33 U/L (12-53); POTASSIUM SERUM 4.6 MMOL/L (3.5-5.1); PROCALCITONIN 0.14 ng/ml; SODIUM LEVEL 139 MMOL/L (136-145); TOTAL PROTEIN 5.9 G/DL (5.7-8.2)
[2024-01-08 22:15] VITALS: O2SAT 97
[2024-01-08 22:16] VITALS: BP 132/58
== END 2024-01-08 22:46 | disposition home or self-care (01) ==
LOC: M ED 18:45 → EDBD 18:45 → M ED 22:46
DX: L02.211 Cutaneous abscess of abdominal wall (principal); I10 Essential (primary) hypertension; K21.9 Gastro-esophageal reflux disease without esophagitis; N40.0 Benign prostatic hyperplasia without lower urinary tract symptoms; L02.212 Cutaneous abscess of back [any part, except buttock and flank]; K40.90 Unilateral inguinal hernia, without obstruction or gangrene, not specified as recurrent; Z86.79 Personal history of other diseases of the circulatory system; Z88.2 Allergy status to sulfonamides; Z79.02 Long term (current) use of antithrombotics/antiplatelets; Z79.899 Other long term (current) drug therapy; Z79.01 Long term (current) use of anticoagulants
CPT/HCPCS: 36415; 74176; 74177; 80048; 80076; 83605; 83690; 84145; 85025; 85027; 85610; 85652; 85730; 86140; 87040; 93041; 99285; Q9967

== ENCOUNTER → 2024-01-08 | Outpatient (CLI) | payer MEDICARE, MEDICAID | LOC: M PLAIMG 12:45 | PROVIDERS: ATTEND Physician Assistant | DX: L02.212 Cutaneous abscess of back [any part, except buttock and flank] (principal); K40.90 Unilateral inguinal hernia, without obstruction or gangrene, not specified as recurrent ==

== ENCOUNTER → 2024-01-08 | Outpatient (REF) | payer MEDICARE, MEDICAID ==
[2024-01-08 16:00] LABS: HEMOGLOBIN 10.9 g/dl (13.5-17.5); MEAN CORPUSCULAR HEMOGLOBIN 31.9 pg (27.0-33.0); MEAN CORPUSCULAR HGB CONC 32.1 g/dl (32.0-36.5); MEAN CORPUSCULAR VOLUME 99.4 fl (80.0-96.0); PLATELET COUNT, AUTOMATED 133 10^3/uL (150-450); RED BLOOD COUNT 3.42 10^6/uL (4.30-6.10); WHITE BLOOD COUNT 6.7 10^3/uL (4.0-10.0)
[2024-01-08 16:16] LABS: ERYTHROCYTE SEDIMENTATION RATE 10 mm/hr (0-20)
[2024-01-08 16:37] LABS: ALBUMIN 3.7 G/DL (3.2-5.2); ALKALINE PHOSPHATASE 111 U/L (46-116); ALT/SGPT 14 U/L (7.0-40); AST/SGOT 10 U/L (<34); BILIRUBIN,DIRECT 0.5 MG/DL (<0.4); BLOOD UREA NITROGEN 22 MG/DL (9-23); CALCIUM LEVEL 8.8 MG/DL (8.3-10.6); CARBON DIOXIDE LEVEL 29 MMOL/L (20-31); CHLORIDE LEVEL 105 MMOL/L (98-107); CREATININE FOR GFR 0.83 MG/DL (0.70-1.30); GLOMERULAR FILTRATION RATE > 60.0 (>35); GLUCOSE, FASTING 140 MG/DL (74-106); POTASSIUM SERUM 3.9 MMOL/L (3.5-5.1); SODIUM LEVEL 139 MMOL/L (136-145); TOTAL PROTEIN 6.2 G/DL (5.7-8.2)
== END ==
PROVIDERS: ATTEND Physician Assistant
DX: L02.212 Cutaneous abscess of back [any part, except buttock and flank] (principal)

== ENCOUNTER 2024-01-11 14:52 | Emergency (ER) | payer MEDICARE, MEDICAID ==
[~2024-01-11] VITALS: Ht 175.3 cm; Wt 68.6 kg
[~2024-01-11 14:52] MED LIST changes: -ATIV1TAB10; -CEFD1CAP9 PO; -DOXY100C3 PO; -DOXY100T
[2024-01-11] MEDS ORDERED: DOXY100T (15:38)
[2024-01-11] MEDS ORDERED: ATIV1TAB10 (15:38)
[2024-01-11 16:43] LABS: BASO % 0.3 % (0.0-1.0); EOS # 0.2 10^3/uL (0.0-0.5); EOS % 3.2 % (0.0-3.0); HEMATOCRIT 33.1 % (42.0-52.0); HEMOGLOBIN 10.9 g/dl (13.5-17.5); LYMPH # 0.6 10^3/uL (1.5-5.0); LYMPH % 9.5 % (24.0-44.0); MEAN CORPUSCULAR HEMOGLOBIN 32.7 pg (27.0-33.0); MEAN CORPUSCULAR HGB CONC 32.9 g/dl (32.0-36.5); MEAN CORPUSCULAR VOLUME 99.4 fl (80.0-96.0); MONO # 0.4 10^3/uL (0.0-0.8); MONO % 6.8 % (2.0-8.0); NEUTROPHILS # 5.2 10^3/uL (1.5-8.5); NEUTROPHILS % 79.9 % (36.0-66.0); PLATELET COUNT, AUTOMATED 132 10^3/uL (150-450); RED BLOOD COUNT 3.33 10^6/uL (4.30-6.10); WHITE BLOOD COUNT 6.5 10^3/uL (4.0-10.0)
[2024-01-11 17:05] LABS: FREE T4 1.09 NG/DL (0.89-1.76); THYROID STIMULATING HORMONE 2.62 uIU/ML (0.55-4.78)
[2024-01-11 17:08] LABS: ALBUMIN 3.5 G/DL (3.2-5.2); ALKALINE PHOSPHATASE 103 U/L (46-116); ALT/SGPT 16 U/L (7.0-40); AST/SGOT 14 U/L (<34); BILIRUBIN,TOTAL 0.8 MG/DL (0.3-1.2); BLOOD UREA NITROGEN 22 MG/DL (9-23); CALCIUM LEVEL 8.6 MG/DL (8.3-10.6); CARBON DIOXIDE LEVEL 30 MMOL/L (20-31); CHLORIDE LEVEL 104 MMOL/L (98-107); CREATININE FOR GFR 0.81 MG/DL (0.70-1.30); GLOMERULAR FILTRATION RATE > 60.0 (>35); GLUCOSE, FASTING 98 MG/DL (74-106); MAGNESIUM LEVEL 1.9 MG/DL (1.8-2.4); POTASSIUM SERUM 4.7 MMOL/L (3.5-5.1); SODIUM LEVEL 138 MMOL/L (136-145); TOTAL PROTEIN 5.7 G/DL (5.7-8.2)
[2024-01-11] MEDS ORDERED: ISOVUE-370 76% 100ML VIAL As Ordered ONE (17:13)
[2024-01-11] MEDS: CEFEPIME HCL 1 GM in D5W MINI-BAG PLUS 50 ML IV ONE (19:25)
[2024-01-11] MEDS: VANCOMYCIN HCL 1,000 MG, VIAL MATE ADAPTER 1 EACH in D5W 250 ML IV ONE (19:30)
[2024-01-11 20:30] VITALS: BP 138/58; TEMP 97.8; O2SAT 98
[2024-01-11] MEDS ORDERED: DOXY100C3 PO (20:38)
[2024-01-11] MEDS ORDERED: CEFD1CAP9 PO (20:38)
[2024-01-11] MEDS ORDERED: METO25TA4 PO (20:38)
== END 2024-01-11 21:44 | disposition home or self-care (01) ==
LOC: M ED 14:52
DX: L02.212 Cutaneous abscess of back [any part, except buttock and flank] (principal); D64.9 Anemia, unspecified; N40.0 Benign prostatic hyperplasia without lower urinary tract symptoms; K74.60 Unspecified cirrhosis of liver; F03.90 Unspecified dementia, unspecified severity, without behavioral disturbance, psychotic disturbance, mood disturbance, and anxiety; Z88.2 Allergy status to sulfonamides; Z79.2 Long term (current) use of antibiotics; Z79.02 Long term (current) use of antithrombotics/antiplatelets; Z79.899 Other long term (current) drug therapy
CPT/HCPCS: 36415; 74177; 76705; 80053; 80162; 83735; 84439; 84443; 85025; 86140; 87070; 87077; 87102; 87186; 87205; 96365; 99284; J0692; J3370; Q9967

== ENCOUNTER → 2024-01-11 | Outpatient (REF) | payer MEDICARE, MEDICAID ==
[~2024-01-11] MED LIST changes: +ATIV1TAB10; +CEFD1CAP9 PO; +DOXY100C3 PO; +DOXY100T
[2024-01-11 10:53] LABS: BASO % 0.5 % (0.0-1.0); EOS # 0.2 10^3/uL (0.0-0.5); EOS % 3.6 % (0.0-3.0); HEMATOCRIT 31.7 % (42.0-52.0); HEMOGLOBIN 10.3 g/dl (13.5-17.5); LYMPH # 0.6 10^3/uL (1.5-5.0); LYMPH % 10.3 % (24.0-44.0); MEAN CORPUSCULAR HEMOGLOBIN 32.2 pg (27.0-33.0); MEAN CORPUSCULAR HGB CONC 32.5 g/dl (32.0-36.5); MEAN CORPUSCULAR VOLUME 99.1 fl (80.0-96.0); MONO # 0.4 10^3/uL (0.0-0.8); MONO % 6.4 % (2.0-8.0); NEUTROPHILS # 4.9 10^3/uL (1.5-8.5); PLATELET COUNT, AUTOMATED 125 10^3/uL (150-450); WHITE BLOOD COUNT 6.1 10^3/uL (4.0-10.0)
[2024-01-11 11:17] LABS: ALBUMIN 3.2 G/DL (3.2-5.2); ALKALINE PHOSPHATASE 94 U/L (46-116); ALT/SGPT 13 U/L (7.0-40); AST/SGOT 12 U/L (<34); BILIRUBIN,TOTAL 0.8 MG/DL (0.3-1.2); BLOOD UREA NITROGEN 20 MG/DL (9-23); CALCIUM LEVEL 8.5 MG/DL (8.3-10.6); CARBON DIOXIDE LEVEL 29 MMOL/L (20-31); CHLORIDE LEVEL 105 MMOL/L (98-107); CREATININE FOR GFR 0.75 MG/DL (0.70-1.30); GLOMERULAR FILTRATION RATE > 60.0 (>35); GLUCOSE, FASTING 81 MG/DL (74-106); SODIUM LEVEL 140 MMOL/L (136-145); TOTAL PROTEIN 5.3 G/DL (5.7-8.2)
== END ==
PROVIDERS: ATTEND Physician Assistant
DX: D64.9 Anemia, unspecified (principal)

== ENCOUNTER → 2024-01-18 | Outpatient (REF) | payer MEDICARE, MEDICAID ==
[~2024-01-18] MED LIST changes: +ATIV1TAB10; +CEFD1CAP9 PO; +DOXY100C3 PO; +DOXY100T
[2024-01-18 08:04] LABS: BASO % 0.5 % (0.0-1.0); EOS # 0.3 10^3/uL (0.0-0.5); HEMATOCRIT 36.4 % (42.0-52.0); HEMOGLOBIN 11.7 g/dl (13.5-17.5); LYMPH # 0.7 10^3/uL (1.5-5.0); LYMPH % 8.5 % (24.0-44.0); MEAN CORPUSCULAR HEMOGLOBIN 32.3 pg (27.0-33.0); MEAN CORPUSCULAR HGB CONC 32.1 g/dl (32.0-36.5); MEAN CORPUSCULAR VOLUME 100.6 fl (80.0-96.0); MONO # 0.5 10^3/uL (0.0-0.8); MONO % 6.4 % (2.0-8.0); NEUTROPHILS # 6.4 10^3/uL (1.5-8.5); NEUTROPHILS % 80.2 % (36.0-66.0); PLATELET COUNT, AUTOMATED 137 10^3/uL (150-450); RED BLOOD COUNT 3.62 10^6/uL (4.30-6.10)
== END ==
PROVIDERS: ATTEND Physician Assistant
DX: D64.9 Anemia, unspecified (principal)

== ENCOUNTER → 2024-01-25 | Outpatient (REF) | payer MEDICARE, MEDICAID ==
[2024-01-25 10:48] LABS: BASO % 0.7 % (0.0-1.0); EOS # 0.4 10^3/uL (0.0-0.5); EOS % 6.2 % (0.0-3.0); HEMATOCRIT 33.2 % (42.0-52.0); HEMOGLOBIN 10.8 g/dl (13.5-17.5); LYMPH # 0.7 10^3/uL (1.5-5.0); LYMPH % 11.8 % (24.0-44.0); MEAN CORPUSCULAR HGB CONC 32.5 g/dl (32.0-36.5); MEAN CORPUSCULAR VOLUME 98.5 fl (80.0-96.0); MONO # 0.5 10^3/uL (0.0-0.8); MONO % 7.9 % (2.0-8.0); NEUTROPHILS # 4.2 10^3/uL (1.5-8.5); NEUTROPHILS % 73.2 % (36.0-66.0); PLATELET COUNT, AUTOMATED 115 10^3/uL (150-450); RED BLOOD COUNT 3.37 10^6/uL (4.30-6.10); WHITE BLOOD COUNT 5.7 10^3/uL (4.0-10.0)
[2024-01-25 11:11] LABS: BLOOD UREA NITROGEN 19 MG/DL (9-23); CALCIUM LEVEL 8.4 MG/DL (8.3-10.6); CARBON DIOXIDE LEVEL 32 MMOL/L (20-31); CHLORIDE LEVEL 107 MMOL/L (98-107); CREATININE FOR GFR 0.91 MG/DL (0.70-1.30); GLOMERULAR FILTRATION RATE > 60.0 (>35); GLUCOSE, FASTING 89 MG/DL (74-106); SODIUM LEVEL 142 MMOL/L (136-145)
== END ==
PROVIDERS: ATTEND Physician Assistant
DX: D64.9 Anemia, unspecified (principal)

== ENCOUNTER → 2024-01-27 | Outpatient (REF) | payer MEDICARE, MEDICAID | PROVIDERS: ATTEND Physician Assistant | DX: I48.91 Unspecified atrial fibrillation (principal) ==

== ENCOUNTER → 2024-01-28 | Outpatient (REF) | payer MEDICARE, MEDICAID | LOC: M SFHCPLAZ 17:08 | PROVIDERS: ATTEND Internal Medicine Infectious Disease | DX: S31.109D Unspecified open wound of abdominal wall, unspecified quadrant without penetration into peritoneal cavity, subsequent encounter (principal) ==

== ENCOUNTER → 2024-02-01 | Outpatient (REF) | payer MEDICARE, MEDICAID ==
[2024-02-01 11:43] LABS: BASO # 0.1 10^3/uL (0.0-0.2); BASO % 0.8 % (0.0-1.0); EOS # 0.5 10^3/uL (0.0-0.5); EOS % 7.4 % (0.0-3.0); HEMATOCRIT 33.2 % (42.0-52.0); HEMOGLOBIN 10.8 g/dl (13.5-17.5); LYMPH # 0.6 10^3/uL (1.5-5.0); LYMPH % 9.4 % (24.0-44.0); MEAN CORPUSCULAR HEMOGLOBIN 32.1 pg (27.0-33.0); MEAN CORPUSCULAR HGB CONC 32.5 g/dl (32.0-36.5); MEAN CORPUSCULAR VOLUME 98.8 fl (80.0-96.0); MONO # 0.4 10^3/uL (0.0-0.8); MONO % 6.7 % (2.0-8.0); NEUTROPHILS # 4.8 10^3/uL (1.5-8.5); NEUTROPHILS % 75.4 % (36.0-66.0); PLATELET COUNT, AUTOMATED 141 10^3/uL (150-450); RED BLOOD COUNT 3.36 10^6/uL (4.30-6.10); WHITE BLOOD COUNT 6.3 10^3/uL (4.0-10.0)
== END ==
PROVIDERS: ATTEND Physician Assistant
DX: D64.9 Anemia, unspecified (principal)

== ENCOUNTER → 2024-02-03 | Outpatient (REF) | payer MEDICARE, MEDICAID | PROVIDERS: ATTEND Physician Assistant | DX: I48.91 Unspecified atrial fibrillation (principal) ==

== ENCOUNTER → 2024-02-08 | Outpatient (REF) | payer MEDICARE, MEDICAID ==
[2024-02-08 12:38] LABS: BASO % 0.4 % (0.0-1.0); EOS # 0.4 10^3/uL (0.0-0.5); EOS % 5.2 % (0.0-3.0); HEMATOCRIT 33.5 % (42.0-52.0); HEMOGLOBIN 11.1 g/dl (13.5-17.5); LYMPH # 0.7 10^3/uL (1.5-5.0); LYMPH % 9.6 % (24.0-44.0); MEAN CORPUSCULAR HEMOGLOBIN 33.1 pg (27.0-33.0); MEAN CORPUSCULAR HGB CONC 33.1 g/dl (32.0-36.5); MONO # 0.5 10^3/uL (0.0-0.8); NEUTROPHILS # 5.4 10^3/uL (1.5-8.5); NEUTROPHILS % 77.5 % (36.0-66.0); PLATELET COUNT, AUTOMATED 139 10^3/uL (150-450); RED BLOOD COUNT 3.35 10^6/uL (4.30-6.10)
[2024-02-08 13:08] LABS: BLOOD UREA NITROGEN 22 MG/DL (9-23); CALCIUM LEVEL 8.6 MG/DL (8.3-10.6); CARBON DIOXIDE LEVEL 31 MMOL/L (20-31); CHLORIDE LEVEL 103 MMOL/L (98-107); CREATININE FOR GFR 0.79 MG/DL (0.70-1.30); GLOMERULAR FILTRATION RATE > 60.0 (>35); GLUCOSE, FASTING 84 MG/DL (74-106); POTASSIUM SERUM 3.8 MMOL/L (3.5-5.1); SODIUM LEVEL 140 MMOL/L (136-145)
== END ==
PROVIDERS: ATTEND Physician Assistant
DX: D64.9 Anemia, unspecified (principal)

== ENCOUNTER → 2024-02-10 | Outpatient (REF) | payer MEDICARE, MEDICAID | PROVIDERS: ATTEND Physician Assistant | DX: I48.91 Unspecified atrial fibrillation (principal) ==

== ENCOUNTER → 2024-02-12 | Outpatient (REF) | payer MEDICARE, MEDICAID | PROVIDERS: ATTEND Physician Assistant | DX: I48.91 Unspecified atrial fibrillation (principal); Z79.899 Other long term (current) drug therapy ==

== ENCOUNTER → 2024-02-15 | Outpatient (REF) | payer MEDICARE, MEDICAID ==
[2024-02-15 11:00] LABS: BASO % 0.4 % (0.0-1.0); EOS # 0.3 10^3/uL (0.0-0.5); EOS % 4.6 % (0.0-3.0); HEMOGLOBIN 9.7 g/dl (13.5-17.5); LYMPH # 0.5 10^3/uL (1.5-5.0); LYMPH % 9.4 % (24.0-44.0); MEAN CORPUSCULAR HEMOGLOBIN 33.4 pg (27.0-33.0); MEAN CORPUSCULAR HGB CONC 33.4 g/dl (32.0-36.5); MONO # 0.5 10^3/uL (0.0-0.8); MONO % 8.9 % (2.0-8.0); NEUTROPHILS # 4.1 10^3/uL (1.5-8.5); NEUTROPHILS % 76.5 % (36.0-66.0); PLATELET COUNT, AUTOMATED 119 10^3/uL (150-450); WHITE BLOOD COUNT 5.4 10^3/uL (4.0-10.0)
== END ==
PROVIDERS: ATTEND Physician Assistant
DX: D64.9 Anemia, unspecified (principal)

== ENCOUNTER → 2024-02-17 | Outpatient (REF) | payer MEDICARE, MEDICAID | PROVIDERS: ATTEND Physician Assistant | DX: I48.91 Unspecified atrial fibrillation (principal) ==

== ENCOUNTER → 2024-02-19 | Outpatient (CLI) | payer MEDICARE, MEDICAID | LOC: M RAD 11:53 | PROVIDERS: ATTEND Surgery | DX: S31.109A Unspecified open wound of abdominal wall, unspecified quadrant without penetration into peritoneal cavity, initial encounter (principal); Y92.9 Unspecified place or not applicable; Y93.9 Activity, unspecified ==

== ENCOUNTER → 2024-02-22 | Outpatient (REF) | payer MEDICARE, MEDICAID ==
[2024-02-22 09:17] LABS: BLOOD UREA NITROGEN 24 MG/DL (9-23); CALCIUM LEVEL 8.6 MG/DL (8.3-10.6); CARBON DIOXIDE LEVEL 30 MMOL/L (20-31); CHLORIDE LEVEL 105 MMOL/L (98-107); CREATININE FOR GFR 0.88 MG/DL (0.70-1.30); DIGOXIN LEVEL 0.7 NG/ML (0.8-2.0); GLOMERULAR FILTRATION RATE > 60.0 (>35); GLUCOSE, FASTING 86 MG/DL (74-106); POTASSIUM SERUM 4.1 MMOL/L (3.5-5.1); SODIUM LEVEL 141 MMOL/L (136-145)
[2024-02-22 09:20] LABS: BASO % 0.5 % (0.0-1.0); EOS # 0.3 10^3/uL (0.0-0.5); HEMATOCRIT 29.9 % (42.0-52.0); HEMOGLOBIN 9.8 g/dl (13.5-17.5); LYMPH # 0.7 10^3/uL (1.5-5.0); LYMPH % 10.2 % (24.0-44.0); MEAN CORPUSCULAR HEMOGLOBIN 33.4 pg (27.0-33.0); MEAN CORPUSCULAR HGB CONC 32.8 g/dl (32.0-36.5); MONO # 0.5 10^3/uL (0.0-0.8); MONO % 8.4 % (2.0-8.0); NEUTROPHILS # 4.8 10^3/uL (1.5-8.5); NEUTROPHILS % 75.3 % (36.0-66.0); PLATELET COUNT, AUTOMATED 127 10^3/uL (150-450); RED BLOOD COUNT 2.93 10^6/uL (4.30-6.10); WHITE BLOOD COUNT 6.4 10^3/uL (4.0-10.0)
== END ==
PROVIDERS: ATTEND Physician Assistant
DX: D64.9 Anemia, unspecified (principal); I48.91 Unspecified atrial fibrillation

== ENCOUNTER → 2024-02-24 | Outpatient (REF) | payer MEDICARE, MEDICAID ==
[2024-02-24 14:21] LABS: HEMATOCRIT 31.9 % (42.0-52.0); HEMOGLOBIN 10.5 g/dl (13.5-17.5); MEAN CORPUSCULAR HEMOGLOBIN 34.1 pg (27.0-33.0); MEAN CORPUSCULAR HGB CONC 32.9 g/dl (32.0-36.5); MEAN CORPUSCULAR VOLUME 103.6 fl (80.0-96.0); PLATELET COUNT, AUTOMATED 136 10^3/uL (150-450); RED BLOOD COUNT 3.08 10^6/uL (4.30-6.10); WHITE BLOOD COUNT 5.6 10^3/uL (4.0-10.0)
[2024-02-24 14:52] LABS: BLOOD UREA NITROGEN 21 MG/DL (9-23); CALCIUM LEVEL 8.9 MG/DL (8.3-10.6); CARBON DIOXIDE LEVEL 30 MMOL/L (20-31); CHLORIDE LEVEL 106 MMOL/L (98-107); CREATININE FOR GFR 0.87 MG/DL (0.70-1.30); GLOMERULAR FILTRATION RATE > 60.0 (>35); GLUCOSE, FASTING 114 MG/DL (74-106); POTASSIUM SERUM 4.1 MMOL/L (3.5-5.1); SODIUM LEVEL 143 MMOL/L (136-145)
== END ==
PROVIDERS: ATTEND Physician Assistant
DX: I48.91 Unspecified atrial fibrillation (principal)

== ENCOUNTER → 2024-02-29 | Outpatient (REF) | payer MEDICARE, MEDICAID ==
[2024-02-29 09:16] LABS: BASO % 0.5 % (0.0-1.0); EOS # 0.2 10^3/uL (0.0-0.5); EOS % 3.6 % (0.0-3.0); HEMATOCRIT 33.5 % (42.0-52.0); HEMOGLOBIN 11.1 g/dl (13.5-17.5); LYMPH # 0.6 10^3/uL (1.5-5.0); LYMPH % 9.7 % (24.0-44.0); MEAN CORPUSCULAR HEMOGLOBIN 33.8 pg (27.0-33.0); MEAN CORPUSCULAR HGB CONC 33.1 g/dl (32.0-36.5); MEAN CORPUSCULAR VOLUME 102.1 fl (80.0-96.0); MONO # 0.5 10^3/uL (0.0-0.8); MONO % 8.6 % (2.0-8.0); NEUTROPHILS # 4.5 10^3/uL (1.5-8.5); NEUTROPHILS % 77.1 % (36.0-66.0); PLATELET COUNT, AUTOMATED 132 10^3/uL (150-450); RED BLOOD COUNT 3.28 10^6/uL (4.30-6.10); WHITE BLOOD COUNT 5.8 10^3/uL (4.0-10.0)
== END ==
PROVIDERS: ATTEND Physician Assistant
DX: D64.9 Anemia, unspecified (principal)

== ENCOUNTER → 2024-03-04 | Outpatient (REF) | payer MEDICARE, MEDICAID | PROVIDERS: ATTEND Internal Medicine | DX: N39.0 Urinary tract infection, site not specified (principal); Z53.8 Procedure and treatment not carried out for other reasons ==

== ENCOUNTER → 2024-03-07 | Outpatient (REF) | payer MEDICARE, MEDICAID ==
[2024-03-07 11:44] LABS: BASO % 0.5 % (0.0-1.0); EOS # 0.2 10^3/uL (0.0-0.5); EOS % 2.4 % (0.0-3.0); HEMATOCRIT 31.6 % (42.0-52.0); HEMOGLOBIN 10.5 g/dl (13.5-17.5); LYMPH # 0.5 10^3/uL (1.5-5.0); LYMPH % 8.2 % (24.0-44.0); MEAN CORPUSCULAR HEMOGLOBIN 33.8 pg (27.0-33.0); MEAN CORPUSCULAR HGB CONC 33.2 g/dl (32.0-36.5); MEAN CORPUSCULAR VOLUME 101.6 fl (80.0-96.0); MONO # 0.5 10^3/uL (0.0-0.8); MONO % 8.6 % (2.0-8.0); PLATELET COUNT, AUTOMATED 132 10^3/uL (150-450); RED BLOOD COUNT 3.11 10^6/uL (4.30-6.10); WHITE BLOOD COUNT 6.3 10^3/uL (4.0-10.0)
== END ==
PROVIDERS: ATTEND Physician Assistant
DX: D64.9 Anemia, unspecified (principal); R82.998 Other abnormal findings in urine

== ENCOUNTER → 2024-03-08 | Outpatient (REF) | payer MEDICARE, MEDICAID ==
[2024-03-08 05:40] LABS: ERYTHROCYTE SEDIMENTATION RATE 4 mm/hr (0-20)
[2024-03-08 05:52] LABS: FOLATE > 24.00 NG/ML (>5.4); THYROID STIMULATING HORMONE 1.012 uIU/ML (0.55-4.78)
[2024-03-08 05:53] LABS: VITAMIN B12 LEVEL 555 PG/ML (211-911)
[2024-03-08 11:18] LABS: BLOOD UREA NITROGEN 30 MG/DL (9-23); CALCIUM LEVEL 8.7 MG/DL (8.3-10.6); CARBON DIOXIDE LEVEL 29 MMOL/L (20-31); CHLORIDE LEVEL 105 MMOL/L (98-107); CREATININE FOR GFR 0.87 MG/DL (0.70-1.30); GLOMERULAR FILTRATION RATE > 60.0 (>35); GLUCOSE, FASTING 85 MG/DL (74-106); POTASSIUM SERUM 4.4 MMOL/L (3.5-5.1); SODIUM LEVEL 139 MMOL/L (136-145)
[2024-03-08 11:57] LABS: BASO % 0.5 % (0.0-1.0); EOS # 0.2 10^3/uL (0.0-0.5); EOS % 3.1 % (0.0-3.0); HEMATOCRIT 30.7 % (42.0-52.0); LYMPH # 0.7 10^3/uL (1.5-5.0); LYMPH % 10.4 % (24.0-44.0); MEAN CORPUSCULAR HEMOGLOBIN 33.1 pg (27.0-33.0); MEAN CORPUSCULAR HGB CONC 32.6 g/dl (32.0-36.5); MEAN CORPUSCULAR VOLUME 101.7 fl (80.0-96.0); MONO # 0.5 10^3/uL (0.0-0.8); MONO % 7.9 % (2.0-8.0); NEUTROPHILS % 77.8 % (36.0-66.0); PLATELET COUNT, AUTOMATED 133 10^3/uL (150-450); RED BLOOD COUNT 3.02 10^6/uL (4.30-6.10); WHITE BLOOD COUNT 6.4 10^3/uL (4.0-10.0)
== END ==
PROVIDERS: ATTEND Physician Assistant
DX: R41.0 Disorientation, unspecified (principal)

== ENCOUNTER → 2024-03-14 | Outpatient (REF) | payer MEDICARE, MEDICAID ==
[2024-03-14 08:42] LABS: BASO % 0.3 % (0.0-1.0); EOS # 0.2 10^3/uL (0.0-0.5); HEMATOCRIT 30.4 % (42.0-52.0); HEMOGLOBIN 10.2 g/dl (13.5-17.5); LYMPH # 0.6 10^3/uL (1.5-5.0); LYMPH % 8.8 % (24.0-44.0); MEAN CORPUSCULAR HEMOGLOBIN 33.9 pg (27.0-33.0); MEAN CORPUSCULAR HGB CONC 33.6 g/dl (32.0-36.5); MONO # 0.8 10^3/uL (0.0-0.8); MONO % 11.2 % (2.0-8.0); NEUTROPHILS # 5.1 10^3/uL (1.5-8.5); NEUTROPHILS % 76.4 % (36.0-66.0); PLATELET COUNT, AUTOMATED 141 10^3/uL (150-450); RED BLOOD COUNT 3.01 10^6/uL (4.30-6.10); WHITE BLOOD COUNT 6.7 10^3/uL (4.0-10.0)
== END ==
PROVIDERS: ATTEND Physician Assistant
DX: D64.9 Anemia, unspecified (principal); Z79.899 Other long term (current) drug therapy

== ENCOUNTER → 2024-03-21 | Outpatient (REF) | payer MEDICARE, MEDICAID ==
[2024-03-21 10:07] LABS: BASO % 0.3 % (0.0-1.0); EOS # 0.2 10^3/uL (0.0-0.5); EOS % 3.1 % (0.0-3.0); HEMATOCRIT 31.4 % (42.0-52.0); HEMOGLOBIN 10.5 g/dl (13.5-17.5); LYMPH # 0.7 10^3/uL (1.5-5.0); LYMPH % 10.3 % (24.0-44.0); MEAN CORPUSCULAR HEMOGLOBIN 33.8 pg (27.0-33.0); MEAN CORPUSCULAR HGB CONC 33.4 g/dl (32.0-36.5); MONO # 0.5 10^3/uL (0.0-0.8); MONO % 8.1 % (2.0-8.0); NEUTROPHILS % 77.9 % (36.0-66.0); PLATELET COUNT, AUTOMATED 131 10^3/uL (150-450); RED BLOOD COUNT 3.11 10^6/uL (4.30-6.10); WHITE BLOOD COUNT 6.4 10^3/uL (4.0-10.0)
== END ==
PROVIDERS: ATTEND Physician Assistant
DX: D64.9 Anemia, unspecified (principal)

== ENCOUNTER → 2024-03-28 | Outpatient (REF) | payer MEDICARE, MEDICAID ==
[2024-03-28 11:20] LABS: BASO % 0.3 % (0.0-1.0); EOS # 0.2 10^3/uL (0.0-0.5); EOS % 2.7 % (0.0-3.0); HEMATOCRIT 31.9 % (42.0-52.0); HEMOGLOBIN 10.6 g/dl (13.5-17.5); LYMPH # 0.6 10^3/uL (1.5-5.0); LYMPH % 8.8 % (24.0-44.0); MEAN CORPUSCULAR HEMOGLOBIN 33.5 pg (27.0-33.0); MEAN CORPUSCULAR HGB CONC 33.2 g/dl (32.0-36.5); MEAN CORPUSCULAR VOLUME 100.9 fl (80.0-96.0); MONO # 0.5 10^3/uL (0.0-0.8); MONO % 7.2 % (2.0-8.0); NEUTROPHILS # 5.3 10^3/uL (1.5-8.5); NEUTROPHILS % 80.7 % (36.0-66.0); PLATELET COUNT, AUTOMATED 131 10^3/uL (150-450); RED BLOOD COUNT 3.16 10^6/uL (4.30-6.10); WHITE BLOOD COUNT 6.6 10^3/uL (4.0-10.0)
[2024-03-28 11:52] LABS: BLOOD UREA NITROGEN 20 MG/DL (9-23); CALCIUM LEVEL 8.5 MG/DL (8.3-10.6); CARBON DIOXIDE LEVEL 29 MMOL/L (20-31); CHLORIDE LEVEL 106 MMOL/L (98-107); CREATININE FOR GFR 0.88 MG/DL (0.70-1.30); GLOMERULAR FILTRATION RATE > 60.0 (>35); GLUCOSE, FASTING 80 MG/DL (74-106); SODIUM LEVEL 142 MMOL/L (136-145)
== END ==
PROVIDERS: ATTEND Physician Assistant
DX: D64.9 Anemia, unspecified (principal)

== ENCOUNTER → 2024-04-04 | Outpatient (REF) | payer MEDICARE, MEDICAID ==
[2024-04-04 11:17] LABS: BASO % 0.3 % (0.0-1.0); EOS # 0.2 10^3/uL (0.0-0.5); EOS % 3.1 % (0.0-3.0); HEMOGLOBIN 10.8 g/dl (13.5-17.5); LYMPH # 0.6 10^3/uL (1.5-5.0); LYMPH % 9.1 % (24.0-44.0); MEAN CORPUSCULAR HGB CONC 32.7 g/dl (32.0-36.5); MEAN CORPUSCULAR VOLUME 100.9 fl (80.0-96.0); MONO # 0.5 10^3/uL (0.0-0.8); MONO % 6.7 % (2.0-8.0); NEUTROPHILS # 5.5 10^3/uL (1.5-8.5); NEUTROPHILS % 80.5 % (36.0-66.0); PLATELET COUNT, AUTOMATED 137 10^3/uL (150-450); RED BLOOD COUNT 3.27 10^6/uL (4.30-6.10); WHITE BLOOD COUNT 6.8 10^3/uL (4.0-10.0)
== END ==
PROVIDERS: ATTEND Physician Assistant
DX: D64.9 Anemia, unspecified (principal)

== ENCOUNTER → 2024-04-11 | Outpatient (REF) | payer MEDICARE, MEDICAID ==
[2024-04-11 11:35] LABS: BASO % 0.4 % (0.0-1.0); EOS # 0.2 10^3/uL (0.0-0.5); EOS % 2.7 % (0.0-3.0); HEMOGLOBIN 10.7 g/dl (13.5-17.5); LYMPH # 0.6 10^3/uL (1.5-5.0); LYMPH % 8.9 % (24.0-44.0); MEAN CORPUSCULAR HEMOGLOBIN 32.7 pg (27.0-33.0); MEAN CORPUSCULAR HGB CONC 32.4 g/dl (32.0-36.5); MEAN CORPUSCULAR VOLUME 100.9 fl (80.0-96.0); MONO # 0.6 10^3/uL (0.0-0.8); MONO % 8.3 % (2.0-8.0); NEUTROPHILS # 5.4 10^3/uL (1.5-8.5); NEUTROPHILS % 79.3 % (36.0-66.0); PLATELET COUNT, AUTOMATED 130 10^3/uL (150-450); RED BLOOD COUNT 3.27 10^6/uL (4.30-6.10); WHITE BLOOD COUNT 6.8 10^3/uL (4.0-10.0)
== END ==
PROVIDERS: ATTEND Physician Assistant
DX: D64.9 Anemia, unspecified (principal)

== ENCOUNTER → 2024-04-18 | Outpatient (REF) | payer MEDICARE, MEDICAID | PROVIDERS: ATTEND Physician Assistant | DX: D64.9 Anemia, unspecified (principal); Z53.8 Procedure and treatment not carried out for other reasons ==

== ENCOUNTER → 2024-04-19 | Outpatient (REF) | payer MEDICARE, MEDICAID ==
[2024-04-19 11:05] LABS: BASO % 0.3 % (0.0-1.0); EOS # 0.2 10^3/uL (0.0-0.5); EOS % 2.6 % (0.0-3.0); HEMATOCRIT 34.5 % (42.0-52.0); HEMOGLOBIN 11.5 g/dl (13.5-17.5); LYMPH # 0.7 10^3/uL (1.5-5.0); LYMPH % 10.3 % (24.0-44.0); MEAN CORPUSCULAR HEMOGLOBIN 33.2 pg (27.0-33.0); MEAN CORPUSCULAR HGB CONC 33.3 g/dl (32.0-36.5); MEAN CORPUSCULAR VOLUME 99.7 fl (80.0-96.0); MONO # 0.5 10^3/uL (0.0-0.8); MONO % 7.7 % (2.0-8.0); NEUTROPHILS # 5.5 10^3/uL (1.5-8.5); NEUTROPHILS % 78.8 % (36.0-66.0); PLATELET COUNT, AUTOMATED 142 10^3/uL (150-450); RED BLOOD COUNT 3.46 10^6/uL (4.30-6.10)
== END ==
PROVIDERS: ATTEND Physician Assistant
DX: D64.9 Anemia, unspecified (principal)

== ENCOUNTER → 2024-04-25 | Outpatient (REF) | payer MEDICARE, MEDICAID ==
[2024-04-25 11:28] LABS: BASO % 0.5 % (0.0-1.0); EOS # 0.1 10^3/uL (0.0-0.5); EOS % 2.2 % (0.0-3.0); HEMATOCRIT 30.6 % (42.0-52.0); HEMOGLOBIN 10.2 g/dl (13.5-17.5); LYMPH # 0.6 10^3/uL (1.5-5.0); LYMPH % 10.5 % (24.0-44.0); MEAN CORPUSCULAR HEMOGLOBIN 33.2 pg (27.0-33.0); MEAN CORPUSCULAR HGB CONC 33.3 g/dl (32.0-36.5); MEAN CORPUSCULAR VOLUME 99.7 fl (80.0-96.0); MONO # 0.6 10^3/uL (0.0-0.8); MONO % 9.1 % (2.0-8.0); NEUTROPHILS # 4.7 10^3/uL (1.5-8.5); NEUTROPHILS % 77.4 % (36.0-66.0); PLATELET COUNT, AUTOMATED 126 10^3/uL (150-450); RED BLOOD COUNT 3.07 10^6/uL (4.30-6.10)
[2024-04-25 12:01] LABS: BLOOD UREA NITROGEN 24 MG/DL (9-23); CARBON DIOXIDE LEVEL 29 MMOL/L (20-31); CHLORIDE LEVEL 106 MMOL/L (98-107); CREATININE FOR GFR 0.99 MG/DL (0.70-1.30); GLOMERULAR FILTRATION RATE > 60.0 (>35); GLUCOSE, FASTING 85 MG/DL (74-106); POTASSIUM SERUM 4.2 MMOL/L (3.5-5.1); SODIUM LEVEL 139 MMOL/L (136-145)
== END ==
PROVIDERS: ATTEND Physician Assistant
DX: D64.9 Anemia, unspecified (principal)

== ENCOUNTER → 2024-05-02 | Outpatient (REF) | payer MEDICARE, MEDICAID ==
[~2024-05-02] MED LIST changes: +METO1TAB87 PO
[2024-05-02 12:32] LABS: BASO % 0.5 % (0.0-1.0); EOS # 0.2 10^3/uL (0.0-0.5); EOS % 2.9 % (0.0-3.0); LYMPH # 0.5 10^3/uL (1.5-5.0); LYMPH % 7.8 % (24.0-44.0); MEAN CORPUSCULAR HEMOGLOBIN 33.1 pg (27.0-33.0); MEAN CORPUSCULAR HGB CONC 33.3 g/dl (32.0-36.5); MEAN CORPUSCULAR VOLUME 99.3 fl (80.0-96.0); MONO # 0.5 10^3/uL (0.0-0.8); NEUTROPHILS # 4.7 10^3/uL (1.5-8.5); NEUTROPHILS % 80.5 % (36.0-66.0); PLATELET COUNT, AUTOMATED 122 10^3/uL (150-450); RED BLOOD COUNT 3.02 10^6/uL (4.30-6.10); WHITE BLOOD COUNT 5.9 10^3/uL (4.0-10.0)
== END ==
PROVIDERS: ATTEND Physician Assistant
DX: D64.9 Anemia, unspecified (principal)

== ENCOUNTER → 2024-05-09 | Outpatient (REF) | payer MEDICARE, MEDICAID ==
[2024-05-09 12:03] LABS: BASO % 0.4 % (0.0-1.0); EOS # 0.2 10^3/uL (0.0-0.5); EOS % 2.7 % (0.0-3.0); HEMATOCRIT 35.1 % (42.0-52.0); HEMOGLOBIN 11.5 g/dl (13.5-17.5); LYMPH # 0.6 10^3/uL (1.5-5.0); LYMPH % 8.3 % (24.0-44.0); MEAN CORPUSCULAR HEMOGLOBIN 33.1 pg (27.0-33.0); MEAN CORPUSCULAR HGB CONC 32.8 g/dl (32.0-36.5); MEAN CORPUSCULAR VOLUME 101.2 fl (80.0-96.0); MONO # 0.5 10^3/uL (0.0-0.8); MONO % 7.9 % (2.0-8.0); NEUTROPHILS # 5.4 10^3/uL (1.5-8.5); NEUTROPHILS % 80.1 % (36.0-66.0); PLATELET COUNT, AUTOMATED 128 10^3/uL (150-450); RED BLOOD COUNT 3.47 10^6/uL (4.30-6.10); WHITE BLOOD COUNT 6.7 10^3/uL (4.0-10.0)
[2024-05-09 12:23] LABS: ALBUMIN 4.1 G/DL (3.2-5.2); ALKALINE PHOSPHATASE 133 U/L (46-116); ALT/SGPT 19 U/L (7.0-40); AST/SGOT 14 U/L (<34); BILIRUBIN,TOTAL 1.2 MG/DL (0.3-1.2); BLOOD UREA NITROGEN 24 MG/DL (9-23); CALCIUM LEVEL 9.3 MG/DL (8.3-10.6); CARBON DIOXIDE LEVEL 32 MMOL/L (20-31); CHLORIDE LEVEL 107 MMOL/L (98-107); CREATININE FOR GFR 1.02 MG/DL (0.70-1.30); GLOMERULAR FILTRATION RATE > 60.0 (>35); GLUCOSE, FASTING 90 MG/DL (74-106); IRON (FE) 39 UG/DL (65-175); SODIUM LEVEL 141 MMOL/L (136-145); TOTAL IRON BINDING CAPACITY 229 UG/DL (250-425); TOTAL PROTEIN 6.2 G/DL (5.7-8.2)
== END ==
PROVIDERS: ATTEND Physician Assistant
DX: D64.9 Anemia, unspecified (principal)

== ENCOUNTER → 2024-05-16 | Outpatient (REF) | payer MEDICARE, MEDICAID ==
[2024-05-16 09:24] LABS: BASO % 0.3 % (0.0-1.0); EOS # 0.2 10^3/uL (0.0-0.5); EOS % 2.6 % (0.0-3.0); HEMOGLOBIN 10.3 g/dl (13.5-17.5); LYMPH # 0.6 10^3/uL (1.5-5.0); LYMPH % 8.8 % (24.0-44.0); MEAN CORPUSCULAR HEMOGLOBIN 32.9 pg (27.0-33.0); MEAN CORPUSCULAR HGB CONC 33.2 g/dl (32.0-36.5); MONO # 0.6 10^3/uL (0.0-0.8); MONO % 8.8 % (2.0-8.0); NEUTROPHILS # 5.1 10^3/uL (1.5-8.5); NEUTROPHILS % 79.2 % (36.0-66.0); PLATELET COUNT, AUTOMATED 123 10^3/uL (150-450); RED BLOOD COUNT 3.13 10^6/uL (4.30-6.10); WHITE BLOOD COUNT 6.5 10^3/uL (4.0-10.0)
== END ==
PROVIDERS: ATTEND Physician Assistant
DX: D64.9 Anemia, unspecified (principal)

== ENCOUNTER → 2024-05-24 | Outpatient (CLI) | payer MEDICARE, MEDICAID | LOC: M ONCR 12:36 | PROVIDERS: ATTEND General Practice | DX: C44.1292 Squamous cell carcinoma of skin of left lower eyelid, including canthus (principal); F03.90 Unspecified dementia, unspecified severity, without behavioral disturbance, psychotic disturbance, mood disturbance, and anxiety; Z79.899 Other long term (current) drug therapy; Z87.891 Personal history of nicotine dependence; Z92.3 Personal history of irradiation ==

== ENCOUNTER → 2024-05-24 | Outpatient (REF) | payer MEDICARE, MEDICAID ==
[2024-05-24 13:48] LABS: BASO % 0.3 % (0.0-1.0); EOS # 0.2 10^3/uL (0.0-0.5); HEMATOCRIT 32.6 % (42.0-52.0); LYMPH # 0.5 10^3/uL (1.5-5.0); LYMPH % 8.7 % (24.0-44.0); MEAN CORPUSCULAR HEMOGLOBIN 33.7 pg (27.0-33.0); MEAN CORPUSCULAR HGB CONC 33.7 g/dl (32.0-36.5); MONO # 0.5 10^3/uL (0.0-0.8); MONO % 7.4 % (2.0-8.0); NEUTROPHILS # 4.9 10^3/uL (1.5-8.5); NEUTROPHILS % 80.4 % (36.0-66.0); PLATELET COUNT, AUTOMATED 136 10^3/uL (150-450); RED BLOOD COUNT 3.26 10^6/uL (4.30-6.10); WHITE BLOOD COUNT 6.1 10^3/uL (4.0-10.0)
[2024-05-24 14:18] LABS: BLOOD UREA NITROGEN 20 MG/DL (9-23); CALCIUM LEVEL 8.9 MG/DL (8.3-10.6); CARBON DIOXIDE LEVEL 29 MMOL/L (20-31); CHLORIDE LEVEL 106 MMOL/L (98-107); GLOMERULAR FILTRATION RATE > 60.0 (>35); GLUCOSE, FASTING 129 MG/DL (74-106); POTASSIUM SERUM 4.3 MMOL/L (3.5-5.1); SODIUM LEVEL 141 MMOL/L (136-145)
== END ==
PROVIDERS: ATTEND Physician Assistant
DX: D64.9 Anemia, unspecified (principal); Z79.899 Other long term (current) drug therapy

== ENCOUNTER → 2024-05-30 | Outpatient (REF) | payer MEDICARE, MEDICAID ==
[2024-05-30 11:22] LABS: BASO % 0.7 % (0.0-1.0); EOS # 0.2 10^3/uL (0.0-0.5); EOS % 3.9 % (0.0-3.0); HEMATOCRIT 33.7 % (42.0-52.0); HEMOGLOBIN 11.1 g/dl (13.5-17.5); LYMPH # 0.7 10^3/uL (1.5-5.0); LYMPH % 11.8 % (24.0-44.0); MEAN CORPUSCULAR HGB CONC 32.9 g/dl (32.0-36.5); MEAN CORPUSCULAR VOLUME 100.3 fl (80.0-96.0); MONO # 0.5 10^3/uL (0.0-0.8); MONO % 7.4 % (2.0-8.0); NEUTROPHILS # 4.6 10^3/uL (1.5-8.5); NEUTROPHILS % 75.7 % (36.0-66.0); PLATELET COUNT, AUTOMATED 134 10^3/uL (150-450); RED BLOOD COUNT 3.36 10^6/uL (4.30-6.10); WHITE BLOOD COUNT 6.1 10^3/uL (4.0-10.0)
== END ==
PROVIDERS: ATTEND Physician Assistant
DX: D64.9 Anemia, unspecified (principal)

== ENCOUNTER → 2024-06-06 | Outpatient (REF) | payer MEDICARE, MEDICAID ==
[2024-06-06 12:22] LABS: BASO % 0.6 % (0.0-1.0); EOS # 0.2 10^3/uL (0.0-0.5); EOS % 2.3 % (0.0-3.0); HEMATOCRIT 34.8 % (42.0-52.0); HEMOGLOBIN 11.4 g/dl (13.5-17.5); LYMPH # 0.8 10^3/uL (1.5-5.0); LYMPH % 10.9 % (24.0-44.0); MEAN CORPUSCULAR HGB CONC 32.8 g/dl (32.0-36.5); MEAN CORPUSCULAR VOLUME 100.9 fl (80.0-96.0); MONO # 0.6 10^3/uL (0.0-0.8); MONO % 8.3 % (2.0-8.0); NEUTROPHILS # 5.3 10^3/uL (1.5-8.5); NEUTROPHILS % 77.3 % (36.0-66.0); PLATELET COUNT, AUTOMATED 147 10^3/uL (150-450); RED BLOOD COUNT 3.45 10^6/uL (4.30-6.10); WHITE BLOOD COUNT 6.9 10^3/uL (4.0-10.0)
== END ==
PROVIDERS: ATTEND Physician Assistant
DX: D64.9 Anemia, unspecified (principal)

== ENCOUNTER → 2024-06-13 | Outpatient (REF) | payer MEDICARE, MEDICAID ==
[2024-06-13 11:50] LABS: BASO % 0.3 % (0.0-1.0); EOS # 0.2 10^3/uL (0.0-0.5); EOS % 2.9 % (0.0-3.0); HEMATOCRIT 31.2 % (42.0-52.0); HEMOGLOBIN 10.7 g/dl (13.5-17.5); LYMPH # 0.5 10^3/uL (1.5-5.0); LYMPH % 8.8 % (24.0-44.0); MEAN CORPUSCULAR HEMOGLOBIN 34.1 pg (27.0-33.0); MEAN CORPUSCULAR HGB CONC 34.3 g/dl (32.0-36.5); MEAN CORPUSCULAR VOLUME 99.4 fl (80.0-96.0); MONO # 0.5 10^3/uL (0.0-0.8); MONO % 7.7 % (2.0-8.0); NEUTROPHILS # 4.9 10^3/uL (1.5-8.5); PLATELET COUNT, AUTOMATED 130 10^3/uL (150-450); RED BLOOD COUNT 3.14 10^6/uL (4.30-6.10); WHITE BLOOD COUNT 6.1 10^3/uL (4.0-10.0)
== END ==
PROVIDERS: ATTEND Physician Assistant
DX: D64.9 Anemia, unspecified (principal)

== ENCOUNTER → 2024-06-20 | Outpatient (REF) | payer MEDICARE, MEDICAID ==
[2024-06-20 12:17] LABS: BASO % 0.3 % (0.0-1.0); EOS # 0.2 10^3/uL (0.0-0.5); EOS % 3.4 % (0.0-3.0); HEMATOCRIT 32.1 % (42.0-52.0); HEMOGLOBIN 10.7 g/dl (13.5-17.5); LYMPH # 0.5 10^3/uL (1.5-5.0); LYMPH % 7.5 % (24.0-44.0); MEAN CORPUSCULAR HEMOGLOBIN 33.9 pg (27.0-33.0); MEAN CORPUSCULAR HGB CONC 33.3 g/dl (32.0-36.5); MEAN CORPUSCULAR VOLUME 101.6 fl (80.0-96.0); MONO # 0.6 10^3/uL (0.0-0.8); MONO % 9.6 % (2.0-8.0); NEUTROPHILS # 4.8 10^3/uL (1.5-8.5); NEUTROPHILS % 78.9 % (36.0-66.0); PLATELET COUNT, AUTOMATED 122 10^3/uL (150-450); RED BLOOD COUNT 3.16 10^6/uL (4.30-6.10); WHITE BLOOD COUNT 6.1 10^3/uL (4.0-10.0)
== END ==
PROVIDERS: ATTEND Physician Assistant
DX: D64.9 Anemia, unspecified (principal)

== ENCOUNTER → 2024-06-27 | Outpatient (REF) | payer MEDICARE, MEDICAID ==
[2024-06-27 11:35] LABS: BASO % 0.3 % (0.0-1.0); EOS # 0.2 10^3/uL (0.0-0.5); EOS % 3.9 % (0.0-3.0); HEMATOCRIT 32.3 % (42.0-52.0); HEMOGLOBIN 10.7 g/dl (13.5-17.5); LYMPH # 0.5 10^3/uL (1.5-5.0); LYMPH % 8.4 % (24.0-44.0); MEAN CORPUSCULAR HEMOGLOBIN 33.6 pg (27.0-33.0); MEAN CORPUSCULAR HGB CONC 33.1 g/dl (32.0-36.5); MEAN CORPUSCULAR VOLUME 101.6 fl (80.0-96.0); MONO # 0.4 10^3/uL (0.0-0.8); MONO % 7.5 % (2.0-8.0); NEUTROPHILS # 4.7 10^3/uL (1.5-8.5); NEUTROPHILS % 79.4 % (36.0-66.0); PLATELET COUNT, AUTOMATED 123 10^3/uL (150-450); RED BLOOD COUNT 3.18 10^6/uL (4.30-6.10); WHITE BLOOD COUNT 5.9 10^3/uL (4.0-10.0)
[2024-06-27 11:53] LABS: BLOOD UREA NITROGEN 20 MG/DL (9-23); CALCIUM LEVEL 8.6 MG/DL (8.3-10.6); CARBON DIOXIDE LEVEL 30 MMOL/L (20-31); CHLORIDE LEVEL 106 MMOL/L (98-107); GLOMERULAR FILTRATION RATE > 60.0 (>35); GLUCOSE, FASTING 108 MG/DL (74-106); SODIUM LEVEL 140 MMOL/L (136-145)
== END ==
PROVIDERS: ATTEND Internal Medicine
DX: D64.9 Anemia, unspecified (principal); I48.91 Unspecified atrial fibrillation; I50.810 Right heart failure, unspecified

== ENCOUNTER → 2024-07-04 | Outpatient (REF) | payer MEDICARE, MEDICAID ==
[2024-07-04 11:36] LABS: BASO % 0.3 % (0.0-1.0); EOS # 0.2 10^3/uL (0.0-0.5); HEMATOCRIT 32.5 % (42.0-52.0); HEMOGLOBIN 10.8 g/dl (13.5-17.5); LYMPH # 0.6 10^3/uL (1.5-5.0); LYMPH % 8.7 % (24.0-44.0); MEAN CORPUSCULAR HEMOGLOBIN 33.5 pg (27.0-33.0); MEAN CORPUSCULAR HGB CONC 33.2 g/dl (32.0-36.5); MEAN CORPUSCULAR VOLUME 100.9 fl (80.0-96.0); MONO # 0.7 10^3/uL (0.0-0.8); NEUTROPHILS # 5.1 10^3/uL (1.5-8.5); NEUTROPHILS % 77.5 % (36.0-66.0); PLATELET COUNT, AUTOMATED 126 10^3/uL (150-450); RED BLOOD COUNT 3.22 10^6/uL (4.30-6.10); WHITE BLOOD COUNT 6.6 10^3/uL (4.0-10.0)
== END ==
PROVIDERS: ATTEND Internal Medicine
DX: D64.9 Anemia, unspecified (principal)

== ENCOUNTER → 2024-07-11 | Outpatient (REF) | payer MEDICARE, MEDICAID ==
[2024-07-11 11:05] LABS: BASO % 0.4 % (0.0-1.0); EOS # 0.2 10^3/uL (0.0-0.5); EOS % 2.8 % (0.0-3.0); HEMATOCRIT 33.6 % (42.0-52.0); HEMOGLOBIN 11.3 g/dl (13.5-17.5); LYMPH # 0.7 10^3/uL (1.5-5.0); LYMPH % 9.8 % (24.0-44.0); MEAN CORPUSCULAR HEMOGLOBIN 33.9 pg (27.0-33.0); MEAN CORPUSCULAR HGB CONC 33.6 g/dl (32.0-36.5); MEAN CORPUSCULAR VOLUME 100.9 fl (80.0-96.0); MONO # 0.5 10^3/uL (0.0-0.8); NEUTROPHILS # 5.4 10^3/uL (1.5-8.5); NEUTROPHILS % 79.7 % (36.0-66.0); PLATELET COUNT, AUTOMATED 151 10^3/uL (150-450); RED BLOOD COUNT 3.33 10^6/uL (4.30-6.10); WHITE BLOOD COUNT 6.8 10^3/uL (4.0-10.0)
== END ==
PROVIDERS: ATTEND Internal Medicine
DX: D64.9 Anemia, unspecified (principal)

== ENCOUNTER → 2024-07-14 | Outpatient (REF) | payer MEDICARE, MEDICAID | PROVIDERS: ATTEND Internal Medicine | DX: D64.9 Anemia, unspecified (principal); Z53.8 Procedure and treatment not carried out for other reasons ==

== ENCOUNTER → 2024-07-14 | Outpatient (REF) | payer MEDICARE, MEDICAID | PROVIDERS: ATTEND Internal Medicine | DX: D64.9 Anemia, unspecified (principal); Z53.8 Procedure and treatment not carried out for other reasons ==

== ENCOUNTER → 2024-07-14 | Outpatient (REF) | payer MEDICARE, MEDICAID | PROVIDERS: ATTEND Internal Medicine | DX: D64.9 Anemia, unspecified (principal); Z53.8 Procedure and treatment not carried out for other reasons ==

== ENCOUNTER → 2024-07-14 | Outpatient (REF) | payer MEDICARE, MEDICAID | PROVIDERS: ATTEND Internal Medicine | DX: D64.9 Anemia, unspecified (principal); Z53.8 Procedure and treatment not carried out for other reasons ==

== ENCOUNTER → 2024-07-18 | Outpatient (REF) | payer MEDICARE, MEDICAID ==
[2024-07-18 12:36] LABS: BASO % 0.4 % (0.0-1.0); EOS # 0.2 10^3/uL (0.0-0.5); EOS % 3.1 % (0.0-3.0); HEMATOCRIT 29.9 % (42.0-52.0); HEMOGLOBIN 10.1 g/dl (13.5-17.5); LYMPH # 0.6 10^3/uL (1.5-5.0); LYMPH % 10.2 % (24.0-44.0); MEAN CORPUSCULAR HEMOGLOBIN 33.8 pg (27.0-33.0); MEAN CORPUSCULAR HGB CONC 33.8 g/dl (32.0-36.5); MONO # 0.5 10^3/uL (0.0-0.8); MONO % 8.8 % (2.0-8.0); NEUTROPHILS # 4.2 10^3/uL (1.5-8.5); NEUTROPHILS % 77.1 % (36.0-66.0); PLATELET COUNT, AUTOMATED 108 10^3/uL (150-450); RED BLOOD COUNT 2.99 10^6/uL (4.30-6.10); WHITE BLOOD COUNT 5.5 10^3/uL (4.0-10.0)
== END ==
PROVIDERS: ATTEND Internal Medicine
DX: D64.9 Anemia, unspecified (principal)

== ENCOUNTER → 2024-07-25 | Outpatient (REF) | payer MEDICARE, MEDICAID | PROVIDERS: ATTEND Physician Assistant | DX: D64.9 Anemia, unspecified (principal); Z53.8 Procedure and treatment not carried out for other reasons ==

== ENCOUNTER → 2024-07-27 | Outpatient (REF) | payer MEDICARE, MEDICAID ==
[2024-07-27 12:20] LABS: ALKALINE PHOSPHATASE 133 U/L (46-116); ALT/SGPT 20 U/L (7.0-40); AST/SGOT 14 U/L (<34); BILIRUBIN,TOTAL 1.3 MG/DL (0.3-1.2); BLOOD UREA NITROGEN 23 MG/DL (9-23); CALCIUM LEVEL 9.5 MG/DL (8.3-10.6); CARBON DIOXIDE LEVEL 30 MMOL/L (20-31); CHLORIDE LEVEL 106 MMOL/L (98-107); GLOMERULAR FILTRATION RATE > 60.0 (>35); GLUCOSE, FASTING 90 MG/DL (74-106); POTASSIUM SERUM 3.9 MMOL/L (3.5-5.1); SODIUM LEVEL 141 MMOL/L (136-145); TOTAL PROTEIN 6.4 G/DL (5.7-8.2)
== END ==
PROVIDERS: ATTEND Physician Assistant
DX: D64.9 Anemia, unspecified (principal); I48.91 Unspecified atrial fibrillation; R06.02 Shortness of breath

== ENCOUNTER → 2024-08-01 | Outpatient (REF) | payer MEDICARE, MEDICAID ==
[2024-08-01 08:43] LABS: BASO % 0.3 % (0.0-1.0); EOS # 0.2 10^3/uL (0.0-0.5); EOS % 3.3 % (0.0-3.0); HEMOGLOBIN 11.6 g/dl (13.5-17.5); LYMPH # 0.8 10^3/uL (1.5-5.0); LYMPH % 11.2 % (24.0-44.0); MEAN CORPUSCULAR HEMOGLOBIN 34.2 pg (27.0-33.0); MEAN CORPUSCULAR HGB CONC 34.1 g/dl (32.0-36.5); MEAN CORPUSCULAR VOLUME 100.3 fl (80.0-96.0); MONO # 0.6 10^3/uL (0.0-0.8); MONO % 8.5 % (2.0-8.0); NEUTROPHILS # 5.5 10^3/uL (1.5-8.5); NEUTROPHILS % 76.4 % (36.0-66.0); PLATELET COUNT, AUTOMATED 136 10^3/uL (150-450); RED BLOOD COUNT 3.39 10^6/uL (4.30-6.10); WHITE BLOOD COUNT 7.2 10^3/uL (4.0-10.0)
[2024-08-01 09:17] LABS: ALKALINE PHOSPHATASE 127 U/L (46-116); ALT/SGPT 20 U/L (7.0-40); AST/SGOT 13 U/L (<34); BILIRUBIN,TOTAL 1.3 MG/DL (0.3-1.2); BLOOD UREA NITROGEN 25 MG/DL (9-23); CALCIUM LEVEL 9.1 MG/DL (8.3-10.6); CARBON DIOXIDE LEVEL 31 MMOL/L (20-31); CHLORIDE LEVEL 106 MMOL/L (98-107); CREATININE FOR GFR 1.03 MG/DL (0.70-1.30); GLOMERULAR FILTRATION RATE > 60.0 (>35); GLUCOSE, FASTING 87 MG/DL (74-106); SODIUM LEVEL 141 MMOL/L (136-145); TOTAL PROTEIN 6.4 G/DL (5.7-8.2)
== END ==
PROVIDERS: ATTEND Physician Assistant
DX: D64.9 Anemia, unspecified (principal)

== ENCOUNTER → 2024-08-08 | Outpatient (REF) | payer MEDICARE, MEDICAID ==
[2024-08-08 09:34] LABS: BASO % 0.7 % (0.0-1.0); EOS # 0.3 10^3/uL (0.0-0.5); EOS % 4.3 % (0.0-3.0); HEMATOCRIT 30.8 % (42.0-52.0); HEMOGLOBIN 10.5 g/dl (13.5-17.5); LYMPH # 0.6 10^3/uL (1.5-5.0); LYMPH % 10.1 % (24.0-44.0); MEAN CORPUSCULAR HEMOGLOBIN 34.7 pg (27.0-33.0); MEAN CORPUSCULAR HGB CONC 34.1 g/dl (32.0-36.5); MEAN CORPUSCULAR VOLUME 101.7 fl (80.0-96.0); MONO # 0.4 10^3/uL (0.0-0.8); MONO % 7.3 % (2.0-8.0); NEUTROPHILS # 4.5 10^3/uL (1.5-8.5); NEUTROPHILS % 77.3 % (36.0-66.0); PLATELET COUNT, AUTOMATED 124 10^3/uL (150-450); RED BLOOD COUNT 3.03 10^6/uL (4.30-6.10); WHITE BLOOD COUNT 5.9 10^3/uL (4.0-10.0)
[2024-08-08 09:49] LABS: ALBUMIN 3.5 G/DL (3.2-5.2); ALKALINE PHOSPHATASE 112 U/L (46-116); ALT/SGPT 21 U/L (7.0-40); AST/SGOT 13 U/L (<34); BILIRUBIN,TOTAL 1.3 MG/DL (0.3-1.2); BLOOD UREA NITROGEN 20 MG/DL (9-23); CALCIUM LEVEL 8.7 MG/DL (8.3-10.6); CARBON DIOXIDE LEVEL 30 MMOL/L (20-31); CHLORIDE LEVEL 108 MMOL/L (98-107); CREATININE FOR GFR 0.95 MG/DL (0.70-1.30); GLOMERULAR FILTRATION RATE > 60.0 (>35); GLUCOSE, FASTING 82 MG/DL (74-106); POTASSIUM SERUM 4.3 MMOL/L (3.5-5.1); SODIUM LEVEL 142 MMOL/L (136-145); TOTAL PROTEIN 5.7 G/DL (5.7-8.2)
== END ==
PROVIDERS: ATTEND Physician Assistant
DX: D64.9 Anemia, unspecified (principal)

== ENCOUNTER → 2024-08-15 | Outpatient (REF) | payer MEDICARE, MEDICAID ==
[2024-08-15 12:59] LABS: BASO % 0.3 % (0.0-1.0); EOS # 0.2 10^3/uL (0.0-0.5); EOS % 3.2 % (0.0-3.0); HEMATOCRIT 30.5 % (42.0-52.0); HEMOGLOBIN 10.4 g/dl (13.5-17.5); LYMPH # 0.7 10^3/uL (1.5-5.0); LYMPH % 10.5 % (24.0-44.0); MEAN CORPUSCULAR HEMOGLOBIN 34.7 pg (27.0-33.0); MEAN CORPUSCULAR HGB CONC 34.1 g/dl (32.0-36.5); MEAN CORPUSCULAR VOLUME 101.7 fl (80.0-96.0); MONO # 0.5 10^3/uL (0.0-0.8); MONO % 7.3 % (2.0-8.0); NEUTROPHILS # 4.9 10^3/uL (1.5-8.5); NEUTROPHILS % 78.4 % (36.0-66.0); PLATELET COUNT, AUTOMATED 123 10^3/uL (150-450); WHITE BLOOD COUNT 6.3 10^3/uL (4.0-10.0)
[2024-08-15 13:22] LABS: ALBUMIN 3.5 G/DL (3.2-5.2); ALKALINE PHOSPHATASE 120 U/L (46-116); ALT/SGPT 17 U/L (7.0-40); AST/SGOT 11 U/L (<34); BILIRUBIN,TOTAL 1.3 MG/DL (0.3-1.2); BLOOD UREA NITROGEN 16 MG/DL (9-23); CALCIUM LEVEL 8.3 MG/DL (8.3-10.6); CARBON DIOXIDE LEVEL 31 MMOL/L (20-31); CHLORIDE LEVEL 105 MMOL/L (98-107); CREATININE FOR GFR 1.02 MG/DL (0.70-1.30); GLOMERULAR FILTRATION RATE > 60.0 (>35); GLUCOSE, FASTING 72 MG/DL (74-106); POTASSIUM SERUM 4.1 MMOL/L (3.5-5.1); SODIUM LEVEL 140 MMOL/L (136-145); TOTAL PROTEIN 5.7 G/DL (5.7-8.2)
== END ==
PROVIDERS: ATTEND Physician Assistant
DX: D64.9 Anemia, unspecified (principal)

== ENCOUNTER → 2024-08-17 | Outpatient (REF) | payer MEDICARE, MEDICAID | PROVIDERS: ATTEND Internal Medicine | DX: D64.9 Anemia, unspecified (principal); Z53.8 Procedure and treatment not carried out for other reasons ==

== ENCOUNTER → 2024-08-18 | Outpatient (REF) | payer MEDICARE, MEDICAID | LOC: M PLAIMG 11:25 | PROVIDERS: ATTEND Physician Assistant | DX: R05.9 Cough, unspecified (principal); I51.7 Cardiomegaly; R91.8 Other nonspecific abnormal finding of lung field ==

== ENCOUNTER → 2024-08-18 | Outpatient (REF) | payer MEDICARE, MEDICAID | PROVIDERS: ATTEND Physician Assistant | DX: R05.9 Cough, unspecified (principal); I51.7 Cardiomegaly; R91.8 Other nonspecific abnormal finding of lung field ==

== ENCOUNTER → 2024-08-22 | Outpatient (REF) | payer MEDICARE, MEDICAID ==
[2024-08-22 08:43] LABS: BASO % 0.3 % (0.0-1.0); EOS # 0.2 10^3/uL (0.0-0.5); HEMATOCRIT 31.7 % (42.0-52.0); HEMOGLOBIN 10.5 g/dl (13.5-17.5); LYMPH # 0.7 10^3/uL (1.5-5.0); LYMPH % 10.3 % (24.0-44.0); MEAN CORPUSCULAR HEMOGLOBIN 33.4 pg (27.0-33.0); MEAN CORPUSCULAR HGB CONC 33.1 g/dl (32.0-36.5); MONO # 0.5 10^3/uL (0.0-0.8); MONO % 8.1 % (2.0-8.0); NEUTROPHILS # 5.2 10^3/uL (1.5-8.5); PLATELET COUNT, AUTOMATED 123 10^3/uL (150-450); RED BLOOD COUNT 3.14 10^6/uL (4.30-6.10); WHITE BLOOD COUNT 6.7 10^3/uL (4.0-10.0)
[2024-08-22 09:06] LABS: ALBUMIN 3.6 G/DL (3.2-5.2); ALKALINE PHOSPHATASE 118 U/L (46-116); ALT/SGPT 18 U/L (7.0-40); AST/SGOT 11 U/L (<34); BILIRUBIN,TOTAL 0.9 MG/DL (0.3-1.2); BLOOD UREA NITROGEN 20 MG/DL (9-23); CALCIUM LEVEL 8.4 MG/DL (8.3-10.6); CARBON DIOXIDE LEVEL 29 MMOL/L (20-31); CHLORIDE LEVEL 106 MMOL/L (98-107); CREATININE FOR GFR 0.95 MG/DL (0.70-1.30); GLOMERULAR FILTRATION RATE > 60.0 (>35); GLUCOSE, FASTING 79 MG/DL (74-106); SODIUM LEVEL 139 MMOL/L (136-145); TOTAL PROTEIN 5.8 G/DL (5.7-8.2)
== END ==
PROVIDERS: ATTEND Physician Assistant
DX: D64.9 Anemia, unspecified (principal)

== ENCOUNTER → 2024-08-29 | Outpatient (REF) | payer MEDICARE, MEDICAID ==
[2024-08-29 10:05] LABS: BASO % 0.3 % (0.0-1.0); EOS # 0.2 10^3/uL (0.0-0.5); EOS % 2.7 % (0.0-3.0); HEMOGLOBIN 11.5 g/dl (13.5-17.5); LYMPH # 0.6 10^3/uL (1.5-5.0); LYMPH % 8.1 % (24.0-44.0); MEAN CORPUSCULAR HEMOGLOBIN 33.4 pg (27.0-33.0); MEAN CORPUSCULAR HGB CONC 32.9 g/dl (32.0-36.5); MEAN CORPUSCULAR VOLUME 101.7 fl (80.0-96.0); MONO # 0.5 10^3/uL (0.0-0.8); MONO % 7.5 % (2.0-8.0); NEUTROPHILS # 5.6 10^3/uL (1.5-8.5); PLATELET COUNT, AUTOMATED 136 10^3/uL (150-450); RED BLOOD COUNT 3.44 10^6/uL (4.30-6.10); WHITE BLOOD COUNT 6.9 10^3/uL (4.0-10.0)
[2024-08-29 10:30] LABS: ALBUMIN 3.9 G/DL (3.2-5.2); ALKALINE PHOSPHATASE 125 U/L (46-116); ALT/SGPT 18 U/L (7.0-40); AST/SGOT 13 U/L (<34); BILIRUBIN,TOTAL 1.3 MG/DL (0.3-1.2); BLOOD UREA NITROGEN 22 MG/DL (9-23); CALCIUM LEVEL 9.1 MG/DL (8.3-10.6); CARBON DIOXIDE LEVEL 29 MMOL/L (20-31); CHLORIDE LEVEL 104 MMOL/L (98-107); CREATININE FOR GFR 0.95 MG/DL (0.70-1.30); GLOMERULAR FILTRATION RATE > 60.0 (>35); GLUCOSE, FASTING 114 MG/DL (74-106); POTASSIUM SERUM 3.9 MMOL/L (3.5-5.1); SODIUM LEVEL 141 MMOL/L (136-145); TOTAL PROTEIN 6.4 G/DL (5.7-8.2)
== END ==
PROVIDERS: ATTEND Internal Medicine
DX: D64.9 Anemia, unspecified (principal); Z79.899 Other long term (current) drug therapy

== ENCOUNTER → 2024-09-05 | Outpatient (REF) | payer MEDICARE, MEDICAID ==
[2024-09-05 09:35] LABS: BASO % 0.3 % (0.0-1.0); EOS # 0.2 10^3/uL (0.0-0.5); EOS % 3.5 % (0.0-3.0); HEMATOCRIT 32.6 % (42.0-52.0); HEMOGLOBIN 10.7 g/dl (13.5-17.5); LYMPH # 0.6 10^3/uL (1.5-5.0); LYMPH % 9.6 % (24.0-44.0); MEAN CORPUSCULAR HEMOGLOBIN 32.9 pg (27.0-33.0); MEAN CORPUSCULAR HGB CONC 32.8 g/dl (32.0-36.5); MEAN CORPUSCULAR VOLUME 100.3 fl (80.0-96.0); MONO # 0.5 10^3/uL (0.0-0.8); MONO % 7.7 % (2.0-8.0); NEUTROPHILS # 4.9 10^3/uL (1.5-8.5); NEUTROPHILS % 78.6 % (36.0-66.0); PLATELET COUNT, AUTOMATED 126 10^3/uL (150-450); RED BLOOD COUNT 3.25 10^6/uL (4.30-6.10); WHITE BLOOD COUNT 6.3 10^3/uL (4.0-10.0)
== END ==
PROVIDERS: ATTEND Internal Medicine
DX: D64.9 Anemia, unspecified (principal)

== ENCOUNTER → 2024-09-12 | Outpatient (REF) | payer MEDICARE, MEDICAID ==
[2024-09-12 10:11] LABS: BASO % 0.4 % (0.0-1.0); EOS # 0.2 10^3/uL (0.0-0.5); EOS % 3.1 % (0.0-3.0); HEMATOCRIT 32.4 % (42.0-52.0); HEMOGLOBIN 10.8 g/dl (13.5-17.5); LYMPH # 0.7 10^3/uL (1.5-5.0); LYMPH % 8.9 % (24.0-44.0); MEAN CORPUSCULAR HEMOGLOBIN 33.5 pg (27.0-33.0); MEAN CORPUSCULAR HGB CONC 33.3 g/dl (32.0-36.5); MEAN CORPUSCULAR VOLUME 100.6 fl (80.0-96.0); MONO # 0.6 10^3/uL (0.0-0.8); MONO % 7.8 % (2.0-8.0); NEUTROPHILS # 6.1 10^3/uL (1.5-8.5); NEUTROPHILS % 79.7 % (36.0-66.0); PLATELET COUNT, AUTOMATED 140 10^3/uL (150-450); RED BLOOD COUNT 3.22 10^6/uL (4.30-6.10); WHITE BLOOD COUNT 7.7 10^3/uL (4.0-10.0)
== END ==
PROVIDERS: ATTEND Internal Medicine
DX: D64.9 Anemia, unspecified (principal)

== ENCOUNTER → 2024-09-19 | Outpatient (REF) | payer MEDICARE, MEDICAID ==
[2024-09-19 08:28] LABS: BASO % 0.3 % (0.0-1.0); EOS # 0.2 10^3/uL (0.0-0.5); EOS % 3.6 % (0.0-3.0); HEMATOCRIT 31.1 % (42.0-52.0); HEMOGLOBIN 10.4 g/dl (13.5-17.5); LYMPH # 0.8 10^3/uL (1.5-5.0); LYMPH % 12.9 % (24.0-44.0); MEAN CORPUSCULAR HEMOGLOBIN 33.7 pg (27.0-33.0); MEAN CORPUSCULAR HGB CONC 33.4 g/dl (32.0-36.5); MEAN CORPUSCULAR VOLUME 100.6 fl (80.0-96.0); MONO # 0.5 10^3/uL (0.0-0.8); MONO % 8.4 % (2.0-8.0); NEUTROPHILS # 4.5 10^3/uL (1.5-8.5); NEUTROPHILS % 74.5 % (36.0-66.0); PLATELET COUNT, AUTOMATED 106 10^3/uL (150-450); RED BLOOD COUNT 3.09 10^6/uL (4.30-6.10); WHITE BLOOD COUNT 6.1 10^3/uL (4.0-10.0)
== END ==
PROVIDERS: ATTEND Internal Medicine
DX: D64.9 Anemia, unspecified (principal)

== ENCOUNTER → 2024-09-26 | Outpatient (REF) | payer MEDICARE, MEDICAID ==
[2024-09-26 11:07] LABS: BASO % 0.5 % (0.0-1.0); EOS # 0.2 10^3/uL (0.0-0.5); EOS % 3.4 % (0.0-3.0); HEMATOCRIT 37.5 % (42.0-52.0); LYMPH # 0.6 10^3/uL (1.5-5.0); LYMPH % 9.8 % (24.0-44.0); MONO # 0.4 10^3/uL (0.0-0.8); MONO % 6.6 % (2.0-8.0); NEUTROPHILS # 5.2 10^3/uL (1.5-8.5); NEUTROPHILS % 79.2 % (36.0-66.0); PLATELET COUNT, AUTOMATED 147 10^3/uL (150-450); RED BLOOD COUNT 3.64 10^6/uL (4.30-6.10); WHITE BLOOD COUNT 6.6 10^3/uL (4.0-10.0)
[2024-09-26 11:35] LABS: ALBUMIN 3.9 G/DL (3.2-5.2); ALKALINE PHOSPHATASE 114 U/L (40-129); ALT/SGPT 20 U/L (7.0-40); AST/SGOT 13 U/L (<34); BILIRUBIN,TOTAL 1.2 MG/DL (0.3-1.2); BLOOD UREA NITROGEN 23 MG/DL (9-23); CALCIUM LEVEL 9.6 MG/DL (8.3-10.6); CARBON DIOXIDE LEVEL 30 MMOL/L (20-31); CHLORIDE LEVEL 103 MMOL/L (98-107); CREATININE FOR GFR 0.93 MG/DL (0.70-1.30); GLOMERULAR FILTRATION RATE > 60.0 (>35); GLUCOSE, FASTING 105 MG/DL (74-106); POTASSIUM SERUM 4.2 MMOL/L (3.5-5.1); SODIUM LEVEL 142 MMOL/L (136-145); TOTAL PROTEIN 6.4 G/DL (5.7-8.2)
== END ==
PROVIDERS: ATTEND Internal Medicine
DX: D64.9 Anemia, unspecified (principal)

== ENCOUNTER → 2024-10-03 | Outpatient (REF) | payer MEDICARE, MEDICAID ==
[~2024-10-03] MED LIST changes: -CYCL5TAB PO; +CYCL5TAB4 PO
[2024-10-03 09:16] LABS: BASO % 0.5 % (0.0-1.0); EOS # 0.2 10^3/uL (0.0-0.5); EOS % 3.3 % (0.0-3.0); HEMATOCRIT 34.6 % (42.0-52.0); HEMOGLOBIN 11.4 g/dl (13.5-17.5); LYMPH # 0.7 10^3/uL (1.5-5.0); LYMPH % 11.5 % (24.0-44.0); MEAN CORPUSCULAR HEMOGLOBIN 32.9 pg (27.0-33.0); MEAN CORPUSCULAR HGB CONC 32.9 g/dl (32.0-36.5); MONO # 0.5 10^3/uL (0.0-0.8); MONO % 8.1 % (2.0-8.0); NEUTROPHILS # 4.7 10^3/uL (1.5-8.5); NEUTROPHILS % 76.4 % (36.0-66.0); PLATELET COUNT, AUTOMATED 122 10^3/uL (150-450); RED BLOOD COUNT 3.46 10^6/uL (4.30-6.10); WHITE BLOOD COUNT 6.1 10^3/uL (4.0-10.0)
[2024-10-03 09:49] LABS: ALBUMIN 3.6 G/DL (3.2-5.2); ALKALINE PHOSPHATASE 108 U/L (40-129); ALT/SGPT 25 U/L (7.0-40); AST/SGOT 18 U/L (<34); BILIRUBIN,TOTAL 1.2 MG/DL (0.3-1.2); BLOOD UREA NITROGEN 20 MG/DL (9-23); CALCIUM LEVEL 8.8 MG/DL (8.3-10.6); CARBON DIOXIDE LEVEL 29 MMOL/L (20-31); CHLORIDE LEVEL 107 MMOL/L (98-107); CREATININE FOR GFR 0.79 MG/DL (0.70-1.30); GLOMERULAR FILTRATION RATE > 60.0 (>35); GLUCOSE, FASTING 81 MG/DL (74-106); SODIUM LEVEL 141 MMOL/L (136-145); TOTAL PROTEIN 6.1 G/DL (5.7-8.2)
== END ==
PROVIDERS: ATTEND Physician Assistant
DX: D64.9 Anemia, unspecified (principal)

== ENCOUNTER → 2024-10-10 | Outpatient (REF) | payer MEDICARE, MEDICAID ==
[2024-10-10 13:12] LABS: BASO % 0.4 % (0.0-1.0); EOS # 0.2 10^3/uL (0.0-0.5); EOS % 3.5 % (0.0-3.0); HEMATOCRIT 36.4 % (42.0-52.0); LYMPH # 0.8 10^3/uL (1.5-5.0); LYMPH % 10.9 % (24.0-44.0); MEAN CORPUSCULAR HEMOGLOBIN 32.6 pg (27.0-33.0); MEAN CORPUSCULAR VOLUME 98.9 fl (80.0-96.0); MONO # 0.5 10^3/uL (0.0-0.8); MONO % 6.8 % (2.0-8.0); NEUTROPHILS # 5.4 10^3/uL (1.5-8.5); NEUTROPHILS % 78.1 % (36.0-66.0); PLATELET COUNT, AUTOMATED 156 10^3/uL (150-450); RED BLOOD COUNT 3.68 10^6/uL (4.30-6.10); WHITE BLOOD COUNT 6.9 10^3/uL (4.0-10.0)
[2024-10-10 13:39] LABS: ALBUMIN 4.1 G/DL (3.2-5.2); ALKALINE PHOSPHATASE 125 U/L (40-129); ALT/SGPT 23 U/L (7.0-40); AST/SGOT 16 U/L (<34); BILIRUBIN,TOTAL 1.3 MG/DL (0.3-1.2); BLOOD UREA NITROGEN 23 MG/DL (9-23); CALCIUM LEVEL 9.3 MG/DL (8.3-10.6); CARBON DIOXIDE LEVEL 29 MMOL/L (20-31); CHLORIDE LEVEL 104 MMOL/L (98-107); CREATININE FOR GFR 0.92 MG/DL (0.70-1.30); GLOMERULAR FILTRATION RATE > 60.0 (>35); GLUCOSE, FASTING 112 MG/DL (74-106); POTASSIUM SERUM 4.1 MMOL/L (3.5-5.1); SODIUM LEVEL 142 MMOL/L (136-145); TOTAL PROTEIN 6.6 G/DL (5.7-8.2)
== END ==
PROVIDERS: ATTEND Physician Assistant
DX: D64.9 Anemia, unspecified (principal)

== ENCOUNTER → 2024-10-17 | Outpatient (REF) | payer MEDICARE, MEDICAID ==
[~2024-10-17] MED LIST changes: +DIGO0.123
[2024-10-17 09:34] LABS: BASO % 0.4 % (0.0-1.0); EOS # 0.2 10^3/uL (0.0-0.5); EOS % 3.6 % (0.0-3.0); HEMATOCRIT 30.3 % (42.0-52.0); HEMOGLOBIN 10.3 g/dl (13.5-17.5); LYMPH # 0.7 10^3/uL (1.5-5.0); LYMPH % 10.1 % (24.0-44.0); MEAN CORPUSCULAR HEMOGLOBIN 33.3 pg (27.0-33.0); MEAN CORPUSCULAR VOLUME 98.1 fl (80.0-96.0); MONO # 0.6 10^3/uL (0.0-0.8); MONO % 8.5 % (2.0-8.0); NEUTROPHILS # 5.2 10^3/uL (1.5-8.5); NEUTROPHILS % 77.1 % (36.0-66.0); PLATELET COUNT, AUTOMATED 121 10^3/uL (150-450); RED BLOOD COUNT 3.09 10^6/uL (4.30-6.10); WHITE BLOOD COUNT 6.7 10^3/uL (4.0-10.0)
[2024-10-17 10:02] LABS: ALBUMIN 3.5 G/DL (3.2-5.2); ALKALINE PHOSPHATASE 114 U/L (40-129); ALT/SGPT 18 U/L (7.0-40); AST/SGOT 10 U/L (<34); BILIRUBIN,TOTAL 1.1 MG/DL (0.3-1.2); BLOOD UREA NITROGEN 19 MG/DL (9-23); CALCIUM LEVEL 8.7 MG/DL (8.3-10.6); CARBON DIOXIDE LEVEL 29 MMOL/L (20-31); CHLORIDE LEVEL 105 MMOL/L (98-107); CREATININE FOR GFR 0.97 MG/DL (0.70-1.30); GLOMERULAR FILTRATION RATE > 60.0 (>35); GLUCOSE, FASTING 82 MG/DL (74-106); POTASSIUM SERUM 4.1 MMOL/L (3.5-5.1); SODIUM LEVEL 140 MMOL/L (136-145); TOTAL PROTEIN 5.9 G/DL (5.7-8.2)
== END ==
PROVIDERS: ATTEND Physician Assistant
DX: D64.9 Anemia, unspecified (principal)

== ENCOUNTER → 2024-10-24 | Outpatient (REF) | payer MEDICARE, MEDICAID ==
[2024-10-24 12:01] LABS: BASO % 0.4 % (0.0-1.0); EOS # 0.2 10^3/uL (0.0-0.5); HEMATOCRIT 34.3 % (42.0-52.0); HEMOGLOBIN 11.3 g/dl (13.5-17.5); LYMPH # 0.8 10^3/uL (1.5-5.0); LYMPH % 10.7 % (24.0-44.0); MEAN CORPUSCULAR HEMOGLOBIN 33.2 pg (27.0-33.0); MEAN CORPUSCULAR HGB CONC 32.9 g/dl (32.0-36.5); MEAN CORPUSCULAR VOLUME 100.9 fl (80.0-96.0); MONO # 0.5 10^3/uL (0.0-0.8); MONO % 7.4 % (2.0-8.0); NEUTROPHILS # 5.5 10^3/uL (1.5-8.5); NEUTROPHILS % 78.1 % (36.0-66.0); PLATELET COUNT, AUTOMATED 145 10^3/uL (150-450)
[2024-10-24 13:16] LABS: ALBUMIN 3.8 G/DL (3.2-5.2); ALKALINE PHOSPHATASE 121 U/L (40-129); ALT/SGPT 23 U/L (7.0-40); AST/SGOT 16 U/L (<34); BILIRUBIN,TOTAL 1.2 MG/DL (0.3-1.2); BLOOD UREA NITROGEN 20 MG/DL (9-23); CALCIUM LEVEL 8.8 MG/DL (8.3-10.6); CARBON DIOXIDE LEVEL 30 MMOL/L (20-31); CHLORIDE LEVEL 105 MMOL/L (98-107); CREATININE FOR GFR 0.91 MG/DL (0.70-1.30); GLOMERULAR FILTRATION RATE > 60.0 (>35); GLUCOSE, FASTING 85 MG/DL (74-106); SODIUM LEVEL 143 MMOL/L (136-145); TOTAL PROTEIN 6.2 G/DL (5.7-8.2)
== END ==
PROVIDERS: ATTEND Internal Medicine
DX: D64.9 Anemia, unspecified (principal); I48.91 Unspecified atrial fibrillation

== ENCOUNTER → 2024-10-31 | Outpatient (REF) | payer MEDICARE, MEDICAID | PROVIDERS: ATTEND Internal Medicine | DX: D64.9 Anemia, unspecified (principal); Z53.9 Procedure and treatment not carried out, unspecified reason ==

== ENCOUNTER → 2024-11-01 | Outpatient (REF) | payer MEDICARE, MEDICAID ==
[2024-11-01 10:28] LABS: BASO % 0.4 % (0.0-1.0); EOS # 0.2 10^3/uL (0.0-0.5); EOS % 3.6 % (0.0-3.0); HEMATOCRIT 29.8 % (42.0-52.0); HEMOGLOBIN 10.1 g/dl (13.5-17.5); LYMPH # 0.7 10^3/uL (1.5-5.0); LYMPH % 13.1 % (24.0-44.0); MEAN CORPUSCULAR HGB CONC 33.9 g/dl (32.0-36.5); MEAN CORPUSCULAR VOLUME 97.4 fl (80.0-96.0); MONO # 0.5 10^3/uL (0.0-0.8); MONO % 8.1 % (2.0-8.0); NEUTROPHILS # 4.2 10^3/uL (1.5-8.5); NEUTROPHILS % 74.4 % (36.0-66.0); PLATELET COUNT, AUTOMATED 120 10^3/uL (150-450); RED BLOOD COUNT 3.06 10^6/uL (4.30-6.10); WHITE BLOOD COUNT 5.6 10^3/uL (4.0-10.0)
[2024-11-01 10:56] LABS: ALBUMIN 3.4 G/DL (3.2-5.2); ALKALINE PHOSPHATASE 106 U/L (40-129); ALT/SGPT 14 U/L (7.0-40); AST/SGOT 16 U/L (<34); BILIRUBIN,TOTAL 1.2 MG/DL (0.3-1.2); BLOOD UREA NITROGEN 22 MG/DL (9-23); CALCIUM LEVEL 8.6 MG/DL (8.3-10.6); CARBON DIOXIDE LEVEL 29 MMOL/L (20-31); CHLORIDE LEVEL 106 MMOL/L (98-107); CREATININE FOR GFR 0.98 MG/DL (0.70-1.30); GLOMERULAR FILTRATION RATE > 60.0 (>35); GLUCOSE, FASTING 74 MG/DL (74-106); SODIUM LEVEL 142 MMOL/L (136-145); TOTAL PROTEIN 5.8 G/DL (5.7-8.2)
== END ==
PROVIDERS: ATTEND Physician Assistant
DX: D64.9 Anemia, unspecified (principal)

== ENCOUNTER → 2024-11-14 | Outpatient (REF) | payer MEDICARE, MEDICAID ==
[2024-11-14 09:41] LABS: BASO % 0.5 % (0.0-1.0); EOS # 0.2 10^3/uL (0.0-0.5); EOS % 3.9 % (0.0-3.0); HEMATOCRIT 34.7 % (42.0-52.0); HEMOGLOBIN 11.5 g/dl (13.5-17.5); LYMPH # 0.8 10^3/uL (1.5-5.0); LYMPH % 12.5 % (24.0-44.0); MEAN CORPUSCULAR HEMOGLOBIN 33.7 pg (27.0-33.0); MEAN CORPUSCULAR HGB CONC 33.1 g/dl (32.0-36.5); MEAN CORPUSCULAR VOLUME 101.8 fl (80.0-96.0); MONO # 0.4 10^3/uL (0.0-0.8); MONO % 7.2 % (2.0-8.0); NEUTROPHILS # 4.7 10^3/uL (1.5-8.5); NEUTROPHILS % 75.7 % (36.0-66.0); PLATELET COUNT, AUTOMATED 129 10^3/uL (150-450); RED BLOOD COUNT 3.41 10^6/uL (4.30-6.10); WHITE BLOOD COUNT 6.2 10^3/uL (4.0-10.0)
[2024-11-14 10:12] LABS: ALBUMIN 3.6 G/DL (3.2-5.2); ALKALINE PHOSPHATASE 114 U/L (40-129); ALT/SGPT 18 U/L (7.0-40); AST/SGOT 15 U/L (<34); BILIRUBIN,TOTAL 1.2 MG/DL (0.3-1.2); BLOOD UREA NITROGEN 19 MG/DL (9-23); CARBON DIOXIDE LEVEL 28 MMOL/L (20-31); CHLORIDE LEVEL 106 MMOL/L (98-107); CREATININE FOR GFR 0.93 MG/DL (0.70-1.30); GLOMERULAR FILTRATION RATE > 60.0 (>35); GLUCOSE, FASTING 97 MG/DL (74-106); POTASSIUM SERUM 3.9 MMOL/L (3.5-5.1); SODIUM LEVEL 144 MMOL/L (136-145); TOTAL PROTEIN 5.9 G/DL (5.7-8.2)
== END ==
PROVIDERS: ATTEND Internal Medicine
DX: D64.9 Anemia, unspecified (principal)

== ENCOUNTER → 2024-11-21 | Outpatient (REF) | payer MEDICARE, MEDICAID ==
[2024-11-21 10:22] LABS: BASO % 0.4 % (0.0-1.0); EOS # 0.2 10^3/uL (0.0-0.5); EOS % 3.4 % (0.0-3.0); HEMATOCRIT 32.5 % (42.0-52.0); HEMOGLOBIN 10.5 g/dl (13.5-17.5); LYMPH # 0.7 10^3/uL (1.5-5.0); LYMPH % 10.7 % (24.0-44.0); MEAN CORPUSCULAR HEMOGLOBIN 32.8 pg (27.0-33.0); MEAN CORPUSCULAR HGB CONC 32.3 g/dl (32.0-36.5); MEAN CORPUSCULAR VOLUME 101.6 fl (80.0-96.0); MONO # 0.6 10^3/uL (0.0-0.8); MONO % 8.5 % (2.0-8.0); NEUTROPHILS # 5.1 10^3/uL (1.5-8.5); NEUTROPHILS % 76.7 % (36.0-66.0); PLATELET COUNT, AUTOMATED 126 10^3/uL (150-450); WHITE BLOOD COUNT 6.7 10^3/uL (4.0-10.0)
[2024-11-21 10:53] LABS: ALBUMIN 3.6 G/DL (3.2-5.2); ALKALINE PHOSPHATASE 102 U/L (40-129); ALT/SGPT 16 U/L (7.0-40); AST/SGOT 14 U/L (<34); BLOOD UREA NITROGEN 22 MG/DL (9-23); CALCIUM LEVEL 8.8 MG/DL (8.3-10.6); CARBON DIOXIDE LEVEL 28 MMOL/L (20-31); CHLORIDE LEVEL 106 MMOL/L (98-107); CREATININE FOR GFR 1.03 MG/DL (0.70-1.30); GLOMERULAR FILTRATION RATE > 60.0 (>35); GLUCOSE, FASTING 94 MG/DL (74-106); SODIUM LEVEL 144 MMOL/L (136-145); TOTAL PROTEIN 5.5 G/DL (5.7-8.2)
== END ==
PROVIDERS: ATTEND Internal Medicine
DX: D64.9 Anemia, unspecified (principal)

== ENCOUNTER → 2024-11-28 | Outpatient (REF) | payer MEDICARE, MEDICAID ==
[2024-11-28 11:20] LABS: BASO % 0.5 % (0.0-1.0); EOS # 0.2 10^3/uL (0.0-0.5); EOS % 3.8 % (0.0-3.0); HEMATOCRIT 31.3 % (42.0-52.0); HEMOGLOBIN 10.4 g/dl (13.5-17.5); LYMPH # 0.6 10^3/uL (1.5-5.0); LYMPH % 9.9 % (24.0-44.0); MEAN CORPUSCULAR HEMOGLOBIN 33.1 pg (27.0-33.0); MEAN CORPUSCULAR HGB CONC 33.2 g/dl (32.0-36.5); MEAN CORPUSCULAR VOLUME 99.7 fl (80.0-96.0); MONO # 0.5 10^3/uL (0.0-0.8); MONO % 7.9 % (2.0-8.0); NEUTROPHILS # 4.8 10^3/uL (1.5-8.5); NEUTROPHILS % 77.4 % (36.0-66.0); PLATELET COUNT, AUTOMATED 133 10^3/uL (150-450); RED BLOOD COUNT 3.14 10^6/uL (4.30-6.10); WHITE BLOOD COUNT 6.2 10^3/uL (4.0-10.0)
[2024-11-28 11:44] LABS: DIGOXIN LEVEL 0.6 NG/ML (0.8-2.0)
[2024-11-28 11:45] LABS: ALBUMIN 3.5 G/DL (3.2-5.2); ALKALINE PHOSPHATASE 109 U/L (40-129); ALT/SGPT 17 U/L (7.0-40); AST/SGOT 15 U/L (<34); BLOOD UREA NITROGEN 22 MG/DL (9-23); CALCIUM LEVEL 8.9 MG/DL (8.3-10.6); CARBON DIOXIDE LEVEL 28 MMOL/L (20-31); CHLORIDE LEVEL 106 MMOL/L (98-107); CREATININE FOR GFR 0.91 MG/DL (0.70-1.30); GLOMERULAR FILTRATION RATE > 60.0 (>35); GLUCOSE, FASTING 126 MG/DL (74-106); SODIUM LEVEL 143 MMOL/L (136-145); TOTAL PROTEIN 5.5 G/DL (5.7-8.2)
== END ==
PROVIDERS: ATTEND Internal Medicine
DX: D64.9 Anemia, unspecified (principal); Z79.899 Other long term (current) drug therapy

== ENCOUNTER → 2024-12-05 | Outpatient (REF) | payer MEDICARE, MEDICAID ==
[2024-12-05 10:41] LABS: BASO % 0.5 % (0.0-1.0); EOS # 0.2 10^3/uL (0.0-0.5); EOS % 3.2 % (0.0-3.0); HEMATOCRIT 32.5 % (42.0-52.0); HEMOGLOBIN 10.6 g/dl (13.5-17.5); LYMPH # 0.7 10^3/uL (1.5-5.0); LYMPH % 10.6 % (24.0-44.0); MEAN CORPUSCULAR HEMOGLOBIN 33.2 pg (27.0-33.0); MEAN CORPUSCULAR HGB CONC 32.6 g/dl (32.0-36.5); MEAN CORPUSCULAR VOLUME 101.9 fl (80.0-96.0); MONO # 0.6 10^3/uL (0.0-0.8); MONO % 9.3 % (2.0-8.0); NEUTROPHILS # 4.9 10^3/uL (1.5-8.5); NEUTROPHILS % 76.2 % (36.0-66.0); PLATELET COUNT, AUTOMATED 126 10^3/uL (150-450); RED BLOOD COUNT 3.19 10^6/uL (4.30-6.10); WHITE BLOOD COUNT 6.5 10^3/uL (4.0-10.0)
[2024-12-05 11:05] LABS: ALBUMIN 3.7 G/DL (3.2-5.2); ALKALINE PHOSPHATASE 114 U/L (40-129); ALT/SGPT 18 U/L (7.0-40); AST/SGOT 14 U/L (<34); BILIRUBIN,TOTAL 1.1 MG/DL (0.3-1.2); BLOOD UREA NITROGEN 24 MG/DL (9-23); CALCIUM LEVEL 8.7 MG/DL (8.3-10.6); CARBON DIOXIDE LEVEL 29 MMOL/L (20-31); CHLORIDE LEVEL 106 MMOL/L (98-107); CREATININE FOR GFR 0.94 MG/DL (0.70-1.30); GLOMERULAR FILTRATION RATE > 60.0 (>35); GLUCOSE, FASTING 102 MG/DL (74-106); SODIUM LEVEL 144 MMOL/L (136-145); TOTAL PROTEIN 5.8 G/DL (5.7-8.2)
== END ==
PROVIDERS: ATTEND Internal Medicine
DX: D64.9 Anemia, unspecified (principal)

== ENCOUNTER → 2024-12-06 | Outpatient (CLI) | payer MEDICARE, MEDICAID | LOC: M ONCR 13:06 | PROVIDERS: ATTEND General Practice | DX: Z08 Encounter for follow-up examination after completed treatment for malignant neoplasm (principal); Z85.828 Personal history of other malignant neoplasm of skin; H01.005 Unspecified blepharitis left lower eyelid; Z92.3 Personal history of irradiation ==

== ENCOUNTER → 2024-12-12 | Outpatient (REF) | payer MEDICARE, MEDICAID ==
[2024-12-12 12:01] LABS: BASO % 0.3 % (0.0-1.0); EOS # 0.2 10^3/uL (0.0-0.5); EOS % 3.1 % (0.0-3.0); HEMATOCRIT 34.3 % (42.0-52.0); HEMOGLOBIN 11.4 g/dl (13.5-17.5); LYMPH # 0.7 10^3/uL (1.5-5.0); LYMPH % 9.7 % (24.0-44.0); MEAN CORPUSCULAR HEMOGLOBIN 33.7 pg (27.0-33.0); MEAN CORPUSCULAR HGB CONC 33.2 g/dl (32.0-36.5); MEAN CORPUSCULAR VOLUME 101.5 fl (80.0-96.0); MONO # 0.5 10^3/uL (0.0-0.8); MONO % 7.9 % (2.0-8.0); NEUTROPHILS # 5.1 10^3/uL (1.5-8.5); NEUTROPHILS % 76.9 % (36.0-66.0); PLATELET COUNT, AUTOMATED 136 10^3/uL (150-450); RED BLOOD COUNT 3.38 10^6/uL (4.30-6.10); WHITE BLOOD COUNT 6.7 10^3/uL (4.0-10.0)
[2024-12-12 12:27] LABS: ALBUMIN 3.8 G/DL (3.2-5.2); ALKALINE PHOSPHATASE 121 U/L (40-129); ALT/SGPT 19 U/L (7.0-40); AST/SGOT 13 U/L (<34); BILIRUBIN,TOTAL 1.3 MG/DL (0.3-1.2); BLOOD UREA NITROGEN 20 MG/DL (9-23); CALCIUM LEVEL 8.7 MG/DL (8.3-10.6); CARBON DIOXIDE LEVEL 31 MMOL/L (20-31); CHLORIDE LEVEL 106 MMOL/L (98-107); CREATININE FOR GFR 0.98 MG/DL (0.70-1.30); GLOMERULAR FILTRATION RATE > 60.0 (>35); GLUCOSE, FASTING 71 MG/DL (74-106); POTASSIUM SERUM 3.9 MMOL/L (3.5-5.1); SODIUM LEVEL 143 MMOL/L (136-145); TOTAL PROTEIN 6.2 G/DL (5.7-8.2)
== END ==
PROVIDERS: ATTEND Internal Medicine
DX: D64.9 Anemia, unspecified (principal)

== ENCOUNTER → 2024-12-19 | Outpatient (REF) | payer MEDICARE, MEDICAID ==
[2024-12-19 10:50] LABS: BASO % 0.5 % (0.0-1.0); EOS # 0.2 10^3/uL (0.0-0.5); EOS % 3.4 % (0.0-3.0); HEMATOCRIT 31.1 % (42.0-52.0); HEMOGLOBIN 10.2 g/dl (13.5-17.5); LYMPH # 0.7 10^3/uL (1.5-5.0); MEAN CORPUSCULAR HEMOGLOBIN 32.4 pg (27.0-33.0); MEAN CORPUSCULAR HGB CONC 32.8 g/dl (32.0-36.5); MEAN CORPUSCULAR VOLUME 98.7 fl (80.0-96.0); MONO # 0.5 10^3/uL (0.0-0.8); MONO % 8.9 % (2.0-8.0); NEUTROPHILS # 4.1 10^3/uL (1.5-8.5); PLATELET COUNT, AUTOMATED 123 10^3/uL (150-450); RED BLOOD COUNT 3.15 10^6/uL (4.30-6.10); WHITE BLOOD COUNT 5.5 10^3/uL (4.0-10.0)
[2024-12-19 11:23] LABS: ALBUMIN 3.5 G/DL (3.2-5.2); ALKALINE PHOSPHATASE 105 U/L (40-129); ALT/SGPT 17 U/L (7.0-40); AST/SGOT 12 U/L (<34); BLOOD UREA NITROGEN 22 MG/DL (9-23); CALCIUM LEVEL 8.4 MG/DL (8.3-10.6); CARBON DIOXIDE LEVEL 30 MMOL/L (20-31); CHLORIDE LEVEL 103 MMOL/L (98-107); CREATININE FOR GFR 0.92 MG/DL (0.70-1.30); GLOMERULAR FILTRATION RATE > 60.0 (>35); GLUCOSE, FASTING 78 MG/DL (74-106); SODIUM LEVEL 143 MMOL/L (136-145); TOTAL PROTEIN 5.6 G/DL (5.7-8.2)
== END ==
PROVIDERS: ATTEND Internal Medicine
DX: D64.9 Anemia, unspecified (principal)

== ENCOUNTER → 2024-12-26 | Outpatient (REF) | payer MEDICARE, MEDICAID ==
[2024-12-26 10:15] LABS: BASO % 0.4 % (0.0-1.0); EOS # 0.2 10^3/uL (0.0-0.5); EOS % 2.7 % (0.0-3.0); HEMATOCRIT 33.8 % (42.0-52.0); HEMOGLOBIN 11.3 g/dl (13.5-17.5); LYMPH # 0.9 10^3/uL (1.5-5.0); LYMPH % 13.7 % (24.0-44.0); MEAN CORPUSCULAR HEMOGLOBIN 33.5 pg (27.0-33.0); MEAN CORPUSCULAR HGB CONC 33.4 g/dl (32.0-36.5); MEAN CORPUSCULAR VOLUME 100.3 fl (80.0-96.0); MONO # 0.5 10^3/uL (0.0-0.8); MONO % 6.9 % (2.0-8.0); NEUTROPHILS # 5.1 10^3/uL (1.5-8.5); NEUTROPHILS % 76.2 % (36.0-66.0); PLATELET COUNT, AUTOMATED 154 10^3/uL (150-450); RED BLOOD COUNT 3.37 10^6/uL (4.30-6.10); WHITE BLOOD COUNT 6.7 10^3/uL (4.0-10.0)
[2024-12-26 10:50] LABS: ALBUMIN 3.8 G/DL (3.2-5.2); ALKALINE PHOSPHATASE 118 U/L (40-129); ALT/SGPT 22 U/L (7.0-40); AST/SGOT 19 U/L (<34); BILIRUBIN,TOTAL 1.1 MG/DL (0.3-1.2); BLOOD UREA NITROGEN 20 MG/DL (9-23); CALCIUM LEVEL 9.2 MG/DL (8.3-10.6); CARBON DIOXIDE LEVEL 31 MMOL/L (20-31); CHLORIDE LEVEL 106 MMOL/L (98-107); CREATININE FOR GFR 0.98 MG/DL (0.70-1.30); GLOMERULAR FILTRATION RATE > 60.0 (>35); GLUCOSE, FASTING 85 MG/DL (74-106); POTASSIUM SERUM 4.1 MMOL/L (3.5-5.1); SODIUM LEVEL 144 MMOL/L (136-145); TOTAL PROTEIN 6.3 G/DL (5.7-8.2)
== END ==
PROVIDERS: ATTEND Internal Medicine
DX: D64.9 Anemia, unspecified (principal)

== ENCOUNTER → 2025-01-02 | Outpatient (REF) | payer MEDICARE, MEDICAID ==
[2025-01-02 08:05] LABS: BASO % 0.5 % (0.0-1.0); EOS # 0.2 10^3/uL (0.0-0.5); HEMATOCRIT 30.9 % (42.0-52.0); HEMOGLOBIN 10.3 g/dl (13.5-17.5); LYMPH # 0.8 10^3/uL (1.5-5.0); LYMPH % 12.3 % (24.0-44.0); MEAN CORPUSCULAR HEMOGLOBIN 33.3 pg (27.0-33.0); MEAN CORPUSCULAR HGB CONC 33.3 g/dl (32.0-36.5); MONO # 0.5 10^3/uL (0.0-0.8); MONO % 7.5 % (2.0-8.0); NEUTROPHILS # 4.7 10^3/uL (1.5-8.5); NEUTROPHILS % 76.5 % (36.0-66.0); PLATELET COUNT, AUTOMATED 104 10^3/uL (150-450); RED BLOOD COUNT 3.09 10^6/uL (4.30-6.10); WHITE BLOOD COUNT 6.1 10^3/uL (4.0-10.0)
[2025-01-02 08:31] LABS: ALBUMIN 3.4 G/DL (3.2-5.2); ALKALINE PHOSPHATASE 102 U/L (40-129); ALT/SGPT 20 U/L (7.0-40); AST/SGOT 15 U/L (<34); BILIRUBIN,TOTAL 1.1 MG/DL (0.3-1.2); BLOOD UREA NITROGEN 22 MG/DL (9-23); CALCIUM LEVEL 8.4 MG/DL (8.3-10.6); CARBON DIOXIDE LEVEL 30 MMOL/L (20-31); CHLORIDE LEVEL 105 MMOL/L (98-107); CREATININE FOR GFR 0.97 MG/DL (0.70-1.30); GLOMERULAR FILTRATION RATE > 60.0 (>35); GLUCOSE, FASTING 83 MG/DL (74-106); SODIUM LEVEL 142 MMOL/L (136-145); TOTAL PROTEIN 5.5 G/DL (5.7-8.2)
== END ==
PROVIDERS: ATTEND Internal Medicine
DX: D64.9 Anemia, unspecified (principal)

== ENCOUNTER → 2025-01-09 | Outpatient (REF) | payer MEDICARE, MEDICAID ==
[2025-01-09 09:52] LABS: BASO % 0.5 % (0.0-1.0); EOS # 0.2 10^3/uL (0.0-0.5); EOS % 3.3 % (0.0-3.0); HEMATOCRIT 32.4 % (42.0-52.0); HEMOGLOBIN 10.6 g/dl (13.5-17.5); LYMPH # 0.6 10^3/uL (1.5-5.0); LYMPH % 10.7 % (24.0-44.0); MEAN CORPUSCULAR HEMOGLOBIN 32.5 pg (27.0-33.0); MEAN CORPUSCULAR HGB CONC 32.7 g/dl (32.0-36.5); MEAN CORPUSCULAR VOLUME 99.4 fl (80.0-96.0); MONO # 0.5 10^3/uL (0.0-0.8); MONO % 7.7 % (2.0-8.0); NEUTROPHILS # 4.5 10^3/uL (1.5-8.5); NEUTROPHILS % 77.3 % (36.0-66.0); PLATELET COUNT, AUTOMATED 130 10^3/uL (150-450); RED BLOOD COUNT 3.26 10^6/uL (4.30-6.10); WHITE BLOOD COUNT 5.8 10^3/uL (4.0-10.0)
[2025-01-09 10:23] LABS: ALBUMIN 3.5 G/DL (3.2-5.2); ALKALINE PHOSPHATASE 107 U/L (40-129); ALT/SGPT 17 U/L (7.0-40); AST/SGOT 12 U/L (<34); BILIRUBIN,TOTAL 0.9 MG/DL (0.3-1.2); BLOOD UREA NITROGEN 21 MG/DL (9-23); CALCIUM LEVEL 8.8 MG/DL (8.3-10.6); CARBON DIOXIDE LEVEL 28 MMOL/L (20-31); CHLORIDE LEVEL 106 MMOL/L (98-107); GLOMERULAR FILTRATION RATE > 60.0 (>35); GLUCOSE, FASTING 89 MG/DL (74-106); SODIUM LEVEL 143 MMOL/L (136-145); TOTAL PROTEIN 5.8 G/DL (5.7-8.2)
== END ==
PROVIDERS: ATTEND Internal Medicine
DX: D64.9 Anemia, unspecified (principal)

== ENCOUNTER → 2025-01-16 | Outpatient (REF) | payer MEDICARE, MEDICAID ==
[2025-01-16 09:27] LABS: BASO % 0.4 % (0.0-1.0); EOS # 0.2 10^3/uL (0.0-0.5); HEMATOCRIT 36.3 % (42.0-52.0); HEMOGLOBIN 11.9 g/dl (13.5-17.5); LYMPH # 0.9 10^3/uL (1.5-5.0); LYMPH % 12.3 % (24.0-44.0); MEAN CORPUSCULAR HEMOGLOBIN 32.8 pg (27.0-33.0); MEAN CORPUSCULAR HGB CONC 32.8 g/dl (32.0-36.5); MONO # 0.5 10^3/uL (0.0-0.8); MONO % 7.6 % (2.0-8.0); NEUTROPHILS # 5.4 10^3/uL (1.5-8.5); NEUTROPHILS % 76.3 % (36.0-66.0); PLATELET COUNT, AUTOMATED 150 10^3/uL (150-450); RED BLOOD COUNT 3.63 10^6/uL (4.30-6.10)
[2025-01-16 09:47] LABS: ALBUMIN 3.9 G/DL (3.2-5.2); ALKALINE PHOSPHATASE 123 U/L (40-129); ALT/SGPT 16 U/L (7.0-40); AST/SGOT 15 U/L (<34); BILIRUBIN,TOTAL 1.4 MG/DL (0.3-1.2); BLOOD UREA NITROGEN 19 MG/DL (9-23); CALCIUM LEVEL 8.9 MG/DL (8.3-10.6); CARBON DIOXIDE LEVEL 27 MMOL/L (20-31); CHLORIDE LEVEL 105 MMOL/L (98-107); GLOMERULAR FILTRATION RATE > 60.0 (>35); GLUCOSE, FASTING 124 MG/DL (74-106); SODIUM LEVEL 143 MMOL/L (136-145); TOTAL PROTEIN 6.5 G/DL (5.7-8.2)
== END ==
PROVIDERS: ATTEND Physician Assistant
DX: D64.9 Anemia, unspecified (principal)

== ENCOUNTER → 2025-01-23 | Outpatient (REF) | payer MEDICARE, MEDICAID ==
[2025-01-23 11:45] LABS: BASO % 0.5 % (0.0-1.0); EOS # 0.2 10^3/uL (0.0-0.5); HEMATOCRIT 33.3 % (42.0-52.0); HEMOGLOBIN 10.9 g/dl (13.5-17.5); LYMPH # 0.6 10^3/uL (1.5-5.0); LYMPH % 10.5 % (24.0-44.0); MEAN CORPUSCULAR HEMOGLOBIN 32.8 pg (27.0-33.0); MEAN CORPUSCULAR HGB CONC 32.7 g/dl (32.0-36.5); MEAN CORPUSCULAR VOLUME 100.3 fl (80.0-96.0); MONO # 0.4 10^3/uL (0.0-0.8); MONO % 6.8 % (2.0-8.0); NEUTROPHILS # 4.8 10^3/uL (1.5-8.5); NEUTROPHILS % 78.7 % (36.0-66.0); PLATELET COUNT, AUTOMATED 128 10^3/uL (150-450); RED BLOOD COUNT 3.32 10^6/uL (4.30-6.10); WHITE BLOOD COUNT 6.1 10^3/uL (4.0-10.0)
[2025-01-23 12:20] LABS: ALBUMIN 3.6 G/DL (3.2-5.2); ALKALINE PHOSPHATASE 116 U/L (40-129); ALT/SGPT 20 U/L (7.0-40); AST/SGOT 13 U/L (<34); BLOOD UREA NITROGEN 21 MG/DL (9-23); CALCIUM LEVEL 8.6 MG/DL (8.3-10.6); CARBON DIOXIDE LEVEL 31 MMOL/L (20-31); CHLORIDE LEVEL 107 MMOL/L (98-107); CREATININE FOR GFR 0.96 MG/DL (0.70-1.30); GLOMERULAR FILTRATION RATE > 60.0 (>35); GLUCOSE, FASTING 107 MG/DL (74-106); POTASSIUM SERUM 3.8 MMOL/L (3.5-5.1); SODIUM LEVEL 146 MMOL/L (136-145)
== END ==
PROVIDERS: ATTEND Internal Medicine
DX: D64.9 Anemia, unspecified (principal)

== ENCOUNTER → 2025-01-30 | Outpatient (REF) | payer MEDICARE, MEDICAID ==
[2025-01-30 09:16] LABS: BASO % 0.5 % (0.0-1.0); EOS # 0.2 10^3/uL (0.0-0.5); EOS % 3.2 % (0.0-3.0); HEMATOCRIT 30.9 % (42.0-52.0); HEMOGLOBIN 10.4 g/dl (13.5-17.5); LYMPH # 0.7 10^3/uL (1.5-5.0); LYMPH % 8.9 % (24.0-44.0); MEAN CORPUSCULAR HEMOGLOBIN 34.1 pg (27.0-33.0); MEAN CORPUSCULAR HGB CONC 33.7 g/dl (32.0-36.5); MEAN CORPUSCULAR VOLUME 101.3 fl (80.0-96.0); MONO # 0.6 10^3/uL (0.0-0.8); MONO % 7.8 % (2.0-8.0); NEUTROPHILS # 5.9 10^3/uL (1.5-8.5); NEUTROPHILS % 79.2 % (36.0-66.0); PLATELET COUNT, AUTOMATED 141 10^3/uL (150-450); RED BLOOD COUNT 3.05 10^6/uL (4.30-6.10); WHITE BLOOD COUNT 7.4 10^3/uL (4.0-10.0)
[2025-01-30 09:29] LABS: ALBUMIN 3.6 G/DL (3.2-5.2); ALKALINE PHOSPHATASE 109 U/L (40-129); ALT/SGPT 18 U/L (7.0-40); AST/SGOT 14 U/L (<34); BILIRUBIN,TOTAL 1.1 MG/DL (0.3-1.2); BLOOD UREA NITROGEN 19 MG/DL (9-23); CALCIUM LEVEL 8.9 MG/DL (8.3-10.6); CARBON DIOXIDE LEVEL 28 MMOL/L (20-31); CHLORIDE LEVEL 105 MMOL/L (98-107); CREATININE FOR GFR 0.95 MG/DL (0.70-1.30); GLOMERULAR FILTRATION RATE > 60.0 (>35); GLUCOSE, FASTING 95 MG/DL (74-106); POTASSIUM SERUM 4.1 MMOL/L (3.5-5.1); SODIUM LEVEL 144 MMOL/L (136-145); TOTAL PROTEIN 5.8 G/DL (5.7-8.2)
== END ==
PROVIDERS: ATTEND Internal Medicine
DX: D64.9 Anemia, unspecified (principal)

== ENCOUNTER → 2025-02-06 | Outpatient (REF) | payer MEDICARE, MEDICAID ==
[2025-02-06 07:31] LABS: BASO % 0.5 % (0.0-1.0); EOS # 0.2 10^3/uL (0.0-0.5); EOS % 3.3 % (0.0-3.0); HEMATOCRIT 31.5 % (42.0-52.0); HEMOGLOBIN 10.2 g/dl (13.5-17.5); LYMPH # 0.6 10^3/uL (1.5-5.0); MEAN CORPUSCULAR HEMOGLOBIN 32.3 pg (27.0-33.0); MEAN CORPUSCULAR HGB CONC 32.4 g/dl (32.0-36.5); MEAN CORPUSCULAR VOLUME 99.7 fl (80.0-96.0); MONO # 0.5 10^3/uL (0.0-0.8); MONO % 8.4 % (2.0-8.0); NEUTROPHILS # 4.9 10^3/uL (1.5-8.5); NEUTROPHILS % 77.6 % (36.0-66.0); PLATELET COUNT, AUTOMATED 131 10^3/uL (150-450); RED BLOOD COUNT 3.16 10^6/uL (4.30-6.10); WHITE BLOOD COUNT 6.3 10^3/uL (4.0-10.0)
[2025-02-06 07:50] LABS: ALBUMIN 3.5 G/DL (3.2-5.2); ALKALINE PHOSPHATASE 108 U/L (40-129); ALT/SGPT 15 U/L (7.0-40); AST/SGOT 11 U/L (<34); BILIRUBIN,TOTAL 1.2 MG/DL (0.3-1.2); BLOOD UREA NITROGEN 22 MG/DL (9-23); CALCIUM LEVEL 8.4 MG/DL (8.3-10.6); CARBON DIOXIDE LEVEL 28 MMOL/L (20-31); CHLORIDE LEVEL 107 MMOL/L (98-107); CREATININE FOR GFR 0.97 MG/DL (0.70-1.30); GLOMERULAR FILTRATION RATE > 60.0 (>35); GLUCOSE, FASTING 88 MG/DL (74-106); SODIUM LEVEL 143 MMOL/L (136-145); TOTAL PROTEIN 5.7 G/DL (5.7-8.2)
== END ==
PROVIDERS: ATTEND Internal Medicine
DX: D64.9 Anemia, unspecified (principal)

== ENCOUNTER → 2025-02-13 | Outpatient (REF) | payer MEDICARE, MEDICAID ==
[2025-02-13 15:52] LABS: BASO % 0.4 % (0.0-1.0); EOS # 0.2 10^3/uL (0.0-0.5); EOS % 2.1 % (0.0-3.0); HEMATOCRIT 35.3 % (42.0-52.0); HEMOGLOBIN 11.8 g/dl (13.5-17.5); LYMPH # 0.7 10^3/uL (1.5-5.0); LYMPH % 9.5 % (24.0-44.0); MEAN CORPUSCULAR HEMOGLOBIN 33.5 pg (27.0-33.0); MEAN CORPUSCULAR HGB CONC 33.4 g/dl (32.0-36.5); MEAN CORPUSCULAR VOLUME 100.3 fl (80.0-96.0); MONO # 0.6 10^3/uL (0.0-0.8); MONO % 7.3 % (2.0-8.0); NEUTROPHILS # 6.1 10^3/uL (1.5-8.5); NEUTROPHILS % 80.3 % (36.0-66.0); PLATELET COUNT, AUTOMATED 138 10^3/uL (150-450); RED BLOOD COUNT 3.52 10^6/uL (4.30-6.10); WHITE BLOOD COUNT 7.5 10^3/uL (4.0-10.0)
[2025-02-13 16:25] LABS: ALKALINE PHOSPHATASE 126 U/L (40-129); ALT/SGPT 18 U/L (7.0-40); AST/SGOT 16 U/L (<34); BILIRUBIN,TOTAL 1.2 MG/DL (0.3-1.2); BLOOD UREA NITROGEN 22 MG/DL (9-23); CARBON DIOXIDE LEVEL 28 MMOL/L (20-31); CHLORIDE LEVEL 102 MMOL/L (98-107); CREATININE FOR GFR 0.95 MG/DL (0.70-1.30); GLOMERULAR FILTRATION RATE > 60.0 (>35); GLUCOSE, FASTING 139 MG/DL (74-106); SODIUM LEVEL 141 MMOL/L (136-145); TOTAL PROTEIN 6.5 G/DL (5.7-8.2)
== END ==
PROVIDERS: ATTEND Internal Medicine
DX: D64.9 Anemia, unspecified (principal)

== ENCOUNTER → 2025-02-20 | Outpatient (REF) | payer MEDICARE, MEDICAID ==
[2025-02-20 10:11] LABS: BASO % 0.3 % (0.0-1.0); EOS # 0.2 10^3/uL (0.0-0.5); EOS % 3.8 % (0.0-3.0); HEMATOCRIT 31.9 % (42.0-52.0); LYMPH # 0.8 10^3/uL (1.5-5.0); MEAN CORPUSCULAR HGB CONC 34.5 g/dl (32.0-36.5); MEAN CORPUSCULAR VOLUME 98.5 fl (80.0-96.0); MONO # 0.5 10^3/uL (0.0-0.8); MONO % 8.4 % (2.0-8.0); NEUTROPHILS # 4.3 10^3/uL (1.5-8.5); PLATELET COUNT, AUTOMATED 118 10^3/uL (150-450); RED BLOOD COUNT 3.24 10^6/uL (4.30-6.10); WHITE BLOOD COUNT 5.9 10^3/uL (4.0-10.0)
[2025-02-20 10:37] LABS: ALBUMIN 3.5 G/DL (3.2-5.2); ALKALINE PHOSPHATASE 102 U/L (40-129); ALT/SGPT 22 U/L (7.0-40); AST/SGOT 15 U/L (<34); BILIRUBIN,TOTAL 0.8 MG/DL (0.3-1.2); BLOOD UREA NITROGEN 24 MG/DL (9-23); CALCIUM LEVEL 8.9 MG/DL (8.3-10.6); CARBON DIOXIDE LEVEL 30 MMOL/L (20-31); CHLORIDE LEVEL 107 MMOL/L (98-107); CREATININE FOR GFR 0.84 MG/DL (0.70-1.30); GLOMERULAR FILTRATION RATE > 60.0 (>35); GLUCOSE, FASTING 91 MG/DL (74-106); POTASSIUM SERUM 4.1 MMOL/L (3.5-5.1); SODIUM LEVEL 143 MMOL/L (136-145); TOTAL PROTEIN 5.7 G/DL (5.7-8.2)
== END ==
PROVIDERS: ATTEND Internal Medicine
DX: D64.9 Anemia, unspecified (principal)

== ENCOUNTER → 2025-02-27 | Outpatient (REF) | payer MEDICARE, MEDICAID ==
[2025-02-27 10:28] LABS: BASO % 0.6 % (0.0-1.0); EOS # 0.2 10^3/uL (0.0-0.5); HEMATOCRIT 32.3 % (42.0-52.0); HEMOGLOBIN 10.5 g/dl (13.5-17.5); LYMPH # 0.6 10^3/uL (1.5-5.0); LYMPH % 10.2 % (24.0-44.0); MEAN CORPUSCULAR HEMOGLOBIN 32.1 pg (27.0-33.0); MEAN CORPUSCULAR HGB CONC 32.5 g/dl (32.0-36.5); MEAN CORPUSCULAR VOLUME 98.8 fl (80.0-96.0); MONO # 0.5 10^3/uL (0.0-0.8); MONO % 8.1 % (2.0-8.0); NEUTROPHILS # 4.9 10^3/uL (1.5-8.5); NEUTROPHILS % 77.8 % (36.0-66.0); PLATELET COUNT, AUTOMATED 137 10^3/uL (150-450); RED BLOOD COUNT 3.27 10^6/uL (4.30-6.10); WHITE BLOOD COUNT 6.3 10^3/uL (4.0-10.0)
[2025-02-27 10:56] LABS: ALBUMIN 3.5 G/DL (3.2-5.2); ALKALINE PHOSPHATASE 108 U/L (40-129); ALT/SGPT 23 U/L (7.0-40); AST/SGOT 17 U/L (<34); BILIRUBIN,TOTAL 1.1 MG/DL (0.3-1.2); BLOOD UREA NITROGEN 22 MG/DL (9-23); CALCIUM LEVEL 8.4 MG/DL (8.3-10.6); CARBON DIOXIDE LEVEL 31 MMOL/L (20-31); CHLORIDE LEVEL 104 MMOL/L (98-107); CREATININE FOR GFR 0.86 MG/DL (0.70-1.30); DIGOXIN LEVEL 0.6 NG/ML (0.8-2.0); GLOMERULAR FILTRATION RATE > 60.0 (>35); GLUCOSE, FASTING 109 MG/DL (74-106); POTASSIUM SERUM 3.9 MMOL/L (3.5-5.1); SODIUM LEVEL 143 MMOL/L (136-145); TOTAL PROTEIN 5.6 G/DL (5.7-8.2)
== END ==
PROVIDERS: ATTEND Internal Medicine
DX: D64.9 Anemia, unspecified (principal); I48.91 Unspecified atrial fibrillation; Z79.899 Other long term (current) drug therapy; Z51.81 Encounter for therapeutic drug level monitoring

== ENCOUNTER → 2025-03-04 | Outpatient (REF) | payer MEDICARE, MEDICAID | PROVIDERS: ATTEND Internal Medicine | DX: D64.9 Anemia, unspecified (principal) ==

== ENCOUNTER → 2025-03-06 | Outpatient (REF) | payer MEDICARE, MEDICAID ==
[2025-03-06 09:00] LABS: BASO % 0.3 % (0.0-1.0); EOS # 0.2 10^3/uL (0.0-0.5); EOS % 3.1 % (0.0-3.0); HEMATOCRIT 33.4 % (42.0-52.0); HEMOGLOBIN 11.1 g/dl (13.5-17.5); LYMPH # 0.7 10^3/uL (1.5-5.0); LYMPH % 10.2 % (24.0-44.0); MEAN CORPUSCULAR HEMOGLOBIN 32.7 pg (27.0-33.0); MEAN CORPUSCULAR HGB CONC 33.2 g/dl (32.0-36.5); MEAN CORPUSCULAR VOLUME 98.5 fl (80.0-96.0); MONO # 0.5 10^3/uL (0.0-0.8); MONO % 7.4 % (2.0-8.0); NEUTROPHILS # 5.5 10^3/uL (1.5-8.5); NEUTROPHILS % 78.6 % (36.0-66.0); PLATELET COUNT, AUTOMATED 149 10^3/uL (150-450); RED BLOOD COUNT 3.39 10^6/uL (4.30-6.10)
[2025-03-06 09:22] LABS: ALBUMIN 3.8 G/DL (3.2-5.2); BILIRUBIN,TOTAL 1.5 MG/DL (0.3-1.2); CALCIUM LEVEL 8.6 MG/DL (8.3-10.6); CREATININE FOR GFR 0.98 MG/DL (0.70-1.30); GLOMERULAR FILTRATION RATE 75.1 (>35)
== END ==
PROVIDERS: ATTEND Internal Medicine
DX: D64.9 Anemia, unspecified (principal); I48.91 Unspecified atrial fibrillation; Z79.01 Long term (current) use of anticoagulants

== ENCOUNTER → 2025-03-13 | Outpatient (REF) | payer MEDICARE, MEDICAID ==
[2025-03-13 17:50] LABS: BASO % 0.5 % (0.0-1.0); EOS # 0.2 10^3/uL (0.0-0.5); EOS % 3.1 % (0.0-3.0); HEMATOCRIT 35.1 % (42.0-52.0); HEMOGLOBIN 11.9 g/dl (13.5-17.5); LYMPH # 0.8 10^3/uL (1.5-5.0); LYMPH % 10.2 % (24.0-44.0); MEAN CORPUSCULAR HEMOGLOBIN 33.9 pg (27.0-33.0); MEAN CORPUSCULAR HGB CONC 33.9 g/dl (32.0-36.5); MONO # 0.5 10^3/uL (0.0-0.8); MONO % 6.3 % (2.0-8.0); NEUTROPHILS # 5.9 10^3/uL (1.5-8.5); NEUTROPHILS % 79.6 % (36.0-66.0); PLATELET COUNT, AUTOMATED 144 10^3/uL (150-450); RED BLOOD COUNT 3.51 10^6/uL (4.30-6.10); WHITE BLOOD COUNT 7.5 10^3/uL (4.0-10.0)
[2025-03-13 18:12] LABS: ALBUMIN 4.3 G/DL (3.2-5.2); CALCIUM LEVEL 8.7 MG/DL (8.3-10.6); CREATININE FOR GFR 0.9 MG/DL (0.70-1.30); GLOMERULAR FILTRATION RATE 83.2 (>35); POTASSIUM SERUM 4.1 MMOL/L (3.5-5.1); TOTAL PROTEIN 6.3 G/DL (5.7-8.2)
== END ==
PROVIDERS: ATTEND Internal Medicine
DX: D64.9 Anemia, unspecified (principal)

== ENCOUNTER → 2025-03-15 | Outpatient (REF) | payer MEDICARE, MEDICAID | PROVIDERS: ATTEND Physician Assistant | DX: I48.91 Unspecified atrial fibrillation (principal) ==

== ENCOUNTER → 2025-03-20 | Outpatient (REF) | payer MEDICARE, MEDICAID ==
[~2025-03-20] MED LIST changes: -FLOM0.4C39 PO; +TAMS-18 PO
[2025-03-20 08:08] LABS: BASO % 0.5 % (0.0-1.0); EOS # 0.2 10^3/uL (0.0-0.5); EOS % 2.8 % (0.0-3.0); HEMATOCRIT 29.4 % (42.0-52.0); LYMPH # 0.7 10^3/uL (1.5-5.0); LYMPH % 11.7 % (24.0-44.0); MEAN CORPUSCULAR HEMOGLOBIN 33.6 pg (27.0-33.0); MEAN CORPUSCULAR VOLUME 98.7 fl (80.0-96.0); MONO # 0.5 10^3/uL (0.0-0.8); MONO % 8.1 % (2.0-8.0); NEUTROPHILS # 4.5 10^3/uL (1.5-8.5); NEUTROPHILS % 76.7 % (36.0-66.0); PLATELET COUNT, AUTOMATED 135 10^3/uL (150-450); RED BLOOD COUNT 2.98 10^6/uL (4.30-6.10); WHITE BLOOD COUNT 5.8 10^3/uL (4.0-10.0)
[2025-03-20 08:35] LABS: ALBUMIN 3.8 G/DL (3.2-5.2); CALCIUM LEVEL 8.9 MG/DL (8.3-10.6); CREATININE FOR GFR 0.9 MG/DL (0.70-1.30); GLOMERULAR FILTRATION RATE 83.2 (>35); POTASSIUM SERUM 4.2 MMOL/L (3.5-5.1)
== END ==
PROVIDERS: ATTEND Internal Medicine
DX: D64.9 Anemia, unspecified (principal)

== ENCOUNTER → 2025-03-27 | Outpatient (REF) | payer MEDICARE, MEDICAID ==
[2025-03-27 09:42] LABS: BASO % 0.3 % (0.0-1.0); EOS # 0.2 10^3/uL (0.0-0.5); EOS % 3.5 % (0.0-3.0); HEMATOCRIT 29.9 % (42.0-52.0); HEMOGLOBIN 9.9 g/dl (13.5-17.5); LYMPH # 0.7 10^3/uL (1.5-5.0); LYMPH % 10.3 % (24.0-44.0); MEAN CORPUSCULAR HEMOGLOBIN 33.9 pg (27.0-33.0); MEAN CORPUSCULAR HGB CONC 33.1 g/dl (32.0-36.5); MEAN CORPUSCULAR VOLUME 102.4 fl (80.0-96.0); MONO # 0.5 10^3/uL (0.0-0.8); MONO % 6.8 % (2.0-8.0); NEUTROPHILS # 5.2 10^3/uL (1.5-8.5); NEUTROPHILS % 78.6 % (36.0-66.0); PLATELET COUNT, AUTOMATED 125 10^3/uL (150-450); RED BLOOD COUNT 2.92 10^6/uL (4.30-6.10); WHITE BLOOD COUNT 6.6 10^3/uL (4.0-10.0)
[2025-03-27 10:01] LABS: ALBUMIN 3.5 G/DL (3.2-5.2); BILIRUBIN,TOTAL 1.2 MG/DL (0.3-1.2); CALCIUM LEVEL 8.2 MG/DL (8.3-10.6); CREATININE FOR GFR 1.02 MG/DL (0.70-1.30); GLOMERULAR FILTRATION RATE 71.6 (>35); TOTAL PROTEIN 5.5 G/DL (5.7-8.2)
== END ==
PROVIDERS: ATTEND Internal Medicine
DX: D64.9 Anemia, unspecified (principal)

== ENCOUNTER → 2025-03-29 | Outpatient (REF) | payer MEDICARE, MEDICAID | PROVIDERS: ATTEND Internal Medicine | DX: I10 Essential (primary) hypertension (principal) ==

== ENCOUNTER → 2025-04-10 | Outpatient (REF) | payer MEDICARE, MEDICAID ==
[2025-04-10 08:37] LABS: BASO % 0.3 % (0.0-1.0); EOS # 0.2 10^3/uL (0.0-0.5); EOS % 2.6 % (0.0-3.0); HEMATOCRIT 34.4 % (42.0-52.0); HEMOGLOBIN 11.3 g/dl (13.5-17.5); LYMPH # 0.6 10^3/uL (1.5-5.0); LYMPH % 9.9 % (24.0-44.0); MEAN CORPUSCULAR HEMOGLOBIN 32.8 pg (27.0-33.0); MEAN CORPUSCULAR HGB CONC 32.8 g/dl (32.0-36.5); MEAN CORPUSCULAR VOLUME 99.7 fl (80.0-96.0); MONO # 0.5 10^3/uL (0.0-0.8); MONO % 7.4 % (2.0-8.0); NEUTROPHILS # 4.8 10^3/uL (1.5-8.5); NEUTROPHILS % 79.3 % (36.0-66.0); PLATELET COUNT, AUTOMATED 135 10^3/uL (150-450); RED BLOOD COUNT 3.45 10^6/uL (4.30-6.10); WHITE BLOOD COUNT 6.1 10^3/uL (4.0-10.0)
[2025-04-10 09:15] LABS: ALBUMIN 3.8 G/DL (3.2-5.2); CALCIUM LEVEL 8.9 MG/DL (8.3-10.6); CREATININE FOR GFR 0.9 MG/DL (0.70-1.30); GLOMERULAR FILTRATION RATE 83.2 (>35)
== END ==
PROVIDERS: ATTEND Internal Medicine
DX: D64.9 Anemia, unspecified (principal)

== ENCOUNTER → 2025-04-11 | Outpatient (REF) | payer MEDICARE, MEDICAID | PROVIDERS: ATTEND Internal Medicine | DX: D64.9 Anemia, unspecified (principal); Z53.8 Procedure and treatment not carried out for other reasons ==

== ENCOUNTER → 2025-05-29 | Outpatient (REF) | payer MEDICARE, MEDICAID ==
[2025-05-29 10:41] LABS: BASO # 0.0 10^3/uL (0.0-0.2); BASO % 0.4 % (0.0-1.0); EOS # 0.2 10^3/uL (0.0-0.5); EOS % 2.3 % (0.0-3.0); LYMPH # 0.8 10^3/uL (1.5-5.0); LYMPH % 11.1 % (24.0-44.0); MONO # 0.6 10^3/uL (0.0-0.8); MONO % 7.7 % (2.0-8.0); NEUTROPHILS # 5.7 10^3/uL (1.5-8.5); NEUTROPHILS % 78.1 % (36.0-66.0); PLATELET COUNT, AUTOMATED 143 10^3/uL (150-450)
[2025-05-29 11:11] LABS: ALT/SGPT 19.0 U/L (7.0-40); AST/SGOT 19.0 U/L (<34); CALCIUM LEVEL 9.2 MG/DL (8.3-10.6); CARBON DIOXIDE LEVEL 30.0 MMOL/L (20-31); CHLORIDE LEVEL 104.0 MMOL/L (98-107); CREATININE FOR GFR 1.17 MG/DL (0.70-1.30); DIGOXIN LEVEL 0.7 NG/ML (0.8-2.0); GLOMERULAR FILTRATION RATE 60.7 (>35); POTASSIUM SERUM 4.2 MMOL/L (3.5-5.1); SODIUM LEVEL 141.0 MMOL/L (136-145)
== END ==
PROVIDERS: ATTEND Internal Medicine
DX: D64.9 Anemia, unspecified (principal); Z79.899 Other long term (current) drug therapy

== ENCOUNTER → 2025-06-05 | Outpatient (REF) | payer MEDICARE, MEDICAID ==
[2025-06-05 09:01] LABS: BASO # 0.0 10^3/uL (0.0-0.2); BASO % 0.5 % (0.0-1.0); EOS # 0.2 10^3/uL (0.0-0.5); EOS % 3.1 % (0.0-3.0); LYMPH # 0.7 10^3/uL (1.5-5.0); LYMPH % 11.7 % (24.0-44.0); MONO # 0.4 10^3/uL (0.0-0.8); MONO % 7.9 % (2.0-8.0); NEUTROPHILS # 4.3 10^3/uL (1.5-8.5); NEUTROPHILS % 76.6 % (36.0-66.0); PLATELET COUNT, AUTOMATED 104 10^3/uL (150-450)
[2025-06-05 09:22] LABS: ALT/SGPT 20.0 U/L (7.0-40); AST/SGOT 20.0 U/L (<34); CALCIUM LEVEL 8.8 MG/DL (8.3-10.6); CARBON DIOXIDE LEVEL 30.0 MMOL/L (20-31); CHLORIDE LEVEL 103.0 MMOL/L (98-107); CREATININE FOR GFR 1.02 MG/DL (0.70-1.30); GLOMERULAR FILTRATION RATE 71.6 (>35); POTASSIUM SERUM 4.5 MMOL/L (3.5-5.1); SODIUM LEVEL 142.0 MMOL/L (136-145)
== END ==
PROVIDERS: ATTEND Internal Medicine
DX: D64.9 Anemia, unspecified (principal)

== ENCOUNTER → 2025-06-12 | Outpatient (REF) | payer MEDICARE, MEDICAID ==
[2025-06-12 10:15] LABS: BASO # 0.0 10^3/uL (0.0-0.2); BASO % 0.5 % (0.0-1.0); EOS # 0.2 10^3/uL (0.0-0.5); EOS % 3.0 % (0.0-3.0); LYMPH # 0.6 10^3/uL (1.5-5.0); LYMPH % 10.1 % (24.0-44.0); MONO # 0.5 10^3/uL (0.0-0.8); MONO % 8.0 % (2.0-8.0); NEUTROPHILS # 4.9 10^3/uL (1.5-8.5); NEUTROPHILS % 78.1 % (36.0-66.0); PLATELET COUNT, AUTOMATED 142 10^3/uL (150-450)
[2025-06-12 10:42] LABS: ALT/SGPT 19.0 U/L (7.0-40); AST/SGOT 19.0 U/L (<34); CALCIUM LEVEL 8.8 MG/DL (8.3-10.6); CARBON DIOXIDE LEVEL 30.0 MMOL/L (20-31); CHLORIDE LEVEL 104.0 MMOL/L (98-107); CREATININE FOR GFR 0.87 MG/DL (0.70-1.30); GLOMERULAR FILTRATION RATE 84.0 (>35); POTASSIUM SERUM 4.1 MMOL/L (3.5-5.1); SODIUM LEVEL 144.0 MMOL/L (136-145)
== END ==
PROVIDERS: ATTEND Internal Medicine
DX: D64.9 Anemia, unspecified (principal)

== ENCOUNTER → 2025-06-19 | Outpatient (REF) | payer MEDICARE, MEDICAID ==
[~2025-06-19] MED LIST changes: +HYDR12.510 PO; -HYDR12CA PO
[2025-06-19 11:03] LABS: BASO # 0.0 10^3/uL (0.0-0.2); BASO % 0.5 % (0.0-1.0); EOS # 0.2 10^3/uL (0.0-0.5); EOS % 3.3 % (0.0-3.0); LYMPH # 0.8 10^3/uL (1.5-5.0); LYMPH % 12.0 % (24.0-44.0); MONO # 0.5 10^3/uL (0.0-0.8); MONO % 8.3 % (2.0-8.0); NEUTROPHILS # 4.8 10^3/uL (1.5-8.5); NEUTROPHILS % 75.4 % (36.0-66.0); PLATELET COUNT, AUTOMATED 114 10^3/uL (150-450)
[2025-06-19 11:25] LABS: ALT/SGPT 22.0 U/L (7.0-40); AST/SGOT 19.0 U/L (<34); CALCIUM LEVEL 8.5 MG/DL (8.3-10.6); CARBON DIOXIDE LEVEL 30.0 MMOL/L (20-31); CHLORIDE LEVEL 105.0 MMOL/L (98-107); CREATININE FOR GFR 1.05 MG/DL (0.70-1.30); GLOMERULAR FILTRATION RATE 69.1 (>35); POTASSIUM SERUM 4.6 MMOL/L (3.5-5.1); SODIUM LEVEL 144.0 MMOL/L (136-145)
== END ==
PROVIDERS: ATTEND Internal Medicine
DX: D64.9 Anemia, unspecified (principal)

== ENCOUNTER → 2025-06-26 | Outpatient (REF) | payer MEDICARE, MEDICAID ==
[2025-06-26 10:27] LABS: BASO # 0.0 10^3/uL (0.0-0.2); BASO % 0.3 % (0.0-1.0); EOS # 0.2 10^3/uL (0.0-0.5); EOS % 2.8 % (0.0-3.0); LYMPH # 0.7 10^3/uL (1.5-5.0); LYMPH % 10.0 % (24.0-44.0); MONO # 0.4 10^3/uL (0.0-0.8); MONO % 6.5 % (2.0-8.0); NEUTROPHILS # 5.4 10^3/uL (1.5-8.5); NEUTROPHILS % 80.1 % (36.0-66.0); PLATELET COUNT, AUTOMATED 149 10^3/uL (150-450)
[2025-06-26 11:02] LABS: ALT/SGPT 22.0 U/L (7.0-40); AST/SGOT 21.0 U/L (<34); CALCIUM LEVEL 9.1 MG/DL (8.3-10.6); CARBON DIOXIDE LEVEL 29.0 MMOL/L (20-31); CHLORIDE LEVEL 103.0 MMOL/L (98-107); CREATININE FOR GFR 1.04 MG/DL (0.70-1.30); GLOMERULAR FILTRATION RATE 69.9 (>35); POTASSIUM SERUM 4.3 MMOL/L (3.5-5.1); SODIUM LEVEL 141.0 MMOL/L (136-145)
== END ==
PROVIDERS: ATTEND Internal Medicine
DX: D64.9 Anemia, unspecified (principal); I48.91 Unspecified atrial fibrillation

== ENCOUNTER → 2025-07-03 | Outpatient (REF) | payer MEDICARE, MEDICAID ==
[2025-07-03 11:12] LABS: BASO # 0.0 10^3/uL (0.0-0.2); BASO % 0.3 % (0.0-1.0); EOS # 0.2 10^3/uL (0.0-0.5); EOS % 2.6 % (0.0-3.0); LYMPH # 0.7 10^3/uL (1.5-5.0); LYMPH % 11.3 % (24.0-44.0); MONO # 0.4 10^3/uL (0.0-0.8); MONO % 7.4 % (2.0-8.0); NEUTROPHILS # 4.6 10^3/uL (1.5-8.5); NEUTROPHILS % 77.9 % (36.0-66.0); PLATELET COUNT, AUTOMATED 133 10^3/uL (150-450)
[2025-07-03 11:46] LABS: ALT/SGPT 15.0 U/L (7.0-40); AST/SGOT 16.0 U/L (<34); CALCIUM LEVEL 8.3 MG/DL (8.3-10.6); CARBON DIOXIDE LEVEL 29.0 MMOL/L (20-31); CHLORIDE LEVEL 107.0 MMOL/L (98-107); CREATININE FOR GFR 1.04 MG/DL (0.70-1.30); GLOMERULAR FILTRATION RATE 69.9 (>35); POTASSIUM SERUM 4.1 MMOL/L (3.5-5.1); SODIUM LEVEL 143.0 MMOL/L (136-145)
== END ==
PROVIDERS: ATTEND Internal Medicine
DX: D64.9 Anemia, unspecified (principal)

== ENCOUNTER → 2025-07-10 | Outpatient (REF) | payer MEDICARE, MEDICAID ==
[2025-07-10 11:41] LABS: BASO # 0.0 10^3/uL (0.0-0.2); BASO % 0.5 % (0.0-1.0); EOS # 0.2 10^3/uL (0.0-0.5); EOS % 2.8 % (0.0-3.0); LYMPH # 0.6 10^3/uL (1.5-5.0); LYMPH % 10.3 % (24.0-44.0); MONO # 0.4 10^3/uL (0.0-0.8); MONO % 6.1 % (2.0-8.0); NEUTROPHILS # 4.8 10^3/uL (1.5-8.5); NEUTROPHILS % 80.1 % (36.0-66.0); PLATELET COUNT, AUTOMATED 141 10^3/uL (150-450)
[2025-07-10 12:13] LABS: ALT/SGPT 17.0 U/L (7.0-40); AST/SGOT 18.0 U/L (<34); CALCIUM LEVEL 8.8 MG/DL (8.3-10.6); CARBON DIOXIDE LEVEL 30.0 MMOL/L (20-31); CHLORIDE LEVEL 105.0 MMOL/L (98-107); CREATININE FOR GFR 0.97 MG/DL (0.70-1.30); GLOMERULAR FILTRATION RATE 76.0 (>35); POTASSIUM SERUM 3.9 MMOL/L (3.5-5.1); SODIUM LEVEL 145.0 MMOL/L (136-145)
== END ==
PROVIDERS: ATTEND Physician Assistant
DX: D64.9 Anemia, unspecified (principal)

== ENCOUNTER → 2025-07-17 | Outpatient (REF) | payer MEDICARE, MEDICAID ==
[2025-07-17 11:58] LABS: BASO # 0.0 10^3/uL (0.0-0.2); BASO % 0.3 % (0.0-1.0); EOS # 0.2 10^3/uL (0.0-0.5); EOS % 2.7 % (0.0-3.0); LYMPH # 0.7 10^3/uL (1.5-5.0); LYMPH % 8.7 % (24.0-44.0); MONO # 0.5 10^3/uL (0.0-0.8); MONO % 6.8 % (2.0-8.0); NEUTROPHILS # 6.1 10^3/uL (1.5-8.5); NEUTROPHILS % 81.1 % (36.0-66.0); PLATELET COUNT, AUTOMATED 140 10^3/uL (150-450)
[2025-07-17 12:22] LABS: ALT/SGPT 23.0 U/L (7.0-40); AST/SGOT 24.0 U/L (<34); CALCIUM LEVEL 9.5 MG/DL (8.3-10.6); CARBON DIOXIDE LEVEL 31.0 MMOL/L (20-31); CHLORIDE LEVEL 103.0 MMOL/L (98-107); CREATININE FOR GFR 0.91 MG/DL (0.70-1.30); GLOMERULAR FILTRATION RATE 82.1 (>35); POTASSIUM SERUM 4.0 MMOL/L (3.5-5.1); SODIUM LEVEL 144.0 MMOL/L (136-145)
== END ==
PROVIDERS: ATTEND Internal Medicine
DX: D64.9 Anemia, unspecified (principal)

== ENCOUNTER → 2025-07-25 | Outpatient (REF) | payer MEDICARE, MEDICAID ==
[2025-07-25 14:59] LABS: BASO # 0.0 10^3/uL (0.0-0.2); BASO % 0.4 % (0.0-1.0); EOS # 0.2 10^3/uL (0.0-0.5); EOS % 2.9 % (0.0-3.0); LYMPH # 0.7 10^3/uL (1.5-5.0); LYMPH % 9.9 % (24.0-44.0); MONO # 0.6 10^3/uL (0.0-0.8); MONO % 8.0 % (2.0-8.0); NEUTROPHILS # 5.5 10^3/uL (1.5-8.5); NEUTROPHILS % 78.5 % (36.0-66.0); PLATELET COUNT, AUTOMATED 156 10^3/uL (150-450)
[2025-07-25 15:40] LABS: ALT/SGPT 21.0 U/L (7.0-40); AST/SGOT 32.0 U/L (<34); CALCIUM LEVEL 9.2 MG/DL (8.3-10.6); CARBON DIOXIDE LEVEL 28.0 MMOL/L (20-31); CHLORIDE LEVEL 103.0 MMOL/L (98-107); CREATININE FOR GFR 1.0 MG/DL (0.70-1.30); GLOMERULAR FILTRATION RATE 73.3 (>35); POTASSIUM SERUM 4.3 MMOL/L (3.5-5.1); SODIUM LEVEL 143.0 MMOL/L (136-145)
== END ==
PROVIDERS: ATTEND Internal Medicine
DX: D64.9 Anemia, unspecified (principal)

== ENCOUNTER → 2025-07-31 | Outpatient (REF) | payer MEDICARE, MEDICAID ==
[2025-07-31 11:37] LABS: BASO # 0.0 10^3/uL (0.0-0.2); BASO % 0.2 % (0.0-1.0); EOS # 0.2 10^3/uL (0.0-0.5); EOS % 2.7 % (0.0-3.0); LYMPH # 0.6 10^3/uL (1.5-5.0); LYMPH % 10.2 % (24.0-44.0); MONO # 0.4 10^3/uL (0.0-0.8); MONO % 6.0 % (2.0-8.0); NEUTROPHILS # 4.8 10^3/uL (1.5-8.5); NEUTROPHILS % 80.6 % (36.0-66.0); PLATELET COUNT, AUTOMATED 129 10^3/uL (150-450)
[2025-07-31 12:15] LABS: ALT/SGPT 22.0 U/L (7.0-40); AST/SGOT 17.0 U/L (<34); CALCIUM LEVEL 8.9 MG/DL (8.3-10.6); CARBON DIOXIDE LEVEL 31.0 MMOL/L (20-31); CHLORIDE LEVEL 103.0 MMOL/L (98-107); CREATININE FOR GFR 1.03 MG/DL (0.70-1.30); GLOMERULAR FILTRATION RATE 70.7 (>35); POTASSIUM SERUM 4.4 MMOL/L (3.5-5.1); SODIUM LEVEL 144.0 MMOL/L (136-145)
== END ==
PROVIDERS: ATTEND Internal Medicine
DX: D64.9 Anemia, unspecified (principal)

== ENCOUNTER → 2025-08-07 | Outpatient (REF) | payer MEDICARE, MEDICAID ==
[2025-08-07 11:11] LABS: BASO # 0.0 10^3/uL (0.0-0.2); BASO % 0.4 % (0.0-1.0); EOS # 0.2 10^3/uL (0.0-0.5); EOS % 2.8 % (0.0-3.0); LYMPH # 0.7 10^3/uL (1.5-5.0); LYMPH % 9.8 % (24.0-44.0); MONO # 0.4 10^3/uL (0.0-0.8); MONO % 6.0 % (2.0-8.0); NEUTROPHILS # 5.8 10^3/uL (1.5-8.5); NEUTROPHILS % 80.6 % (36.0-66.0); PLATELET COUNT, AUTOMATED 134 10^3/uL (150-450)
[2025-08-07 11:37] LABS: ALT/SGPT 21.0 U/L (7.0-40); AST/SGOT 18.0 U/L (<34); CALCIUM LEVEL 8.5 MG/DL (8.3-10.6); CARBON DIOXIDE LEVEL 29.0 MMOL/L (20-31); CHLORIDE LEVEL 106.0 MMOL/L (98-107); CREATININE FOR GFR 1.05 MG/DL (0.70-1.30); GLOMERULAR FILTRATION RATE 69.1 (>35); POTASSIUM SERUM 4.0 MMOL/L (3.5-5.1); SODIUM LEVEL 140.0 MMOL/L (136-145)
== END ==
PROVIDERS: ATTEND Internal Medicine
DX: D64.9 Anemia, unspecified (principal)

== ENCOUNTER → 2025-08-14 | Outpatient (REF) | payer MEDICARE, MEDICAID ==
[2025-08-14 12:54] LABS: BASO # 0.0 10^3/uL (0.0-0.2); BASO % 0.3 % (0.0-1.0); EOS # 0.2 10^3/uL (0.0-0.5); EOS % 1.9 % (0.0-3.0); LYMPH # 0.9 10^3/uL (1.5-5.0); LYMPH % 10.9 % (24.0-44.0); MONO # 0.6 10^3/uL (0.0-0.8); MONO % 7.1 % (2.0-8.0); NEUTROPHILS # 6.2 10^3/uL (1.5-8.5); NEUTROPHILS % 79.4 % (36.0-66.0); PLATELET COUNT, AUTOMATED 152 10^3/uL (150-450)
[2025-08-14 13:12] LABS: ALT/SGPT 20.0 U/L (7.0-40); AST/SGOT 18.0 U/L (<34); CALCIUM LEVEL 9.0 MG/DL (8.3-10.6); CARBON DIOXIDE LEVEL 30.0 MMOL/L (20-31); CHLORIDE LEVEL 105.0 MMOL/L (98-107); CREATININE FOR GFR 0.93 MG/DL (0.70-1.30); GLOMERULAR FILTRATION RATE 80.0 (>35); POTASSIUM SERUM 4.3 MMOL/L (3.5-5.1); SODIUM LEVEL 143.0 MMOL/L (136-145)
== END ==
PROVIDERS: ATTEND Internal Medicine
DX: D64.9 Anemia, unspecified (principal)

== ENCOUNTER → 2025-08-21 | Outpatient (REF) | payer MEDICARE, MEDICAID ==
[2025-08-21 11:16] LABS: BASO # 0.0 10^3/uL (0.0-0.2); BASO % 0.5 % (0.0-1.0); EOS # 0.2 10^3/uL (0.0-0.5); EOS % 2.7 % (0.0-3.0); LYMPH # 0.6 10^3/uL (1.5-5.0); LYMPH % 10.1 % (24.0-44.0); MONO # 0.4 10^3/uL (0.0-0.8); MONO % 6.9 % (2.0-8.0); NEUTROPHILS # 4.7 10^3/uL (1.5-8.5); NEUTROPHILS % 79.5 % (36.0-66.0); PLATELET COUNT, AUTOMATED 122 10^3/uL (150-450)
[2025-08-21 11:50] LABS: CALCIUM LEVEL 8.2 MG/DL (8.3-10.6); CARBON DIOXIDE LEVEL 29.0 MMOL/L (20-31); CHLORIDE LEVEL 104.0 MMOL/L (98-107); CREATININE FOR GFR 0.97 MG/DL (0.70-1.30); GLOMERULAR FILTRATION RATE 76.0 (>35); POTASSIUM SERUM 4.2 MMOL/L (3.5-5.1); SODIUM LEVEL 140.0 MMOL/L (136-145)
== END ==
PROVIDERS: ATTEND Internal Medicine
DX: D64.9 Anemia, unspecified (principal)

== ENCOUNTER → 2025-08-28 | Outpatient (REF) | payer MEDICARE, MEDICAID ==
[2025-08-28 11:09] LABS: BASO # 0.0 10^3/uL (0.0-0.2); BASO % 0.4 % (0.0-1.0); EOS # 0.2 10^3/uL (0.0-0.5); EOS % 1.9 % (0.0-3.0); LYMPH # 0.7 10^3/uL (1.5-5.0); LYMPH % 9.3 % (24.0-44.0); MONO # 0.5 10^3/uL (0.0-0.8); MONO % 6.1 % (2.0-8.0); NEUTROPHILS # 6.3 10^3/uL (1.5-8.5); NEUTROPHILS % 81.9 % (36.0-66.0); PLATELET COUNT, AUTOMATED 149 10^3/uL (150-450)
[2025-08-28 11:36] LABS: ALT/SGPT 21.0 U/L (7.0-40); AST/SGOT 20.0 U/L (<34); CALCIUM LEVEL 8.8 MG/DL (8.3-10.6); CARBON DIOXIDE LEVEL 29.0 MMOL/L (20-31); CHLORIDE LEVEL 102.0 MMOL/L (98-107); CREATININE FOR GFR 1.03 MG/DL (0.70-1.30); DIGOXIN LEVEL 1.4 NG/ML (0.8-2.0); GLOMERULAR FILTRATION RATE 70.7 (>35); POTASSIUM SERUM 4.2 MMOL/L (3.5-5.1); SODIUM LEVEL 141.0 MMOL/L (136-145)
== END ==
PROVIDERS: ATTEND Internal Medicine
DX: D64.9 Anemia, unspecified (principal); Z79.899 Other long term (current) drug therapy

== ENCOUNTER → 2025-09-04 | Outpatient (REF) | payer MEDICARE, MEDICAID ==
[2025-09-04 13:31] LABS: BASO # 0.0 10^3/uL (0.0-0.2); BASO % 0.4 % (0.0-1.0); EOS # 0.2 10^3/uL (0.0-0.5); EOS % 2.3 % (0.0-3.0); LYMPH # 0.8 10^3/uL (1.5-5.0); LYMPH % 10.8 % (24.0-44.0); MONO # 0.5 10^3/uL (0.0-0.8); MONO % 6.7 % (2.0-8.0); NEUTROPHILS # 6.2 10^3/uL (1.5-8.5); NEUTROPHILS % 79.5 % (36.0-66.0); PLATELET COUNT, AUTOMATED 173 10^3/uL (150-450)
[2025-09-04 13:58] LABS: ALT/SGPT 20.0 U/L (7.0-40); AST/SGOT 18.0 U/L (<34); CALCIUM LEVEL 9.0 MG/DL (8.3-10.6); CARBON DIOXIDE LEVEL 29.0 MMOL/L (20-31); CHLORIDE LEVEL 102.0 MMOL/L (98-107); CREATININE FOR GFR 1.02 MG/DL (0.70-1.30); GLOMERULAR FILTRATION RATE 71.6 (>35); POTASSIUM SERUM 4.2 MMOL/L (3.5-5.1); SODIUM LEVEL 142.0 MMOL/L (136-145)
== END ==
PROVIDERS: ATTEND Internal Medicine
DX: D64.9 Anemia, unspecified (principal)

== ENCOUNTER → 2025-09-11 | Outpatient (REF) | payer MEDICARE, MEDICAID ==
[2025-09-11 14:05] LABS: BASO # 0.0 10^3/uL (0.0-0.2); BASO % 0.5 % (0.0-1.0); EOS # 0.2 10^3/uL (0.0-0.5); EOS % 3.1 % (0.0-3.0); LYMPH # 0.7 10^3/uL (1.5-5.0); LYMPH % 12.3 % (24.0-44.0); MONO # 0.4 10^3/uL (0.0-0.8); MONO % 6.2 % (2.0-8.0); NEUTROPHILS # 4.5 10^3/uL (1.5-8.5); NEUTROPHILS % 77.6 % (36.0-66.0); PLATELET COUNT, AUTOMATED 126 10^3/uL (150-450)
[2025-09-11 14:39] LABS: ALT/SGPT 24.0 U/L (7.0-40); AST/SGOT 17.0 U/L (<34); CALCIUM LEVEL 8.6 MG/DL (8.3-10.6); CARBON DIOXIDE LEVEL 30.0 MMOL/L (20-31); CHLORIDE LEVEL 104.0 MMOL/L (98-107); CREATININE FOR GFR 0.97 MG/DL (0.70-1.30); GLOMERULAR FILTRATION RATE 76.0 (>35); POTASSIUM SERUM 4.3 MMOL/L (3.5-5.1); SODIUM LEVEL 144.0 MMOL/L (136-145)
== END ==
PROVIDERS: ATTEND Internal Medicine
DX: D64.9 Anemia, unspecified (principal)

== ENCOUNTER → 2025-09-18 | Outpatient (REF) | payer MEDICARE, MEDICAID ==
[2025-09-18 10:58] LABS: BASO # 0.0 10^3/uL (0.0-0.2); BASO % 0.5 % (0.0-1.0); EOS # 0.2 10^3/uL (0.0-0.5); EOS % 2.6 % (0.0-3.0); LYMPH # 0.7 10^3/uL (1.5-5.0); LYMPH % 10.9 % (24.0-44.0); MONO # 0.4 10^3/uL (0.0-0.8); MONO % 7.1 % (2.0-8.0); NEUTROPHILS # 4.9 10^3/uL (1.5-8.5); NEUTROPHILS % 78.6 % (36.0-66.0); PLATELET COUNT, AUTOMATED 137 10^3/uL (150-450)
[2025-09-18 11:26] LABS: ALT/SGPT 21.0 U/L (7.0-40); AST/SGOT 18.0 U/L (<34); CALCIUM LEVEL 8.7 MG/DL (8.3-10.6); CARBON DIOXIDE LEVEL 29.0 MMOL/L (20-31); CHLORIDE LEVEL 102.0 MMOL/L (98-107); CREATININE FOR GFR 0.96 MG/DL (0.70-1.30); GLOMERULAR FILTRATION RATE 77.0 (>35); POTASSIUM SERUM 4.1 MMOL/L (3.5-5.1); SODIUM LEVEL 142.0 MMOL/L (136-145)
== END ==
PROVIDERS: ATTEND Internal Medicine
DX: D64.9 Anemia, unspecified (principal)

== ENCOUNTER → 2025-09-25 | Outpatient (REF) | payer MEDICARE, MEDICAID ==
[2025-09-25 12:28] LABS: BASO # 0.0 10^3/uL (0.0-0.2); BASO % 0.3 % (0.0-1.0); EOS # 0.2 10^3/uL (0.0-0.5); EOS % 2.5 % (0.0-3.0); LYMPH # 0.9 10^3/uL (1.5-5.0); LYMPH % 13.6 % (24.0-44.0); MONO # 0.5 10^3/uL (0.0-0.8); MONO % 7.4 % (2.0-8.0); NEUTROPHILS # 5.2 10^3/uL (1.5-8.5); NEUTROPHILS % 75.8 % (36.0-66.0); PLATELET COUNT, AUTOMATED 146 10^3/uL (150-450)
[2025-09-25 13:18] LABS: ALT/SGPT 22.0 U/L (7.0-40); AST/SGOT 20.0 U/L (<34); CALCIUM LEVEL 8.8 MG/DL (8.3-10.6); CARBON DIOXIDE LEVEL 29.0 MMOL/L (20-31); CHLORIDE LEVEL 102.0 MMOL/L (98-107); CREATININE FOR GFR 1.01 MG/DL (0.70-1.30); GLOMERULAR FILTRATION RATE 72.4 (>35); POTASSIUM SERUM 4.2 MMOL/L (3.5-5.1); SODIUM LEVEL 140.0 MMOL/L (136-145)
== END ==
PROVIDERS: ATTEND Internal Medicine
DX: D64.9 Anemia, unspecified (principal)

== ENCOUNTER → 2025-10-02 | Outpatient (REF) | payer MEDICARE, MEDICAID ==
[2025-10-02 18:49] LABS: BASO # 0.0 10^3/uL (0.0-0.2); BASO % 0.3 % (0.0-1.0); EOS # 0.1 10^3/uL (0.0-0.5); EOS % 2.2 % (0.0-3.0); LYMPH # 0.8 10^3/uL (1.5-5.0); LYMPH % 12.1 % (24.0-44.0); MONO # 0.5 10^3/uL (0.0-0.8); MONO % 7.3 % (2.0-8.0); NEUTROPHILS # 4.9 10^3/uL (1.5-8.5); NEUTROPHILS % 77.8 % (36.0-66.0); PLATELET COUNT, AUTOMATED 154 10^3/uL (150-450)
[2025-10-02 19:16] LABS: ALT/SGPT 19.0 U/L (7.0-40); AST/SGOT 24.0 U/L (<34); CALCIUM LEVEL 8.5 MG/DL (8.3-10.6); CARBON DIOXIDE LEVEL 30.0 MMOL/L (20-31); CHLORIDE LEVEL 100.0 MMOL/L (98-107); CREATININE FOR GFR 1.0 MG/DL (0.70-1.30); GLOMERULAR FILTRATION RATE 73.3 (>35); POTASSIUM SERUM 4.8 MMOL/L (3.5-5.1); SODIUM LEVEL 138.0 MMOL/L (136-145)
== END ==
PROVIDERS: ATTEND Internal Medicine
DX: D64.9 Anemia, unspecified (principal)

== ENCOUNTER → 2025-10-09 | Outpatient (REF) | payer MEDICARE, MEDICAID ==
[2025-10-09 11:25] LABS: BASO # 0.0 10^3/uL (0.0-0.2); BASO % 0.3 % (0.0-1.0); EOS # 0.2 10^3/uL (0.0-0.5); EOS % 3.5 % (0.0-3.0); LYMPH # 0.7 10^3/uL (1.5-5.0); LYMPH % 11.8 % (24.0-44.0); MONO # 0.4 10^3/uL (0.0-0.8); MONO % 7.1 % (2.0-8.0); NEUTROPHILS # 4.6 10^3/uL (1.5-8.5); NEUTROPHILS % 77.0 % (36.0-66.0); PLATELET COUNT, AUTOMATED 129 10^3/uL (150-450)
[2025-10-09 12:20] LABS: ALT/SGPT 19.0 U/L (7.0-40); AST/SGOT 15.0 U/L (<34); CALCIUM LEVEL 8.4 MG/DL (8.3-10.6); CARBON DIOXIDE LEVEL 28.0 MMOL/L (20-31); CHLORIDE LEVEL 104.0 MMOL/L (98-107); CREATININE FOR GFR 0.94 MG/DL (0.70-1.30); GLOMERULAR FILTRATION RATE 79.0 (>35); POTASSIUM SERUM 4.2 MMOL/L (3.5-5.1); SODIUM LEVEL 143.0 MMOL/L (136-145)
== END ==
PROVIDERS: ATTEND Internal Medicine
DX: D64.9 Anemia, unspecified (principal)

== ENCOUNTER → 2025-10-16 | Outpatient (REF) | payer MEDICARE, MEDICAID | PROVIDERS: ATTEND Internal Medicine | DX: D64.9 Anemia, unspecified (principal); Z53.8 Procedure and treatment not carried out for other reasons ==

== ENCOUNTER → 2025-10-23 | Outpatient (REF) | payer MEDICARE, MEDICAID ==
[2025-10-23 12:48] LABS: BASO # 0.0 10^3/uL (0.0-0.2); BASO % 0.3 % (0.0-1.0); EOS # 0.2 10^3/uL (0.0-0.5); EOS % 3.0 % (0.0-3.0); LYMPH # 0.6 10^3/uL (1.5-5.0); LYMPH % 9.6 % (24.0-44.0); MONO # 0.4 10^3/uL (0.0-0.8); MONO % 6.6 % (2.0-8.0); NEUTROPHILS # 5.1 10^3/uL (1.5-8.5); NEUTROPHILS % 80.3 % (36.0-66.0); PLATELET COUNT, AUTOMATED 117 10^3/uL (150-450)
[2025-10-23 13:27] LABS: ALT/SGPT 16.0 U/L (7.0-40); AST/SGOT 19.0 U/L (<34); CALCIUM LEVEL 8.5 MG/DL (8.3-10.6); CARBON DIOXIDE LEVEL 29.0 MMOL/L (20-31); CHLORIDE LEVEL 102.0 MMOL/L (98-107); CREATININE FOR GFR 0.96 MG/DL (0.70-1.30); GLOMERULAR FILTRATION RATE 77.0 (>35); POTASSIUM SERUM 3.9 MMOL/L (3.5-5.1); SODIUM LEVEL 141.0 MMOL/L (136-145)
== END ==
PROVIDERS: ATTEND Internal Medicine
DX: D64.9 Anemia, unspecified (principal); I48.91 Unspecified atrial fibrillation

== ENCOUNTER → 2025-10-30 | Outpatient (REF) | payer MEDICARE, MEDICAID ==
[2025-10-30 10:26] LABS: BASO # 0.0 10^3/uL (0.0-0.2); BASO % 0.1 % (0.0-1.0); EOS # 0.3 10^3/uL (0.0-0.5); EOS % 3.6 % (0.0-3.0); LYMPH # 0.8 10^3/uL (1.5-5.0); LYMPH % 11.1 % (24.0-44.0); MONO # 0.5 10^3/uL (0.0-0.8); MONO % 6.4 % (2.0-8.0); NEUTROPHILS # 5.5 10^3/uL (1.5-8.5); NEUTROPHILS % 78.7 % (36.0-66.0); PLATELET COUNT, AUTOMATED 165 10^3/uL (150-450)
[2025-10-30 11:03] LABS: ALT/SGPT 23.0 U/L (7.0-40); AST/SGOT 19.0 U/L (<34); CALCIUM LEVEL 9.2 MG/DL (8.3-10.6); CARBON DIOXIDE LEVEL 32.0 MMOL/L (20-31); CHLORIDE LEVEL 102.0 MMOL/L (98-107); CREATININE FOR GFR 0.92 MG/DL (0.70-1.30); GLOMERULAR FILTRATION RATE 80.5 (>35); POTASSIUM SERUM 4.2 MMOL/L (3.5-5.1); SODIUM LEVEL 140.0 MMOL/L (136-145)
== END ==
PROVIDERS: ATTEND Internal Medicine
DX: D64.9 Anemia, unspecified (principal)

== ENCOUNTER → 2025-11-03 | Outpatient (REF) | payer MEDICARE, MEDICAID ==
[2025-11-03 17:49] LABS: PLATELET COUNT, AUTOMATED 129 10^3/uL (150-450)
[2025-11-03 18:20] LABS: CALCIUM LEVEL 8.3 MG/DL (8.3-10.6); CARBON DIOXIDE LEVEL 30.0 MMOL/L (20-31); CHLORIDE LEVEL 102.0 MMOL/L (98-107); CREATININE FOR GFR 0.89 MG/DL (0.70-1.30); GLOMERULAR FILTRATION RATE 82.9 (>35); POTASSIUM SERUM 4.0 MMOL/L (3.5-5.1); SODIUM LEVEL 139.0 MMOL/L (136-145)
== END ==
PROVIDERS: ATTEND Physician Assistant
DX: R29.6 Repeated falls (principal)

== ENCOUNTER → 2025-11-06 | Outpatient (REF) | payer MEDICARE, MEDICAID ==
[2025-11-06 13:02] LABS: BASO # 0.0 10^3/uL (0.0-0.2); BASO % 0.4 % (0.0-1.0); EOS # 0.2 10^3/uL (0.0-0.5); EOS % 3.1 % (0.0-3.0); LYMPH # 0.8 10^3/uL (1.5-5.0); LYMPH % 11.4 % (24.0-44.0); MONO # 0.5 10^3/uL (0.0-0.8); MONO % 6.9 % (2.0-8.0); NEUTROPHILS # 5.7 10^3/uL (1.5-8.5); NEUTROPHILS % 77.9 % (36.0-66.0); PLATELET COUNT, AUTOMATED 130 10^3/uL (150-450)
[2025-11-06 13:31] LABS: ALT/SGPT 17.0 U/L (7.0-40); AST/SGOT 19.0 U/L (<34); CALCIUM LEVEL 8.8 MG/DL (8.3-10.6); CARBON DIOXIDE LEVEL 28.0 MMOL/L (20-31); CHLORIDE LEVEL 105.0 MMOL/L (98-107); CREATININE FOR GFR 0.94 MG/DL (0.70-1.30); GLOMERULAR FILTRATION RATE 78.5 (>35); POTASSIUM SERUM 4.1 MMOL/L (3.5-5.1); SODIUM LEVEL 142.0 MMOL/L (136-145)
== END ==
PROVIDERS: ATTEND Internal Medicine
DX: D64.9 Anemia, unspecified (principal)

== ENCOUNTER → 2025-11-13 | Outpatient (REF) | payer MEDICARE, MEDICAID ==
[2025-11-13 12:27] LABS: BASO # 0.0 10^3/uL (0.0-0.2); BASO % 0.4 % (0.0-1.0); EOS # 0.2 10^3/uL (0.0-0.5); EOS % 2.4 % (0.0-3.0); LYMPH # 0.8 10^3/uL (1.5-5.0); LYMPH % 9.7 % (24.0-44.0); MONO # 0.6 10^3/uL (0.0-0.8); MONO % 7.7 % (2.0-8.0); NEUTROPHILS # 6.5 10^3/uL (1.5-8.5); NEUTROPHILS % 79.4 % (36.0-66.0); PLATELET COUNT, AUTOMATED 201 10^3/uL (150-450)
[2025-11-13 12:53] LABS: ALT/SGPT 20.0 U/L (7.0-40); AST/SGOT 20.0 U/L (<34); CALCIUM LEVEL 8.9 MG/DL (8.3-10.6); CARBON DIOXIDE LEVEL 31.0 MMOL/L (20-31); CHLORIDE LEVEL 102.0 MMOL/L (98-107); CREATININE FOR GFR 1.0 MG/DL (0.70-1.30); GLOMERULAR FILTRATION RATE 72.8 (>35); POTASSIUM SERUM 4.7 MMOL/L (3.5-5.1); SODIUM LEVEL 140.0 MMOL/L (136-145)
== END ==
PROVIDERS: ATTEND Internal Medicine
DX: D64.9 Anemia, unspecified (principal)

== ENCOUNTER → 2025-11-20 | Outpatient (REF) | payer MEDICARE, MEDICAID ==
[2025-11-20 13:03] LABS: BASO # 0.0 10^3/uL (0.0-0.2); BASO % 0.3 % (0.0-1.0); EOS # 0.2 10^3/uL (0.0-0.5); EOS % 2.4 % (0.0-3.0); LYMPH # 0.6 10^3/uL (1.5-5.0); LYMPH % 9.6 % (24.0-44.0); MONO # 0.4 10^3/uL (0.0-0.8); MONO % 6.6 % (2.0-8.0); NEUTROPHILS # 5.1 10^3/uL (1.5-8.5); NEUTROPHILS % 80.9 % (36.0-66.0); PLATELET COUNT, AUTOMATED 156 10^3/uL (150-450)
[2025-11-20 13:37] LABS: ALT/SGPT 18.0 U/L (7.0-40); AST/SGOT 17.0 U/L (<34); CALCIUM LEVEL 8.8 MG/DL (8.3-10.6); CARBON DIOXIDE LEVEL 31.0 MMOL/L (20-31); CHLORIDE LEVEL 102.0 MMOL/L (98-107); CREATININE FOR GFR 1.11 MG/DL (0.70-1.30); GLOMERULAR FILTRATION RATE 64.3 (>35); POTASSIUM SERUM 4.4 MMOL/L (3.5-5.1); SODIUM LEVEL 140.0 MMOL/L (136-145)
== END ==
PROVIDERS: ATTEND Internal Medicine
DX: D64.9 Anemia, unspecified (principal)